=== PATIENT | female | born 1980 | race African-American/Black ===

== ENCOUNTER 2018-05-24 06:44 | Emergency (ER) | payer SELFPAY ==
[2018-05-24] MEDS ORDERED: MORPHINE 4 MG/ML SYR ONE ×2 (07:27→09:46)
[2018-05-24] MEDS ORDERED: NA CHLORIDE 0.9% 1,000 ML ONE (07:27)
[2018-05-24] MEDS ORDERED: ONDANSETRON 4 MG/2 ML VIAL ONE ×2 (07:27→09:46)
[2018-05-24 07:42] LABS: Absolute Lymphocytes (CBC) 2.5 K/uL (0.7-4.9); Absolute Monocytes 0.7 K/uL (0.1-1.3); Absolute Neutrophil 11.1 K/uL (1.8-8.0); Basophils % 0.2 % (0-1.3); Eosinophils % 3.7 % (0-4.4); Hematocrit 44.7 % (36.0-45.0); Lymphocytes % 16.7 % (15.3-44.8); MCH 32.6 pg (27.0-35.0); MCV 97.6 fL (80-100); MPV 8.5 fL (7.6-11.3); Monocytes % 4.9 % (3.3-12.3); RBC Red Blood Cell Count 4.58 M/uL (3.86-4.86)
[2018-05-24 08:05] LABS: ALT/SGPT 25 U/L (12-78); AST/SGOT 13 U/L (15-37); Albumin 3.9 g/dL (3.4-5.0); Alkaline Phosphatase 102 U/L (45-117); BUN Blood Urea Nitrogen 14 mg/dL (7-18); Bicarbonate 24 mmol/L (21-32); Bilirubin Direct 0.1 mg/dL (0-0.2); Bilirubin Total 0.3 mg/dL (0.2-1.0); Glucose Level 112 mg/dL (74-106); Lipase 121 U/L (73-393); Potassium 3.8 mmol/L (3.5-5.1); Protein, Total 8.3 g/dL (6.4-8.2); Sodium Level 139 mmol/L (136-145)
--- NOTE | 2018-05-24 09:00 | RAD REPORT ---
EXAM DESCRIPTION: CTAbdomen Pelvis W Contrast - 05/24/2018 8:50 am CLINICAL HISTORY: Abdominal pain. iv contrast only;Abd pain COMPARISON: CT ABD PELVIS W CONTRAST dated 11/29/2011; CT ABD PELVIS W CONTRAST dated 07/07/2009; CT HEAD SPINE CAP W CONTRAST dated 09/14/[address]: [address] imaging of the abdomen and pelvis was performed with 100 ml non-ionic IV cont rast. All CT scans are performed using dose optimization technique as appropriate and may include automated exposure control or mA/KV adjustment according to patient size. FINDINGS: The lung bases are clear. The liver, spleen, pancreas, adrenal glands and kidneys are within normal limits. Benign 18 mm cyst i s present right kidney anteriorly. No bowel obstruction, free air, free fluid or abscess. Scattered colonic diverticulosis is present wi thout diverticulitis. The appendix is normal. No evidence of significant lymphadenopathy. Moderate L5-S1 spondylosis. Hysterectomy. IMPRESSION: No acute intra-abdominal or pelvic finding. Scattered colonic diverticulosis.
--- NOTE | 2018-05-24 09:39 | EDPHYS ---
Physician Documentation [facility] Name: Evelyn Rosa Age: 37 yrs Sex: Female : 1980 Arrival Date: 05/24/2018 Time: 06:47 Bed 6 Private MD: ED Physician Dhaval Perkins HPI: 05/24 07:26 This 37 yrs old Black Female presents to ER via Ambulatory with complaints of Abdominal kb Pain, Nausea. 07:26 The patient presents with abdominal pain in the upper abdomen. Onset: The kb symptoms/episode began/occurred yesterday. The symptoms do not radiate. Associated signs and symptoms: Pertinent positives: nausea, vomiting, and diarrhea, Pertinent negatives: anorexia, blood in stools, chest pain, constipation, dysuria, fever, headache, hematuria, palpitations, shortness of breath, vaginal discharge, vomiting blood. The symptoms are described as constant. Modifying factors: The symptoms are alleviated by nothing, the symptoms are aggravated by nothing. Severity of pain: At its worst the pain was moderate in the emergency department the pain is unchanged. The patient has experienced similar episodes in the past, a few times. The patient has not recently seen a physician. Pt reports abd pain, nausea, vomiting and diarrhea since yesterday morning. . 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 - Social history:: Smoking status: Patient uses tobacco products, denies chronic smoking, but will smoke occasionally, Patient uses street drugs, marijuana. - Ebola Screening: : Patient denies exposure to infectious person Patient denies travel to an Ebola-affected area in the 21 days before illness onset. ROS: 07:26 Constitutional: Negative for fever, chills, and weight loss, Cardiovascular: Negative kb for chest pain, palpitations, and edema, Respiratory: Negative for shortness of breath, cough, wheezing, and pleuritic chest pain, Back: Negative for injury and pain, : Negative for injury, bleeding, discharge, and swelling, MS/Extremity: Negative for injury and deformity, Skin: Negative for injury, rash, and discoloration, Neuro: Negative for headache, weakness, numbness, tingling, and seizure. 07:26 Abdomen/GI: Positive for abdominal pain, nausea, vomiting, and diarrhea. Exam: 07:28 Head/Face: Normocephalic, atraumatic. Chest/axilla: Normal chest wall appearance and kb motion. Nontender with no deformity. No lesions are appreciated. Cardiovascular: Regular rate and rhythm with a normal S1 and S2. No gallops, murmurs, or rubs. Normal PMI, no JVD. No pulse deficits. Respiratory: Lungs have equal breath sounds bilaterally, clear to auscultation and percussion. No rales, rhonchi or wheezes noted. No increased work of breathing, no retractions or nasal flaring. Back: No spinal tenderness. No costovertebral tenderness. Full range of motion. Skin: Warm, dry with normal turgor. Normal color with no rashes, no lesions, and no evidence of cellulitis. MS/ Extremity: Pulses equal, no cyanosis. Neurovascular intact. Full, normal range of motion. Neuro: Awake and alert, GCS 15, oriented to person, place, time, and situation. Cranial nerves II-XII grossly intact. Motor strength 5/5 in all extremities. Sensory grossly intact. Cerebellar exam normal. Normal gait. 07:28 Constitutional: The patient appears alert, awake, uncomfortable. 07:28 Abdomen/GI: Inspection: abdomen appears normal, Bowel sounds: normal, in all quadrants, Palpation: soft, in all quadrants, moderate abdominal tenderness, in all quadrants. Vital Signs: 07:03 BP 116 / 79; Pulse 108; Resp 20; Temp 98.5(O); Pulse Ox 100% on R/A; Weight 77.11 kg; ss Height 5 ft. 5 in. (165.10 cm); Pain 10/10; 09:30 BP 123 / 97; Pulse 96; Resp 16; Pulse Ox 100% on R/A; Pain 7/10; ss 07:03 Body Mass Index 28.29 (77.11 kg, 165.10 cm) MDM: 06:55 Patient medically screened. kb 07:27 Data reviewed: vital signs, nurses notes. Data interpreted: Pulse oximetry: on room air kb is 100 %. Interpretation: normal. 09:37 Counseling: I had a detailed discussion with the patient and/or guardian regarding: the kb historical points, exam findings, and any diagnostic results supporting the discharge/admit diagnosis, lab results, radiology results, the need for outpatient follow up, a family practitioner, a hospitality job titles, to return to the emergency department if symptoms worsen or persist or if there are any questions or concerns that arise at home. 05/24 07:00 Order name: Basic Metabolic Panel; Complete Time: 08:13 kb 05/24 07:00 Order name: CBC with Diff; Complete Time: 07:53 kb 05/24 07:00 Order name: Hepatic Function; Complete Time: 08:13 kb 05/24 07:00 Order name: Lipase; Complete Time: 08:13 kb 05/24 07:00 Order name: CT Abd/Pelvis - W/Contrast; Complete Time: 09:37 kb 05/24 09:31 Order name: Urine Dipstick--Ancillary (enter results) bd 05/24 07:00 Order name: IV Saline Lock; Complete Time: 07:16 kb 05/24 07:00 Order name: Labs collected and sent; Complete Time: 07:16 kb 05/24 07:00 Order name: Urine Dipstick-Ancillary (obtain specimen); Complete Time: 08:42 kb Administered Medications: 07:24 Drug: Zofran 4 mg Route: IVP; Site: left antecubital; ss 09:32 Follow up: Response: No adverse reaction; Nausea is decreased ss 07:26 Drug: NS 0.9% 1000 ml Route: IV; Rate: 1000 ml; Site: left antecubital; ss 09:32 Follow up: IV Status: Completed infusion; IV Intake: 1000ml ss 07:26 Drug: morphine 4 mg Route: IVP; Site: left antecubital; ss 09:32 Follow up: Response: No adverse reaction; Pain is decreased ss 09:48 Drug: ProTONIX 40 mg Route: IVP; Site: left antecubital; ss 10:15 Follow up: Response: No adverse reaction; Marked relief of symptoms ss 09:50 Drug: Bentyl 20 mg Route: PO; ss 10:15 Follow up: Response: No adverse reaction ss 09:50 Drug: Zofran 4 mg Route: IVP; Site: left antecubital; ss 10:15 Follow up: Response: No adverse reaction; Marked relief of symptoms ss 09:50 Drug: morphine 4 mg Route: IVP; Site: left antecubital; ss 10:15 Follow up: Response: No adverse reaction; Pain is decreased ss Disposition: 05/24/18 09:38 Discharged to Home. Impression: Generalized abdominal pain, Nausea and vomiting, Diarrhea, unspecified. - Condition is Stable. - Discharge Instructions: Food Choices to Help Relieve Diarrhea, Adult, Abdominal Pain, Adult, [id number]. - Prescriptions for Bentyl 20 mg Oral Tablet - take 1 tablet by ORAL route every 6 hours As needed; 20 tablet. - Medication Reconciliation Form, Thank You Letter, Antibiotic Education, Prescription Opioid Use, Work release form form. - Follow up: Emergency Department; When: As needed; Reason: Worsening of condition. Follow up: Private Physician; When: 2 - 3 days; Reason: Recheck today's complaints, Continuance of care, Re-evaluation by your physician. Addendum: 05/27/2018 06:41 Co-signature as Attending Physician, Dhaval Perkins MD. g s Signatures: Dispatcher [employer] EDMN Miladis Ramirez, HEALTHCARE SCIENCE SPECIALIST-C HEALTHCARE SCIENCE SPECIALIST-CkNita Borrego Shelby, RN RN ss Starr, Gregory, MD MD Corrections: (The following items were deleted from the chart) 05/24 10:23 09:38 05/24/2018 09:38 Discharged to Home. Impression: Generalized abdominal pain; bd Nausea and vomiting; Diarrhea, unspecified. Condition is Stable. Forms are Medication Reconciliation Form, Thank You Letter, Antibiotic Education, Prescription Opioid Use. Follow up: Emergency Department; When: As needed; Reason: Worsening of condition. Follow up: Private Physician; When: 2 - 3 days; Reason: Recheck today's complaints, Continuance of care, Re-evaluation by your physician. kb
--- NOTE | 2018-05-24 09:39 | ER ---
Nurse's Notes [facility] Name: Evelyn Rosa Age: 37 yrs Sex: Female : 1980 Arrival Date: 05/24/2018 Time: 06:47 Bed 6 Private MD: Diagnosis: Generalized abdominal pain;Nausea and vomiting;Diarrhea, unspecified Presentation: 05/24 07:01 Presenting complaint: Patient states: generalized abd pain, N/V/D that began 24 hours ss ago. Transition of care: patient was not received from another setting of care. Onset of symptoms was May 23, 2018. Risk Assessment: Do you want to hurt yourself or someone else? Patient reports no desire to harm self or others. Initial Sepsis Screen: Does the patient meet any 2 criteria? No. Patient's initial sepsis screen is negative. Does the patient have a suspected source of infection? No. Patient's initial sepsis screen is negative. Care prior to arrival: None. 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 - Social history:: Smoking status: Patient uses tobacco products, denies chronic smoking, but will smoke occasionally, Patient uses street drugs, marijuana. - Ebola Screening: : Patient denies exposure to infectious person Patient denies travel to an Ebola-affected area in the 21 days before illness onset. Screenin:02 Abuse screen: Denies threats or abuse. Denies injuries from another. Nutritional ss screening: No deficits noted. Tuberculosis screening: Never had TB. Fall Risk None identified. Assessment: 07:02 General: Appears distressed, uncomfortable, Behavior is cooperative, restless, Reports ss chills for 12-24 hours, feeling ill for 12-24 hours, Denies fever. General: tearful, is producing tears. Pain: Complains of pain in abdomen Pain currently is 10 out of 10 on a pain scale. Quality of pain is described as aching, crampy, sharp, tender, Pain began "it hurts like this all the time, but got much worse the last 24 hours" Is continuous, Alleviated by repositioning. Neuro: Level of Consciousness is awake, alert, obeys commands, Oriented to person, place, time, situation. Cardiovascular: Capillary refill < 3 seconds is brisk in bilateral fingers. Respiratory: Airway is patent Respiratory effort is even, unlabored, Respiratory pattern is regular, symmetrical, Breath sounds are clear bilaterally. Denies cough, shortness of breath. GI: Bowel sounds present X 4 quads. Abd is soft X 4 quads Abdomen is tender to palpation X 4 quads. GI: Reports lower abdominal pain, upper abdominal pain, cramping, diarrhea, intolerance of fluids, intolerance of food, nausea, vomiting, pt reports GI symptoms are "all the time", but got much worse the past 24 hours. Pt reports that she has not had a BM "in a while", but reports yesterday she began having diarrhea. : Denies burning with urination, urinary frequency. EENT: Oral mucosa is moist. Derm: Skin is intact, is healthy with good turgor, Skin is pink, warm \\T\\ dry. normal. Musculoskeletal: Circulation, motion, and sensation intact. Range of motion: intact in all extremities, Swelling absent. 09:51 Reassessment: Patient appears in no apparent distress at this time. Patient and/or ss family updated on plan of care and expected duration. Pain level reassessed. pt reports that she would like to wait in her room until her friend picks her up in approx 15 minutes. Pt is grateful for care received. Patient states feeling better. Patient states symptoms have improved. Vital Signs: 07:03 BP 116 / 79; Pulse 108; Resp 20; Temp 98.5(O); Pulse Ox 100% on R/A; Weight 77.11 kg; ss Height 5 ft. 5 in. (165.10 cm); Pain 10/10; 09:30 BP 123 / 97; Pulse 96; Resp 16; Pulse Ox 100% on R/A; Pain 7/10; ss 07:03 Body Mass Index 28.29 (77.11 kg, 165.10 cm) ED Course: 06:47 Patient arrived in ED. ds1 06:54 Miladis Ramirez FNP-C is PHCP. kb 06:54 Dhaval Perkins MD is Attending Physician. kb 07:02 Triage completed. ss 07:02 Patient has correct armband on for positive identification. Placed in gown. Bed in low ss position. Call light in reach. Side rails up X 1. Pulse ox on. NIBP on. 07:02 Patient maintains SpO2 saturation greater than 95% on room air. ss 07:03 Arm band placed on right wrist. ss 07:15 Inserted saline lock: 22 gauge in left antecubital area, using aseptic technique. Blood ss collected. 07:25 Candelaria Hebert, JOHN is Primary Nurse. ss 08:42 Urine collected: clean catch specimen, clear. dh3 08:50 CT Abd/Pelvis - W/Contrast In Process Unspecified. EDMS Administered Medications: 07:24 Drug: Zofran 4 mg Route: IVP; Site: left antecubital; ss 09:32 Follow up: Response: No adverse reaction; Nausea is decreased ss 07:26 Drug: NS 0.9% 1000 ml Route: IV; Rate: 1000 ml; Site: left antecubital; ss 09:32 Follow up: IV Status: Completed infusion; IV Intake: 1000ml ss 07:26 Drug: morphine 4 mg Route: IVP; Site: left antecubital; ss 09:32 Follow up: Response: No adverse reaction; Pain is decreased ss 09:48 Drug: ProTONIX 40 mg Route: IVP; Site: left antecubital; ss 10:15 Follow up: Response: No adverse reaction; Marked relief of symptoms ss 09:50 Drug: Bentyl 20 mg Route: PO; ss 10:15 Follow up: Response: No adverse reaction ss 09:50 Drug: Zofran 4 mg Route: IVP; Site: left antecubital; ss 10:15 Follow up: Response: No adverse reaction; Marked relief of symptoms ss 09:50 Drug: morphine 4 mg Route: IVP; Site: left antecubital; ss 10:15 Follow up: Response: No adverse reaction; Pain is decreased ss Intake: 09:32 IV: 1000ml; Total: 1000ml. ss Outcome: 09:38 Discharge ordered by . kb 10:23 Patient left the ED. bd Signatures: Dispatcher [employer] EDMS Miladis Ramirez, LEONELA OLIVA-Ckb Nita Bahena Demi ds1 Candelaria Hebert, RN RN ss Clau Mcguire 3
[2018-05-24] MEDS ORDERED: DICYCLOMINE HCL 10 MG CAP ONE (09:44)
[2018-05-24] MEDS ORDERED: PANTOPRAZOLE 40 MG INJ ONE (09:46)
[2018-05-24 10:41] LABS: Urine Blood TRACE (NEG); Urine Glucose NEGATIVE (NEG); Urine Protein NEGATIVE (NEG); Urine Specific Gravity >1.030 (1.005-1.030); Urine pH 5.5 (5.0-7.0)
[2018-05-24 10:56] VITALS: TEMP 98.5; O2SAT 100
[2018-05-24 10:57] VITALS: BP 123/97
== END 2018-05-24 10:23 | disposition home or self-care (01) ==
LOC: ER 06:44
DX: R11.2 Nausea with vomiting, unspecified (principal); R19.7 Diarrhea, unspecified; Z72.0 Tobacco use; Z88.0 Allergy status to penicillin; Z88.5 Allergy status to narcotic agent
CPT/HCPCS: 36415; 74177; 80048; 80076; 81003; 83690; 85025; 96361; 96374; 96375; 99284; C9113; J2405; J7030; Q9967

== ENCOUNTER 2018-09-05 08:30 | Emergency (ER) | payer SELFPAY ==
[2018-09-05] MEDS ORDERED: ONDANSETRON 4 MG/2 ML VIAL ONE ×2 (08:50→12:23)
[2018-09-05] MEDS ORDERED: LIDOCAINE VISCOUS 2% SOLN 15 ML UDC ONE (08:50)
[2018-09-05] MEDS ORDERED: MAGNE/ALUM HYDROXD 30 ML UCUP ONE (08:50)
[2018-09-05] MEDS ORDERED: NA CHLORIDE 0.9% 1,000 ML ONE ×2 (08:50→12:23)
[2018-09-05 08:58] LABS: Absolute Lymphocytes (CBC) 1.6 K/uL (0.7-4.9); Absolute Monocytes 0.7 K/uL (0.1-1.3); Absolute Neutrophil 13.3 K/uL (1.8-8.0); Basophils % 0.6 % (0-1.3); Eosinophils % 0.1 % (0-4.4); Hematocrit 40.6 % (36.0-45.0); Lymphocytes % 10.1 % (15.3-44.8); Monocytes % 4.4 % (3.3-12.3); RBC Red Blood Cell Count 4.31 M/uL (3.86-4.86)
[2018-09-05 09:08] LABS: Bilirubin Direct 0.1 mg/dL (0-0.2); Bilirubin Total 0.5 mg/dL (0.2-1.0); Protein, Total 8.2 g/dL (6.4-8.2)
[2018-09-05] MEDS ORDERED: MEPERIDINE HCL 25 MG/0.5 ML ONE (09:55)
[2018-09-05 10:57] LABS: Urine Blood TRACE (NEG); Urine Glucose NEGATIVE (NEG); Urine Protein NEGATIVE (NEG); Urine Specific Gravity 1.015 (1.005-1.030)
--- NOTE | 2018-09-05 12:06 | RAD REPORT ---
EXAM DESCRIPTION: CT - Abdomen Pelvis W Contrast - 09/05/2018 11:39 am CLINICAL HISTORY: Abdominal pain, right lower quadrant pain, prior hysterectomy, history of pancreat itis and gastritis COMPARISON: CT imaging May 2018 TECHNIQUE: Biphasic, helical CT imaging of the abdomen and pelvis was performed following 100 ml non -ionic IV contrast. Oral contrast administered. All CT scans are performed using dose optimization technique as appropriate and may include automated exposure control or mA/KV adjustment according to patient size. FINDINGS: No suspicious findings in the lung bases. The liver, spleen, and pancreas show no suspicious findings. Gallbladder and biliary tree are also wi thout suspicious finding. Symmetric renal function is seen with no hydronephrosis or suspicious renal mass. No pyelonephritis o r acute parenchymal process. Small renal cysts are present on the right. Urinary bladder is fully con tracted limiting assessment. No adrenal abnormality seen. Uterus is absent. Left ovary is unremarkabl e. Right ovary contains a 3.2 centimeter cyst. No cyst rupture or hemorrhage findings. No suspicious characteristics of the cyst. No gastric dilatation or wall thickening. No dilated small bowel loops. Appendix is normal. Oral cont rast has reached the distal rectum. Ball of the right side colon accentuated due to incomplete diste nsion. Active colon process is not suspected. No free air, free fluid or inflammatory stranding. No hernia, mass or bulky lymphadenopathy. No acute bone finding. Patient has significant, advanced for age degenerative change at the L5-S1 dis c space. There is bilateral bony foraminal encroachment from spurring. IMPRESSION: No appendicitis or acute GI process identifiable. No acute process identified. Urinary bladder is fully contracted which limits assessment. Uterus is absent. Right ovary contains a 3.2 centimeter cyst. No cyst rupture or hemorrhage findings.
[2018-09-05] MEDS ORDERED: HYDROCODONE/APAP 10/325 TAB ONE (12:22)
--- NOTE | 2018-09-05 13:12 | ER ---
Nurse's Notes [facility] Name: Evelyn Rosa Age: 38 yrs Sex: Female : 1980 Arrival Date: 09/05/2018 Time: 08:31 Bed 8 Private MD: Diagnosis: Viral gastroenteritis;Unspecified ovarian cysts;Dehydration Presentation: 09/05 08:26 Presenting complaint: EMS states: n/v/acid reflux/RLE cramps x 48 hrs. Transition of sv care: patient was not received from another setting of care. Onset of symptoms was September 03, 2018. Risk Assessment: Do you want to hurt yourself or someone else? Patient reports no desire to harm self or others. Initial Sepsis Screen: Does the patient meet any 2 criteria? No. Patient's initial sepsis screen is negative. Does the patient have a suspected source of infection? No. Patient's initial sepsis screen is negative. Care prior to arrival: None. 08:26 Method Of Arrival: EMS: [facility] sv 08:26 Acuity: INDIGO 3 sv Triage Assessment: 08:26 General: Appears in no apparent distress. uncomfortable, well developed, Behavior is sv cooperative, appropriate for age, restless. Pain: Complains of pain in "all over" Pain currently is 10 out of 10 on a pain scale. Quality of pain is described as crampy, Pain began 1 day ago. Is continuous. Neuro: Level of Consciousness is awake, alert, obeys commands, Oriented to person, place, time, situation, Moves all extremities. Full function Gait is steady, Speech is normal. Respiratory: Respiratory effort is even, unlabored, Respiratory pattern is regular, symmetrical. GI: Abdomen is flat, Abd is soft X 4 quads Abdomen is tender to palpation X 4 quads. Reports diarrhea, nausea, vomiting. Derm: Skin is pink, warm \\T\\ dry. Historical: - Allergies: 08:33 PENICILLINS; ss 08:33 Toradol; ss - PMHx: 08:33 Anxiety; Chronic Pancreatitis; Crohn's; Degenerative disc disease; gastritits; ibs; ss Pancreatitis; - PSHx: 08:33 c section; Hysterectomy; ss - Immunization history:: Adult Immunizations up to date, Flu vaccine is not up to date. - Social history:: Smoking status: Patient uses tobacco products, denies chronic smoking, but will smoke occasionally, Patient uses alcohol, but reports only rare drinking. street drugs, marijuana. - Ebola Screening: : No symptoms or risks identified at this time. - Family history:: not pertinent. - Hospitalizations: : No recent hospitalization is reported. Screenin:24 Abuse screen: Denies threats or abuse. Denies injuries from another. Nutritional sv screening: No deficits noted. Tuberculosis screening: No symptoms or risk factors identified. Fall Risk None identified. Assessment: 09:22 Reassessment: Patient appears in no apparent distress at this time. No changes from sv previously documented assessment. Patient and/or family updated on plan of care and expected duration. Pain level reassessed. Patient is alert, oriented x 3, equal unlabored respirations, skin warm/dry/pink. 09:45 Reassessment: Pt finished CT oral contrast, CT notified. Pt appears uncomfortable. Pt aa5 states "the nausea is a little better but the pain is not better" . 09:45 Neuro: Level of Consciousness is awake, alert, obeys commands, Oriented to person, aa5 place, time, situation. Respiratory: Airway is patent Respiratory effort is even, unlabored, Respiratory pattern is regular, symmetrical. Derm: Skin is dry, Skin is normal, Skin temperature is warm. 12:22 Reassessment: Patient appears in no apparent distress at this time. Patient and/or sv family updated on plan of care and expected duration. Pain level reassessed. Patient is alert, oriented x 3, equal unlabored respirations, skin warm/dry/pink. GI: Reports nausea. 12:54 Reassessment: Patient appears in no apparent distress at this time. Patient and/or sv family updated on plan of care and expected duration. Pain level reassessed. Patient is alert, oriented x 3, equal unlabored respirations, skin warm/dry/pink. Patient states feeling better. Patient states symptoms have improved. Vital Signs: 08:30 BP 96 / 79; Pulse 91; Resp 22; Pulse Ox 99% ; Weight 79.38 kg; Height 5 ft. 5 in. sv (165.10 cm); Pain 10/10; 08:35 Temp 98.5(O); ss 09:21 BP 101 / 68; Pulse 70; Resp 20; Pulse Ox 100% ; sv 10:19 BP 115 / 71; Pulse 74; Resp 18; Pulse Ox 98% ; sv 11:15 BP 97 / 56; Pulse 70; Resp 18; Pulse Ox 99% ; sv 12:22 BP 99 / 65; Pulse 62; Resp 18; Pulse Ox 100% ; sv 12:54 BP 107 / 88; Pulse 60; Resp 18; Pulse Ox 100% ; sv 08:30 Body Mass Index 29.12 (79.38 kg, 165.10 cm) sv ED Course: 08:30 Patient has correct armband on for positive identification. Placed in gown. Bed in low sv position. Call light in reach. Side rails up X2. Pulse ox on. NIBP on. Door closed. Head of bed elevated. 08:31 Patient arrived in ED. ss 08:33 Ken Lim MD is Attending Physician. rn 08:33 Arm band placed on left wrist. ss 08:34 Linn Kitchen, JOHN is Primary Nurse. sv 08:35 Triage completed. sv 08:35 Initial lab(s) drawn, by ED staff, sent to lab. Inserted saline lock: 22 gauge in left sv antecubital area, using aseptic technique. ,using aseptic technique. done by Candelaria LOPEZ Blood collected. Flushed left antecubital with 5 ml normal saline. 08:56 Radiology exam delayed due to lab results not completed at this time. (BUN/Creatinine). vm2 11:[address] via wheelchair. vr 11:39 CT Abd/Pelvis - W/Contrast In Process Unspecified. EDMS 11:[address]. sv 13:29 No provider procedures requiring assistance completed. IV discontinued, intact, ss bleeding controlled, No redness/swelling at site. Pressure dressing applied. Administered Medications: 08:46 Drug: Zofran 4 mg Route: IVP; Site: left antecubital; sv 09:21 Follow up: Response: No adverse reaction sv 08:46 Drug: NS 0.9% 1000 ml Route: IV; Rate: 1000 ml; Site: left antecubital; sv 12:20 Follow up: Response: No adverse reaction; IV Status: Completed infusion; IV Intake: sv 1000ml 09:00 Drug: GI Cocktail without - (Maalox Suspension 30 ml, Lidocaine Liquid 2 % 15 sv ml) Route: PO; 09:22 Follow up: Response: No adverse reaction; No change in condition sv 09:46 Drug: Demerol 25 mg Route: IVP; Site: left antecubital; aa5 11:00 Follow up: Response: No adverse reaction; Pain is decreased ss 12:20 Drug: Zofran 4 mg Route: IVP; Site: left antecubital; sv 12:53 Follow up: Response: No adverse reaction; Marked relief of symptoms; Nausea is decreasedsv 12:20 Drug: NS 0.9% 1000 ml Route: IV; Rate: 1000 ml; Site: left antecubital; sv 13:20 Follow up: Response: No adverse reaction; IV Status: Completed infusion; IV Intake: sv 1000ml 12:53 Drug: [place] 10 mg-325 mg 1 tabs Route: PO; sv 13:20 Follow up: Response: No adverse reaction; Pain is decreased sv Intake: 09:45 PO: 500ml (Contrast); Total: 500ml. sv 12:20 IV: 1000ml; Total: 1500ml. sv 13:20 IV: 1000ml; Total: 2500ml. sv Outcome: 13:11 Discharge ordered by . rn 13:29 Discharged to home ambulatory. ss 13:29 Condition: good 13:29 Discharge instructions given to patient, family, Instructed on discharge instructions, follow up and referral plans. medication usage, Demonstrated understanding of instructions, follow-up care, medications, Prescriptions given X 1. 13:29 Patient left the ED. ss Signatures: Dispatcher [employer] Linn Genao RN RN sv Nieto, Roman, MD MD rn Calderon, Audri, RN RN aa5 Smirch, Shelby, RN RN ss Davis, Victoria vr McGuire, Victoria [facility]
--- NOTE | 2018-09-05 13:13 | EDPHYS ---
Physician Documentation [facility] Name: Evelyn Rosa Age: 38 yrs Sex: Female : 1980 Arrival Date: 09/05/2018 Time: 08:31 Bed 8 Private MD: ED Physician Ken Lim HPI: 09/05 08:34 This 38 yrs old Black Female presents to ER via Unassigned with complaints of Abdominal rn Pain. 08:34 The patient presents with abdominal pain that is diffuse. Onset: The symptoms/episode rn began/occurred 2 day(s) ago. The symptoms do not radiate. Associated signs and symptoms: Pertinent positives: nausea and vomiting, diarrhea, Pertinent negatives: dysuria, fever, shortness of breath, vaginal discharge, vomiting blood. Modifying factors: The symptoms are alleviated by nothing, the symptoms are aggravated by touching the area. Severity of pain: At its worst the pain was moderate in the emergency department the pain is unchanged. The patient has experienced similar episodes in the past. The patient has not recently seen a physician. Historical: - Allergies: 08:33 PENICILLINS; ss 08:33 Toradol; ss - PMHx: 08:33 Anxiety; Chronic Pancreatitis; Crohn's; Degenerative disc disease; gastritits; ibs; ss Pancreatitis; - PSHx: 08:33 c section; Hysterectomy; ss - Immunization history:: Adult Immunizations up to date, Flu vaccine is not up to date. - Social history:: Smoking status: Patient uses tobacco products, denies chronic smoking, but will smoke occasionally, Patient uses alcohol, but reports only rare drinking. street drugs, marijuana. - Ebola Screening: : No symptoms or risks identified at this time. - Family history:: not pertinent. - Hospitalizations: : No recent hospitalization is reported. ROS: 08:34 Constitutional: Negative for fever, chills, and weight loss, Eyes: Negative for injury, rn pain, redness, and discharge, Neck: Negative for injury, pain, and swelling, Cardiovascular: Negative for chest pain, palpitations, and edema, Respiratory: Negative for shortness of breath, cough, wheezing, and pleuritic chest pain, Abdomen/GI: + abd pain/nausea/vomiting/diarrhea MS/Extremity: Negative for injury and deformity, Skin: Negative for injury, rash, and discoloration, Neuro: + generalized weakness Exam: 08:34 Constitutional: This is a well developed, well nourished patient who is awake, alert, rn and in no acute distress. Head/Face: Normocephalic, atraumatic. Eyes: Pupils equal round and reactive to light, extra-ocular motions intact. Lids and lashes normal. Conjunctiva and sclera are non-icteric and not injected. Cornea within normal limits. Periorbital areas with no swelling, redness, or edema. ENT: dry MM Abdomen/GI: soft, mild tenderness all 4 quadrants, no rebound Back: No spinal tenderness. No costovertebral tenderness. Full range of motion. Skin: Warm, dry MS/ Extremity: Pulses equal, no cyanosis. Neurovascular intact. Full, normal range of motion. Equal circumference. Neuro: Awake and alert, GCS 15, oriented to person, place, time, and situation. Cranial nerves II-XII grossly intact. Motor strength 5/5 in all extremities. Sensory grossly intact. Cerebellar exam normal. Vital Signs: 08:30 BP 96 / 79; Pulse 91; Resp 22; Pulse Ox 99% ; Weight 79.38 kg; Height 5 ft. 5 in. sv (165.10 cm); Pain 10/10; 08:35 Temp 98.5(O); ss 09:21 BP 101 / 68; Pulse 70; Resp 20; Pulse Ox 100% ; sv 10:19 BP 115 / 71; Pulse 74; Resp 18; Pulse Ox 98% ; sv 11:15 BP 97 / 56; Pulse 70; Resp 18; Pulse Ox 99% ; sv 12:22 BP 99 / 65; Pulse 62; Resp 18; Pulse Ox 100% ; sv 12:54 BP 107 / 88; Pulse 60; Resp 18; Pulse Ox 100% ; sv 08:30 Body Mass Index 29.12 (79.38 kg, 165.10 cm) sv MDM: 08:33 Patient medically screened. rn 13:07 Differential diagnosis: appendicitis, cholecystitis, Cholelithiasis, diverticulitis, rn gastritis, gastroesophageal reflux disease, non-specific abd pain, enteritis, dehydration, pancreatitis. Data reviewed: vital signs, nurses notes, lab test result(s), radiologic studies, CT scan, and as a result, I will discharge patient. Counseling: I had a detailed discussion with the patient and/or guardian regarding: the historical points, exam findings, and any diagnostic results supporting the discharge/admit diagnosis, lab results, radiology results, the need for outpatient follow up, to return to the emergency department if symptoms worsen or persist or if there are any questions or concerns that arise at home. Response to treatment: the patient's symptoms have markedly improved after treatment, and as a result, I will discharge patient. Special discussion: Based on the patient's Hx, exam, and Dx evaluation, there is no indication for emergent surgery or inpatient Tx. It is understood by the patient/guardian that if the Sx's persist or worsen they need to return immediately for re-evaluation. I discussed with the patient/guardian in detail that at this point there is no indication for admission to the hospital. It is understood, however, that if the symptoms persist or worsen the patient needs to return immediately for re-evaluation. 09/05 08:33 Order name: Basic Metabolic Panel; Complete Time: 09:15 09/05 08:33 Order name: CBC with Diff; Complete Time: 09:15 09/05 08:33 Order name: Hepatic Function; Complete Time: 09:15 09/05 08:33 Order name: Lipase; Complete Time: 09:15 09/05 08:34 Order name: Flu; Complete Time: 09:15 09/05 09:42 Order name: Urine Dipstick--Ancillary (enter results); Complete Time: 11:00 09/05 08:33 Order name: CT Abd/Pelvis - W/Contrast; Complete Time: 12:08 09/05 09:42 Order name: Urine --Ancillary (enter results); Complete Time: 11:00 09/05 08:33 Order name: IV Saline Lock; Complete Time: 08:47 rn 09/05 08:33 Order name: Labs collected and sent; Complete Time: 08:47 rn Administered Medications: 08:46 Drug: Zofran 4 mg Route: IVP; Site: left antecubital; sv 09:21 Follow up: Response: No adverse reaction sv 08:46 Drug: NS 0.9% 1000 ml Route: IV; Rate: 1000 ml; Site: left antecubital; sv 12:20 Follow up: Response: No adverse reaction; IV Status: Completed infusion; IV Intake: sv 1000ml 09:00 Drug: GI Cocktail without - (Maalox Suspension 30 ml, Lidocaine Liquid 2 % 15 sv ml) Route: PO; 09:22 Follow up: Response: No adverse reaction; No change in condition sv 09:46 Drug: Demerol 25 mg Route: IVP; Site: left antecubital; aa5 11:00 Follow up: Response: No adverse reaction; Pain is decreased ss 12:20 Drug: Zofran 4 mg Route: IVP; Site: left antecubital; sv 12:53 Follow up: Response: No adverse reaction; Marked relief of symptoms; Nausea is decreasedsv 12:20 Drug: NS 0.9% 1000 ml Route: IV; Rate: 1000 ml; Site: left antecubital; sv 13:20 Follow up: Response: No adverse reaction; IV Status: Completed infusion; IV Intake: sv 1000ml 12:53 Drug: [place] 10 mg-325 mg 1 tabs Route: PO; sv 13:20 Follow up: Response: No adverse reaction; Pain is decreased sv Disposition: 09/05/18 13:11 Discharged to Home. Impression: Viral gastroenteritis, Unspecified ovarian cysts, Dehydration. - Condition is Stable. - Discharge Instructions: Dehydration, Adult, Ovarian Cyst, Viral Gastroenteritis, Adult. - Prescriptions for Zofran ODT 4 mg Oral tablet,disintegrating - place 1 tablet by TRANSLINGUAL route every 8 hours As needed; 20 tablet. - Medication Reconciliation Form, Thank You Letter, Antibiotic Education, Prescription Opioid Use form. - Follow up: Private Physician; When: As needed; Reason: Recheck today's complaints, Re-evaluation by your physician. - Problem is new. - Symptoms have improved. Signatures: Dispatcher [employer] Linn Genao RN Ken Bassett MD MD rn Calderon, Audri, RN RN aa5 Candelaria Hebert RN RN ss Corrections: (The following items were deleted from the chart) 13:29 13:11 09/05/2018 13:11 Discharged to Home. Impression: Viral gastroenteritis; ss Unspecified ovarian cysts; Dehydration. Condition is Stable. Forms are Medication Reconciliation Form, Thank You Letter, Antibiotic Education, Prescription Opioid Use. Follow up: Private Physician; When: As needed; Reason: Recheck today's complaints, Re-evaluation by your physician. Problem is new. Symptoms have improved. rn
[2018-09-05 13:37] VITALS: TEMP 98.5
[2018-09-05 13:42] VITALS: O2SAT 100
[2018-09-05 13:43] VITALS: BP 107/88
== END 2018-09-05 13:29 | disposition home or self-care (01) ==
LOC: ER 08:30
DX: A08.4 Viral intestinal infection, unspecified (principal); E86.0 Dehydration; N83.209 Unspecified ovarian cyst, unspecified side; Z72.0 Tobacco use; Z88.0 Allergy status to penicillin; Z88.5 Allergy status to narcotic agent
CPT/HCPCS: 36415; 74177; 80048; 80076; 81003; 81025; 83690; 85025; 87804; 96361; 96374; 96375; 99285; J2175; J2405; J7030; Q9967

== ENCOUNTER 2018-09-08 03:57 | Emergency (ER) | payer SELFPAY ==
[2018-09-08] MEDS ORDERED: NA CHLORIDE 0.9% 1,000 ML ONE (05:29)
[2018-09-08] MEDS ORDERED: DIPHENHYDRAMINE 50 MG/ML VIAL ONE (05:29)
[2018-09-08] MEDS ORDERED: FAMOTIDINE 20 MG/2 ML VIAL IV ONE (05:30)
[2018-09-08] MEDS ORDERED: DICYCLOMINE HCL 20 MG/2 ML AMP IM ONE (05:32)
[2018-09-08 05:34] LABS: Albumin 4.2 g/dL (3.4-5.0); Bilirubin Direct 0.2 mg/dL (0-0.2); Bilirubin Total 0.5 mg/dL (0.2-1.0); Potassium 3.4 mmol/L (3.5-5.1); Protein, Total 8.5 g/dL (6.4-8.2)
[2018-09-08] MEDS ORDERED: METOCLOPRAMIDE 10 MG/2mL INJ ONE (05:40)
[2018-09-08 06:51] LABS: Urine Bacteria <20 /HPF (<20); Urine Culture Reflex Order NOT NEEDED; Urine RBC <5 /HPF (NONE SEEN)
[2018-09-08 07:05] LABS: Urine Blood TRACE (NEG); Urine Glucose 2+ (NEG); Urine Protein NEGATIVE (NEG); Urine pH 8.5 (5.0-7.0)
[2018-09-08 07:20] LABS: Absolute Monocytes 0.8 K/uL (0.1-1.3); Absolute Neutrophil 14.7 K/uL (1.8-8.0); Basophils % 0.4 % (0-1.3); Eosinophils % 0.1 % (0-4.4); Hematocrit 41.3 % (36.0-45.0); Lymphocytes % 11.3 % (15.3-44.8); MPV 8.8 fL (7.6-11.3); Monocytes % 4.3 % (3.3-12.3); RBC Red Blood Cell Count 4.36 M/uL (3.86-4.86)
[2018-09-08] MEDS ORDERED: PROMETHAZINE 25 MG/ML VIAL ONE (07:56)
[2018-09-08] MEDS ORDERED: NA CHLORIDE 0.9% 100 ML IV ONE (07:56)
--- NOTE | 2018-09-08 08:02 | ER ---
Nurse's Notes [facility] Name: Evelyn Rosa Age: 38 yrs Sex: Female : 1980 Arrival Date: 09/08/2018 Time: 03:59 Bed 18 Private MD: Emory George E Diagnosis: Unspecified abdominal pain;Gastritis, unspecified Presentation: 09/08 04:05 Presenting complaint: Patient states: vomiting and abdominal pain since 3 days. The cc3 patient said she was here in the ER 3 days back with the same complaint but the pain just got worse. Transition of care: patient was not received from another setting of care. Onset of symptoms was September 05, 2018. Risk Assessment: Do you want to hurt yourself or someone else? Patient reports no desire to harm self or others. Initial Sepsis Screen: Does the patient meet any 2 criteria? No. Patient's initial sepsis screen is negative. Does the patient have a suspected source of infection? No. Patient's initial sepsis screen is negative. Care prior to arrival: None. 04:05 Method Of Arrival: Ambulatory cc3 04:05 Acuity: INDIGO 3 cc3 Triage Assessment: 04:05 General: Appears distressed, uncomfortable, Behavior is cooperative, crying. Pain: cc3 Complains of pain in abdomen Pain currently is 10 out of 10 on a pain scale. Quality of pain is described as aching, crampy. EENT: No signs and/or symptoms were reported regarding the EENT system. Neuro: Level of Consciousness is awake, alert, obeys commands, Oriented to person, place, time, situation, Appropriate for age. Cardiovascular: Patient's skin is warm and dry. Respiratory: Airway is patent Respiratory effort is even, unlabored, Respiratory pattern is regular, symmetrical. GI: Abdomen is round non-distended. : No signs and/or symptoms were reported regarding the genitourinary system. Derm: No signs and/or symptoms reported regarding the dermatologic system. Musculoskeletal: Circulation, motion, and sensation intact. Range of motion: intact in all extremities. 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 - Social history:: Smoking status: Patient uses tobacco products, smokes one pack cigarettes per day. - Ebola Screening: : No symptoms or risks identified at this time. - Family history:: not pertinent. - Hospitalizations: : No recent hospitalization is reported. Screenin:05 Abuse screen: Denies threats or abuse. Denies injuries from another. Nutritional cc3 screening: No deficits noted. Tuberculosis screening: No symptoms or risk factors identified. Fall Risk Ambulatory Aid- None/Bed Rest/Nurse Assist (0 pts). Gait- Normal/Bed Rest/Wheelchair (0 pts) Mental Status- Oriented to own ability (0 pts). Assessment: 04:05 GI: Bowel sounds present X 4 quads. Abd is soft Abdomen is tender to palpation X 4 cc3 quads. 05:20 Reassessment: Patient appears in no apparent distress at this time. Patient and/or cc3 family updated on plan of care and expected duration. Pain level reassessed. Patient is alert, oriented x 3, equal unlabored respirations, skin warm/dry/pink. 06:30 Reassessment: Patient appears in no apparent distress at this time. Patient and/or cc3 family updated on plan of care and expected duration. Pain level reassessed. Patient is alert, oriented x 3, equal unlabored respirations, skin warm/dry/pink. 07:00 General: Appears in no apparent distress. uncomfortable, Behavior is cooperative, hj appropriate for age, anxious. Pain: Complains of pain in abdomen. Neuro: Level of Consciousness is awake, alert, obeys commands, Oriented to person, place, time, situation, Appropriate for age. Cardiovascular: Capillary refill < 3 seconds Patient's skin is warm and dry. Respiratory: Airway is patent Respiratory effort is even, unlabored, Respiratory pattern is regular, symmetrical. GI: Bowel sounds present X 4 quads. Abd is soft Abdomen is tender to palpation. : No signs and/or symptoms were reported regarding the genitourinary system. EENT: No signs and/or symptoms were reported regarding the EENT system. Derm: No signs and/or symptoms reported regarding the dermatologic system. Musculoskeletal: No signs and/or symptoms reported regarding the musculoskeletal system. 08:23 Reassessment: Patient and/or family updated on plan of care and expected duration. Pain hj level reassessed. Patient is alert, oriented x 3, equal unlabored respirations, skin warm/dry/pink. pt for D/C; awaiting Phenergan IV to be finished;. Vital Signs: 04:05 BP 161 / 96; Pulse 77; Resp 20 S; Temp 99.3(O); Pulse Ox 99% on R/A; Weight 79.38 kg cc3 (R); Height 5 ft. 5 in. (165.10 cm) (R); Pain 10/10; 05:33 BP 156 / 103; Pulse 83; Resp 19 S; Pulse Ox 100% on R/A; cc3 06:30 BP 148 / 88; Pulse 69; Resp 19 S; Pulse Ox 99% on R/A; cc3 07:15 BP 142 / 87; Pulse 70; Resp 18; Pulse Ox 100% on R/A; hj 08:23 BP 141 / 80; Pulse 70; Resp 18; Pulse Ox 100% on R/A; hj 04:05 Body Mass Index 29.12 (79.38 kg, 165.10 cm) cc3 ED Course: 03:59 Patient arrived in ED. es 04:00 Monserrat Sutton is Primary Nurse. cc3 04:02 Emory George MD is Private Physician. es 04:05 Patient has correct armband on for positive identification. Placed in gown. Bed in low cc3 position. Call light in reach. Side rails up X 1. property assessment monitor on. Pulse ox on. NIBP on. 04:05 Arm band placed on right wrist. Patient notified of wait time. cc3 04:07 Emory Bustillos MD is Attending Physician. wa 04:22 Triage completed. cc3 04:50 Missed attempt(s): 22 gauge in left antecubital area. fc 04:55 Missed attempt(s): 22 gauge in right antecubital area. fc 05:23 Lab(s) recollected, by me, sent to lab. Inserted 18 gauge 10 cm midline to left upper fc arm brachial vein on first attempt. Line with good blood return and flushes well. Blood recollection done. 07:00 Report given to JOHN Mcneill. cc3 07:14 Osito Diane RN is Primary Nurse. hj 07:20 CBC with Diff Sent. hj 07:20 Basic Metabolic Panel Sent. hj 08:00 Emory Pablo MD is Referral Physician. wa 08:35 No provider procedures requiring assistance completed. IV discontinued, intact, hj bleeding controlled, No redness/swelling at site. Pressure dressing applied. Administered Medications: 05:20 Drug: NS 0.9% 1000 ml Route: IV; Rate: 1 bolus; Site: left upper arm; cc3 06:30 Follow up: Response: No adverse reaction; IV Status: Completed infusion; IV Intake: cc3 1000ml 05:25 Drug: Pepcid 20 mg Route: IVP; Site: left upper arm; cc3 05:48 Follow up: Response: No adverse reaction; Pain is decreased cc3 05:27 Drug: Bentyl 20 mg Route: IM; Site: right gluteus; cc3 05:48 Follow up: Response: No adverse reaction; Pain is decreased cc3 05:27 Not Given (unavailable): Compazine 10 mg IVP once fc 05:30 Drug: Reglan 10 mg Route: IVP; Site: left upper arm; cc3 05:47 Follow up: Response: No adverse reaction; Nausea is decreased; Vomiting decreased cc3 05:35 Drug: Benadryl 12.5 mg Route: IVP; Site: left upper arm; cc3 05:48 Follow up: Response: No adverse reaction; Marked relief of symptoms; Anxiety decreased cc3 07:54 Drug: Phenergan 12.5 mg Route: IVP; Site: left upper arm; hj 08:30 Follow up: Response: No adverse reaction; Nausea is decreased; Vomiting decreased hj 08:13 Drug: fentaNYL (PF) 50 mcg Route: IVP; Site: left upper arm; iw 08:30 Follow up: Response: No adverse reaction; Pain is decreased hj Intake: 06:30 IV: 1000ml; Total: 1000ml. cc3 Outcome: 08:01 Discharge ordered by . wa 08:35 Discharged to home ambulatory, with family. hj 08:35 Condition: stable 08:35 Discharge instructions given to patient, Instructed on discharge instructions, follow up and referral plans. medication usage, Demonstrated understanding of instructions, follow-up care, medications, Prescriptions given X 3. 08:37 Patient left the ED. Signatures: Melissa Camargo Felicia RN Carina De La Torre RN RN iw Joaquin, Henry, RN RN hj Appiah, William, MD MD wa Cordel, Charlene cc3
--- NOTE | 2018-09-08 08:02 | EDPHYS ---
Physician Documentation [facility] Name: Evelyn Rosa Age: 38 yrs Sex: Female : 1980 Arrival Date: 09/08/2018 Time: 03:59 Bed 18 Private MD: Emory George E ED Physician Emory Bustillos HPI: 09/08 07:53 This 38 yrs old Black Female presents to ER via Ambulatory with complaints of Abdominal wa Pain, Vomiting. 07:53 The patient presents to the emergency department with nausea, vomiting, abdominal pain. wa Onset: The symptoms/episode began/occurred 3 day(s) ago. Possible causes: unknown. The symptoms are aggravated by nothing. The symptoms are alleviated by nothing. Associated signs and symptoms: Pertinent positives: abdominal pain, nausea, vomiting, Pertinent negatives: diarrhea, dysuria, fever. Severity of symptoms: At their worst the symptoms were moderate this morning, in the emergency department the symptoms are unchanged. The patient has experienced similar episodes in the past, several times. The patient has not recently seen a physician. 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 - Social history:: Smoking status: Patient uses tobacco products, smokes one pack cigarettes per day. - Ebola Screening: : No symptoms or risks identified at this time. - Family history:: not pertinent. - Hospitalizations: : No recent hospitalization is reported. ROS: 07:55 Constitutional: Negative for fever, chills, and weight loss, Eyes: Negative for injury, wa pain, redness, and discharge, ENT: Negative for injury, pain, and discharge, Neck: Negative for injury, pain, and swelling, Cardiovascular: Negative for chest pain, palpitations, and edema, Respiratory: Negative for shortness of breath, cough, wheezing, and pleuritic chest pain, Back: Negative for injury and pain, : Negative for injury, bleeding, discharge, and swelling, MS/Extremity: Negative for injury and deformity, Skin: Negative for injury, rash, and discoloration, Neuro: Negative for headache, weakness, numbness, tingling, and seizure, Psych: Negative for depression, anxiety, suicide ideation, homicidal ideation, and hallucinations. 07:55 Abdomen/GI: Positive for abdominal pain, nausea, vomiting, Negative for diarrhea. 07:55 All other systems are negative. Exam: 07:56 Constitutional: This is a well developed, well nourished patient who is awake, alert, wa and in no acute distress. Head/Face: Normocephalic, atraumatic. Eyes: Pupils equal round and reactive to light, extra-ocular motions intact. Lids and lashes normal. Conjunctiva and sclera are non-icteric and not injected. Cornea within normal limits. Periorbital areas with no swelling, redness, or edema. ENT: Nares patent. No nasal discharge, no septal abnormalities noted. Tympanic membranes are normal and external auditory canals are clear. Oropharynx with no redness, swelling, or masses, exudates, or evidence of obstruction, uvula midline. Mucous membranes moist. Neck: Trachea midline, no thyromegaly or masses palpated, and no cervical lymphadenopathy. Supple, full range of motion without nuchal rigidity, or vertebral point tenderness. No Meningismus. Chest/axilla: Normal chest wall appearance and motion. Nontender with no deformity. No lesions are appreciated. Cardiovascular: Regular rate and rhythm with a normal S1 and S2. No gallops, murmurs, or rubs. Normal PMI, no JVD. No pulse deficits. Respiratory: Lungs have equal breath sounds bilaterally, clear to auscultation and percussion. No rales, rhonchi or wheezes noted. No increased work of breathing, no retractions or nasal flaring. Back: No spinal tenderness. No costovertebral tenderness. Full range of motion. Skin: Warm, dry with normal turgor. Normal color with no rashes, no lesions, and no evidence of cellulitis. MS/ Extremity: Pulses equal, no cyanosis. Neurovascular intact. Full, normal range of motion. Neuro: Awake and alert, GCS 15, oriented to person, place, time, and situation. Cranial nerves II-XII grossly intact. Motor strength 5/5 in all extremities. Sensory grossly intact. Cerebellar exam normal. Normal gait. Psych: Awake, alert, with orientation to person, place and time. Behavior, mood, and affect are within normal limits. 07:56 Abdomen/GI: Inspection: Bowel sounds: normal, Palpation: moderate abdominal tenderness, in all quadrants. Vital Signs: 04:05 BP 161 / 96; Pulse 77; Resp 20 S; Temp 99.3(O); Pulse Ox 99% on R/A; Weight 79.38 kg cc3 (R); Height 5 ft. 5 in. (165.10 cm) (R); Pain 10/10; 05:33 BP 156 / 103; Pulse 83; Resp 19 S; Pulse Ox 100% on R/A; cc3 06:30 BP 148 / 88; Pulse 69; Resp 19 S; Pulse Ox 99% on R/A; cc3 07:15 BP 142 / 87; Pulse 70; Resp 18; Pulse Ox 100% on R/A; hj 08:23 BP 141 / 80; Pulse 70; Resp 18; Pulse Ox 100% on R/A; hj 04:05 Body Mass Index 29.12 (79.38 kg, 165.10 cm) cc3 MDM: 04:07 Patient medically screened. nh 07:56 Differential diagnosis: Nonspecific abd pain, gastritis, pancreatitis. Data reviewed: nh vital signs, nurses notes. 07:59 Test interpretation: by ED physician or midlevel provider: leukocytosis. . Response to nh treatment: the patient's symptoms have markedly improved after treatment. 07:59 ED course: will have f/u with GI. . nh 09/08 04:39 Order name: Basic Metabolic Panel nh 09/08 04:39 Order name: CBC with Diff nh 09/08 04:39 Order name: Hepatic Function; Complete Time: 06:34 nh 09/08 04:39 Order name: Lipase; Complete Time: 06:34 nh 09/08 04:39 Order name: Urine Microscopic Only; Complete Time: 07:58 nh 09/08 04:40 Order name: Basic Metabolic Panel; Complete Time: 06:34 EDMS 09/08 04:40 Order name: CBC with Automated Diff; Complete Time: 07:58 EDWA 09/08 06:38 Order name: Urine Dipstick--Ancillary (enter results) [facility] 09/08 06:38 Order name: Urine --Ancillary (enter results); Complete Time: 07:58 mw2 09/08 06:57 Order name: Urine Dipstick-Ancillary; Complete Time: 07:58 EDMS 09/08 04:39 Order name: IV Saline Lock; Complete Time: 05:41 wa 09/08 04:39 Order name: Labs collected and sent; Complete Time: 05:41 wa 09/08 04:39 Order name: Urine Dipstick-Ancillary (obtain specimen); Complete Time: 06:35 nh Administered Medications: 05:20 Drug: NS 0.9% 1000 ml Route: IV; Rate: 1 bolus; Site: left upper arm; cc3 06:30 Follow up: Response: No adverse reaction; IV Status: Completed infusion; IV Intake: cc3 1000ml 05:25 Drug: Pepcid 20 mg Route: IVP; Site: left upper arm; cc3 05:48 Follow up: Response: No adverse reaction; Pain is decreased cc3 05:27 Drug: Bentyl 20 mg Route: IM; Site: right gluteus; cc3 05:48 Follow up: Response: No adverse reaction; Pain is decreased cc3 05:27 Not Given (unavailable): Compazine 10 mg IVP once fc 05:30 Drug: Reglan 10 mg Route: IVP; Site: left upper arm; cc3 05:47 Follow up: Response: No adverse reaction; Nausea is decreased; Vomiting decreased cc3 05:35 Drug: Benadryl 12.5 mg Route: IVP; Site: left upper arm; cc3 05:48 Follow up: Response: No adverse reaction; Marked relief of symptoms; Anxiety decreased cc3 07:54 Drug: Phenergan 12.5 mg Route: IVP; Site: left upper arm; hj 08:30 Follow up: Response: No adverse reaction; Nausea is decreased; Vomiting decreased hj 08:13 Drug: fentaNYL (PF) 50 mcg Route: IVP; Site: left upper arm; iw 08:30 Follow up: Response: No adverse reaction; Pain is decreased hj Disposition: 09/08/18 08:01 Discharged to Home. Impression: Unspecified abdominal pain, Gastritis, unspecified. - Condition is Stable. - Discharge Instructions: Abdominal Pain, Adult. - Prescriptions for promethazine 12.5 mg Oral tablet - take 2 tablet by ORAL route every 6 hours; 20 tablet. Pepcid 20 mg Oral Tablet - take 1 tablet by ORAL route once daily; 20 tablet. Tylenol- Codeine #4 300-60 mg Oral Tablet - take 1 tablet by ORAL route every 6 hours As needed; 20 tablet. - Work release form, Medication Reconciliation Form, Thank You Letter, Antibiotic Education, Prescription Opioid Use form. - Follow up: Emory Pablo MD; When: 2 - 3 days; Reason: Recheck today's complaints. - Problem is an acute exacerbation. - Symptoms have improved. - Notes: take medication as prescribed. see the gastro doctor for further evaluation as discussed Signatures: Dispatcher [employer] EDMS Lorraine Forbes RN RN Carina Orantes RN RN iw Joaquin, Henry, RN RN hj Appiah, William, MD MD wa Cordel, Charlene cc3 Corrections: (The following items were deleted from the chart) 08:37 08:01 09/08/2018 08:01 Discharged to Home. Impression: Unspecified abdominal pain; hj Gastritis, unspecified. Condition is Stable. Forms are Medication Reconciliation Form, Thank You Letter, Antibiotic Education, Prescription Opioid Use. Follow up: Emory Pablo; When: 2 - 3 days; Reason: Recheck today's complaints. Problem is an acute exacerbation. Symptoms have improved. [email or web address]
[2018-09-08] MEDS ORDERED: FENTANYL CITR 100 MCG/2 ML ONE (08:14)
[2018-09-08 08:52] VITALS: TEMP 99.3
[2018-09-08 08:54] VITALS: O2SAT 100
[2018-09-08 08:55] VITALS: BP 141/80
== END 2018-09-08 08:37 | disposition home or self-care (01) ==
LOC: ER 03:57
DX: K29.70 Gastritis, unspecified, without bleeding (principal); F17.210 Nicotine dependence, cigarettes, uncomplicated; F41.9 Anxiety disorder, unspecified; Z88.0 Allergy status to penicillin; Z88.5 Allergy status to narcotic agent
CPT/HCPCS: 36415; 80048; 80076; 81003; 81015; 81025; 83690; 85025; 96361; 96372; 96374; 96375; 99284; J0500; J2550; J2765; J3010; J7030

== ENCOUNTER 2020-04-20 09:31 | Emergency (ER) | payer SELFPAY, OTHER ==
[2020-04-20] MEDS ORDERED: METHYLPREDNISOLONE 125 MG INJ ONE (10:20)
[2020-04-20] MEDS ORDERED: ONDANSETRON 4 MG (ODT) TAB ONE (10:20)
[2020-04-20] MEDS ORDERED: PROMETHAZINE 25 MG TABLET ONE (11:25)
--- NOTE | 2020-04-20 11:53 | RAD REPORT ---
EXAM DESCRIPTION: RAD - Lumbar Spine 3 Views - 04/20/2020 11:44 am CLINICAL HISTORY: Back pain FINDINGS: The alignment of the lumbar spine is satisfactory. No fracture or dislocation is seen. Marked spondylosis L5-S1 consisting disc space narrowing, osteophytes and subchondral sclerosis
[2020-04-20] MEDS ORDERED: CODEINE 30MG/APAP 300MG TAB ONE (12:07)
--- NOTE | 2020-04-20 12:22 | EDPHYS ---
Physician Documentation [facility] Name: Evelyn Rosa Age: 39 yrs Sex: Female : 1980 Arrival Date: 04/20/2020 Time: 09:33 Bed 19 Private MD: ED Physician Harpal Wang HPI: 04/20 10:03 This 39 yrs old Black Female presents to ER via Ambulatory with complaints of Sore pm1 Throat, Chills, Congestion. 10:03 The patient presents with sore throat. The patient describes throat pain as raw, pm1 scratchy. Onset: The symptoms/episode began/occurred 2 day(s) ago. Severity of symptoms: in the emergency department the symptoms are actually worse. Modifying factors: the symptoms are aggravated by fluids, foods, swallowing, Patient's oral intake status: good. Associated signs and symptoms: Pertinent positives: chills, nasal congestion, post nasal drainage, runny nose, Pertinent negatives headache, Abdominal pain, chest pain, shortness of breath. Patient with onset f sore throat on Tuesday followed by chills, nasal congestion, runny nose, and cough and subjective fever. No shortness of breath, abdominal pain, or chest pain. Today the patient could not breath out of her nose and started having a panic attack that lead to some nausea and vomiting. Historical: - Allergies: 09:59 PENICILLINS; ll1 09:59 Toradol; ll1 - PMHx: 09:59 Anxiety; Chronic Pancreatitis; Crohn's; Degenerative disc disease; gastritits; ibs; ll1 Pancreatitis; - PSHx: 09:59 Hysterectomy; Tubal ligation; D \T\ C; ll1 - Immunization history:: Flu vaccine is not up to date. - Social history:: Smoking status: Patient reports the use of cigarette tobacco products, smokes one-half pack cigarettes per day. ROS: 10:05 Eyes: Negative for injury, pain, redness, and discharge. pm1 10:05 Neck: Negative for injury, pain, and swelling, Cardiovascular: Negative for chest pain, palpitations, and edema. 10:05 Back: Negative for injury and pain, MS/Extremity: Negative for injury and deformity, Skin: Negative for injury, rash, and discoloration, Neuro: Negative for headache, weakness, numbness, tingling, and seizure. 10:05 Constitutional: Positive for body aches, chills, fever, Negative for poor PO intake. 10:05 ENT: Positive for nasal discharge, sore throat, nasal congestion, Negative for drainage from ear(s), ear pain. 10:05 Respiratory: Positive for cough, Negative for shortness of breath, sputum production, wheezing. 10:05 Abdomen/GI: Positive for nausea and vomiting, Negative for abdominal pain, diarrhea, constipation. Exam: 10:05 Constitutional: This is a well developed, well nourished patient who is awake, alert, pm1 and in no acute distress. Head/Face: Normocephalic, atraumatic. Cardiovascular: Regular rate and rhythm with a normal S1 and S2. No gallops, murmurs, or rubs. Normal PMI, no JVD. No pulse deficits. Respiratory: Lungs have equal breath sounds bilaterally, clear to auscultation and percussion. No rales, rhonchi or wheezes noted. No increased work of breathing, no retractions or nasal flaring. Abdomen/GI: Soft, non-tender, with normal bowel sounds. No distension or tympany. No guarding or rebound. No evidence of tenderness throughout. 10:05 Skin: Warm, dry with normal turgor. Normal color with no rashes, no lesions, and no evidence of cellulitis. MS/ Extremity: Pulses equal, no cyanosis. Neurovascular intact. Full, normal range of motion. 10:05 Back: normal spinal alignment noted, muscle spasm, is appreciated in the left low back and right low back, No spine tenderness. 10:05 Neuro: Exam negative for acute changes, Orientation: is normal, Mentation: is normal, Motor: is normal, moves all fours. Vital Signs: 09:57 BP 131 / 92; Pulse 88; Resp 18; Temp 99.0; Pulse Ox 100% ; Pain 10/10; ll1 12:00 BP 108 / 80; Pulse 88; Resp 18; Temp 98.7(O); Pulse Ox 100% on R/A; em MDM: 09:53 Patient medically screened. pm1 10:56 ED course: Patient reports that she fell onto her buttocks while mowing the lawn on pm1 Tuesday. Reports lower back pain and would like some imaging. Will order LS x-ray. No spinal tenderness present on examination. No numbness, tingling, weakness, incontinence. 12:20 Data reviewed: vital signs. Data interpreted: Pulse oximetry: on room air is 100 %. pm1 Interpretation: normal. Counseling: I had a detailed discussion with the patient and/or guardian regarding: the historical points, exam findings, and any diagnostic results supporting the discharge/admit diagnosis, lab results, radiology results, the need for outpatient follow up, to return to the emergency department if symptoms worsen or persist or if there are any questions or concerns that arise at home. 12:32 ED course: PROMOTION PRODUCER aware reviewed. pm1 04/20 10:03 Order name: Strep; Complete Time: 10:48 pm1 04/20 10:03 Order name: Flu; Complete Time: 12:22 pm1 04/20 10:03 Order name: COVID-19 pm1 04/20 10:35 Order name: Throat Culture EDMS 04/20 10:55 Order name: Lumbar Spine (3 Views) XRAY; Complete Time: 12:00 pm1 04/20 10:03 Order name: Droplet/Contact Precautions; Complete Time: 10:03 pm1 04/20 10:03 Order name: Labs collected and sent; Complete Time: 10:03 pm1 Administered Medications: 10:16 Drug: Ondansetron (Zofran) 4 mg Route: PO; em 11:10 Follow up: Response: No adverse reaction; No change in condition; Nausea unchanged em 10:16 Drug: SOLU-Medrol 125 mg Route: IM; Site: right gluteus; em 11:18 Follow up: Response: No adverse reaction; Marked relief of symptoms; Pain is decreased em 11:17 Drug: Phenergan 25 mg Route: PO; em 11:56 Follow up: Response: No adverse reaction; Marked relief of symptoms; Nausea is decreasedem 11:58 Drug: Tylenol #3 (300 mg-30 mg) 2 tabs Route: PO; em 12:30 Follow up: Response: No adverse reaction; Marked relief of symptoms em Disposition: 18:47 Co-signature as Attending Physician, Harpal Wang MD Did not see or evaluate patient. ps1 Signature for administrative purposes. Available for consultation in ED during the patient encounter. . Disposition: 04/20/20 12:22 Discharged to Home. Impression: Acute pharyngitis, Low back pain, Fall on same level from slipping, tripping and stumbling. - Condition is Stable. - Discharge Instructions: Back Pain, Adult, Pharyngitis, Back Injury Prevention, [id number]. - Prescriptions for Tylenol- Codeine #3 300-30 mg Oral Tablet - take 2 tablets by ORAL route every 6 hours As needed; 20 tablet. Medrol (West) 4 mg Oral Tablets, Dose Pack - take 1 tablet by ORAL route as directed - follow package instructions; 1 packet. - Medication Reconciliation Form, Thank You Letter, Antibiotic Education, Prescription Opioid Use form. - Follow up: Emergency Department; When: As needed; Reason: Worsening of condition. Follow up: Private Physician; When: 2 - 3 days; Reason: Recheck today's complaints, Continuance of care, Re-evaluation by your physician. - Problem is new. - Symptoms have improved. Signatures: Dispatcher [employer] Linn Genao RN RN sv Munoz, Edgar, RN RN em Marinas, Patrick, AVIATION MANAGER AVIATION MANAGER pm1 Harpal Wang MD MD ps1 Alok Moscoso RN RN ll1 Corrections: (The following items were deleted from the chart) 12:32 12:22 04/20/2020 12:22 Discharged to Home. Impression: Acute pharyngitis; Low back sv pain; Fall on same level from slipping, tripping and stumbling. Condition is Stable. Forms are Medication Reconciliation Form, Thank You Letter, Antibiotic Education, Prescription Opioid Use. Follow up: Emergency Department; When: As needed; Reason: Worsening of condition. Follow up: Private Physician; When: 2 - 3 days; Reason: Recheck today's complaints, Continuance of care, Re-evaluation by your physician. Problem is new. Symptoms have improved. pm1
--- NOTE | 2020-04-20 12:22 | ER ---
Nurse's Notes [facility] Name: Evelyn Rosa Age: 39 yrs Sex: Female : 1980 Arrival Date: 04/20/2020 Time: 09:33 Bed 19 Private MD: Diagnosis: Acute pharyngitis;Low back pain;Fall on same level from slipping, tripping and stumbling Presentation: 04/20 09:57 Chief complaint: Patient states: Sore throat, congestion, chills, N/V started Tuesday ll1 night. Coronavirus screen: Client denies travel out of the [place] in the last 14 days. At this time, the client does not indicate any symptoms associated with coronavirus-19. Coronavirus screen:. Coronavirus screen: Client denies travel out of the [place] in the last 14 days. congestion, fatigue, muscle pain, nausea, sore throat, vomiting. Client presents with at least one sign or symptom that may indicate coronavirus-19. Standard/surgical mask placed on the client. Ebola Screen: Patient denies travel to an Ebola-affected area in the 21 days before illness onset. Initial Sepsis Screen: Does the patient meet any 2 criteria? No. Patient's initial sepsis screen is negative. Does the patient have a suspected source of infection? Yes: Other: sore throat. Risk Assessment: Do you want to hurt yourself or someone else? Patient reports no desire to harm self or others. Onset of symptoms was April 18, 2020. 09:57 Method Of Arrival: Ambulatory ll1 09:57 Acuity: INDIGO 3 ll1 Historical: - Allergies: 09:59 PENICILLINS; ll1 09:59 Toradol; ll1 - PMHx: 09:59 Anxiety; Chronic Pancreatitis; Crohn's; Degenerative disc disease; gastritits; ibs; ll1 Pancreatitis; - PSHx: 09:59 Hysterectomy; Tubal ligation; D \T\ C; ll1 - Immunization history:: Flu vaccine is not up to date. - Social history:: Smoking status: Patient reports the use of cigarette tobacco products, smokes one-half pack cigarettes per day. Screenin:02 Abuse screen: Denies threats or abuse. Nutritional screening: No deficits noted. em Tuberculosis screening: No symptoms or risk factors identified. Fall Risk None identified. Assessment: 10:10 General: Appears uncomfortable, Behavior is calm, cooperative, appropriate for age. em Pain: Complains of pain in back and throat Pain currently is 10 out of 10 on a pain scale. Pain began 2-3 days ago. Neuro: Level of Consciousness is awake, alert, obeys commands, Oriented to person, place, time, situation, Appropriate for age. Cardiovascular: Capillary refill < 3 seconds Patient's skin is warm and dry. Respiratory: Airway is patent Respiratory effort is even, unlabored, Respiratory pattern is regular, symmetrical, Breath sounds are clear bilaterally. GI: Reports nausea, vomiting. EENT: Oral mucosa is moist. Throat is clear Reports pain when swallowing. Derm: Skin is intact, is healthy with good turgor, Skin is pink, warm \T\ dry. Musculoskeletal: Capillary refill < 3 seconds, Range of motion: intact in all extremities. 11:15 Reassessment: Patient appears in no apparent distress at this time. Patient and/or em family updated on plan of care and expected duration. Pain level reassessed. Patient is alert, oriented x 3, equal unlabored respirations, skin warm/dry/pink. nausea has not improved, provider notified. 11:50 Reassessment: reports pain all over body, provider notified. em 12:32 Reassessment: Patient appears in no apparent distress at this time. Patient and/or sv family updated on plan of care and expected duration. Pain level reassessed. Patient is alert, oriented x 3, equal unlabored respirations, skin warm/dry/pink. Vital Signs: 09:57 BP 131 / 92; Pulse 88; Resp 18; Temp 99.0; Pulse Ox 100% ; Pain 10/10; ll1 12:00 BP 108 / 80; Pulse 88; Resp 18; Temp 98.7(O); Pulse Ox 100% on R/A; em ED Course: 09:33 Patient arrived in ED. ds1 09:50 Jose Ceballos NP is PHCP. pm1 09:50 Harpal Wang MD is Attending Physician. pm1 09:55 Marcos Gibbs, JOHN is Primary Nurse. em 09:58 Triage completed. ll1 09:59 Arm band placed on Patient placed in an exam room, on a stretcher. ll1 10:02 Patient has correct armband on for positive identification. Bed in low position. Call em light in reach. Adult w/ patient. 11:44 Lumbar Spine (3 Views) XRAY In Process Unspecified. EDMS 12:19 Throat Culture Sent. sv 12:27 No provider procedures requiring assistance completed. Patient did not have IV access em during this emergency room visit. Administered Medications: 10:16 Drug: Ondansetron (Zofran) 4 mg Route: PO; em 11:10 Follow up: Response: No adverse reaction; No change in condition; Nausea unchanged em 10:16 Drug: SOLU-Medrol 125 mg Route: IM; Site: right gluteus; em 11:18 Follow up: Response: No adverse reaction; Marked relief of symptoms; Pain is decreased em 11:17 Drug: Phenergan 25 mg Route: PO; em 11:56 Follow up: Response: No adverse reaction; Marked relief of symptoms; Nausea is decreasedem 11:58 Drug: Tylenol #3 (300 mg-30 mg) 2 tabs Route: PO; em 12:30 Follow up: Response: No adverse reaction; Marked relief of symptoms em Outcome: 12:22 Discharge ordered by MD. pm1 12:30 Discharged to home ambulatory, with family. em 12:30 Condition: good 12:30 Discharge instructions given to patient, Instructed on discharge instructions, follow up and referral plans. medication usage, Demonstrated understanding of instructions, follow-up care, medications, Prescriptions given X 2. 12:32 Patient left the ED. sv Addendum: 04/23/2020 16:29 Addendum: COVID-19 Result: Negative result given to RN to notify pt. Left voice mail. h b Signatures: Dispatcher [employer] Linn Genao RN RN sv Munoz, Edgar, RN RN em Sanford, Demi ds1 Jose Ceballos, FORENSIC SCIENCE EXAMINER FORENSIC SCIENCE EXAMINER pm1 Hanny Walsh RN RN hb Lewis, Lynsay, RN RN ll1
[2020-04-20 12:43] VITALS: O2SAT 100
[2020-04-20 12:45] VITALS: BP 108/80; TEMP 98.7
== END 2020-04-20 12:32 | disposition home or self-care (01) ==
LOC: ER 09:31
DX: J02.9 Acute pharyngitis, unspecified (principal); Z20.828 Contact with and (suspected) exposure to other viral communicable diseases; M54.5 Low back pain; W01.0XXA Fall on same level from slipping, tripping and stumbling without subsequent striking against object, initial encounter; Y93.89 Activity, other specified; Y92.89 Other specified places as the place of occurrence of the external cause; Z88.0 Allergy status to penicillin; Z88.5 Allergy status to narcotic agent; F17.210 Nicotine dependence, cigarettes, uncomplicated
CPT/HCPCS: 72100; 87070; 87081; 87804; 96372; 99284; J2930; Q0169; U0002

== ENCOUNTER 2021-08-21 06:43 | Emergency (ER) | payer SELFPAY ==
[2021-08-21] MEDS ORDERED: HYDROCODONE/APAP 7.5/325 MG TAB ONE (08:03)
--- NOTE | 2021-08-21 08:27 | RAD REPORT ---
EXAM DESCRIPTION: CT - Thoracic Spine W/o Cont - 08/21/2021 7:42 am CLINICAL HISTORY: Radiculopathy. PAIN COMPARISON: Spine Lumbar Wo Con dated 08/21/2021 TECHNIQUE: Axial CT imaging through the thoracic spine was performed with coronal and sagittal re-fo rmatted images. All CT scans are performed using dose optimization technique as appropriate and may include automated exposure control or mA/KV adjustment according to patient size. FINDINGS: Vertebral body heights and disc spaces are maintained. A compression fracture is not prese nt. No significant disc space narrowing. Thoracic spine alignment is within normal limits. No paraspinal masses or hematoma. Included lung jackson grossly clear. IMPRESSION: No acute abnormality detected.
--- NOTE | 2021-08-21 08:31 | RAD REPORT ---
EXAM DESCRIPTION: CT - Spine Lumbar Wo Con - 08/21/2021 7:42 am CLINICAL HISTORY: Radiculopathy. LOWER BACK PAIN COMPARISON: No comparisons TECHNIQUE: Axial noncontrast CT imaging of the lumbar spine was performed with coronal and sagittal re-formatted images. All CT scans are performed using dose optimization technique as appropriate and may include automated exposure control or mA/KV adjustment according to patient size. FINDINGS: No acute lumbar spine fracture seen. No aggressive marrow pattern or malalignment. Paraspinal tissues are normal in thickness. No paraspinal abscess or hematoma seen. Advanced spondylosis L5-S1 with vacuum disc degeneration. IMPRESSION: No acute abnormalities detected appear Significant L5-S1 degenerative spondylosis.
--- NOTE | 2021-08-21 09:03 | ER ---
Nurse's Notes [facility] Name: Evelyn Rosa Age: 41 yrs Sex: Female : 1980 Arrival Date: 08/21/2021 Time: 06:48 Bed 23 Private MD: Diagnosis: Fall (on) (from) other stairs and steps;Low back pain Presentation: 08/21 07:06 Ebola Screen: Patient denies travel to an Ebola-affected area in the 21 days before ll1 illness onset. Initial Sepsis Screen: Does the patient meet any 2 criteria? No. Patient's initial sepsis screen is negative. Does the patient have a suspected source of infection? No. Patient's initial sepsis screen is negative. Risk Assessment: Do you want to hurt yourself or someone else? Patient reports no desire to harm self or others. 07:06 Method Of Arrival: Ambulatory ll1 07:06 Acuity: INDIGO 4 ll1 07:09 Chief complaint: Patient states: Fell down steps during the freeze last week. R lower ll1 back pain since, bruising noted to area. Pain radiates into entire back. Coronavirus screen: Vaccine status: Patient reports receiving the 2nd dose of the covid vaccine. Client denies travel out of the [place] in the last 14 days. At this time, the client does not indicate any symptoms associated with coronavirus-19. Onset of symptoms was August 14, 2021. Triage Assessment: 07:07 General: Appears uncomfortable, Behavior is cooperative, appropriate for age. Pain: ll1 Complains of pain in R lower back Pain currently is 10 out of 10 on a pain scale. Neuro: No deficits noted. Cardiovascular: No deficits noted. Musculoskeletal: bruising noted R lower back Reports pain in back. Injury Description: fall down steps. 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 - pt states "I haven't had a period in 20 years" eo2 Trauma Activation: Not Applicable Physician: ED Physician; Name: ; Notified At: ; Arrived At: Physician: General Surgeon; Name: ; Notified At: ; Arrived At: Physician: Radiology; Name: ; Notified At: ; Arrived At: Physician: Respiratory; Name: ; Notified At: ; Arrived At: Physician: Lab; Name: ; Notified At: ; Arrived At: Historical: - Allergies: 07:06 PENICILLINS; ll1 07:06 Toradol; ll1 - Home Meds: 08:11 Flexeril Oral [Active]; Klonopin Oral [Active]; Promethazine Oral [Active]; Tylenol #3 eo2 Oral [Active]; - PMHx: 07:06 Anxiety; Chronic Pancreatitis; Crohn's; Degenerative disc disease; gastritits; ibs; ll1 Pancreatitis; 08:11 Chronic back pain; eo2 - PSHx: 07:10 section; partial hysterectomy; ll1 - Immunization history:: Client reports receiving the 2nd dose of the Covid vaccine, Flu vaccine status is unknown. - Social history:: Smoking status: Patient reports the use of cigarette tobacco products, smokes one-half pack cigarettes per day. Screenin:09 Abuse screen: Denies threats or abuse. Denies injuries from another. Nutritional eo2 screening: No deficits noted. Tuberculosis screening: No symptoms or risk factors identified. Fall Risk None identified. Assessment: 08:07 General: Appears uncomfortable. Pain: Complains of pain in right low back and right mid eo2 back and sacrum and lumbar area and thoracic area and back. Neuro: Level of Consciousness is awake, alert, obeys commands, Oriented to person, place, time, situation, Reports headache. Cardiovascular: Denies chest pain, shortness of breath. Respiratory: Airway is patent Respiratory effort is even, unlabored, Respiratory pattern is regular, symmetrical, Denies cough, shortness of breath labored breathing. GI: No deficits noted. No signs and/or symptoms were reported involving the gastrointestinal system. Musculoskeletal: Reports pain in right low back and right mid back and sacrum and lumbar area and thoracic area and back. 08:13 Reassessment: noted [place] order for pt, pt states she has a ride home- called her mom eo2 and RN verified pt will have a ride home if discharged. Vital Signs: 07:09 BP 151 / 99; Pulse 101; Resp 18; Temp 98.5; Pulse Ox 100% ; Weight 79.38 kg; Height 5 ll1 ft. 5 in. (165.10 cm); Pain 10/10; 08:00 BP 110 / 77; Pulse 78; Resp 17; Pulse Ox 97% ; Pain 10/10; eo2 09:39 BP 111 / 71; Pulse 72; Resp 15; Pulse Ox 100% ; Pain 6/10; eo2 07:09 Body Mass Index 29.12 (79.38 kg, 165.10 cm) ll1 ED Course: 06:48 Patient arrived in ED. ja2 07:06 Arm band placed on. ll1 07:07 Triage completed. ll1 07:12 Miladis Ramirez FNP-C is [facility]. kb 07:12 Balwinder Mathews MD is Attending Physician. kb 07:12 Patient placed in an exam room, on a stretcher. ll1 07:41 Suyapa Del Rio, JOHN is Primary Nurse. eo2 07:42 CT Lumbar Spine Wo Con In Process Unspecified. EDMS 07:42 CT Thoracic Spine Wo Cont In Process Unspecified. EDMS 08:09 Patient has correct armband on for positive identification. eo2 08:09 No provider procedures requiring assistance completed. eo2 08:11 Pulse ox on. NIBP on. Door closed. Noise minimized. Warm blanket given. eo2 09:39 Patient did not have IV access during this emergency room visit. eo2 Administered Medications: 08:04 Drug: [place] (HYDROcodone-acetaminophen) (7.5 mg-325 mg) 1 tabs Route: PO; eo2 08:50 Follow up: Response: No adverse reaction; Pain is unchanged, physician notified eo2 09:14 Drug: SOLU-Medrol (methylPREDNISolone sodium succinate) 125 mg Route: IM; Site: right eo2 ventrogluteal; 09:39 Follow up: Response: No adverse reaction; Pain is decreased eo2 Outcome: 09:02 Discharge ordered by . eren 09:39 Discharged to home ambulatory, with family, pt's mother at bedside to drive pt home eo2 09:39 Condition: stable 09:39 Discharge instructions given to patient, Instructed on discharge instructions, follow up and referral plans. medication usage, Demonstrated understanding of instructions, follow-up care, medications, Prescriptions given X 2. 09:41 Patient left the ED. eo2 Signatures: Dispatcher [employer] EDMiladis Son FNP-C FNP-Ckb Lewis, Lynsay, RN RN 1 Darlene Sears ja2 Suyapa Del Rio RN RN eo2
--- NOTE | 2021-08-21 09:03 | EDPHYS ---
Physician Documentation [facility] Name: Evelyn Rosa Age: 41 yrs Sex: Female : 1980 Arrival Date: 08/21/2021 Time: 06:48 Bed 23 Private MD: ED Physician Balwinder Mathews HPI: 08/21 07:40 This 41 yrs old Black Female presents to ER via Ambulatory with complaints of Fall kb Injury, Back Pain. 07:40 Details of fall: The patient fell from a height. Onset: The symptoms/episode kb began/occurred 1 week(s) ago. Associated injuries: The patient sustained upper back injury, pain, pain with movement, injury to the low back, pain, pain with movement. Severity of symptoms: At their worst the symptoms were moderate, in the emergency department the symptoms are unchanged. The patient has not experienced similar symptoms in the past. The patient has not recently seen a physician. 07:41 Pt reports she tripped and fell down the stairs a week ago and has had back pain since kb then. States the pain has progressively gotten worse. No urinary symptoms. Full control of bowel and bladder, no tingling/numbness. . 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 - Social history:: Smoking status: Patient reports the use of cigarette tobacco products, smokes one-half pack cigarettes per day. ROS: 07:38 Constitutional: Negative for fever, chills, and weight loss. kb 07:38 Back: Positive for pain at rest, pain with movement, of the thoracic area, lumbar area, sacrum, right mid back and right low back. 07:38 All other systems are negative. Exam: 07:38 Constitutional: This is a well developed, well nourished patient who is awake, alert, kb and in no acute distress. Head/Face: Normocephalic, atraumatic. ENT: Moist Mucous membranes Respiratory: Respirations even and unlabored. No increased work of breathing. Talking in full sentences MS/ Extremity: Pulses equal, no cyanosis. Neurovascular intact. Full, normal range of motion. Neuro: Awake and alert, GCS 15, oriented to person, place, time, and situation. Moves all extremities. Normal gait. Psych: Awake, alert, with orientation to person, place and time. Behavior, mood, and affect are within normal limits. 07:38 Back: pain, that is moderate, of the thoracic area, lumbar area, sacrum, right mid back and right low back, ROM is painful, normal spinal alignment noted. 07:38 Skin: injury, contusion(s), that are superficial, of the right mid back and right low back. Vital Signs: 07:09 BP 151 / 99; Pulse 101; Resp 18; Temp 98.5; Pulse Ox 100% ; Weight 79.38 kg; Height 5 ll1 ft. 5 in. (165.10 cm); Pain 10/10; 08:00 BP 110 / 77; Pulse 78; Resp 17; Pulse Ox 97% ; Pain 10/10; eo2 09:39 BP 111 / 71; Pulse 72; Resp 15; Pulse Ox 100% ; Pain 6/10; eo2 07:09 Body Mass Index 29.12 (79.38 kg, 165.10 cm) ll1 MDM: 07:12 Patient medically screened. kb 07:38 Data reviewed: vital signs, nurses notes. Data interpreted: Pulse oximetry: on room air kb is 100 %. Interpretation: normal. 08:34 Counseling: I had a detailed discussion with the patient and/or guardian regarding: the kb historical points, exam findings, and any diagnostic results supporting the discharge/admit diagnosis, radiology results, the need for outpatient follow up, a family practitioner, to return to the emergency department if symptoms worsen or persist or if there are any questions or concerns that arise at home. 08/21 07:20 Order name: CT Lumbar Spine Wo Con; Complete Time: 08:34 kb 0211 07:20 Order name: CT Thoracic Spine Wo Cont; Complete Time: 08:29 kb Administered Medications: 08:04 Drug: [place] (HYDROcodone-acetaminophen) (7.5 mg-325 mg) 1 tabs Route: PO; eo2 08:50 Follow up: Response: No adverse reaction; Pain is unchanged, physician notified eo2 09:14 Drug: SOLU-Medrol (methylPREDNISolone sodium succinate) 125 mg Route: IM; Site: right eo2 ventrogluteal; 09:39 Follow up: Response: No adverse reaction; Pain is decreased eo2 Disposition: 19:22 Co-signature as Attending Physician, Balwinder Mathews MD. [email or web address] Disposition Summary: 08/21/21 09:02 Discharge Ordered Location: Home kb Condition: Stable kb Diagnosis - Fall (on) (from) other stairs and steps kb - Low back pain kb Followup: kb - With: Emergency Department - When: As needed - Reason: Worsening of condition Followup: kb - With: Private Physician - When: 2 - 3 days - Reason: Recheck today's complaints, Continuance of care, Re-evaluation by your physician Discharge Instructions: - Discharge Summary Sheet kb - Musculoskeletal Pain kb Forms: - Medication Reconciliation Form kb - Thank You Letter kb - Antibiotic Education kb - Prescription Opioid Use kb Prescriptions: - Ibuprofen 800 mg Oral Tablet - take 1 tablet by ORAL route every 8 hours As needed take with food; 30 tablet; kb Refills: 0, Product Selection Permitted - Cyclobenzaprine 10 mg Oral Tablet - take 1 tablet by ORAL route every 8 hours As needed; 21 tablet; Refills: 0, kb Product Selection Permitted Signatures: Dispatcher [employer] Miladis Ott, HAZEL-C HAZEL-Alok Baker, RN RN ll1 Balwinder Mathews MD MD 7 Suyapa Del Rio, JOHN RN eo2 Corrections: (The following items were deleted from the chart) 08:06 07:41 Pt reports she tripped and fell down the stairs a week ago and has had back pain kb since then. States the pain has progressively gotten worse. kb
[2021-08-21] MEDS ORDERED: METHYLPREDNISOLONE 125 MG INJ ONE (09:08)
[2021-08-21 09:54] VITALS: BP 111/71; O2SAT 100
[2021-08-21 09:55] VITALS: TEMP 98.5
== END 2021-08-21 09:41 | disposition home or self-care (01) ==
LOC: ER 06:43
DX: M54.50 Low back pain, unspecified (principal); W10.9XXA Fall (on) (from) unspecified stairs and steps, initial encounter; F17.210 Nicotine dependence, cigarettes, uncomplicated; F41.9 Anxiety disorder, unspecified; Z88.0 Allergy status to penicillin; Z88.5 Allergy status to narcotic agent
CPT/HCPCS: 72128; 72131; 96372; 99284; J2930

== ENCOUNTER 2022-05-17 07:42 | Inpatient (IN) | payer SELFPAY ==
--- OUTSIDE RECORDS SUMMARY | 2022-05-17 07:45 | XMS REPORT | Continuity of Care Document ---
:1980 Author Organization [facility] t Address [address] [place] [address] Care Team Providers Name Role Phone Reymundo Harvey Primary Care Physician Geneva Rodríguez DO Attending Clinician GENEVA RODRÍGUEZ Attending Clinician Unavailable Payers Payer Name Policy Type Policy Number Effective Date Expiration Date S ource Problems Condition Condition Condition Status Onset Resolution Last Treating Co mments Source Name Details Category Date Date Treatment Clinician Date Nausea & Nausea & Disease Active 2010-07 Unive rs vomiting vomiting 2- ity of 00:00: [place] 00 Medical Branch Abdominal Abdominal Disease Active 2010-07 Uni vers pain, pain, - ity of acute, acute, 00:00: [place] epigastric epigastric 00 Oh dical Branch Leukocytos Leukocytos Disease Active 2010-07 Overview : Univers is is 2- Formattin ity of 00:00: g of this [place] 00 note Medical might be Branch different from the original. 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 Hypokalemi Hypokalemi Disease Active 2010-07 U nivers a a 2- ity of 00:00: [place] 00 Medical [facility] Metabolic Metabolic Disease Active 2010-07 Uni vers acidosis acidosis 2- ity of 00:00: [place] 00 Medical [facility] Allergies, Adverse Reactions, Alerts Allergy Allergy Status Severity Reaction(s) Onset Inactive Treating Comm ents Source Name Type Date Date Clinician Ketorola Propensi Active Rash 2021-07 Univer s c ty to 0-21 ity of adverse 00:00: [place] reaction 00 Medical s Branch KETOROLA DRUG Active Rash 2021-07 Univers C INGREDI 0-21 ity of 00:00: [place] 00 Medical Branch Penicill Propensi Active Unknown - 2015-07 Uni vers ins ty to See comments 0-26 ity of adverse 00:00: [place] reaction 00 Medical s Branch PENICILL Drug Active Unknown-Cmnt 2015-07 Un stephanie INS Class 0-26 ity of 00:00: [place] 00 Medical Branch Social History Social Habit Start Date Stop Date Quantity Comments Source History of tobacco Cigarette Smoker University of use [facility] Exposure to 2022-04-20 2022-04-30 Not sure [facility] SARS-CoV-2 (event) 00:00:00 13:23:00 [facility] Alcohol intake 2016-05-05 2016-05-05 Current drinker Unive rsity of 00:00:00 00:00:00 of alcohol [facility] (finding) Branch Cigarettes smoked 2011-06-18 2011-06-18 Univers ity of current (pack per 00:00:00 00:00:00 [facility] ) - Reported Branch Cigarette 2011-06-18 2011-06-18 University of pack-years 00:00:00 00:00:00 [facility] Sex Assigned At [birth year] Universit y of 00:00:00 00:00:00 [facility] Smoking Status Start Date Stop Date Source Never smoked tobacco [facility] Medications Ordered Filled Start Stop Current Ordering Indication Dosage Frequency Signature Comments Components Source Medication Medication Date Date Medication? Clinician (SIG) Name Name methocarbam 2015-07 Yes 750mg Take 1 Uni vers ol 0-26 tablet by ity of (ROBAXIN) 00:00: mouth 4 [place] 750 mg 00 (four) Medical tablet times Branch daily as needed for Pain (scale 4-6) or Pain (scale 7-10). pantoprazol 2015-07 Yes 40mg Take 1 Univ ers e 0-26 tablet by ity of (PROTONIX) 00:00: mouth [place] 40 mg EC 00 daily. Medical tablet Branch proMETHazin 2015-07 Yes 25mg Take 1 Univ ers e 0-26 tablet by ity of (PHENERGAN) 00:00: mouth [place] 25 mg 00 every 6 Medical tablet (six) Branch hours as needed for Nausea and Vomiting (N/V). Immunizations Ordered Filled Immunization Date Status Comments Sourc e Immunization Name Name Influenza Virus 2011-06-21 Completed Universit y of Vaccine 00:00:00 [facility] Vital Signs Vital Name Observation Time Observation Value Comments Source Body weight 2022-04-30 18:23:16 79.379 kg [facility] BMI 2022-04-30 18:23:16 29.12 kg/m2 [facility] Systolic blood 2022-04-30 18:16:00 128 mm[Hg] Univer sity of pressure [facility] Diastolic blood 2022-04-30 18:16:00 81 mm[Hg] [facility] 2022-04-30 18:16:00 92 /min [facility] Body temperature 2022-04-30 18:16:00 37.06 Brandy [facility] Respiratory rate 2022-04-30 18:16:00 18 /min [facility] height 2022-04-30 18:16:00 165.1 cm [facility] Oxygen saturation in 2022-04-30 18:16:00 96 /min [facility] Arterial blood by [facility] Pulse oximetry Branch Procedures Procedure Date / Time Performed Performing Clinician Isabel kiki RAPID INFLUENZA A/B 2022-04-30 18:27:00 Geneva Rodríguez [facility] COVID-19 (ID NOW 2022-04-30 18:27:00 Geneva Rodríguez [facility] RAPID TESTING) [facility] CONSENT/REFUSAL FOR 2022-04-30 18:06:22 Doctor Unassigned, No Un [facility] DIAGNOSIS AND Name [facility] TREATMENT Encounters Start End Encounter Admission Attending Care Care Encounter Source Date/Time Date/Time Type Type Clinicians Facility Department ID 2022-04-30 2022-04-30 Emergency WICHO Rodríguez [id number] Univers 13:21:00 13:57:00 Geneva CURRIE [id number] [facility] [id number] [facility] [id number] [facility] 084 Branch 2022-04-30 2022-04-30 Emergency X WICHO RODRÍGUEZ ERT [id number] [facility] 13:21:00 13:57:00 GENEVA gordon [facility] Results This patient has no known results.
[2022-05-17] MEDS ORDERED: NA CHLORIDE 0.9% 1,000 ML ONE (08:14)
[2022-05-17] MEDS ORDERED: LORazepam 2 MG/ML VIAL ONE (08:14)
[2022-05-17] MEDS ORDERED: ONDANSETRON 4 MG/2 ML VIAL ONE ×2 (08:15→13:24)
[2022-05-17 08:45] LABS: Absolute Lymphocytes (CBC) 1.6 K/uL (0.7-4.9); Hematocrit 37.6 % (36.0-45.0); Lymphocytes % 7.8 % (15.3-44.8); MPV 7.9 fL (7.6-11.3); RBC Red Blood Cell Count 3.87 M/uL (3.86-4.86)
[2022-05-17 08:52] LABS: Albumin 3.1 g/dL (3.4-5.0); Bilirubin Total 0.2 mg/dL (0.2-1.0); Protein, Total 6.7 g/dL (6.4-8.2)
--- NOTE | 2022-05-17 09:26 | RAD REPORT ---
EXAM DESCRIPTION: CT - Abdomen Pelvis W Contrast - 05/17/2022 8:51 am CLINICAL HISTORY: Abdominal pain COMPARISON: May 14, 2022 TECHNIQUE: Computed axial tomography of the abdomen pelvis was obtained. 100 cc Isovue-300 was admin istered intravenously. Oral contrast was not requested which limits evaluation of bowel and appendix All CT scans are performed using dose optimization technique as appropriate and may include automated exposure control or mA/KV adjustment according to patient size. FINDINGS: The liver, spleen, pancreas, adrenal and left kidney appear unremarkable. A 2 centimeter right renal cyst. There is no evidence of diverticulitis. Wall of colon normal thickness. 6.2 centimeter complex cystic left adnexal mass mildly increased in size. No significant free fluid. Hysterectomy. Small umbilical hernia IMPRESSION: Enlargement of a 6.2 centimeter complex cystic mass left adnexal. This probably is benig n. Ovarian cystic neoplasm can also have this appearance. Followup ultrasound in a couple months van mmended for re-evaluation
[2022-05-17] MEDS ORDERED: MORPHINE 4 MG/ML SYR ONE ×2 (09:29→11:24)
[2022-05-17] MEDS ORDERED: PROMETHAZINE INJ 25 MG/ML AMP ONE (09:46)
[2022-05-17 10:04] LABS: Blood Morphology Comment NOT SEEN (NOT SEEN); Platelet Estimate ADEQ; White Blood Cell Scan OK (OK)
--- NOTE | 2022-05-17 11:23 | ER ---
Nurse's Notes [facility] Name: Evelyn Rosa Age: 41 yrs Sex: Female : 1980 Arrival Date: 05/17/2022 Time: 07:43 Bed 20 Private MD: Diagnosis: Abdominal pain, unspecified-intractable;Infectious gastroenteritis and colitis, unspecified;Vomiting-intractable Presentation: 05/17 07:47 Chief complaint: Patient states: was just here the other day and dx with colitis. Pain mb8 is still severe per patient and she reports vomiting. Coronavirus screen: Vaccine status: Patient reports receiving the 2nd dose of the covid vaccine. Ebola Screen: Patient negative for fever greater than or equal to 101.5 degrees Fahrenheit, and additional compatible Ebola Virus Disease symptoms Patient denies exposure to infectious person. Patient denies travel to an Ebola-affected area in the 21 days before illness onset. Initial Sepsis Screen: Does the patient meet any 2 criteria? RR > 20 per min. HR > 90 bpm. Yes Does the patient have a suspected source of infection? Yes: Acute abdominal pain. Risk Assessment: Do you want to hurt yourself or someone else? Patient reports no desire to harm self or others. Onset of symptoms was May 17, 2022. 07:47 Method Of Arrival: Ambulatory mb8 07:47 Acuity: INDIGO 3 mb8 Triage Assessment: 07:51 General: Appears uncomfortable, Behavior is cooperative, appropriate for age, anxious, mb8 restless. Pain: Complains of pain in abdomen Pain does not radiate. Pain currently is 10 out of 10 on a pain scale. Respiratory: Reports shortness of breath Breath sounds are clear bilaterally. Onset: The symptoms/episode began/occurred this morning, the patient has mild shortness of breath. 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 - Social history:: Smoking status: Patient reports the use of cigarette tobacco products. - Family history:: not pertinent. - Hospitalizations: : No recent hospitalization is reported. Screenin:44 Abuse screen: Denies threats or abuse. Denies injuries from another. Nutritional kc6 screening: No deficits noted. Tuberculosis screening: No symptoms or risk factors identified. Fall Risk No fall in past 12 months (0 pts). No secondary diagnosis (0 pts). IV access (20 points). Ambulatory Aid- None/Bed Rest/Nurse Assist (0 pts). Gait- Normal/Bed Rest/Wheelchair (0 pts) Mental Status- Oriented to own ability (0 pts). Total Bains Fall Scale indicates No Risk (0-24 pts). Assessment: 08:31 General: Appears distressed, uncomfortable, Behavior is cooperative, appropriate for kc6 age, anxious, crying, restless. Pain: Complains of pain in left low back, right low back, right lower quadrant and left lower quadrant Pain does not radiate. Pain currently is 10 out of 10 on a pain scale. Quality of pain is described as sharp, shooting, Pain began suddenly, Is continuous, Alleviated by nothing. Aggravated by increased activity, repositioning, Noted to be crying, grimacing, guarding, moaning, resistant to movement, restless, Also complains of nausea. Neuro: Fonseca Agitation-Sedation Scale (RASS): +1 Restless Level of Consciousness is awake, alert, obeys commands, Oriented to person, place, time, situation, Appropriate for age. Cardiovascular: Heart tones S1 S2 present Capillary refill < 3 seconds Rhythm is sinus tachycardia. Respiratory: Airway is patent Trachea midline Respiratory effort is even, labored, Respiratory pattern is symmetrical, tachypnea Breath sounds are clear bilaterally. GI: Abdomen is flat, non-distended, Pt is actively vomiting bile, Bowel sounds present X 4 quads. Abd is soft X 4 quads Abdomen is tender to palpation in right lower quadrant and left lower quadrant Reports lower abdominal pain, diarrhea, nausea, vomiting. : No signs and/or symptoms were reported regarding the genitourinary system. EENT: No signs and/or symptoms were reported regarding the EENT system. Derm: No signs and/or symptoms reported regarding the dermatologic system. Skin is intact, Skin is pink, warm \T\ dry. Musculoskeletal: No signs and/or symptoms reported regarding the musculoskeletal system. Circulation, motion, and sensation intact. Capillary refill < 3 seconds, Range of motion: intact in all extremities. 09:26 Reassessment: Patient appears in no apparent distress at this time. No changes from [facility] previously documented assessment. Patient and/or family updated on plan of care and expected duration. Pain level reassessed. patient is alert and oriented x4. respirations even but labored, tachypneic. skin is warm, dry, and pink. 10:17 Reassessment: Patient appears in no apparent distress at this time. No changes from 6 previously documented assessment. Patient and/or family updated on plan of care and expected duration. Pain level reassessed. Patient is alert, oriented x 3, equal unlabored respirations, skin warm/dry/pink. 11:06 Reassessment: Patient appears in no apparent distress at this time. No changes from [facility] previously documented assessment. Patient and/or family updated on plan of care and expected duration. Pain level reassessed. Patient is alert, oriented x 3, equal unlabored respirations, skin warm/dry/pink. 12:06 Reassessment: Patient appears in no apparent distress at this time. No changes from [facility] previously documented assessment. Patient and/or family updated on plan of care and expected duration. Pain level reassessed. Patient is alert, oriented x 3, equal unlabored respirations, skin warm/dry/pink. 13:10 Reassessment: Patient appears in no apparent distress at this time. No changes from [facility] previously documented assessment. Patient and/or family updated on plan of care and expected duration. Pain level reassessed. Patient is alert, oriented x 3, equal unlabored respirations, skin warm/dry/pink. 13:58 Reassessment: attempted to call report to the second floor. [facility] 14:34 Reassessment: attempted to call report to second floor again. [facility] Vital Signs: 07:47 BP 150 / 106; Pulse 119; Resp 24; Temp 98.3; Pulse Ox 98% ; Weight 81.65 kg; Height 5 mb8 ft. 5 in. (165.10 cm); Pain 10/10; 08:36 BP 122 / 92; Pulse 96; Resp 33 S; Temp 99.4(O); Pulse Ox 99% on R/A; Pain 10/10; kc6 09:28 BP 108 / 70; Pulse 107; Resp 27 S; Pulse Ox 100% on R/A; Pain 10/10; kc6 10:17 BP 119 / 86; Pulse 96; Resp 20 S; Pulse Ox 100% on R/A; kc6 11:06 BP 136 / 98; Pulse 95; Resp 22 S; Pulse Ox 100% on R/A; Pain 8/10; kc6 12:22 BP 128 / 72; Pulse 93; Resp 21 S; Temp 98.7(O); Pulse Ox 100% ; kc6 13:10 BP 102 / 75; Pulse 103; Resp 22 S; Pulse Ox 100% on R/A; kc6 07:47 Body Mass Index 29.95 (81.65 kg, 165.10 cm) [facility] ED Course: 07:43 Patient arrived in ED. am2 07:44 Ken Lim MD is Attending Physician. rn 07:50 Triage completed. mb8 07:51 Arm band placed on right wrist. mb8 07:55 Emmy Cano, JOHN is Primary Nurse. kc6 08:30 CBC with Diff Sent. kc6 08:30 CMP Sent. kc6 08:30 Lipase Sent. kc6 08:30 Missed attempt(s): 22 gauge in right wrist. Bleeding controlled, band aid applied, jd3 catheter tip intact. 08:32 Inserted saline lock: 22 gauge in left forearm, using aseptic technique. Blood jd3 collected. 08:53 CT Abd/Pelvis - IV Contrast Only In Process Unspecified. EDMS 11:21 Brian Bedolla is Hospitalizing Provider. rn 12:21 SARS RAPID Sent. kc6 14:44 Patient has correct armband on for positive identification. Placed in gown. Bed in low kc6 position. Call light in reach. Side rails up X2. Adult w/ patient. 14:44 No provider procedures requiring assistance completed. Patient admitted, IV remains in kc6 place. Administered Medications: 08:30 Drug: NS 0.9% 1000 ml Route: IV; Rate: 1 bolus; Site: left forearm; kc6 09:30 Follow up: Response: No adverse reaction; IV Status: Completed infusion; IV Intake: kc6 1000ml 08:30 Drug: Ativan (LORazepam) 0.5 mg Route: IVP; Site: left femoral; kc6 09:30 Follow up: Response: No adverse reaction; Anxiety decreased; RASS: Alert and Calm (0) kc6 08:31 Drug: Zofran (Ondansetron) 4 mg Route: IVP; Site: left forearm; kc6 09:31 Follow up: Response: No adverse reaction; Nausea unchanged kc6 09:31 Drug: morphine 4 mg Route: IVP; Infused Over: 4 mins; Site: left forearm; jd3 10:30 Follow up: Response: No adverse reaction; Pain is decreased; RASS: Alert and Calm (0) kc6 10:02 Drug: Phenergan (promethazine) 12.5 mg Route: IVP; Site: left forearm; kc6 11:11 Follow up: Response: No adverse reaction; Nausea is decreased kc6 11:32 Drug: morphine 4 mg Route: IVP; Infused Over: 4 mins; Site: left forearm; jd3 12:24 Follow up: Response: No adverse reaction; Pain is decreased; RASS: Alert and Calm (0) kc6 Medication: 14:45 VIS not applicable for this client. kc6 Intake: 09:30 IV: 1000ml; Total: 1000ml. kc6 Outcome: 11:22 Decision to Hospitalize by Provider. rn 14:44 Admitted to Med/surg accompanied by tech, via wheelchair, room 218, with chart, Report kc6 called to JOHN Booth 14:44 Condition: stable 14:44 Instructed on the need for admit. 14:55 Patient left the ED. kc6 Signatures: Dispatcher [employer] EDMS Ken Lim MD MD rn Moreno, Amanda am2 Davies, Jonathon, RN RN jd3 Emmy Cano RN RN kc6 Schuyler Lara RN RN mb8
--- NOTE | 2022-05-17 11:23 | EDPHYS ---
Physician Documentation [facility] Name: Evelyn Rosa Age: 41 yrs Sex: Female : 1980 Arrival Date: 05/17/2022 Time: 07:43 Bed 20 Private MD: ED Physician Ken Lim HPI: 05/17 08:02 This 41 yrs old Black Female presents to ER via Ambulatory with complaints of anxiety, rn abd pain. 08:02 The patient presents with abdominal pain in the lower abdomen. Onset: The rn symptoms/episode began/occurred 2 day(s) ago. The symptoms do not radiate. Associated signs and symptoms: Pertinent positives: diarrhea, nausea, Pertinent negatives: blood in stools, chest pain, fever. The symptoms are described as intermittent, sharp. Modifying factors: The symptoms are alleviated by nothing, the symptoms are aggravated by nothing. Severity of pain: At its worst the pain was mild in the emergency department the pain is unchanged. The patient has experienced a previous episode. The patient has been recently seen at the [facility] Emergency Department. Pt reports diagnosed with colitis 2 days ago, put on abx, taking abx, no fever or blood in stool. Reports abd pain returned this AM, feels slightly worse, no fever. Also reports having anxiety, hx of anxiety, and when pain started this AM started to feel anxious. Takes clonazepam, didn't take one. . 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 - Social history:: Smoking status: Patient reports the use of cigarette tobacco products. - Family history:: not pertinent. - Hospitalizations: : No recent hospitalization is reported. ROS: 08:02 Constitutional: Negative for fever, chills, and weight loss, Eyes: Negative for injury, rn pain, redness, and discharge, Neck: Negative for injury, pain, and swelling, Cardiovascular: Negative for chest pain, palpitations, and edema, Respiratory: Negative for cough, wheezing, and pleuritic chest pain, Abdomen/GI: Negative for vomiting and constipation, Back: Negative for injury : Negative for injury, bleeding, discharge, and swelling, MS/Extremity: Negative for injury and deformity, Skin: Negative for injury, rash, and discoloration, Neuro: Negative for headache, weakness, numbness, tingling, and seizure. Exam: 08:02 Constitutional: This is a well developed, well nourished patient who is awake, alert, rn tearful and hyperventilating Head/Face: Normocephalic, atraumatic. Cardiovascular: Tachycardic, regular. No pulse deficits. Respiratory: + hyperventilating, clear bilateral breath sounds Abdomen/GI: soft, mild lower abd tenderness, no rebound or masses Skin: Warm, dry MS/ Extremity: Pulses equal, no cyanosis. Neuro: Awake and alert, GCS 15 Vital Signs: 07:47 BP 150 / 106; Pulse 119; Resp 24; Temp 98.3; Pulse Ox 98% ; Weight 81.65 kg; Height 5 mb8 ft. 5 in. (165.10 cm); Pain 10/10; 08:36 BP 122 / 92; Pulse 96; Resp 33 S; Temp 99.4(O); Pulse Ox 99% on R/A; Pain 10/10; kc6 09:28 BP 108 / 70; Pulse 107; Resp 27 S; Pulse Ox 100% on R/A; Pain 10/10; kc6 10:17 BP 119 / 86; Pulse 96; Resp 20 S; Pulse Ox 100% on R/A; kc6 11:06 BP 136 / 98; Pulse 95; Resp 22 S; Pulse Ox 100% on R/A; Pain 8/10; kc6 12:22 BP 128 / 72; Pulse 93; Resp 21 S; Temp 98.7(O); Pulse Ox 100% ; kc6 13:10 BP 102 / 75; Pulse 103; Resp 22 S; Pulse Ox 100% on R/A; kc6 07:47 Body Mass Index 29.95 (81.65 kg, 165.10 cm) [facility] MDM: 07:44 Patient medically screened. rn 11:20 Differential diagnosis: diverticulitis, gastritis, non-specific abd pain, pancreatitis, rn Peptic Ulcer Disease, Pyelonephritis, Ureterolithiasis, urinary tract infection. Data reviewed: vital signs, nurses notes, lab test result(s), radiologic studies, CT scan, and as a result, I will admit patient. Counseling: I had a detailed discussion with the patient and/or guardian regarding: the historical points, exam findings, and any diagnostic results supporting the discharge/admit diagnosis, lab results, radiology results, the need for further work-up and treatment in the hospital. Response to treatment: There is no appreciated change of the patient's symptoms at this time, and as a result, I will admit patient. Admission orders: after a detailed discussion of the patient's condition and case, the admit orders are written by me. ED course: Pt with improvement of colitis, slightly enlarging cyst, still having pain and unable to tolerate PO, will obs to Dr. Bedolla. . 05/17 07:51 Order name: CBC with Diff; Complete Time: 10:11 rn 05/17 07:51 Order name: CMP; Complete Time: 08:55 rn 05/17 07:51 Order name: Lipase; Complete Time: 08:55 rn 05/17 10:05 Order name: CBC Smear Scan; Complete Time: 10:11 [facility] 05/17 12:12 Order name: SARS RAPID jl7 05/17 12:16 Order name: Urine Dipstick-Ancillary [facility] 05/17 13:21 Order name: CBC with Automated Diff [facility] 05/17 13:21 Order name: CBC with Automated Diff [facility] 05/17 13:21 Order name: Comprehensive Metabolic Panel [facility] 05/17 13:21 Order name: Comprehensive Metabolic Panel [facility] 05/17 13:21 Order name: Lipid Profile [facility] 05/17 13:21 Order name: Lipid Profile [facility] 05/17 13:21 Order name: Magnesium [facility] 05/17 13:21 Order name: Magnesium [facility] 05/17 07:51 Order name: CT Abd/Pelvis - IV Contrast Only; Complete Time: 09:27 rn 05/17 07:51 Order name: IV Saline Lock; Complete Time: 08:30 rn 05/17 07:51 Order name: Labs collected and sent; Complete Time: 08:30 rn 05/17 11:59 Order name: Urine Dipstick-Ancillary (obtain specimen); Complete Time: 12:15 jd3 05/17 13:21 Order name: Clear Liquid EDMS 05/17 13:21 Order name: Phosphorus EDMS 05/17 13:21 Order name: Phosphorus EDMS 05/17 13:21 Order name: Thyroid Stimulating Hormone EDMS 05/17 13:21 Order name: Thyroid Stimulating Hormone EDMS Administered Medications: 08:30 Drug: NS 0.9% 1000 ml Route: IV; Rate: 1 bolus; Site: left forearm; kc6 09:30 Follow up: Response: No adverse reaction; IV Status: Completed infusion; IV Intake: kc6 1000ml 08:30 Drug: Ativan (LORazepam) 0.5 mg Route: IVP; Site: left femoral; kc6 09:30 Follow up: Response: No adverse reaction; Anxiety decreased; RASS: Alert and Calm (0) 6 08:31 Drug: Zofran (Ondansetron) 4 mg Route: IVP; Site: left forearm; kc6 09:31 Follow up: Response: No adverse reaction; Nausea unchanged kc6 09:31 Drug: morphine 4 mg Route: IVP; Infused Over: 4 mins; Site: left forearm; jd3 10:30 Follow up: Response: No adverse reaction; Pain is decreased; RASS: Alert and Calm (0) kc6 10:02 Drug: Phenergan (promethazine) 12.5 mg Route: IVP; Site: left forearm; kc6 11:11 Follow up: Response: No adverse reaction; Nausea is decreased kc6 11:32 Drug: morphine 4 mg Route: IVP; Infused Over: 4 mins; Site: left forearm; jd3 12:24 Follow up: Response: No adverse reaction; Pain is decreased; RASS: Alert and Calm (0) 6 Disposition Summary: 05/17/22 11:22 Hospitalization Ordered Hospitalization Status: Observation rn Provider: Brian Bedolla rn Location: Telemetry/[facility] (observation) rn Condition: Stable rn Problem: new rn Symptoms: are unchanged rn Bed/Room Type: Standard rn Room Assignment: 218(05/17/22 13:41) bd Diagnosis - Abdominal pain, unspecified - intractable rn - Infectious gastroenteritis and colitis, unspecified rn - Vomiting - intractable rn Forms: - Medication Reconciliation Form rn - SBAR form rn Signatures: Dispatcher [employer] EDNita Reddy Roman, MD MD rn Davies, Jonathon, RN RN jd3 Emmy Cano RN RN kc6 Schuyler Lara RN RN mb8 Corrections: (The following items were deleted from the chart) 11:58 11:58 Urine Dipstick-Ancillary ordered. tucker jd3 13:41 11:22 rn lizz
[2022-05-17 12:16] LABS: Urine Blood Negative (Negative); Urine Glucose Negative (Negative); Urine Protein Negative (Negative); Urine Specific Gravity 1.015 (1.005-1.030)
[2022-05-17 12:42] LABS: SARS-CoV-2 Antigen Rapid Res Negative (Negative)
--- NOTE | 2022-05-17 13:29 | P.HP ---
Certification for Inpatient Patient admitted to: Observation With expected LOS: <2 Midnights Practitioner: I am a practitioner with admitting privileges, knowledge of patient current condition, hospital course, and medical plan of care. Services: Services provided to patient in accordance with Admission requirements found in Title 42 Section 412.3 of the Code of Federal Regulations Patient History Date of Service: 05/17/22 Reason for admission: Nausea and vomiting and abdominal pain History of Present Illness: 41-year-old lady with a prior hospitalization and extensive work-up for recurrent abdominal pain in the past presented to the emergency department with a complaint of nausea and vomiting and diarrhea which has been present for about 3 days. Patient reports multiple episodes of vomiting and diarrhea. She was in the emergency department 3 days ago where a CT abdomen pelvis suggested possible colitis. Patient was discharged with oral ciprofloxacin and Flagyl. She states this her symptoms got worse after discharge from the ED with more vomiting and diarrhea. She stated she has not tolerated any food or drink. CT abdomen and pelvis done in the ED did not show any colitis but demonstrated midly increased size of left adnexal cyst. Patient has not tolerated anything oral since she has been in the ED. She is placed on observation for further management. Allergies ketorolac Allergy (Unverified 10/09/14 04:52) Unknown Penicillins Allergy (Unverified 09/17/17 09:36) Unknown Home Medications: Amitriptyline [Elavil] 100 mg PO BEDTIME #30 tab 11/30/11 Cyclobenzaprine [Flexeril] 10 mg PO BID PRN #40 tab 11/30/11 Dicyclomine [Bentyl] 0.125 mg PO Q8H #60 cap 11/30/11 Omeprazole Magnesium [Prilosec Otc] 20 mg PO DAILY #0 tablet. 11/30/11 Promethazine HCl 5 ml PO BID #150 ml 11/30/11 - Past Medical/Surgical History -: Gastritis. -: Anxiety and depression -: Hysterectomy - Family History Mother -: Hypertension, Diabetes - Social History Alcohol use: Yes CD- Drugs: Yes Caffeine use: No Review of Systems Other: Patient denies any shortness of breath, denies any nasal congestion. She endorsed watery bowel movement about 3 times since this morning. Except as documented, all other systems reviewed and negative. Physical Examination - Physical Exam General: Alert, In no apparent distress, Oriented x3 HEENT: Normocephalic, Mucous membr. moist/pink, Sclerae nonicteric Neck: Supple, JVD not distended Respiratory: Clear to auscultation bilaterally, Normal air movement Cardiovascular: No edema, Regular rate/rhythm, Normal S1 S2, No murmurs Capillary refill: <2 Seconds Gastrointestinal: Normal bowel sounds, Non-distended, Tenderness (Diffuse) Musculoskeletal: No swelling, No tenderness Integumentary: No rashes, No erythema, No cyanosis Neurological: Normal gait, Normal strength at 5/5 x4 extr, Cranial nerves 3-12 intact Lymphatics: No axilla or inguinal lymphadenopathy - Studies Laboratory Data (last 24 hrs) 05/17/22 08:27: Sodium 139, Potassium 4.0, BUN 16, Creatinine 1.47 H, Glucose 126 H, Total Bilirubin 0.2, AST 13 L, ALT 24, Alkaline Phosphatase 64, Lipase 56 L 05/17/22 08:27: WBC 20.50 H*, Hgb 12.7, Hct 37.6, Plt Count 369 Assessment and Plan - Problems (Diagnosis) (1) Intractable nausea and vomiting Current Visit: Yes Status: Acute (2) Adnexal cyst Current Visit: Yes Status: Acute (3) Gastroenteritis Current Visit: Yes Status: Acute (4) TRE (acute kidney injury) Current Visit: Yes Status: Acute - Plan Place patient in observation on the medical floor. Supportive measures with IV fluids, pain management and antiemetics as needed. Start empiric IV Cipro and Flagyl. Patient with leukocytosis likely related to stress or hemoconcentration from dehydration. Hydrate with IV and monitor CBC. Clear diet as tolerated. Treat TRE with IV fluid. Monitor renal function. - Advance Directives Does patient have a Living Will: No Does patient have a Durable POA for Healthcare: No
[2022-05-17] MEDS: ONDANSETRON 4 MG/2 ML VIAL IV PRN (13:30)
[2022-05-17] MEDS: MORPHINE 2 MG/ML SYR IV PRN ×2 (15:23→20:05)
[2022-05-17] MEDS: D5 0.45 NS 1,000 ML IV SCH ×2 (15:23→23:18)
[2022-05-17] MEDS: ENOXAPARIN 40 MG/0.4 ML SQ SCH (15:23)
[2022-05-17 15:34] VITALS: BMI 29.9
[2022-05-17] MEDS: ACETAMINOPHEN 500 MG TAB PO PRN ×2 (15:49→21:46)
[2022-05-17] MEDS: METRONIDAZOLE 500mg IVPB 500 MG/100 ML BAG IV SCH (17:16)
[2022-05-17] MEDS ORDERED: INFLUENZA VACCINE (for 6+ mo) 0.5 ML DOSE IMVAC ONE (18:00)
[2022-05-17] MEDS ORDERED: PROMETHAZINE INJ 25 MG/ML AMP IM PRN (18:19)
[2022-05-17] MEDS: CIPROFLOXACIN 400mg IV 400 MG/200 ML BAG IV SCH (20:07)
[2022-05-17] MEDS: PROMETHAZINE INJ 25 MG/ML AMP IV PRN (20:20)
[2022-05-17] MEDS: clonazePAM 1 MG TAB PO SCH (21:38)
[2022-05-18] MEDS: ONDANSETRON 4 MG/2 ML VIAL IV PRN ×3 (00:01→22:39)
[2022-05-18] MEDS: METRONIDAZOLE 500mg IVPB 500 MG/100 ML BAG IV SCH ×3 (00:07→16:38)
[2022-05-18] MEDS: PROMETHAZINE INJ 25 MG/ML AMP IV PRN ×3 (03:54→18:54)
[2022-05-18] MEDS: MORPHINE 2 MG/ML SYR IV PRN ×6 (03:54→22:39)
[2022-05-18 04:20] LABS: Absolute Lymphocytes (CBC) 3.6 K/uL (0.7-4.9); Hematocrit 35.2 % (36.0-45.0); Lymphocytes % 23.8 % (15.3-44.8); MCV 97.6 fL (80-100); MPV 8.6 fL (7.6-11.3); RBC Red Blood Cell Count 3.61 M/uL (3.86-4.86)
[2022-05-18 04:39] LABS: Albumin 2.7 g/dL (3.4-5.0); Bilirubin Total 0.2 mg/dL (0.2-1.0); Magnesium 2.4 mg/dL (1.8-2.4); Phosphorus 2.9 mg/dL (2.5-4.9); Potassium 3.5 mmol/L (3.5-5.1); Protein, Total 5.9 g/dL (6.4-8.2)
[2022-05-18 04:40] LABS: Thyroid Stimulating Hormone 4.1 uIU/mL (0.360-3.740)
[2022-05-18] MEDS: D5 0.45 NS 1,000 ML IV SCH ×3 (05:34→19:18)
[2022-05-18 07:34] LABS: Specific Gravity 1.006 (1.005-1.030); Urine Bilirubin NEGATIVE (Negative); Urine Blood Negative (Negative); Urine Clarity Clear (Clear); Urine Color Colorless (Yellow); Urine Glucose NEGATIVE (Negative); Urine Protein NEGATIVE (Negative); Urine Urobilinogen Normal (Normal); Urine pH 5.5 (5.0-7.0)
[2022-05-18] MEDS: clonazePAM 1 MG TAB PO SCH ×3 (09:00→20:59)
[2022-05-18] MEDS ORDERED: POTASSIUM CL SA 10 MEQ TAB PO ONE (09:00)
[2022-05-18] MEDS: ENOXAPARIN 40 MG/0.4 ML SQ SCH (09:01)
[2022-05-18] MEDS: CIPROFLOXACIN 400mg IV 400 MG/200 ML BAG IV SCH ×2 (09:01→20:59)
[2022-05-18] MEDS: VALACYCLOVIR 500 MG TAB PO SCH (09:01)
--- NOTE | 2022-05-18 14:39 | RAD REPORT ---
EXAM DESCRIPTION: US - Transvaginal Study Probe - 05/18/2022 2:27 pm CLINICAL HISTORY: evaluate cyst/pelvic pain Pelvic pain. COMPARISON: TRANSVAGINAL STUDY PROBE dated 08/03/2011; Abdomen Pelvis W Contrast dated 05/17/2022 FINDINGS: The uterus is surgically absent. Two circumscribed abutting hypoechoic lesions are present in the left ovary, measuring 2.5 and 3.0 cm . There are low level echoes within both lesions which suggest endometriomas or hemorrhagic cysts. Right ovary measures 2.7 x 2.0 cm with normal blood flow. Mild free fluid is seen in the pelvis. IMPRESSION: Two abutting cystic lesions in the left ovary measuring 2.5 cm and 3.0 cm noted.These errol th are seen to contain low-level internal echoes suggesting endometriomas or hemorrhagic cysts. Recom mend follow-up sonography in 3-6 months for monitoring.
[2022-05-18] MEDS: HYDROCODONE/APAP 5/325 MG TAB PO PRN (15:07)
--- NOTE | 2022-05-18 19:50 | P.PN ---
Date of Service: 05/18/22 Subjective: continues with pain, feels nausea meds and pain meds helping slight improvement reports 1-2 weeks of having to strain to urinate ROS: 10 point ROS as noted above, otherwise negative Physical Exam: Gen: NAD, AOx3 HEENT: normal conjunctiva, sclera anicteric CV: regular rate & rhythm, no edema Pulm: non-labored respirations, clear bilaterally Abd: soft, mild tenderness b/l suprapubic, epigastrium Neuro: normal speech, normal affect, moves all extremities vitals reviewed Problem List intractable n/v abdominal pain L Adnexal cyst Gastroenteritis TRE secondary to dehydration h/o IBS continue CLD, IVF pain meds and antiemetics PRN continue empiric antibiotics - cipro/flagyl leukocytosis downtrending, partly hemoconcentration CLD, advance as tolerated reports some L pelvic pain L adnexal cyst noted on CT, with increase in size pt reports used to be 2 cysts will check U/S unlikely to be causing b/l back pain / epigastric straining to urinate, UA clear pt with not much UOP per her report suspect dehydration TRE secondary to dehydration improving with IVF VTE: lovenox Code: full Dispo: home, ~2 days Time Spent Managing Pts Care (In Minutes): 35
[2022-05-18] MEDS ORDERED: BISACODYL E.C. 5 MG TAB PO ONE (21:07)
[2022-05-19] MEDS: METRONIDAZOLE 500mg IVPB 500 MG/100 ML BAG IV SCH ×3 (00:33→17:11)
[2022-05-19] MEDS: ZOLPIDEM TARTRATE 10 MG TABLET PO PRN ×3 (00:33→21:46)
[2022-05-19] MEDS: MORPHINE 2 MG/ML SYR IV PRN ×5 (03:05→21:44)
[2022-05-19] MEDS: PROMETHAZINE INJ 25 MG/ML AMP IV PRN ×3 (03:05→17:48)
[2022-05-19] MEDS: D5 0.45 NS 1,000 ML IV SCH ×3 (05:18→18:18)
[2022-05-19 05:50] LABS: C-Reactive Protein 7.59 mg/L (<3.00); Potassium 3.6 mmol/L (3.5-5.1)
[2022-05-19] MEDS: HYDROCODONE/APAP 5/325 MG TAB PO PRN ×2 (05:50→12:11)
[2022-05-19] MEDS: ONDANSETRON 4 MG/2 ML VIAL IV PRN ×3 (05:50→20:19)
[2022-05-19 05:51] LABS: Absolute Lymphocytes (CBC) 2.4 K/uL (0.7-4.9); Hematocrit 33.9 % (36.0-45.0); Lymphocytes % 19.5 % (15.3-44.8); MCV 97.4 fL (80-100); MPV 8.3 fL (7.6-11.3); RBC Red Blood Cell Count 3.48 M/uL (3.86-4.86)
[2022-05-19] MEDS ORDERED: POTASSIUM CL SA 10 MEQ TAB PO ONE (09:00)
[2022-05-19] MEDS: CIPROFLOXACIN 400mg IV 400 MG/200 ML BAG IV SCH ×2 (09:01→20:19)
[2022-05-19] MEDS: VALACYCLOVIR 500 MG TAB PO SCH (09:02)
[2022-05-19] MEDS: clonazePAM 1 MG TAB PO SCH ×3 (09:02→20:34)
[2022-05-19] MEDS: ENOXAPARIN 40 MG/0.4 ML SQ SCH (09:03)
[2022-05-19] MEDS ORDERED: BISACODYL 10 MG RECTAL SUPP PR ONE (12:23)
--- NOTE | 2022-05-19 15:43 | P.PN ---
Date of Service: 05/19/22 Subjective: continues with pain, feels nausea meds and pain meds helping slight improvement each day able to keep down some water with some burning pain of throat now as well ROS: 10 point ROS as noted above, otherwise negative Physical Exam: Gen: NAD, AOx3 HEENT: normal conjunctiva, sclera anicteric CV: regular rate & rhythm, no edema Pulm: non-labored respirations, clear bilaterally Abd: soft, mild tenderness epigastrium Neuro: normal speech, normal affect, moves all extremities vitals reviewed Problem List intractable n/v abdominal pain L Adnexal cyst Gastroenteritis TRE secondary to dehydration h/o IBS chronic back pain continue CLD, IVF; advance as tolerated pain meds and antiemetics PRN continue empiric antibiotics - cipro/flagyl leukocytosis downtrending slight improvement, consult GI for further input reports some L pelvic pain L adnexal cyst noted on CT, with increase in size pt reports used to be 2 cysts U/S confirmed 2 smaller cysts, benign appearing unlikely to be causing b/l back pain / epigastric straining to urinate, UA clear pt with not much UOP per her report suspect dehydration; improving TRE secondary to dehydration improving with IVF Chronic back pain appears stable, reports h/o disc herniation, nerve impingement denies fecal/urine incontinence VTE: lovenox Code: full Dispo: home, ~2 days Time Spent Managing Pts Care (In Minutes): 35
[2022-05-19] MEDS: SUCRALFATE 1GM/10ML UCUP PO SCH ×2 (17:12→20:30)
[2022-05-20] MEDS: METRONIDAZOLE 500mg IVPB 500 MG/100 ML BAG IV SCH ×3 (00:43→17:36)
[2022-05-20] MEDS: MORPHINE 2 MG/ML SYR IV PRN ×4 (01:40→21:06)
[2022-05-20] MEDS: PROMETHAZINE INJ 25 MG/ML AMP IV PRN ×3 (01:41→17:36)
[2022-05-20] MEDS: HYDROCODONE/APAP 5/325 MG TAB PO PRN ×2 (02:51→12:24)
[2022-05-20 05:58] LABS: Hematocrit 37.7 % (36.0-45.0); MCV 98.1 fL (80-100); MPV 7.4 fL (7.6-11.3); RBC Red Blood Cell Count 3.85 M/uL (3.86-4.86)
[2022-05-20] MEDS: D5 0.45 NS 1,000 ML IV SCH ×2 (06:12→20:07)
[2022-05-20 06:21] LABS: Albumin 2.9 g/dL (3.4-5.0); Bilirubin Total 0.4 mg/dL (0.2-1.0); C-Reactive Protein 13.7 mg/L (<3.00); Potassium 3.9 mmol/L (3.5-5.1); Protein, Total 6.2 g/dL (6.4-8.2)
--- NOTE | 2022-05-20 06:59 | ECHO ---
HEIGHT: 5 ft 5 in WEIGHT: 180 lb 0.119 oz DATE OF STUDY: 05/19/[address]: Jim Kennedy MD 2-DIMENSIONAL: YES M.MODE: YES DOPPLER: YES COLOR FLOW: YES TDS: NO PORTABLE: YES DEFINITY: NO BUBBLE STUDY: NO DIAGNOSIS: CHEST PAIN CARDIAC HISTORY: CATHERIZATION: NO SURGERY: NO PROSTHETIC VALVE: NO PACEMAKER: NO MEASUREMENTS (cm) DIASTOLIC (NORMALS) SYSTOLIC (NORMALS) IVSd 1.1 (0.6-1.2) LA Diam 2.6 (1.9-4.0) LVEF 84% LVIDd 4.8 (3.5-5.7) LVIDs 2.2 (2.0-3.5) %FS 54% LVPWd 1.1 (0.6-1.2) Ao Diam 2.4 (2.0-3.7) 2 DIMENSIONAL ASSESSMENT: RIGHT ATRIUM: NORMAL LEFT ATRIUM: NORMAL RIGHT VENTRICLE: NORMAL LEFT VENTRICLE: NORMAL TRICUSPID VALVE: NORMAL MITRAL VALVE: NORMAL PULMONIC VALVE: NORMAL AORTIC VALVE: NORMAL PERICARDIAL EFFUSION: NONE AORTIC ROOT: NORMAL LEFT VENTRICULAR WALL MOTION: NORMAL. DOPPLER/COLOR FLOW: MILD TRICUSPID REGURGITATION. COMMENTS: MILD TRICUSPID REGURGITATION - NORMAL RIGHT VENTRICUAR SYSTOLIC PRESSURE. NORMAL LEFT VENTRICULAR SIZE AND WALL MOTION. NO EFFUSION. TECHNOLOGIST: DIANA RODRÍGUEZ
[2022-05-20] MEDS: ENOXAPARIN 40 MG/0.4 ML SQ SCH (08:42)
[2022-05-20] MEDS: clonazePAM 1 MG TAB PO SCH ×3 (08:42→21:07)
[2022-05-20] MEDS ORDERED: POTASSIUM CL SA 10 MEQ TAB PO ONE (09:00)
[2022-05-20] MEDS: SUCRALFATE 1GM/10ML UCUP PO SCH ×4 (09:05→21:06)
[2022-05-20] MEDS: VALACYCLOVIR 500 MG TAB PO SCH (09:35)
[2022-05-20] MEDS: CIPROFLOXACIN 400mg IV 400 MG/200 ML BAG IV SCH ×2 (09:48→21:08)
[2022-05-20] MEDS ORDERED: BISACODYL 10 MG RECTAL SUPP PR PRN (10:48)
[2022-05-20] MEDS ORDERED: CYCLOBENZAPRINE 10 MG TAB PO PRN (20:10)
--- NOTE | 2022-05-20 20:10 | P.PN ---
Date of Service: 05/20/22 Subjective: tolerated full liquids, but had episode of emesis this morning pain improved slightly but still persisting ROS: 10 point ROS as noted above, otherwise negative Physical Exam: Gen: NAD, AOx3 HEENT: normal conjunctiva, sclera anicteric CV: regular rate & rhythm, no edema Pulm: non-labored respirations, clear bilaterally Abd: soft, mild-moderate tenderness epigastrium Neuro: normal speech, normal affect, moves all extremities vitals reviewed Problem List intractable n/v abdominal pain L Adnexal cyst Gastroenteritis TRE secondary to dehydration h/o IBS chronic back pain continue FLD, decrease IVF; advance as tolerated pain meds and antiemetics PRN continue empiric antibiotics - cipro/flagyl leukocytosis downtrending slight improvement, consulted GI for further input reports some L pelvic pain L adnexal cyst noted on CT, with increase in size pt reports used to be 2 cysts U/S confirmed 2 smaller cysts, benign appearing unlikely to be causing b/l back pain / epigastric h/o pancreatitis in past, check lipase straining to urinate, UA clear pt with not much UOP per her report suspect dehydration improving TRE secondary to dehydration improved with IVF Chronic back pain appears stable, reports h/o disc herniation, nerve impingement denies fecal/urine incontinence VTE: lovenox Code: full Dispo: home, ~2 days Time Spent Managing Pts Care (In Minutes): 35
[2022-05-20] MEDS: DOCUSATE NA 100 MG CAP PO SCH (21:07)
[2022-05-20] MEDS: ZOLPIDEM TARTRATE 10 MG TABLET PO PRN (21:08)
[2022-05-20] MEDS: ONDANSETRON 4 MG/2 ML VIAL IV PRN (21:19)
[2022-05-21] MEDS: METRONIDAZOLE 500mg IVPB 500 MG/100 ML BAG IV SCH ×3 (01:00→16:58)
[2022-05-21] MEDS: MORPHINE 2 MG/ML SYR IV PRN ×4 (01:24→21:30)
[2022-05-21] MEDS: PROMETHAZINE INJ 25 MG/ML AMP IV PRN ×3 (01:25→16:57)
[2022-05-21] MEDS: ONDANSETRON 4 MG/2 ML VIAL IV PRN ×3 (03:19→21:30)
[2022-05-21] MEDS: HYDROCODONE/APAP 5/325 MG TAB PO PRN ×2 (03:19→16:57)
[2022-05-21] MEDS ORDERED: MORPHINE 2 MG/ML SYR IV ONE (03:31)
[2022-05-21 06:03] LABS: Hematocrit 39.8 % (36.0-45.0); MCV 97.7 fL (80-100); RBC Red Blood Cell Count 4.08 M/uL (3.86-4.86)
[2022-05-21 06:15] LABS: Albumin 3.4 g/dL (3.4-5.0); Bilirubin Total 0.3 mg/dL (0.2-1.0); C-Reactive Protein 14.1 mg/L (<3.00); Magnesium 2.1 mg/dL (1.8-2.4); Potassium 4.2 mmol/L (3.5-5.1); Protein, Total 7.4 g/dL (6.4-8.2)
[2022-05-21] MEDS: D5 0.45 NS 1,000 ML IV SCH (06:26)
[2022-05-21] MEDS: VALACYCLOVIR 500 MG TAB PO SCH (08:20)
[2022-05-21] MEDS: CIPROFLOXACIN 400mg IV 400 MG/200 ML BAG IV SCH ×2 (08:20→21:29)
[2022-05-21] MEDS: ENOXAPARIN 40 MG/0.4 ML SQ SCH (08:20)
[2022-05-21] MEDS: DOCUSATE NA 100 MG CAP PO SCH ×2 (08:20→21:28)
[2022-05-21] MEDS: clonazePAM 1 MG TAB PO SCH ×3 (08:20→21:28)
[2022-05-21] MEDS: SUCRALFATE 1GM/10ML UCUP PO SCH ×4 (08:20→21:29)
[2022-05-21] MEDS: ACETAMINOPHEN 500 MG TAB PO PRN (10:52)
--- NOTE | 2022-05-21 16:00 | EKG ---
Test Date: 2022-05-18 Test Time: 20:10:52 Coronary Clinical Specialist: HB MEASUREMENT RESULTS: Intervals: Rate: 93 MD: 124 QRSD: 86 QT: 358 QTc: 445 [place]: P: 53 MD: 124 QRS: 15 T: 53 INTERPRETIVE STATEMENTS: Sinus rhythm with premature atrial complexes Otherwise normal ECG Compared to ECG 11/29/2011 08:08:45 No significant changes Electronically Signed On 05-21-22 15:58:29 [employer] by Cole Richardson
--- NOTE | 2022-05-21 17:28 | P.PN ---
Date of Service: 05/21/22 Subjective: 1-2 episodes of emesis overnight otherwise she feels better still requiring pain meds, and antiemetics +BM overnight that relieved some pain ROS: 10 point ROS as noted above, otherwise negative Physical Exam: Gen: NAD, AOx3 HEENT: normal conjunctiva, sclera anicteric; left swelling of neck, mild CV: regular rate & rhythm, no edema Pulm: non-labored respirations, clear bilaterally Abd: soft, mild tenderness epigastrium Neuro: normal speech, normal affect, moves all extremities vitals reviewed Problem List intractable n/v abdominal pain L Adnexal cyst Gastroenteritis TRE secondary to dehydration h/o IBS chronic back pain dc IVF, advance diet to soft foods Wean pain meds repeat labs in am continue empiric antibiotics - cipro/flagyl leukocytosis slightly increased CRP slightly increased consulted GI for further input - no further recommendations at this time if no further improvement, may need to repeat CT reports some L pelvic pain L adnexal cyst noted on CT, with increase in size pt reports used to be 2 cysts U/S confirmed 2 smaller cysts, benign appearing unlikely to be causing b/l back pain / epigastric h/o pancreatitis in past, check lipase straining to urinate, UA clear pt with not much UOP per her report suspect dehydration improved TRE secondary to dehydration improved with IVF Chronic back pain appears stable, reports h/o disc herniation, nerve impingement denies fecal/urine incontinence VTE: lovenox Code: full Dispo: home, ~1-2 days Time Spent Managing Pts Care (In Minutes): 35
[2022-05-21] MEDS: ZOLPIDEM TARTRATE 10 MG TABLET PO PRN (21:44)
[2022-05-22] MEDS: METRONIDAZOLE 500mg IVPB 500 MG/100 ML BAG IV SCH ×2 (01:20→09:44)
[2022-05-22] MEDS: HYDROCODONE/APAP 5/325 MG TAB PO PRN ×3 (01:42→15:57)
[2022-05-22] MEDS: PROMETHAZINE INJ 25 MG/ML AMP IV PRN ×3 (01:44→15:57)
[2022-05-22 04:11] LABS: Hematocrit 36.3 % (36.0-45.0); MCV 97.8 fL (80-100); MPV 8.1 fL (7.6-11.3); RBC Red Blood Cell Count 3.71 M/uL (3.86-4.86)
[2022-05-22 04:37] LABS: Albumin 2.8 g/dL (3.4-5.0); Bilirubin Total 0.4 mg/dL (0.2-1.0); Potassium 3.8 mmol/L (3.5-5.1); Protein, Total 6.1 g/dL (6.4-8.2)
[2022-05-22 05:12] VITALS: O2SAT 100
[2022-05-22] MEDS ORDERED: NA CHLORIDE 0.9% 500 ML IV ONE (08:14)
[2022-05-22] MEDS ORDERED: POTASSIUM CL SA 10 MEQ TAB PO ONE (09:00)
[2022-05-22] MEDS: ENOXAPARIN 40 MG/0.4 ML SQ SCH (09:43)
[2022-05-22] MEDS: VALACYCLOVIR 500 MG TAB PO SCH (09:44)
[2022-05-22] MEDS: clonazePAM 1 MG TAB PO SCH ×2 (09:44→15:03)
[2022-05-22] MEDS: CIPROFLOXACIN 400mg IV 400 MG/200 ML BAG IV SCH (09:44)
--- NOTE | 2022-05-22 09:49 | RAD REPORT ---
EXAM DESCRIPTION: RAD - Chest Single View - 05/22/2022 9:11 am CLINICAL HISTORY: short of breath COMPARISON: CHEST SINGLE VIEW dated 11/07/2012; ABDOMEN ACUTE SERIES dated 08/04/2011; ABDOMEN ACUTE S ERIES dated 07/06/2009; Abdomen Pelvis W Contrast dated 05/17/2022 FINDINGS: Lines: None. Lungs: Linear opacities in the lung bases which are new from prior. Pleural: No significant pleural effusions or pneumothorax. Cardiac: The heart size is within normal limits. Mediastinum: Within normal limits. Bones: No acute fractures. Other: None IMPRESSION: New basilar linear opacities that may reflect atelectasis and/or mild pneumonia.
[2022-05-22 16:50] VITALS: BP 104/80; TEMP 97.9
--- NOTE | 2022-05-22 21:15 | P.DS ---
Admission Date: 05/18/22 Discharge Date: 05/22/22 Disposition: ROUTINE DISCHARGE Discharge Condition: GOOD Reason for Admission: Nausea and vomiting and abdominal pain Consultations: Cardiology - Dr. Kennedy GI - Dr. Tam Brief History of Present Illness: 41yo F, prior hospitalization and extensive workup for recurrent abdominal pain. Presents to ED with nausea/vomiting and diarrhea for ~3 days. Associated with multiple episodes of vomiting/diarrhea. She was seen in ED ~3 days ago, CT abd/pelvis at that time noted possible colitis. She was discharged with PO cipro/flagyl, but symptoms worsened. CT this time did not show any acute findings. She was unable to tolerate anything oral in the ED. Hospital Course: Problem List intractable n/v, abdominal pain secondary to gastroenteritis vs colitis L Adnexal cyst TRE secondary to dehydration h/o IBS chronic back pain Patient presented with intractable nausea/vomiting and abdominal pain. Acute worsening of chronic abdominal pain/nausea. CT abdomen a few days prior noted mild colitis. CT abdomen/pelvis on this admission did not reveal any acute process. It did note an incidental 6cm left ovarian cyst. Transvaginal ultrasound noted it was actually 2 smaller cysts close together, which patient states she has known about. Patient was treated with pain control, nausea medication, carafate, and acid suppression with eventual improvement. Diet was advanced to soft foods which she tolerated. She was noted to have 2 brief runs (~4-6 beats) of vtach. Cardiology was consulted, echocardiogram was unremarkable, and recommended no further intervention/workup at this time. Discharged home to continue antibiotics previously prescribed, prilosec, carafate, tylenol#3, and antiemetics. Resume prior home medication as prescribed. Follow up: PCP within 1 week Recommend Urology / Urology-Gynecology for left ovarian cyst and patient did report intermittent need to strain when urinating. Urinalysis were normal on 2 separate occasions during hospitalization. GI - Dr. Tam in a few weeks, if pain persists, may need EGD. Counselled on smoking cessation Avoidance of late night meals Vital Signs/Physical Exam: Temp Pulse Resp BP Pulse Ox 97.9 F 91 H 16 104/80 100 05/22/22 16:00 05/22/22 16:00 05/22/22 16:00 05/22/22 16:00 05/22/22 16:00 General: Alert, In no apparent distress, Oriented x3 HEENT: Mucous membr. moist/pink, Sclerae nonicteric Neck: Supple, No LAD Respiratory: Clear to auscultation bilaterally, Normal air movement Cardiovascular: No edema, Regular rate/rhythm Gastrointestinal: Soft and benign, Non-distended, Tenderness (minimal epigastric) Musculoskeletal: No contractures, No tenderness Integumentary: No rashes, No significant lesion Laboratory Data at Discharge: WBC 10.50 K/uL (4.3-10.9) 05/22/22 03:40 Hgb 12.2 g/dL (12.0-15.0) D 05/22/22 03:40 Hct 36.3 % (36.0-45.0) 05/22/22 03:40 Plt Count 321 K/uL (152-406) 05/22/22 03:40 Sodium 136 mmol/L (136-145) 05/22/22 03:40 Potassium 3.8 mmol/L (3.5-5.1) 05/22/22 03:40 BUN 9 mg/dL (7-18) 05/22/22 03:40 Creatinine 1.17 mg/dL (0.55-1.3) 05/22/22 03:40 Glucose 144 mg/dL (74-106) H 05/22/22 03:40 Phosphorus 2.9 mg/dL (2.5-4.9) 05/18/22 03:45 Magnesium 2.0 mg/dL (1.8-2.4) 05/22/22 03:40 Total Bilirubin 0.4 mg/dL (0.2-1.0) 05/22/22 03:40 AST 18 U/L (15-37) 05/22/22 03:40 ALT 29 U/L (12-78) 05/22/22 03:40 Alkaline Phosphatase 58 U/L (45-117) 05/22/22 03:40 Triglycerides 299 mg/dL (<150) H 05/18/22 03:45 Cholesterol 161 mg/dL (<200) 05/18/22 03:45 HDL Cholesterol 36 mg/dL (40-60) L 05/18/22 03:45 Cholesterol/HDL Ratio 4.47 05/18/22 03:45 Lipase 45 U/L (73-393) L 05/21/22 05:23 Home Medications: Cyclobenzaprine [Flexeril*] 10 mg PO BID PRN #40 tab 11/30/11 Ciprofloxacin HCl [Cipro 500 MG Tablet] 500 mg PO Q12H 05/17/22 Metronidazole 500 mg PO Q8HR 05/17/22 Valacyclovir [Valtrex*] 500 mg PO DAILY 05/17/22 Zolpidem Tartrate 10 mg PO DAILY PRN 05/17/22 clonazePAM [Clonazepam] 1 mg PO TID 05/17/22 Codeine/APAP [Tylenol W/Codeine #3 tab] 1 tab PO Q6HP PRN #10 tab 05/22/22 Promethazine Tab [Phenergan] 12.5 mg PO Q6HP PRN #10 tab 05/22/22 Sucralfate [Carafate] 1 gm PO TIDWM 30 Days #90 tab 05/22/22 New Medications: Promethazine Tab [Phenergan] 12.5 mg PO Q6HP PRN #10 tab PRN Reason: Nausea / Vomiting Codeine/APAP [Tylenol W/Codeine #3 tab] 1 tab PO Q6HP PRN #10 tab PRN Reason: Pain Sucralfate [Carafate] 1 gm PO TIDWM 30 Days #90 tab Physician Discharge Instructions: Patient presented with intractable nausea/vomiting and abdominal pain. Acute worsening of chronic abdominal pain/nausea. CT abdomen a few days prior noted mild colitis. CT abdomen/pelvis on this admission did not reveal any acute process. It did note an incidental 6cm left ovarian cyst. Transvaginal ultrasound noted it was actually 2 smaller cysts close together, which patient states she has known about. Patient was treated with pain control, nausea medication, carafate, and acid suppression with eventual improvement. Diet was advanced to soft foods which she tolerated. She was noted to have 2 brief runs (~4-6 beats) of vtach. Cardiology was consulted, echocardiogram was unremarkable, and recommended no further intervention/workup at this time. Discharged home to continue antibiotics previously prescribed, prilosec, carafate, tylenol#3, and antiemetics. Resume prior home medication as prescribed. Follow up: PCP within 1 week Recommend Urology / Urology-Gynecology for left ovarian cyst and patient did report intermittent need to strain when urinating. Urinalysis were normal on 2 separate occasions during hospitalization. GI - Dr. Tam in a few weeks, if pain persists, may need EGD. Counselled on smoking cessation Avoidance of late night meals Followup: NONE,NONE [Primary Care Provider] - Time spent managing pt's care (in minutes): 45
--- NOTE | 2022-05-22 22:54 | CON ---
Date of Consultation: 05/19/[address] Lim on 05/18/2022. I saw the patient on 05/19/2022. Reason For Consultation: Short 9-beat run of ventricular tachycardia. History Of Present Illness: Ms. Rosa is 41, healthy came in with episodes of nausea and vomiting fo r about 2 days, intractable; elevated white count; had a 9-beat run of ventricular tachycardia that w as asymptomatic. No chest pain. No nausea, vomiting, diaphoresis, PND, orthopnea, pedal edema, palp itations, or syncope with her symptoms. Allergies: PENICILLIN AND TRAMADOL. Review of Systems: Negative. Social History: Negative. Family History: Negative. Medications: At home are none. Physical Examination: Vital Signs: Stable, afebrile. HEENT: Negative. Neck: Supple with no bruit. Chest: Clear. Cardiac: Normal. Abdomen: Benign. Extremities: Revealed no clubbing, cyanosis, or edema. Diagnostic Data: Showed elevated white count. EKG is normal. Chest x-ray is normal. Troponin is n ormal. Impression And Plan: 9-beat run of ventricular tachycardia secondary to electrolyte abnormalities, m ost likely because of nausea and vomiting. This is definitely not an acute coronary syndrome. I thi nk she needs to have an echocardiogram done and we should also have her do a 7-day event monitor as a n outpatient if she was discharged to make sure she does not have this arrhythmia on a regular basis. MARIANA/DREW Voice ID: [id number] Report ID: [id number]
== END 2022-05-22 17:27 | disposition home or self-care (01) | DRG 392 ==
LOC: ER 07:42 → ERHOLD 12:57 → 2ND 14:44 → OBSVTOIN 05-18 14:08
PROVIDERS: ADMIT Internal Medicine; ATTEND Hospitalist
DX: K52.9 Noninfective gastroenteritis and colitis, unspecified (principal); N17.9 Acute kidney failure, unspecified; I47.20 Ventricular tachycardia, unspecified; E86.0 Dehydration; F41.9 Anxiety disorder, unspecified; G89.29 Other chronic pain; M54.9 Dorsalgia, unspecified; N83.8 Other noninflammatory disorders of ovary, fallopian tube and broad ligament; D72.829 Elevated white blood cell count, unspecified; F17.210 Nicotine dependence, cigarettes, uncomplicated; Z23 Encounter for immunization; Z88.0 Allergy status to penicillin; Z88.5 Allergy status to narcotic agent; Z79.899 Other long term (current) drug therapy; Z90.711 Acquired absence of uterus with remaining cervical stump; Z20.822 Contact with and (suspected) exposure to COVID-19
CPT/HCPCS: 36415; 71045; 74177; 76830; 80048; 80053; 80061; 81003; 83690; 83735; 84100; 84145; 84439; 84443; 84484; 85025; 85027; 85652; 86140; 86304; 87811; 90471; 93005; 93306; 94010; 99285; G0378; J0744; J1650; J2270; J2405; J2550; J7030; J7040; J7799; Q2035; Q9967

== ENCOUNTER 2022-06-24 20:12 | Emergency (ER) | payer SELFPAY ==
--- OUTSIDE RECORDS SUMMARY | 2022-06-24 20:25 | XMS REPORT | Continuity of Care Document ---
:1980 Author Organization [facility] t Address [address] [place] [address] Care Team Providers Name Role Phone Reymundo [...] Disease Active 2010-07 Unive rs vomiting vomiting 08-19 ity of 00:00: [place] 00 Medical Branch Abdominal Abdominal Disease Active 2010-07 Uni vers pain, pain, 08-19 ity of acute, acute, 00:00: [place] epigastric epigastric 00 Me dical Branch Leukocytos Leukocytos Disease Active 2010-07 Overview : Univers is is 2 Formattin ity of 00:00: g of this [place] 00 note Medical might be Branch different from the original. ICD10 Diagnosis Term [employer] Utility Hypokalemi Hypokalemi Disease Active 2010-07 U nivers a a 2- ity of 00:00: [place] 00 Medical Branch Metabolic Metabolic Disease Active 2010-07 Uni vers acidosis acidosis 08-19 ity of 00:00: [place] 00 Medical Branch Allergies, Adverse Reactions, Alerts Allergy Allergy Status Severity Reaction(s) Onset Inactive Treating Comm ents Source Name Type Date Date Clinician Penicill Propensi Active 2021-07 ins - ty to 1-25 CLASS adverse 00:00: reaction 00 to drug KETOROLA DRUG Active Rash 2021-07 Univers C INGREDI 0-21 ity of 00:00: [place] 00 Medical Branch Ketorola Propensi Active Rash 2021-07 Univer s c ty to 0-21 ity of adverse 00:00: [place] reaction 00 Medical s Branch Penicill Propensi Active ins ty to 2-23 adverse 00:00: reaction 00 to drug Penicill Propensi Active Unknown - 2015-07 Uni vers ins ty to See comments 0-26 ity of adverse 00:00: [place] reaction 00 Medical s Branch PENICILL Drug Active Unknown-Cmnt 2015-07 Un stephanie INS Class 0-26 ity of 00:00: [place] 00 [facility] Social History Social Habit Start Date Stop Date Quantity Comments Source History of tobacco Cigarette Smoker [place] of use [facility] Exposure to 2022-04-20 2022-04-30 Not sure [facility] SARS-CoV-2 (event) 00:00:00 13:23:00 [facility] Alcohol intake 2016-05-05 2016-05-05 Current drinker Unive rsity of 00:00:00 00:00:00 of alcohol [facility] (finding) Branch Cigarettes smoked 2011-06-18 2011-06-18 Univers ity of current (pack per 00:00:00 00:00:00 ) - Reported Branch Cigarette 2011-06-18 2011-06-18 University of pack-years 00:00:00 00:00:00 [facility] Sex Assigned At [birth year] Universit y of 00:00:00 00:00:00 [facility] Smoking Status Start Date Stop Date Source Never smoked tobacco [facility] Medications Ordered Filled Start Stop Current Ordering Indication Dosage Frequency Signature Comments Components Source Medication Medication Date Date Medication? Clinician (SIG) Name Name TAKE 2 2021-07 No TABLETS 1-25 DAILY FOR 7 00:00: DAYS, THEN 00 1 TABLET DAILY FOR 7 DAYS. TAKE ONE 2021-07 No (1) 1-25 TABLET(S) 00:00: BY MOUTH 00 TWICE A DAY NEEDED. TAKE 2 2021-07 No TABLETS 1-25 DAILY FOR 7 00:00: DAYS, THEN 00 1 TABLET DAILY FOR 7 DAYS. TAKE ONE 2021-07 No (1) 1-25 TABLET(S) 00:00: BY MOUTH 00 TWICE A DAY NEEDED. TAKE 2 2022-1 No TABLETS 1-25 DAILY FOR 7 00:00: DAYS, THEN 00 1 TABLET DAILY FOR 7 DAYS. TAKE ONE 2022-1 No (1) 1-25 TABLET(S) 00:00: BY MOUTH 00 TWICE A DAY NEEDED. benzonatate 2022-0 No 12mg 100 mg 3-30 capsule 00:00: 00 promethazin 2-0 No 10mg/5 e-DM 6.25 3-30 mL mg-15 mg/5 00:00: mL oral 00 syrup benzonatate 2022-0 No 12mg 100 mg 3-30 capsule 00:00: 00 promethazin 2022-0 No 10mg/5 e-DM 6.25 3-30 mL mg-15 mg/5 00:00: mL oral 00 syrup benzonatate 2-0 No 12mg 100 mg 3-30 capsule 00:00: 00 promethazin 2022-0 No 10mg/5 e-DM 6.25 3-30 mL mg-15 mg/5 00:00: mL oral 00 syrup TAKE 2 2022-0 No TABLETS 1-28 DAILY FOR 7 00:00: DAYS, THEN 00 1 TABLET DAILY FOR 7 DAYS. azithromyci 2022-0 No mg n 250 mg 1-28 tablet 00:00: 00 Dose 2-0 No Unknown 1-28 00:00: 00 Dose 2022-0 No Unknown 1-28 00:00: 00 TAKE 2 2022-0 No TABLETS 1-28 DAILY FOR 7 00:00: DAYS, THEN 00 1 TABLET DAILY FOR 7 DAYS. azithromyci 2022-0 No mg n 250 mg 1-28 tablet 00:00: 00 Dose 2022-0 No Unknown 1-28 00:00: 00 Dose 2022-0 No Unknown 1-28 00:00: 00 TAKE 2 2022-0 No TABLETS 1-28 DAILY FOR 7 00:00: DAYS, THEN 00 1 TABLET DAILY FOR 7 DAYS. azithromyci 2022-0 No mg n 250 mg 1-28 tablet 00:00: 00 Dose 2022-0 No Unknown 1-28 00:00: 00 Dose 2022-0 No Unknown 1-28 00:00: 00 azithromyci 2021-1 No mg n 250 mg 2-03 tablet 00:00: 00 benzonatate 2021-1 No 12mg 100 mg 2-03 capsule 00:00: 00 promethazin 2021-1 No 10mg/5 e-DM 6.25 2-03 mL mg-15 mg/5 00:00: mL oral 00 syrup prednisone 1-1 No 1mg 20 mg 2-03 tablet 00:00: 00 azithromyci 1-1 No mg n 250 mg 2-03 tablet 00:00: 00 benzonatate 1-1 No 12mg 100 mg 2-03 capsule 00:00: 00 promethazin 1-1 No 10mg/5 e-DM 6.25 2-03 mL mg-15 mg/5 00:00: mL oral 00 syrup prednisone 1-1 No 1mg 20 mg 2-03 tablet 00:00: 00 azithromyci 1-1 No mg n 250 mg 2-03 tablet 00:00: 00 benzonatate 1-1 No 12mg 100 mg 2-03 capsule 00:00: 00 promethazin 1-1 No 10mg/5 e-DM 6.25 2-03 mL mg-15 mg/5 00:00: mL oral 00 syrup prednisone 1-1 No 1mg 20 mg 2-03 tablet 00:00: 00 prednisone 2021-0 No 1mg 20 mg 6-07 tablet 00:00: 00 azithromyci 2021-0 No mg n 250 mg 6-07 tablet 00:00: 00 benzonatate 2021-0 No 12mg 100 mg 6-07 capsule 00:00: 00 promethazin 2021-0 No 5mg/5 e-DM 6.25 6-07 mL mg-15 mg/5 00:00: mL oral 00 syrup prednisone 2021-0 No 1mg 20 mg 6-07 tablet 00:00: 00 azithromyci 2021-0 No mg n 250 mg 6-07 tablet 00:00: 00 benzonatate 2021-0 No 12mg 100 mg 6-07 capsule 00:00: 00 promethazin 2021-0 No 5mg/5 e-DM 6.25 6-07 mL mg-15 mg/5 00:00: mL oral 00 syrup prednisone 2021-0 No 1mg 20 mg 6-07 tablet 00:00: 00 azithromyci No mg n 250 mg 6-07 tablet 00:00: 00 benzonatate No 12mg 100 mg - capsule 00:00: 00 promethazin No 5mg/5 e-DM 6.25 6-07 mL mg-15 mg/5 00:00: mL oral 00 syrup methocarbam 2015-07 Yes 750mg Take 1 Uni [...] Immunizations Ordered Filled Immunization Date Status Comments [facility] e Immunization Name Name Modernck COVID-19 2021-06-30 Completed Vaccine 00:00:00 Moderna COVID-19 2021-06-30 Completed Vaccine 00:00:00 Moderna COVID-19 2021-06-30 Completed Vaccine 00:00:00 Moderna COVID-19 2020-10-13 Completed Vaccine 00:00:00 Moderna COVID-19 2020-10-13 Completed Vaccine 00:00:00 Moderna COVID-19 2020-10-13 Completed Vaccine 00:00:00 Moderna COVID-19 2020-09-13 Completed Vaccine 00:00:00 Moderna COVID-19 2020-09-13 Completed Vaccine 00:00:00 Moderna COVID-19 2020-09-13 Completed Vaccine 00:00:00 Influenza Virus 2011-06-21 Completed Universit y of Vaccine 00:00:00 [facility] Vital Signs Vital Name Observation Time Observation Value Comments Source Body weight 2022-04-30 18:23:16 79.379 kg Universi ty [facility] BMI 2022-04-30 18:23:16 29.12 kg/m2 Universi ty [facility] Systolic blood 2022-04-30 18:16:00 128 mm[Hg] Univer sity of pressure [facility] Diastolic blood 2022-04-30 18:16:00 81 mm[Hg] Unive rsity of [facility] Heart rate 2022-04-30 18:16:00 92 /min [facility] Body temperature 2022-04-30 18:16:00 37.06 [facility] Res[facility] rate 2022-04-30 18:16:00 18 /min General acute hospital Body height 2022-04-30 18:16:00 165.1 cm [facility] Oxygen saturation in 2022-04-30 18:16:00 96 /min [facility] blood by [facility] Pulse oximetry Branch BP Systolic 2022-06-18 11:23:00 120 mm[Hg] BP Diastolic 2022-06-18 11:23:00 86 mm[Hg] Weight Measured 2022-06-18 11:23:00 192.40 pounds Height Measured 2022-06-18 11:23:00 66.00 inches Body Temperature 2022-06-18 11:23:00 97.70 degrees Heart Rate 2022-06-18 11:23:00 131.00 /min Respiratory Rate 2022-06-18 11:23:00 18.00 /min BP Systolic 2022-06-14 13:37:00 139 mm[Hg] BP Diastolic 2022-06-14 13:37:00 90 mm[Hg] Weight Measured 2022-06-14 13:37:00 188.80 pounds Height Measured 2022-06-14 13:37:00 66.00 inches Body Temperature 2022-06-14 13:37:00 98.40 degrees Heart Rate 2022-06-14 13:37:00 111.00 /min Respiratory Rate 2022-06-14 13:37:00 19.00 /min Procedures Procedure Date / Time Performed Performing Clinician Sourc e RAPID INFLUENZA A/B 2022-04-30 18:27:00 [place] [facility] COVID-19 (ID NOW 2022-04-30 18:27:00 Geneva Rodríguez [facility] RAPID TESTING) Medical Branch CONSENT/REFUSAL FOR 2022-04-30 18:06:22 Doctor Unassigned, [facility] AND Name [facility] Branch TREATMENT Plan of Care Planned Activity Planned Date Details Comments Source Goal Plan of Care Note [code = 28103-5] Goal Plan of Care Note [code = 98288-4] Goal Plan of Care Note [code = 03290-6] Goal Plan of Care Note [code = 34786-5] Goal Plan of Care Note [code = 88160-3] Goal Plan of Care Note [code = 39319-8] Goal Plan of Care Note [code = 71920-2] Goal Plan of Care Note [code = 53217-5] Goal Plan of Care Note [code = 89728-6] Goal Plan of Care Note [code = 53329-1] Goal Plan of Care Note [code = 08887-7] Goal Plan of Care Note [code = 26144-4] Goal Plan of Care Note [code = 22342-7] Goal Plan of Care Note [code = 82296-6] Goal Plan of Care Note [code = 84748-0] Goal Plan of Care Note [code = 11223-0] Goal Plan of Care Note [code = 18551-9] Goal Plan of Care Note [code = 65152-8] Goal Plan of Care Note [code = 52293-7] Goal Plan of Care Note [code = 74802-5] Goal Plan of Care Note [code = 53680-9] Goal Plan of Care Note [code = 62192-8] Goal Plan of Care Note [code = 89646-8] Goal Plan of Care Note [code = 05271-8] Goal Plan of Care Note [code = 92313-7] Goal Plan of Care Note [code = 58993-4] Goal Plan of Care Note [code = 70515-3] Encounters Start End Encounter Admission Attending Care Care Encounter Source Date/Time Date/Time Type Type Clinicians Facility Department ID 2022-06-21 2022-06-21 Outpatient [facility] [id number] Reginald 08:09:11 08:09:11 1212 Emily Dwyer 2022-06-19 2022-06-19 Outpatient [facility] [id number] Reginald 10:15:22 10:15:22 1210 Emily Dwyer 2022-06-18 2022-06-18 Outpatient [facility] [id number] Reginald 11:18:31 11:18:31 1209 F Reymundo 2022-06-18 2022-06-18 Outpatient [id number] 00:00:00 00:00:00 Visit ffc1-4a85 fc1-4a85-a -abb0-1e3 [id number] 2022-06-14 2022-06-14 Outpatient [facility] [id number] Reginald 13:27:35 13:27:35 1205 F Kim 2022-06-14 2022-06-14 Outpatient [id number] 00:00:00 00:00:00 Visit 85x9-0t83 1y1-7a87-8 -88dd-83d 8dd-83d16d [id number] 9b7bd4 2022-06-10 2022-06-10 Outpatient [facility] [id number] 022 Reginald 11:10:28 11:10:28 1201 F Reymundo 2022-06-04 2022-06-04 Outpatient [id number] 00:00:00 00:00:00 Visit 80bb-4aab 0bb-4aab-9 -75y9-718 [id number] [id number] 8b91e6 2022-04-30 2022-04-30 Emergency WICHO Rodríguez [id number] Univers 13:21:00 13:57:00 [id number] [id number] [facility] 084 Branch 2022-04-30 2022-04-30 Emergency X ANNE AKJORDAN ERT [id number] Univers 13:21:00 13:57:00 GENEVA gordon [facility] Results Test Description Test Time Test Comments Results Result Comments Source HIV 1/2 4TH GEN, RFLX CONF 2022-06-15 00:00:00 Test Item Value Reference Range Interpretation Comme nts HIV 1/2 4TH GEN, RFLX CONF (test code = 3514) NON-REACTIVE [id number] 00:00:00 Test Item Value Reference Range Interpretation Comments RPR RESULT (test code = 3501) REACTIVE RPR TITER (test code = 3500) 1:1 TITER [id number] 00:00:00 Test Item Value Reference Range Interpretation Comments RPR RESULT (test code = 3501) REACTIVE RPR TITER (test code = 3500) 1:1 TITER [id number] 00:00:00 Test Item Value Reference Range Interpretation Comments RPR RESULT (test code = 3501) REACTIVE RPR TITER (test code = 3500) 1:1 TITER ACUTE HEPATITIS [id number] 00:00:00 Test Item Value Reference Range Interpretation Comments HEPATITIS A IgM (test code = NON-REACTIVE 12186) HEPATITIS B CORE IgM (test code NON-REACTIVE = 4644) HEPATITIS B SURF AG (test code = NON-REACTIVE 2739) HEPATITIS C ANTIBODY (test code NON-REACTIVE = 4675) INTERPRETATION HEPATITIS A: (NOTE) (test code = 2552) INTERPRETATION HEPATITIS B: (NOTE) (test code = 08207) INTERPRETATION HEPATITIS C: (NOTE) (test code = 53782) ACUTE HEPATITIS [id number] 00:00:00 Test Item Value Reference Range Interpretation Comments HEPATITIS A IgM (test code = NON-REACTIVE 60815) HEPATITIS B CORE IgM (test code NON-REACTIVE = 4644) HEPATITIS B SURF AG (test code = NON-REACTIVE 2739) HEPATITIS C ANTIBODY (test code NON-REACTIVE = 4675) INTERPRETATION HEPATITIS A: (NOTE) (test code = 2552) INTERPRETATION HEPATITIS B: (NOTE) (test code = 16804) INTERPRETATION HEPATITIS C: (NOTE) (test code = 97371) CT/NG, TMA, [id number] 00:00:00 Test Item Value Reference Range Interpretation Comments GONORRHEA, NAAT (test code = 65464) NEGATIVE CHLAMYDIA, NAAT (test code = 41034) NEGATIVE CT/NG, TMA, [id number] 00:00:00 Test Item Value Reference Range Interpretation Comments GONORRHEA, NAAT (test code = 99902) NEGATIVE CHLAMYDIA, NAAT (test code = 44617) NEGATIVE COMPREHENSIVE METABOLIC [id number] 00:00:00 Test Item Value Reference Range Interpretation Comments GLUCOSE (test code = 2217) 73 MG/DL BUN (test code = 2208) 14 MG/DL CREATININE (test code = 2214) 0.78 MG/DL eGFR (2020 CKD-EPI) (test code 98 ML/MIN/1.73 = 59302) CALC BUN/CREAT (test code = 18 RATIO 2235) SODIUM (test code = 2231) 146 MEQ/L POTASSIUM (test code = 2228) 3.5 MEQ/L CHLORIDE (test code = 2215) 107 MEQ/L CARBON DIOXIDE (test code = 27 MEQ/L 2206) CALCIUM (test code = 2209) 8.2 MG/DL PROTEIN, TOTAL (test code = 6.5 G/DL 2228) ALBUMIN (test code = 2201) 3.9 G/DL CALC GLOBULIN (test code = 2.6 G/DL 2240) CALC A/G RATIO (test code = 1.5 RATIO 2234) BILIRUBIN, TOTAL (test code = <0.2 MG/DL 2206) ALKALINE PHOSPHATASE (test 57 U/L code = 2204) AST (test code = 2218) 10 U/L ALT (test code = 2219) 13 U/L COMPREHENSIVE METABOLIC [id number] 00:00:00 Test Item Value Reference Range Interpretation Comments GLUCOSE (test code = 2217) 73 MG/DL BUN (test code = 2208) 14 MG/DL CREATININE (test code = 2214) 0.78 MG/DL eGFR (2020 CKD-EPI) (test code 98 ML/MIN/1.73 = 02109) CALC BUN/CREAT (test code = 18 RATIO 2235) SODIUM (test code = 2231) 146 MEQ/L POTASSIUM (test code = 2228) 3.5 MEQ/L CHLORIDE (test code = 2215) 107 MEQ/L CARBON DIOXIDE (test code = 27 MEQ/L 2206) CALCIUM (test code = 2209) 8.2 MG/DL PROTEIN, TOTAL (test code = 6.5 G/DL 2228) ALBUMIN (test code = 2201) 3.9 G/DL CALC GLOBULIN (test code = 2.6 G/DL 2240) CALC A/G RATIO (test code = 1.5 RATIO 2234) BILIRUBIN, TOTAL (test code = <0.2 MG/DL 2206) ALKALINE PHOSPHATASE (test 57 U/L code = 2204) AST (test code = 2218) 10 U/L ALT (test code = 2219) 13 U/L VAGINAL PATHOGENS DNA [id number] 00:00:00 Test Item Value Reference Range Interpretation Comments OFE SPECIES (test code = ) NEGATIVE G. VAGINALIS (test code = ) POSITIVE T. VAGINALIS (test code = 87814) NEGATIVE VAGINAL PATHOGENS DNA [id number] 00:00:00 Test Item Value Reference Range Interpretation Comments OFE SPECIES (test code = ) NEGATIVE G. VAGINALIS (test code = 86074) POSITIVE T. VAGINALIS (test code = 89100) NEGATIVE HIV 1/2 4TH GEN, RFLX [id number] 00:00:00 Test Item Value Reference Range Interpretation Comments HIV 1/2 4TH GEN, RFLX CONF (test NON-REACTIVE code = 3514) HIV 1/2 4TH GEN, RFLX [id number] 00:00:00 Test Item Value Reference Range Interpretation Comments HIV 1/2 4TH GEN, RFLX CONF (test NON-REACTIVE code = 3514) [id number] 00:00:00 Test Item Value Reference Range Interpretation Comments RPR RESULT (test code = 3501) REACTIVE RPR TITER (test code = 3500) 1:1 TITER [id number] 00:00:00 Test Item Value Reference Range Interpretation Comments RPR RESULT (test code = 3501) REACTIVE RPR TITER (test code = 3500) 1:1 TITER [id number] 00:00:00 Test Item Value Reference Range Interpretation Comments RPR RESULT (test code = 3501) REACTIVE RPR TITER (test code = 3500) 1:1 TITER ACUTE HEPATITIS [id number] 00:00:00 Test Item Value Reference Range Interpretation Comments HEPATITIS A IgM (test code = NON-REACTIVE 07717) HEPATITIS B CORE IgM (test code NON-REACTIVE = 4644) HEPATITIS B SURF AG (test code = NON-REACTIVE 6319) HEPATITIS C ANTIBODY (test code NON-REACTIVE = 4675) INTERPRETATION HEPATITIS A: (NOTE) (test code = 2552) INTERPRETATION HEPATITIS B: (NOTE) (test code = 27993) INTERPRETATION HEPATITIS C: (NOTE) (test code = 21400) ACUTE HEPATITIS [id number] 00:00:00 Test Item Value Reference Range Interpretation Comments HEPATITIS A IgM (test code = NON-REACTIVE 38747) HEPATITIS B CORE IgM (test code NON-REACTIVE = 3544) HEPATITIS B SURF AG (test code = NON-REACTIVE 3579) HEPATITIS C ANTIBODY (test code NON-REACTIVE = 8242) INTERPRETATION HEPATITIS A: (NOTE) (test code = 2552) INTERPRETATION HEPATITIS B: (NOTE) (test code = 13432) INTERPRETATION HEPATITIS C: (NOTE) (test code = 62562) CT/NG, TMA, [id number] 00:00:00 Test Item Value Reference Range Interpretation Comments GONORRHEA, NAAT (test code = 39141) NEGATIVE CHLAMYDIA, NAAT (test code = 27853) NEGATIVE CT/NG, TMA, [id number] 00:00:00 Test Item Value Reference Range Interpretation Comments GONORRHEA, NAAT (test code = 58490) NEGATIVE CHLAMYDIA, NAAT (test code = 18914) NEGATIVE COMPREHENSIVE METABOLIC [id number] 00:00:00 Test Item Value Reference Range Interpretation Comments GLUCOSE (test code = 2217) 73 MG/DL BUN (test code = 2208) 14 MG/DL CREATININE (test code = 2214) 0.78 MG/DL eGFR (2020 CKD-EPI) (test code 98 ML/MIN/1.73 = 32143) CALC BUN/CREAT (test code = 18 RATIO 2235) SODIUM (test code = 2231) 146 MEQ/L POTASSIUM (test code = 2228) 3.5 MEQ/L CHLORIDE (test code = 2215) 107 MEQ/L CARBON DIOXIDE (test code = 27 MEQ/L 2206) CALCIUM (test code = 2209) 8.2 MG/DL PROTEIN, TOTAL (test code = 6.5 G/DL 2228) ALBUMIN (test code = 2201) 3.9 G/DL CALC GLOBULIN (test code = 2.6 G/DL 2240) CALC A/G RATIO (test code = 1.5 RATIO 2234) BILIRUBIN, TOTAL (test code = <0.2 MG/DL 2207) ALKALINE PHOSPHATASE (test 57 U/L code = 2204) AST (test code = 2218) 10 U/L ALT (test code = 2219) 13 U/L COMPREHENSIVE METABOLIC [id number] 00:00:00 Test Item Value Reference Range Interpretation Comments GLUCOSE (test code = 2217) 73 MG/DL BUN (test code = 2208) 14 MG/DL CREATININE (test code = 2214) 0.78 MG/DL eGFR (2020 CKD-EPI) (test code 98 ML/MIN/1.73 = 19421) CALC BUN/CREAT (test code = 18 RATIO 2235) SODIUM (test code = 2231) 146 MEQ/L POTASSIUM (test code = 2228) 3.5 MEQ/L CHLORIDE (test code = 2215) 107 MEQ/L CARBON DIOXIDE (test code = 27 MEQ/L 2205) CALCIUM (test code = 2209) 8.2 MG/DL PROTEIN, TOTAL (test code = 6.5 G/DL 2228) ALBUMIN (test code = 2201) 3.9 G/DL CALC GLOBULIN (test code = 2.6 G/DL 2240) CALC A/G RATIO (test code = 1.5 RATIO 4) BILIRUBIN, TOTAL (test code = <0.2 MG/DL 2206) ALKALINE PHOSPHATASE (test 57 U/L code = 2204) AST (test code = 2218) 10 U/L ALT (test code = 2219) 13 U/L VAGINAL PATHOGENS DNA [id number] 00:00:00 Test Item Value Reference Range Interpretation Comments OFE SPECIES (test code = ) NEGATIVE G. VAGINALIS (test code = 80636) POSITIVE T. VAGINALIS (test code = 30725) NEGATIVE VAGINAL PATHOGENS DNA [id number] 00:00:00 Test Item Value Reference Range Interpretation Comments OFE SPECIES (test code = 96460) NEGATIVE G. VAGINALIS (test code = 52040) POSITIVE T. VAGINALIS (test code = 34912) NEGATIVE HIV 1/2 4TH GEN, RFLX [id number] 00:00:00 Test Item Value Reference Range Interpretation Comments HIV 1/2 4TH GEN, RFLX CONF (test NON-REACTIVE code = 3514)
--- NOTE | 2022-06-24 21:54 | RAD REPORT ---
EXAM DESCRIPTION: CT - Head Brain Wo Cont - 06/24/2022 9:44 pm CLINICAL HISTORY: Headache COMPARISON: No comparisons TECHNIQUE: All CT scans are performed using dose optimization technique as appropriate and may inclu de automated exposure control or mA/KV adjustment according to patient size. FINDINGS: No intracranial hemorrhage, hydrocephalus or extra-axial fluid collection.No areas of brai n edema or evidence of midline shift. The paranasal sinuses and mastoids are clear. The calvarium is intact. IMPRESSION: No acute intracranial abnormality.
--- NOTE | 2022-06-24 22:17 | RAD REPORT ---
EXAM DESCRIPTION: US - Extrem Venous W Compress Justin - 06/24/2022 10:12 pm CLINICAL HISTORY: Pain COMPARISON: No comparisons TECHNIQUE: Real-time sonographic evaluation of the lower extremity deep venous systems was performed using color Doppler, grayscale, and compression. FINDINGS: Bilateral lower extremities. Normal compressibility, flow augmentation, phasic flow and spontaneous flow is identified in both the left and right lower extremity deep venous systems. No intraluminal filling defects seen. IMPRESSION: No DVT in either lower extremity.
[2022-06-24] MEDS ORDERED: MORPHINE 4 MG/ML SYR ONE ×2 (22:47→23:44)
[2022-06-24] MEDS ORDERED: ONDANSETRON 4 MG/2 ML VIAL ONE (22:47)
[2022-06-24 22:56] LABS: Absolute Lymphocytes (CBC) 3.2 K/uL (0.7-4.9); Hematocrit 40.6 % (36.0-45.0); Lymphocytes % 24.3 % (15.3-44.8); MCV 97.6 fL (80-100); MPV 7.8 fL (7.6-11.3); RBC Red Blood Cell Count 4.17 M/uL (3.86-4.86)
[2022-06-24 23:08] LABS: Albumin 3.7 g/dL (3.4-5.0); Bilirubin Total 0.2 mg/dL (0.2-1.0); Potassium 3.3 mmol/L (3.5-5.1); Protein, Total 7.7 g/dL (6.4-8.2)
[2022-06-24] MEDS ORDERED: PROMETHAZINE INJ 25 MG/ML AMP ONE (23:44)
[2022-06-25] MEDS ORDERED: PROMETHAZINE INJ 25 MG/ML AMP ONE (01:02)
[2022-06-25] MEDS ORDERED: MORPHINE 4 MG/ML SYR ONE (01:02)
[2022-06-25] MEDS ORDERED: LIDOCAINE 4% PATCH ONE (01:03)
--- NOTE | 2022-06-25 01:03 | ER ---
Nurse's Notes [facility] Name: Evelyn Rosa Age: 41 yrs Sex: Female : 1980 Arrival Date: 06/24/2022 Time: 20:16 Bed 20 Private MD: Diagnosis: Headache;Lumbago with sciatica-Chronic back pain Presentation: 06/24 20:42 Chief complaint: Patient states: I have a major headache, my back is in terrible pain kd3 and i have back spasms. I was just here for colitis. since I've left I've been in this terrible pain. I had some blood work done recently and they called me today and told me to come here immediately and said something about blood clots. both of my legs and hands swell. Coronavirus screen: Vaccine status: Patient reports receiving the 2nd dose of the covid vaccine. Ebola Screen: No symptoms or risks identified at this time. Initial Sepsis Screen: Does the patient meet any 2 criteria? No. Patient's initial sepsis screen is negative. Does the patient have a suspected source of infection? No. Patient's initial sepsis screen is negative. Risk Assessment: Do you want to hurt yourself or someone else? Patient reports no desire to harm self or others. Onset of symptoms was June 24, 2022. 20:42 Method Of Arrival: Ambulatory kd3 20:42 Acuity: INDIGO 3 kd3 Triage Assessment: 20:47 Headache History: Denies prior headaches. General: Appears uncomfortable, Behavior is kd3 calm, cooperative. Pain: Complains of pain in headache, back pain. Pain: Pain currently is 10 out of 10 on a pain scale. at worst was 10 out of 10 on a pain scale. Pain began gradually, Also complains of no other associated symptoms. Neuro: Level of Consciousness is awake, alert, obeys commands, Oriented to person, place, time, situation. Respiratory: Airway is patent Trachea midline Respiratory effort is even, unlabored, Respiratory pattern is regular, symmetrical. 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 - Social history:: Smoking status: Patient reports the use of cigarette tobacco products, smokes one-half pack cigarettes per day. Screenin:46 [facility] ED Fall Risk Assessment (Adult) History of falling in the last 3 months, kl including since admission No falls in past 3 months (0 pts) Confusion or Disorientation No (0 pts) Intoxicated or Sedated No (0 pts) Impaired Gait No (0 pts) Mobility Assist Device Used No (0 pt) Altered Elimination No (0 pt) Score/Fall Risk Level 0 - 2 = Low Risk Oriented to surroundings, Maintained a safe environment, Educated pt \T\ family on fall prevention, incl call for assistance when getting out of bed, Hourly rounding (assess needs \T\ fall precautionary measures) done. 06/25 01:18 Abuse screen: Denies threats or abuse. Nutritional screening: No deficits noted. kl Tuberculosis screening: No symptoms or risk factors identified. Fall Risk No fall in past 12 months (0 pts). No secondary diagnosis (0 pts). No IV (0 pts). Ambulatory Aid- None/Bed Rest/Nurse Assist (0 pts). Gait- Weak (10 pts.). Mental Status- Oriented to own ability (0 pts). Total Bains Fall Scale indicates No Risk (0-24 pts). Assessment: 06/24 21:44 General: Appears distressed, uncomfortable, well groomed, well developed, Behavior is kl anxious, crying. Pain: Complains of pain in back Pain currently is 10 out of 10 on a pain scale. Noted to be grimacing, guarding, moaning. Neuro: No deficits noted. Cardiovascular: No deficits noted. Respiratory: No deficits noted. GI: Abdomen is non-distended, Bowel sounds present X 4 quads. : No deficits noted. No signs and/or symptoms were reported regarding the genitourinary system. EENT: No deficits noted. No signs and/or symptoms were reported regarding the EENT system. 06/25 00:01 Reassessment: Patient appears in no apparent distress at this time. Patient and/or kl family updated on plan of care and expected duration. Pain level reassessed. Patient is alert, oriented x 3, equal unlabored respirations, skin warm/dry/pink. Patient states feeling better. 01:00 Reassessment: Patient appears in no apparent distress at this time. Patient and/or kl family updated on plan of care and expected duration. Pain level reassessed. Patient is alert, oriented x 3, equal unlabored respirations, skin warm/dry/pink. Patient states symptoms have improved. Vital Signs: 06/24 20:42 Pulse 98; Resp 21; Temp 97.4(TE); Pulse Ox 100% ; Weight 88 kg; Height 5 ft. 5 in. kd3 (165.10 cm); 20:50 BP 138 / 100; kd3 06/25 01:11 BP 118 / 64; Pulse 70; Resp 16; Pulse Ox 100% on R/A; kl 06/24 20:42 Body Mass Index 32.28 (88.00 kg, 165.10 cm) kd3 ED Course: 06/24 20:16 Patient arrived in ED. dt4 20:47 Triage completed. kd3 20:47 Arm band placed on left wrist. kd3 20:55 Jose Ceballos NP is PHCP. pm1 20:55 Chon Pichardo MD is Attending Physician. pm1 21:44 Missed attempt(s): 24 gauge in left wrist. kl 21:44 Missed attempt(s): 24 gauge in left forearm. kl 21:46 CT Head Brain wo Cont In Process Unspecified. EDMS 22:14 Extrem Venous W Compression Justin US In Process Unspecified. EDMS 22:40 Initial lab(s) drawn, by me, sent to lab. Inserted saline lock: 18 gauge in right bb antecubital area, using aseptic technique. Blood collected. 06/25 01:17 No provider procedures requiring assistance completed. IV discontinued, intact, kl bleeding controlled, No redness/swelling at site. Pressure dressing applied. 01:20 Patient has correct armband on for positive identification. kl Administered Medications: 06/24 22:45 Drug: Zofran (Ondansetron) 4 mg Route: IVP; Site: right antecubital; bb 22:51 Drug: morphine 4 mg Route: IVP; Infused Over: 4 mins; Site: right antecubital; bb 06/25 01:13 Follow up: Response: Pain is decreased 06/24 23:46 Drug: morphine 4 mg Route: IVP; Infused Over: 4 mins; Site: right antecubital; kl 06/25 01:13 Follow up: Response: Pain is decreased 06/24 23:46 Drug: Phenergan (promethazine) 12.5 mg Route: IVP; Site: right antecubital; kl 06/25 01:13 Follow up: Response: Pain is decreased kl 01:00 Drug: morphine 4 mg Route: IVP; Infused Over: 4 mins; Site: right antecubital; kl 01:13 Follow up: Response: Pain is decreased kl 01:05 Drug: Phenergan (promethazine) 12.5 mg Route: IVP; Site: right antecubital; 01:10 Drug: Lidoderm Patch 5 % (700 mg/patch) 1 patches Route: Topical; Site: affected area; Medication: 01:20 VIS not applicable for this client. Outcome: 01:02 Discharge ordered by . pm1 01:17 Discharged to home via ambulance, with family. 01:17 Condition: stable 01:17 Instructed on 01:17 Discharge instructions given to patient, Instructed on discharge instructions, follow up and referral plans. medication usage, Demonstrated understanding of instructions, follow-up care, medications, Prescriptions given X 2. 01:20 Patient left the ED. Signatures: Dispatcher [employer] EDMS Kalli Moscoso RN RN kl Ballard, Brenda, RN RN Jose Mendes, SORAIDA FLAVORING OIL FILTERER pm1 Rosamaria Valadez RN RN [email or web address] Lachelle Zhao dt4
--- NOTE | 2022-06-25 01:03 | EDPHYS ---
Physician Documentation [facility] Name: Evelyn Rosa Age: 41 yrs Sex: Female : 1980 Arrival Date: 06/24/2022 Time: 20:16 Bed 20 Private MD: ED Physician Chon Pichardo HPI: 06/24 21:11 This 41 yrs old Black Female presents to ER via Ambulatory with complaints of Headache, pm1 Back Pain, Leg Pain. 21:11 The patient presents with pain, swelling. The complaints affect the right leg and left pm1 leg. Context: resulted from chronic back pain, sciatica, the patient can fully bear weight, the patient is able to ambulate. Onset: The symptoms/episode began/occurred chronically present for years due to herniated discs and arthritis. Modifying factors: The symptoms are alleviated by nothing. the symptoms are aggravated by movement. Associated signs and symptoms: Pertinent negatives incontinence . Treatment prior to arrival includes: no previous treatment. The patient has experienced similar episodes in the past, chronically. The patient has been recently seen by a physician: the patient's primary care provider, with similar presenting complaints, Blood work performed on Tuesday by PCP and patient contacted today to report to the ER for evaluation of possible blood clots according to labs, elevated D-dimer. Patient concerned about swelling and pain to lower extremities to rule out blood clots. Patient with a history of degenerative disc disease to lower back causing chronic lumbago with sciatica. Patient taking pain medications from PCP for treatment of sciatic. Patient without any abdominal pain, nausea vomiting or diarrhea. 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 - Social history:: Smoking status: Patient reports the use of cigarette tobacco products, smokes one-half pack cigarettes per day. ROS: 21:11 Constitutional: Negative for fever, chills, and weight loss, Cardiovascular: Negative pm1 for chest pain, palpitations, and edema, Respiratory: Negative for shortness of breath, cough, wheezing, and pleuritic chest pain. 21:11 Abdomen/GI: Negative for abdominal pain, nausea, vomiting, diarrhea, and constipation. 21:11 : Negative for injury, bleeding, discharge, and swelling, Skin: Negative for injury, rash, and discoloration. 21:11 Back: Positive for of the low back area, Pain, Negative for injury or acute deformity. 21:11 MS/extremity: Positive for swelling, Negative for injury or acute deformity, decreased range of motion, paresthesias, tingling. 21:11 Neuro: Positive for headache, Negative for dizziness, numbness, tingling, weakness. 21:11 All other systems are negative. Exam: 21:11 Constitutional: This is a well developed, well nourished patient who is awake, alert, pm1 and in no acute distress. Head/Face: Normocephalic, atraumatic. 21:11 Skin: Warm, dry with normal turgor. Normal color with no rashes, no lesions, and no evidence of cellulitis. MS/ Extremity: Pulses equal, no cyanosis. Neurovascular intact. Full, normal range of motion. 21:11 Eyes: Exam is negative for acute changes, Periorbital structures: no acute changes, Extraocular movements: no acute changes, Conjunctiva: no acute changes, no injection. 21:11 ENT: Exam is negative for acute changes, Mouth: no acute changes, Lips: normal, moist, Oral mucosa: normal, pink and intact, moist. 21:11 Cardiovascular: Exam negative for acute changes, Rate: normal, Rhythm: regular, Pulses: no pulse deficits are appreciated, Edema: is not appreciated. 21:11 Respiratory: Exam negative for acute changes, respiratory distress, shortness of breath. 21:11 Abdomen/GI: Inspection: obese Palpation: abdomen is soft and non-tender, in all quadrants. 21:11 Back: vertebral tenderness, is not appreciated, muscle spasm, is appreciated in the left low back and right low back. 21:11 Neuro: Exam negative for acute changes, Orientation: is normal, Mentation: is normal, Motor: is normal, moves all fours, Sensation: no obvious gross deficits. Vital Signs: 20:42 Pulse 98; Resp 21; Temp 97.4(TE); Pulse Ox 100% ; Weight 88 kg; Height 5 ft. 5 in. kd3 (165.10 cm); 20:50 BP 138 / 100; kd3 06/25 01:11 BP 118 / 64; Pulse 70; Resp 16; Pulse Ox 100% on R/A; kl 06/24 20:42 Body Mass Index 32.28 (88.00 kg, 165.10 cm) kd3 MDM: 06/24 20:55 Patient medically screened. pm1 06/25 00:58 Data reviewed: vital signs. Data interpreted: Pulse oximetry: on room air is 100 %. pm1 Interpretation: normal. 00:58 ED course: Patient understands that her pain is chronic and needs to be treated on an pm1 outpatient basis. Patient requested additional pain medicine prior to discharge. Will give patient additional pain medicine and then discharge patient home. 00:59 Counseling: I had a detailed discussion with the patient and/or guardian regarding: the pm1 historical points, exam findings, and any diagnostic results supporting the discharge/admit diagnosis, the need for outpatient follow up, to return to the emergency department if symptoms worsen or persist or if there are any questions or concerns that arise at home. 01:05 ED course: PMPaware checked and patient with 90 pills of tylenol #4 filled 06/19/2022. pm1 06/24 21:10 Order name: CBC with Diff; Complete Time: 23:37 pm1 06/24 21:10 Order name: CMP; Complete Time: 23:37 pm1 06/24 21:10 Order name: Extrem Venous W Compression Justin US; Complete Time: 22:19 pm1 06/24 21:13 Order name: CT Head Brain wo Cont; Complete Time: 21:58 pm1 Administered Medications: 06/24 22:45 Drug: Zofran (Ondansetron) 4 mg Route: IVP; Site: right antecubital; bb 22:51 Drug: morphine 4 mg Route: IVP; Infused Over: 4 mins; Site: right antecubital; bb 06/25 01:13 Follow up: Response: Pain is decreased kl 06/24 23:46 Drug: morphine 4 mg Route: IVP; Infused Over: 4 mins; Site: right antecubital; kl 06/25 01:13 Follow up: Response: Pain is decreased 06/24 23:46 Drug: Phenergan (promethazine) 12.5 mg Route: IVP; Site: right antecubital; kl 06/25 01:13 Follow up: Response: Pain is decreased kl 01:00 Drug: morphine 4 mg Route: IVP; Infused Over: 4 mins; Site: right antecubital; kl 01:13 Follow up: Response: Pain is decreased kl 01:05 Drug: Phenergan (promethazine) 12.5 mg Route: IVP; Site: right antecubital; kl 01:10 Drug: Lidoderm Patch 5 % (700 mg/patch) 1 patches Route: Topical; Site: affected area; kl Disposition Summary: 06/25/22 01:02 Discharge Ordered Location: Home pm1 Problem: new pm1 Symptoms: have improved pm1 Condition: Stable pm1 Diagnosis - Headache pm1 - Lumbago with sciatica - Chronic back pain pm1 Followup: pm1 - With: Emergency Department - When: As needed - Reason: Worsening of condition Followup: pm1 - With: Private Physician - When: 2 - 3 days - Reason: Recheck today's complaints, Continuance of care, Re-evaluation by your physician Discharge Instructions: - Discharge Summary Sheet pm1 - General Headache Without Cause pm1 - Sciatica pm1 Forms: - Medication Reconciliation Form pm1 - Thank You Letter pm1 - Antibiotic Education pm1 - Prescription Opioid Use pm1 Prescriptions: - Lidoderm 5 % Topical adhesive patch,medicated - apply 1 patch by TRANSDERMAL route once daily As needed 12 hours on and 12 pm1 hours off in a 24-hour period; 30 patch; Refills: 0, Product Selection Permitted - Cyclobenzaprine 10 mg Oral Tablet - take 1 tablet by ORAL route every 8 hours As needed; 30 tablet; Refills: 0, pm1 Product Selection Permitted Signatures: Dispatcher [employer] Kalli Carter RN RN kl Ballard, Brenda, RN RN bb Marinas, Patrick, NP PERSONNEL MANAGER pm1 Rosamaria Valadez RN JOHN kd3
[2022-06-25 01:33] VITALS: TEMP 97.4; O2SAT 100
[2022-06-25 01:42] VITALS: BP 118/64
== END 2022-06-25 01:20 | disposition home or self-care (01) ==
LOC: ER 20:12
DX: R51.9 Headache, unspecified (principal); M54.40 Lumbago with sciatica, unspecified side; G89.29 Other chronic pain; M54.9 Dorsalgia, unspecified
CPT/HCPCS: 36415; 70450; 80053; 85025; 93970; 96374; 96375; 99284; J2001; J2405; J2550

== ENCOUNTER 2022-12-26 20:30 | Emergency (ER) | payer SELFPAY ==
[2012-03-20 16:02] VITALS: BP 117/74
--- OUTSIDE RECORDS SUMMARY | 2022-12-26 20:34 | XMS REPORT | Continuity of Care Document ---
:1980 Author Organization [facility] t Address [address] [place] [address] Care Team Providers Name Role Phone DainReymundo oliveros Primary Care Physician Doctor Unassigned, [place] Attending Clinician Unavailable LAKIA MILLER Attending Clinician Unavailable Geneva Rodríguez DO Attending Clinician GENEVA RODRÍGUEZ Attending Clinician Unavailable Payers Payer Name Policy Type Policy Number Effective Date Expiration Date S ourlauren [facility] [id number] 2022 00:00:00 WOMEN Problems Condition Condition Condition Status Onset Resolution Last Treating Co mments Source Name Details Category Date Date Treatment Clinician Date Nausea & Nausea & Disease Active 2010-07 Unive rs vomiting vomiting 08-19 ity of 00:00: [place] 00 Medical Branch Abdominal Abdominal Disease Active 2010-07 Uni vers pain, pain, 2- ity of acute, acute, 00:00: [place] epigastric epigastric 00 Me dical Branch Leukocytos Leukocytos Disease Active 2010-07 Overview : Univers is is - Formattin ity of 00:00: g of this [place] 00 note Medical might be Branch different from the original. 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 Hypokalemi Hypokalemi Disease Active 2010-07 U nivers a a 2- ity of 00:00: [place] 00 Medical Branch Metabolic Metabolic Disease Active 2010-07 Uni vers acidosis acidosis 2-09 ity of 00:00: [place] 00 Medical Branch Allergies, Adverse Reactions, Alerts Allergy Allergy Status Severity Reaction(s) Onset Inactive Treating Comm ents Source Name Type Date Date Clinician Penicill Propensi Active 2021-07 ins - ty to 1-25 CLASS adverse 00:00: reaction 00 to drug Ketorola Propensi Active Rash 2021-07 Univer s c ty to 0-21 ity of adverse 00:00: [place] reaction 00 Medical s Branch KETOROLA DRUG Active Rash 2021-07 Univers C INGREDI 0-21 ity of 00:00: [place] 00 Medical Branch Penicill Propensi Active ins ty to 2-23 adverse 00:00: reaction 00 to drug Penicill Propensi Active Unknown - 2015-07 Uni vers ins ty to See comments 0-26 ity of adverse 00:00: [place] reaction 00 Medical s Branch PENICILL Drug Active Unknown-Cmnt 2015-07 Un stephanie INS Class 0-26 ity of 00:00: [place] 00 [facility] [place] [facility] Social History Social Habit Start Date Stop Date Quantity Comments Source History of tobacco Cigarette Smoker University of use [facility] Exposure to 2022-04-20 2022-04-30 Not sure [facility] SARS-CoV-2 (event) 00:00:00 13:23:00 [facility] Alcohol intake 2016-05-05 2016-05-05 Current drinker Unive rsity of 00:00:00 00:00:00 of alcohol [facility] (finding) Branch Cigarettes smoked 2011-06-18 2011-06-18 Univers ity of current (pack per 00:00:00 00:00:00 [place] ) - Reported Branch Cigarette 2011-06-18 2011-06-18 University of pack-years 00:00:00 00:00:00 [facility] Sex Assigned At [birth year] Universit y of 00:00:00 00:00:00 [facility] Smoking Status Start Date Stop Date Source Never smoked tobacco [facility] Medications Ordered Filled Start Stop Current Ordering Indication Dosage Frequency Signature Comments Components Source Medication Medication Date Date Medication? Clinician (SIG) Name Name TAKE No CAPSULE 1-18 TWICE 00:00: DAILY. 00 TAKE 2021-07 No TABLET 2-16 TWICE DAILY 00:00: UNTIL 00 FINISHED. TAKE 2021-1 No 500unit TABLET ONCE 2-16 DAILY. 00:00: 00 INHALE 2 2021-1 No 100unit PUFFS EVERY 2-16 4 TO 6 00:00: HOURS 00 NEEDED. TAKE 5 ML 2021-1 No 5unit EVERY 4 TO 2-16 6 HOURS 00:00: NEEDED. 00 Dose 2021- No 500 Unknown 2-16 00:00: 00 TAKE ONE 2021- No 5 (1) 2-16 TABLET(S) 00:00: BY MOUTH 00 TWICE A DAY NEEDED. TAKE 10 2021- No ML(S) BY 2-16 MOUTH EVERY 00:00: 6-8 HOURS 00 NEEDED. Dose 2021- No 5 Unknown 2-16 00:00: 00 TAKE TWO 2021-1 No 5 (2) 2-16 TABLET(S) 00:00: BY MOUTH 00 TWICE A DAY. TAKE ONE 2021- No 5 (1) 2-16 TABLET(S) 00:00: BY MOUTH AT 00 BEDTIME NEEDED. TAKE ONE 2021- No 5 (1) 2-16 TABLET(S) 00:00: BY MOUTH 00 THREE TIMES A DAY. TAKE ONE 2021- No 5 (1) 2-16 TABLET(S) 00:00: BY MOUTH 00 TWICE A DAY WITH FOOD OR MILK NEEDED. Dose 2021- No 500 Unknown 2-16 00:00: 00 Dose 2021-1 No 500 Unknown 2-16 00:00: 00 TAKE ONE 2021- No 5 (1) 2-16 TABLET(S) 00:00: BY MOUTH 00 TWICE A DAY. Dose 2021- No 5 Unknown 2-16 00:00: 00 Dose 2021-1 No 100 Unknown 2-16 00:00: 00 Dose 2021-1 No Unknown 2-16 00:00: 00 TAKE 2021-1 No 100 ONE-HALF 2-16 (1/2) 00:00: TABLET(S) 00 BY MOUTH EVERY SIX HOURS NEEDED FOR NAUSEA OR VOMITING. Dose 2021- No 5 Unknown 2-16 00:00: 00 TAKE ONE 2021-1 No 100 (1) OR TWO 2-16 (2) 00:00: CAPSULE(S) 00 BY MOUTH EVERY EIGHT HOURS NEEDED FOR COUGH. TAKE ONE 2021- No 500 (1) 2-16 TABLET(S) 00:00: BY MOUTH 00 EVERY EIGHT HOURS FOR 10 DAYS. Dose 2021-1 No 5 Unknown 1-25 00:00: 00 TAKE ONE 2021-1 No (1) 1-25 TABLET(S) 00:00: BY MOUTH 00 TWICE A DAY NEEDED. TAKE 2 2021-1 No TABLETS 1-25 DAILY FOR 7 00:00: DAYS, THEN 00 1 TABLET DAILY FOR 7 DAYS. TAKE ONE 2021-1 No (1) 1-25 TABLET(S) 00:00: BY MOUTH 00 TWICE A DAY NEEDED. TAKE 2 2021-1 No TABLETS 1-25 DAILY FOR 7 00:00: DAYS, THEN 00 1 TABLET DAILY FOR 7 DAYS. TAKE ONE 2021-1 No (1) 1-25 TABLET(S) 00:00: BY MOUTH 00 TWICE A DAY NEEDED. TAKE 2 2021-1 No TABLETS 1-25 DAILY FOR 7 00:00: DAYS, THEN 00 1 TABLET DAILY FOR 7 DAYS. TAKE ONE 2021- No (1) 1-25 TABLET(S) 00:00: BY MOUTH 00 TWICE A DAY NEEDED. Dose 2-0 No Unknown 3-30 00:00: 00 promethazin 2022-0 No 10mg/5 e-DM [...] 00:00: mL oral 00 syrup TAKE 2 2021-0 No TABLETS 1-28 DAILY FOR 7 00:00: DAYS, THEN 00 1 TABLET DAILY FOR 7 DAYS. azithromyci 2022-0 No mg n 250 mg 1-28 tablet 00:00: 00 Dose 2-0 No 5 Unknown 1- 00:00: 00 Dose 2-0 No Unknown - 00:00: 00 Dose 2-0 No Unknown - 00:00: 00 Dose 2-0 No Unknown 1- 00:00: 00 Dose 2-0 No Unknown 1- 00:00: 00 TAKE 2 2-0 No TABLETS 1-28 DAILY FOR 7 00:00: DAYS, THEN 00 1 TABLET DAILY FOR 7 DAYS. azithromyci 2-0 No mg n 250 mg 1-28 tablet 00:00: 00 Dose 2-0 No Unknown 1- 00:00: 00 Dose 2-0 No Unknown 08-07 00:00: 00 TAKE 2 2-0 No TABLETS 1-28 DAILY FOR 7 00:00: DAYS, THEN 00 1 TABLET DAILY FOR 7 DAYS. azithromyci 2-0 No mg n 250 mg 1-28 tablet 00:00: 00 Dose 2-0 No Unknown 1- 00:00: 00 Dose 2-0 No Unknown - 00:00: 00 azithromyci 1-1 No mg n [...] 20 mg 2-03 tablet 00:00: 00 azithromyci 2021-1 No mg n [...] mg/5 00:00: mL oral 00 syrup prednisone 1-0 No 1mg 20 mg 6-07 tablet 00:00: [...] 250 mg 6-07 tablet 00:00: 00 benzonatate 0 No 12mg 100 mg 6-07 capsule 00:00: 00 promethazin No 5mg/5 e-DM [...] as needed for Nausea and Vomiting (N/V). methocarbam 2015-07 Yes 750mg Take 1 Uni [...] Immunizations Ordered Filled Immunization Date Status Comments [facility] e Immunization Name Name Stone COVID-19 2021-06-30 Completed Vaccine 00:00:00 Moderna COVID-19 2021-06-30 Completed Vaccine 00:00:00 Moderna COVID-19 2021-06-30 Completed Vaccine 00:00:00 Moderna COVID-19 2021-06-30 Completed Vaccine 00:00:00 [place] COVID-19 2020-10-13 Completed Vaccine 00:00:00 Moderna COVID-19 2020-10-13 Completed Vaccine 00:00:00 Moderna COVID-19 2020-10-13 Completed Vaccine 00:00:00 Moderna COVID-19 2020-10-13 Completed Vaccine 00:00:00 Moderna COVID-19 2020-09-13 Completed Vaccine 00:00:00 Moderna COVID-19 2020-09-13 Completed Vaccine 00:00:00 Moderna COVID-19 2020-09-13 Completed Vaccine 00:00:00 Moderna COVID-19 2020-09-13 Completed Vaccine 00:00:00 Influenza Virus 2011-06-21 Completed Universit y of Vaccine 00:00:00 [facility] Influenza Virus 2011-06-21 Completed Universit y of Vaccine 00:00:00 [facility] Vital Signs Vital Name Observation Time Observation Value Comments Source Body weight 2022-04-30 18:23:16 79.379 kg [facility] BMI 2022-04-30 18:23:16 29.12 kg/m2 [facility] Systolic blood 2022-04-30 18:16:00 128 mm[Hg] Univer sity of pressure [facility] Diastolic blood 2022-04-30 18:16:00 81 mm[Hg] Unive rsity of pressure [facility] Heart rate 2022-04-30 18:16:00 92 /min [facility] Body temperature 2022-04-30 18:16:00 37.06 [facility] Res[facility] rate 2022-04-30 18:16:00 18 /min General acute hospital Body height 2022-04-30 18:16:00 165.1 cm [facility] Oxygen saturation in 2022-04-30 18:16:00 96 /min [facility] Arterial blood by [facility] Pulse oximetry Branch BP Systolic 2022-07-28 10:17:00 123 mm[Hg] BP Diastolic 2022-07-28 10:17:00 85 mm[Hg] Weight Measured 2022-07-28 10:17:00 186.00 pounds Height Measured 2022-07-28 10:17:00 66.00 inches Body Temperature 2022-07-28 10:17:00 98.30 degrees Heart Rate 2022-07-28 10:17:00 92.00 /min Respiratory Rate 2022-07-28 10:17:00 18.00 /min BP Systolic 2022-06-18 11:23:00 120 mm[Hg] BP [...] 19.00 /min Procedures Procedure Date / Time Performing Clinician Source Performed AUTHORIZATION FOR 2022-09-30 05:01:00 Doctor Unassigned, No [facility] RELEASE OF PHI Name Medical Branch RAPID INFLUENZA A/B 2022-04-30 18:27:00 [facility] COVID-19 (ID NOW RAPID 2022-04-30 18:27:00 Geneva Rodríguez [facility] TESTING) Medical Branch CONSENT/REFUSAL FOR 2022-04-30 18:06:22 [facility] Name Medical Branch Plan of Care Planned Activity Planned Date Details Comments Source Goal Plan of Care Note [code = 04554-3] Goal Plan of Care Note [code = 37510-6] Goal Plan of Care Note [code = 81214-4] Goal Plan of Care Note [code = 76396-3] Goal Plan of Care Note [code = 47882-2] Goal Plan of Care Note [code = 09266-7] Goal Plan of Care Note [code = 11683-4] Goal Plan of Care Note [code = 39461-8] Goal Plan of Care Note [code = 41536-3] Goal Plan of Care Note [code = 45390-7] Goal Plan of Care Note [code = 70153-8] Goal Plan of Care Note [code = 37929-7] Goal Plan of Care Note [code = 02594-5] Goal Plan of Care Note [code = 53774-6] Goal Plan of Care Note [code = 98010-3] Goal Plan of Care Note [code = 13647-4] Goal Plan of Care Note [code = 09558-8] Goal Plan of Care Note [code = 62796-9] Goal Plan of Care Note [code = 76089-5] Goal Plan of Care Note [code = 50449-8] Goal Plan of Care Note [code = 18197-6] Goal Plan of Care Note [code = 74849-5] Goal Plan of Care Note [code = 29850-2] Goal Plan of Care Note [code = 56483-5] Goal Plan of Care Note [code = 87258-9] Goal Plan of Care Note [code = 10583-6] Goal Plan of Care Note [code = 24905-5] Goal Plan of Care Note [code = 45911-8] Goal Plan of Care Note [code = 47004-6] Goal Plan of Care Note [code = 27405-7] Goal Plan of Care Note [code = 26878-4] Goal Plan of Care Note [code = 17591-1] Goal Plan of Care Note [code = 36095-9] Goal Plan of Care Note [code = 22049-3] Goal Plan of Care Note [code = 32487-1] Goal Plan of Care Note [code = 19705-5] Goal Plan of Care Note [code = 66626-7] Goal Plan of Care Note [code = 64423-8] Goal Plan of Care Note [code = 73025-0] Goal Plan of Care Note [code = 51237-8] Goal Plan of Care Note [code = 98184-1] Goal Plan of Care Note [code = 08520-3] Goal Plan of Care Note [code = 54538-9] Encounters Start End Encounter Admission Attending Care Care Encounter Source Date/Time Date/Time Type Type Clinicians Facility Department ID 2022-11-24 Outpatient [facility] [id number] [place] 09:13:56 [id number] [facility] 2022-12-22 2022-12-22 Outpatient SFA SFA [id number] Reginald 10:58:01 10:58:01 0614 [facility] 2022-12-15 2022-12-15 Outpatient SFA SFA [id number] Reginald 13:54:13 13:54:13 0607 [facility] 2022-12-10 2022-12-10 Outpatient SFA SFA [id number] Reginald 13:13:19 13:13:19 0602 [facility] 2022-12-08 2022-12-08 Outpatient SFA SFA [id number] Reginald 14:35:59 14:35:59 0531 [facility] 2022-09-30 2022-09-30 Orders Doctor MYLA [id number] Univers 00:00:00 00:00:00 Only Unassigned, SYD 350.1.13.10 ity of [place] [facility] 4.2.7.2.686 Bean as [id number] [facility] pablo 009 Branch 2022-09-01 2022-09-01 Emergency E ANGELA, [facility] [id number] [facility] 09:29:00 18:15:00 LAKIA 2022-08-02 2022-08-02 Outpatient SFA SFA [id number] Reginald 14:37:45 14:37:45 0123 [facility] 2022-07-28 2022-07-28 Outpatient SFA SFA [id number] Reginald 10:11:02 10:11:02 0118 [facility] 2022-07-28 2022-07-28 Outpatient [id number] 00:00:00 00:00:00 Visit [id number] -[id number] [id number] 2022-06-21 2022-06-21 Outpatient SFA SFA [id number] Reginald 08:09:11 08:09:11 1212 [facility] 2022-06-19 2022-06-19 Outpatient SFA SFA [id number] Reginald 10:15:22 10:15:22 1210 F Reymundo 2022-06-18 2022-06-18 Outpatient [facility] [id number] Reginald 11:18:31 11:18:31 1209 F Reymundo 2022-06-18 2022-06-18 Outpatient [id number] 00:00:00 00:00:00 Visit ffc1-4a85 fc1-4a85-[id number] -abb0-1e3 [id number] 2022-06-14 2022-06-14 Outpatient [facility] [id number] Reginald 13:27:35 13:27:35 1205 F Reymundo 2022-06-14 2022-06-14 Outpatient [id number] 00:00:00 00:00:00 Visit [id number] [id number] -88dd-[id number] 2022-06-10 2022-06-10 Outpatient [facility] [id number] Reginald 11:10:28 11:10:28 1201 F Rogers 2022-06-04 2022-06-04 Outpatient [id number] 00:00:00 00:00:00 Visit 80bb-4aab 0bb-4aab-9 -[id number] [id number] 2022-04-30 2022-04-30 Emergency [facility] [id number] Univers 13:21:00 13:57:00 [place] [facility] [id number] [address] 2022-04-30 2022-04-30 Emergency X [facility] ERT [id number] Univers 13:21:00 13:57:00 GENEVA gordon [facility] Results Test Description Test Time Test Comments Results Result Comments Source VITAMIN D, 25 OH 2022-12-11 06:58:46 Test Item Value Reference Range Interpretation Comme nts VITAMIN D, 25 OH (test 33 NG/ML SEE BELOW E FFECTIVE 07/19/2022, PLEASE NOTE code = 4958) NEW METHODOLOGY IS ELECTROCHEMILUM INESCENCE BINDING ASSAY. NOTE: 25-HYDROX YVITAMIN D ASSAY INCLUDES 25-HYDROXYVITAM IN D2 AND D3. INTERPRETIVE RA NGES PEDIATRIC (<17 YEARS) . . . . . . . . . . . NG/ML 20-100ADULT: IN SUFFICIENT . . . . . . . . . . . . . . N G/ML <20 SUBOPTIMAL . . . . . . . . . . . . . . . NG/ML 20-29 OPTIMAL . . . . . . . . . . . . . . . . . NG/ML 30-100 UNLESS OTHERWISE INDICATED, ALL TESTING PERFORMED AT [facility] [facility] [address] [place] [address] FLYING TEACHER: CORI CARTER M.D. [place] NUMBER [id number] [facility] [place]. [id number] RHEUMATOID FACTOR, [id number] 06:57:29 Test Item Value Reference Range Interpretation Comments RHEUMATOID FACTOR, QUANT (test code <10 IU/ML <14 = 3502) C-REACTIVE [id number] 06:45:47 Test Item Value Reference Range Interpretation Comments C-REACTIVE PROTEIN (test code = 0.4 MG/DL <0.5 3513) SEDIMENTATION [id number] 04:36:47 Test Item Value Reference Range Interpretation Comments SEDIMENTATION RATE (test code = 2 MM/HOUR 0-20 1017) CBC W/AUTO DIFF WITH [id number] 02:24:44 Test Item Value Reference Range Interpretation Comments WBC (test code = 12.9 K/UL 3.5-11.0 H 1001) RBC (test code = 4.43 M/UL 3.80-5.40 1002) HEMOGLOBIN (test code 13.4 G/DL 11.5-15.5 = 1003) HEMATOCRIT (test code 43.0 % 34.0-45.0 = 1004) MCV (test code = 97.1 fL 80.0-99.0 1005) MCH (test code = 30.2 PG 25.0-33.0 1006) MCHC (test code = 31.2 G/DL 31.0-36.0 1007) RDW (test code = 12.0 % 11.5-15.0 1038) NEUTROPHILS (test 69.5 % code = 1008) LYMPHOCYTES (test 22.1 % code = 1010) MONOCYTES (test code 5.0 % = 1011) EOSINOPHILS (test 2.3 % code = 1012) BASOPHILS (test code 0.6 % = 1013) IMMATURE GRANULOCYTES 0.5 % (test code = 1036) NUCLEATED RBCS (test 0.0 /100 WBC'S See_Comment [Aut omated code = 1065) message] The sy stem which generated this result transmitted reference range : 0.0. The refere nce range was not u sed to interpret th is result as normal/abnormal . PLATELET COUNT (test 414 K/UL 130-400 H code = 1015) ABSOLUTE NEUTROPHILS 8.96 K/UL 1.50-7.50 H (test code = 1066) ABSOLUTE LYMPHOCYTES 2.85 K/UL 1.00-4.00 (test code = 1067) ABSOLUTE MONOCYTES 0.65 K/UL 0.20-1.00 (test code = 1068) ABSOLUTE EOSINOPHILS 0.30 K/UL 0.00-0.50 (test code = 1040) ABSOLUTE BASOPHILS 0.08 K/UL 0.00-0.20 (test code = 1069) ABS IMMATURE 0.07 K/UL 0.00-0.10 GRANULOCYTES (test code = 1020) ABS NUCLEATED RBCS 0.00 K/UL 0.00-0.11 (test code = 80456) VARUN (ANTI-NUCLEAR AB) WITH REFLEX [id number] 01:59:28 Test Item Value Reference Range Interpretation Comments ANTI-NUCLEAR NEGATIVE NEGATIVE Methodology is ANTIBODIES (test Indirect code = 3506) Immunofluoresce nt Assay (IFA) with a Dermira system using He p2000 cells (Hep2 del ls transfected wit h SS-A/Ro). VARUN PATTERN SEE BELOW (REPORTED TITER) (test code = 63737) HOMOGENEOUS (test NEGATIVE TITER NEGATIVE code = 14577) SPECKLED (test NEGATIVE TITER NEGATIVE code = 369152) DENSE FINE NEGATIVE TITER NEGATIVE SPECKLED (test code = 38434) CENTROMERE (test NEGATIVE TITER NEGATIVE code = 351166) COARSE SPECKLED NEGATIVE TITER NEGATIVE (test code = 024138) DISCRETE NUCLEAR NEGATIVE TITER NEGATIVE DOTS (test code = 767688) NUCLEOLAR (test NEGATIVE TITER NEGATIVE code = 169204) NUCLEAR MEMBRANE NEGATIVE TITER NEGATIVE (test code = 863104) CYTO. RETICULAR NEGATIVE NEGATIVE (AYLA) (test code = 528121) COMMENTS (test NONE code = 915499) METHOD (test code (NOTE) TESTING P ERFORMED BY = 55886) INOVA DIAGNOSTI CS NOVA VIEW IFA PLATFO RM.THE METHOD INCLUDES A SCREEN THRESHOL D OF 1:80, DIGITIZED AND COMPUTER ALGORITHM-PIERCE MARK INTERPRETATION OF TITERS AND DIGI VIJAY PATTERNS, AND H Ep-2 CELL LINE SUBST RATE. ADDITIONAL UNUS UAL PATTERNS WILL B E GIVEN COMMENTS.FOR MORE INFORMATION, SE E [email or web address] UNLESS OT HERWISE INDICATED, ALL TESTING PERFORMED AT [facility] [employer]. [address] [place] [address] 4 LABORATORY DIRE CTOR: VIRGINIA CANELA M.D. [place] NUMBER [id number] [facility] [id number] COMPREHENSIVE METABOLIC [id number] 08:05:44 Test Item Value Reference Range Interpretation Comments GLUCOSE (test code = 106 MG/DL 70-99 H 2216) BUN (test code = 11 MG/DL 6-20 2207) CREATININE (test 0.64 MG/DL 0.60-1.30 code = 2214) eGFR (2020 CKD-EPI) 113 >60 (test code = 35725) ML/MIN/1.73 CALC BUN/CREAT (test 17 RATIO 6-28 code = 2235) SODIUM (test code = 144 MEQ/L 605-821 7625) POTASSIUM (test code 4.2 MEQ/L 3.5-5.4 = 2227) CHLORIDE (test code 105 MEQ/L 95-107 = 221) CARBON DIOXIDE (test 20 MEQ/L 19-31 code = 2206) CALCIUM (test code = 9.4 MG/DL 8.5-10.5 2208) PROTEIN, TOTAL (test 7.1 G/DL 6.1-8.3 code = 2229) ALBUMIN (test code = 4.4 G/DL 3.5-5.2 2200) CALC GLOBULIN (test 2.7 G/DL 1.9-3.7 code = 2240) CALC A/G RATIO (test 1.6 RATIO 1.0-2.6 code = 2234) BILIRUBIN, TOTAL 0.2 MG/DL See_Comment [Automated message] (test code = 2207) The syste m which generated this result transmit mark reference range : <=1.2. The refe rence range was not u sed to interpret th is result as normal/abnormal . ALKALINE PHOSPHATASE 77 U/L 40-113 (test code = 2203) AST (test code = 19 U/L 9-40 2217) ALT (test code = 18 U/L 5-40 2218) URIC [id number] 08:05:44 Test Item Value Reference Range Interpretation Comments URIC ACID (test code = 2233) 4.0 MG/DL 2.7-6.1 SCR MAMM BILATERAL GARRETT CAD [id number] 16:13:07 Name: Kyra : 1980 Sex: F - SCR MAMM BILATERAL GARRETT CAD DIGITALBILATERAL FIRST EVER DIGITAL SCREENING MAMMOGRAM 3D/2D WITH CAD: 11/12/2022LINICAL: Asymptomatic. Digital breast tomosynthesis was performed in addition to routine CC and MLO views. Current mammographic images were evaluated by [employer] CAD (computer-aided detection) software. No prior exams were available for comparison. The tissue of both breasts is predominantly fatty. There are a benign calcification and intramammary node in the right breast. There also is a benign calcification in the left breast. Additionally, there are benign asymmetries in the left breast. No suspicious mass, architectural distortion, malignant type calcification, or lymph node abnormality detected. IMPRESSION: BENIGNThere is no mammographic evidence of malignancy. Resume annual screening mammography in one year.(11/13/2023) Kriss faust/penrad:11/17/2022 16:13:07 Ship Washer: Amena Moeller MM, [facility] Mammographyletter sent: BIRADS 1-2 Normal Mammogram BI-RADS: 2 BenignT. PALLIDUM TOTAL AB WITH [id number] 10:40:04 Test Item Value Reference Range Interpretation Comments T. PALLIDUM TOTAL <0.1 INDEX SEE BELOW INT ERPRETIVE AB (test code = INFORMATION 84341) INTERPRETATION CLINICAL T. PALLIDUM AB NEGATIVE CURRENT OR PAST INFECTION INDEX <0.9 UNLIKELY. EQUIV OCAL SPECIMEN REPEAT EDLY TESTED INDEX 0. 9-1.0 IN EQUIVOCAL RANGE . CONSIDER RETEST ING NO SOONER THAN 1 W [place]. POSITIVE PRESUM PTIVE EVIDENCE OF IND EX >=1.1 CURRENT OR PRIO R INFECTION. MOISÉS ELATE WITH NON-TREPON EMAL AB TESTING AND CLI NICAL HISTORY. HEMOGLOBIN [id number] 03:23:39 Test Item Value Reference Range Interpretation Comments HEMOGLOBIN A1c (test 5.7 % 4.2-5.6 H UNLESS OTHERWISE code = 72489) INDICATED, ALL TESTING PERFORMED [facility] [address] [place] [address] DIRECTOR: KAN HIGHTOWER M.D. CLIA NUMBER [id number] CAP ACCREDITATION N O. [id number] T. PALLIDUM TOTAL AB RFLX [id number] 00:00:00 Test Item Value Reference Range Interpretation Comments T. PALLIDUM TOTAL AB (test code = <0.1 INDEX 29938) HEMOGLOBIN [id number] 00:00:00 Test Item Value Reference Range Interpretation Comments HEMOGLOBIN A1c (test code = 52470) 5.7 % HEMOGLOBIN [id number] 00:00:00 Test Item Value Reference Range Interpretation Comments HEMOGLOBIN A1c (test code = 41838) 5.7 % HEMOGLOBIN [id number] 00:00:00 Test Item Value Reference Range Interpretation Comments HEMOGLOBIN A1c (test code = 43754) 5.7 % HERPES SIMPLEX 1 [id number] 00:00:00 Test Item Value Reference Range Interpretation Comments HERPES SIMPLEX 1 IgG (test code 18.500 INDEX = 68534) HERPES SIMPLEX 1 [id number] 00:00:00 Test Item Value Reference Range Interpretation Comments HERPES SIMPLEX 1 IgG (test code 18.500 INDEX = 07203) HERPES SIMPLEX 2 [id number] 00:00:00 Test Item Value Reference Range Interpretation Comments HERPES SIMPLEX 2 IgG (test code 92.700 INDEX = 55637) HERPES SIMPLEX 2 [id number] 00:00:00 Test Item Value Reference Range Interpretation Comments HERPES SIMPLEX 2 IgG (test code 92.700 INDEX = 55934) COMPREHENSIVE METABOLIC [id number] 00:00:00 Test Item Value Reference Range Interpretation Comments GLUCOSE (test code = 2217) 149 MG/DL BUN (test code = 2208) 9 MG/DL CREATININE (test code = 2214) 0.66 MG/DL eGFR (2020 CKD-EPI) (test 113 ML/MIN/1.73 code = 66674) CALC BUN/CREAT (test code = 14 RATIO 2235) SODIUM (test code = 2231) 144 MEQ/L POTASSIUM (test code = 2228) 5.0 MEQ/L CHLORIDE (test code = 2215) 108 MEQ/L CARBON DIOXIDE (test code = 24 MEQ/L 2205) CALCIUM (test code = 2209) 8.2 MG/DL PROTEIN, TOTAL (test code = 6.2 G/DL 2228) ALBUMIN (test code = 2201) 3.8 G/DL CALC GLOBULIN (test code = 2.4 G/DL 2240) CALC A/G RATIO (test code = 1.6 RATIO 4) BILIRUBIN, TOTAL (test code = <0.2 MG/DL 2206) ALKALINE PHOSPHATASE (test 67 U/L code = 2204) AST (test code = 2218) 16 U/L ALT (test code = 2219) 18 U/L COMPREHENSIVE METABOLIC [id number] 00:00:00 Test Item Value Reference Range Interpretation Comments GLUCOSE (test code = 2217) 149 MG/DL BUN (test code = 2208) 9 MG/DL CREATININE (test code = 2214) 0.66 MG/DL eGFR (2020 CKD-EPI) (test 113 ML/MIN/1.73 code = 58280) CALC BUN/CREAT (test code = 14 RATIO 2235) SODIUM (test code = 2231) 144 MEQ/L POTASSIUM (test code = 2228) 5.0 MEQ/L CHLORIDE (test code = 2215) 108 MEQ/L CARBON DIOXIDE (test code = 24 MEQ/L 2205) CALCIUM (test code = 2209) 8.2 MG/DL PROTEIN, TOTAL (test code = 6.2 G/DL 2228) ALBUMIN (test code = 2201) 3.8 G/DL CALC GLOBULIN (test code = 2.4 G/DL 2239) CALC A/G RATIO (test code = 1.6 RATIO 2233) BILIRUBIN, TOTAL (test code = <0.2 MG/DL 2206) ALKALINE PHOSPHATASE (test 67 U/L code = 220) AST (test code = 2218) 16 U/L ALT (test code = 2219) 18 U/L [id number] 00:00:00 Test Item Value Reference Range Interpretation Comments D-DIMER (test code = 1405) 0.76 UG/MLFEU [id number] 00:00:00 Test Item Value Reference Range Interpretation Comments D-DIMER (test code = 1405) 0.76 UG/MLFEU VAGINAL PATHOGENS DNA [id number] 00:00:00 Test Item Value Reference Range Interpretation Comments OFE SPECIES (test code = 08031) NEGATIVE G. VAGINALIS (test code = 94719) POSITIVE T. VAGINALIS (test code = 84977) NEGATIVE VAGINAL PATHOGENS DNA [id number] 00:00:00 Test Item Value Reference Range Interpretation Comments OFE SPECIES (test code = 16338) NEGATIVE G. VAGINALIS (test code = 31078) POSITIVE T. VAGINALIS (test code = 57127) NEGATIVE HIV 1/2 4TH GEN, RFLX [id number] 00:00:00 Test Item Value Reference Range Interpretation Comments HIV 1/2 4TH GEN, RFLX CONF (test NON-REACTIVE code = 3514) HIV 1/2 4TH GEN, RFLX [id number] 00:00:00 Test Item Value Reference Range Interpretation Comments HIV 1/2 4TH GEN, RFLX CONF (test NON-REACTIVE code = 3514) [id number] 00:00:00 Test Item Value Reference Range Interpretation Comments RPR RESULT (test code = 3501) REACTIVE RPR TITER (test code = 3500) 1:1 TITER [id number] 00:00:00 Test Item Value Reference Range Interpretation Comments RPR RESULT (test code = 3501) REACTIVE RPR TITER (test code = 3500) 1:1 TITER [id number] 00:00:00 Test Item Value Reference Range Interpretation Comments RPR RESULT (test code = 3501) REACTIVE RPR TITER (test code = 3500) 1:1 TITER ACUTE HEPATITIS [id number] 00:00:00 Test Item Value Reference Range Interpretation Comments HEPATITIS A IgM (test code = NON-REACTIVE 49489) HEPATITIS B CORE IgM (test code NON-REACTIVE = 4644) HEPATITIS B SURF AG (test code = NON-REACTIVE 2739) HEPATITIS C ANTIBODY (test code NON-REACTIVE = 4675) INTERPRETATION HEPATITIS A: (NOTE) (test code = 2552) INTERPRETATION HEPATITIS B: (NOTE) (test code = 17702) INTERPRETATION HEPATITIS C: (NOTE) (test code = 96617) ACUTE HEPATITIS [id number] 00:00:00 Test Item Value Reference Range Interpretation Comments HEPATITIS A IgM (test code = NON-REACTIVE 25466) HEPATITIS B CORE IgM (test code NON-REACTIVE = 4644) HEPATITIS B SURF AG (test code = NON-REACTIVE 2739) HEPATITIS C ANTIBODY (test code NON-REACTIVE = 4675) INTERPRETATION HEPATITIS A: (NOTE) (test code = 2552) INTERPRETATION HEPATITIS B: (NOTE) (test code = 49506) INTERPRETATION HEPATITIS C: (NOTE) (test code = 54335) CT/NG, TMA, [id number] 00:00:00 Test Item Value Reference Range Interpretation Comments GONORRHEA, NAAT (test code = 27311) NEGATIVE CHLAMYDIA, NAAT (test code = 20873) NEGATIVE CT/NG, TMA, [id number] 00:00:00 Test Item Value Reference Range Interpretation Comments GONORRHEA, NAAT (test code = 71921) NEGATIVE CHLAMYDIA, NAAT (test code = 34124) NEGATIVE COMPREHENSIVE METABOLIC [id number] 00:00:00 Test Item Value Reference Range Interpretation Comments GLUCOSE (test code = 2217) 73 MG/DL BUN (test code = 2208) 14 MG/DL CREATININE (test code = 2214) 0.78 MG/DL eGFR (2020 CKD-EPI) (test code 98 ML/MIN/1.73 = 61926) CALC BUN/CREAT (test code = 18 RATIO 2235) SODIUM (test code = 2231) 146 MEQ/L POTASSIUM (test code = 2228) 3.5 MEQ/L CHLORIDE (test code = 2215) 107 MEQ/L CARBON DIOXIDE (test code = 27 MEQ/L 220) CALCIUM (test code = 2209) 8.2 MG/DL [...] code = 2219) 13 U/L COMPREHENSIVE METABOLIC [id number] 00:00:00 Test Item Value Reference Range Interpretation Comments GLUCOSE (test code = 2217) 73 MG/DL BUN (test code = 2208) 14 MG/DL CREATININE (test code = 2214) 0.78 MG/DL eGFR (2020 CKD-EPI) (test code 98 ML/MIN/1.73 = 59741) CALC BUN/CREAT (test code = 18 RATIO [...] = 2219) 13 U/L VAGINAL PATHOGENS DNA [id number] 00:00:00 Test Item Value Reference Range Interpretation Comments OFE SPECIES (test code = ) NEGATIVE G. VAGINALIS (test code = 14307) POSITIVE T. VAGINALIS (test code = 17806) NEGATIVE VAGINAL PATHOGENS DNA [id number] 00:00:00 Test Item Value Reference Range Interpretation Comments OFE SPECIES (test code = ) NEGATIVE G. VAGINALIS (test code = 18715) POSITIVE T. VAGINALIS (test code = 82737) NEGATIVE HIV 1/2 4TH GEN, RFLX [id number] 00:00:00 Test Item Value Reference Range Interpretation Comments HIV 1/2 4TH GEN, RFLX CONF (test NON-REACTIVE code = 3514) HIV 1/2 4TH GEN, RFLX [id number] 00:00:00 Test Item Value Reference Range Interpretation Comments HIV 1/2 4TH GEN, RFLX CONF (test NON-REACTIVE code = 3514) [id number] 00:00:00 Test Item Value Reference Range Interpretation Comments RPR RESULT (test code = 3501) REACTIVE RPR TITER (test code = 3500) 1:1 TITER [id number] 00:00:00 Test Item Value Reference Range Interpretation Comments RPR RESULT (test code = 3501) REACTIVE RPR TITER (test code = 3500) 1:1 TITER [id number] 00:00:00 Test Item Value Reference Range Interpretation Comments RPR RESULT (test code = 3501) REACTIVE RPR TITER (test code = 3500) 1:1 TITER ACUTE HEPATITIS [id number] 00:00:00 Test Item Value Reference Range Interpretation Comments HEPATITIS A IgM (test code = NON-REACTIVE 34632) HEPATITIS B CORE IgM (test code NON-REACTIVE = 4644) HEPATITIS B SURF AG (test code = NON-REACTIVE 2739) HEPATITIS C ANTIBODY (test code NON-REACTIVE = 4675) INTERPRETATION HEPATITIS A: (NOTE) (test code = 2552) INTERPRETATION HEPATITIS B: (NOTE) (test code = 60272) INTERPRETATION HEPATITIS C: (NOTE) (test code = 70773) ACUTE HEPATITIS [id number] 00:00:00 Test Item Value Reference Range Interpretation Comments HEPATITIS A IgM (test code = NON-REACTIVE 62533) HEPATITIS B CORE IgM (test code NON-REACTIVE = 4644) HEPATITIS B SURF AG (test code = NON-REACTIVE 3228) HEPATITIS C ANTIBODY (test code NON-REACTIVE = 4620) INTERPRETATION HEPATITIS A: (NOTE) (test code = 2552) INTERPRETATION HEPATITIS B: (NOTE) (test code = 10242) INTERPRETATION HEPATITIS C: (NOTE) (test code = 76577) CT/NG, TMA, [id number] 00:00:00 Test Item Value Reference Range Interpretation Comments GONORRHEA, NAAT (test code = 41708) NEGATIVE CHLAMYDIA, NAAT (test code = 49125) NEGATIVE CT/NG, TMA, [id number] 00:00:00 Test Item Value Reference Range Interpretation Comments GONORRHEA, NAAT (test code = 85933) NEGATIVE CHLAMYDIA, NAAT (test code = 81620) NEGATIVE COMPREHENSIVE METABOLIC [id number] 00:00:00 Test Item Value Reference Range Interpretation Comments GLUCOSE (test code = 2217) 73 MG/DL BUN (test code = 2208) 14 MG/DL CREATININE (test code = 2214) 0.78 MG/DL eGFR (2020 CKD-EPI) (test code 98 ML/MIN/1.73 = 47433) CALC BUN/CREAT (test code = 18 RATIO [...] code = 2219) 13 U/L COMPREHENSIVE METABOLIC [id number] 00:00:00 Test Item Value Reference Range Interpretation Comments GLUCOSE (test code = 2217) 73 MG/DL BUN (test code = 2208) 14 MG/DL CREATININE (test code = 2214) 0.78 MG/DL eGFR (2020 CKD-EPI) (test code 98 ML/MIN/1.73 = 53931) CALC BUN/CREAT (test code = 18 RATIO [...] CALC GLOBULIN (test code = 2.6 G/DL 2239) CALC A/G RATIO (test code = 1.5 RATIO 2233) BILIRUBIN, TOTAL (test code = <0.2 MG/DL 2206) ALKALINE PHOSPHATASE (test 57 U/L code = 2204) AST (test code = 2218) 10 U/L ALT (test code = 2219) 13 U/L VAGINAL PATHOGENS DNA [id number] 00:00:00 Test Item Value Reference Range Interpretation Comments OFE SPECIES (test code = 25098) NEGATIVE G. VAGINALIS (test code = 39266) POSITIVE T. VAGINALIS (test code = 12803) NEGATIVE VAGINAL PATHOGENS DNA [id number] 00:00:00 Test Item Value Reference Range Interpretation Comments OFE SPECIES (test code = 47793) NEGATIVE G. VAGINALIS (test code = 61834) POSITIVE T. VAGINALIS (test code = 86262) NEGATIVE HIV 1/2 4TH GEN, RFLX [id number] 00:00:00 Test Item Value Reference Range Interpretation Comments HIV 1/2 4TH GEN, RFLX CONF (test NON-REACTIVE code = 3514) HIV 1/2 4TH GEN, RFLX [id number] 00:00:00 Test Item Value Reference Range Interpretation Comments HIV 1/2 4TH GEN, RFLX CONF (test NON-REACTIVE code = 3514) [id number] 00:00:00 Test Item Value Reference Range Interpretation Comments RPR RESULT (test code = 3501) REACTIVE RPR TITER (test code = 3500) 1:1 TITER [id number] 00:00:00 Test Item Value Reference Range Interpretation Comments RPR RESULT (test code = 3501) REACTIVE RPR TITER (test code = 3500) 1:1 TITER [id number] 00:00:00 Test Item Value Reference Range Interpretation Comments RPR RESULT (test code = 3501) REACTIVE RPR TITER (test code = 3500) 1:1 TITER ACUTE HEPATITIS [id number] 00:00:00 Test Item Value Reference Range Interpretation Comments HEPATITIS A IgM (test code = NON-REACTIVE 78429) HEPATITIS B CORE IgM (test code NON-REACTIVE = 4644) HEPATITIS B SURF AG (test code = NON-REACTIVE 2739) HEPATITIS C ANTIBODY (test code NON-REACTIVE = 4675) INTERPRETATION HEPATITIS A: (NOTE) (test code = 2552) INTERPRETATION HEPATITIS B: (NOTE) (test code = 38471) INTERPRETATION HEPATITIS C: (NOTE) (test code = 87977) ACUTE HEPATITIS [id number] 00:00:00 Test Item Value Reference Range Interpretation Comments HEPATITIS A IgM (test code = NON-REACTIVE 42551) HEPATITIS B CORE IgM (test code NON-REACTIVE = 4644) HEPATITIS B SURF AG (test code = NON-REACTIVE 2739) HEPATITIS C ANTIBODY (test code NON-REACTIVE = 4675) INTERPRETATION HEPATITIS A: (NOTE) (test code = 2552) INTERPRETATION HEPATITIS B: (NOTE) (test code = 64098) INTERPRETATION HEPATITIS C: (NOTE) (test code = 48708) CT/NG, TMA, [id number] 00:00:00 Test Item Value Reference Range Interpretation Comments GONORRHEA, NAAT (test code = 62373) NEGATIVE CHLAMYDIA, NAAT (test code = 29992) NEGATIVE CT/NG, TMA, [id number] 00:00:00 Test Item Value Reference Range Interpretation Comments GONORRHEA, NAAT (test code = 24967) NEGATIVE CHLAMYDIA, NAAT (test code = 96999) NEGATIVE COMPREHENSIVE METABOLIC [id number] 00:00:00 Test Item Value Reference Range Interpretation Comments GLUCOSE (test code = 2217) 73 MG/DL BUN (test code = 2208) 14 MG/DL CREATININE (test code = 2214) 0.78 MG/DL eGFR (2020 CKD-EPI) (test code 98 ML/MIN/1.73 = 71258) CALC BUN/CREAT (test code = 18 RATIO [...] ALKALINE PHOSPHATASE (test 57 U/L code = 2203) AST (test code = 2218) 10 U/L ALT (test code = 2219) 13 U/L COMPREHENSIVE METABOLIC [id number] 00:00:00 Test Item Value Reference Range Interpretation Comments GLUCOSE (test code = 2217) 73 MG/DL BUN (test code = 2208) 14 MG/DL CREATININE (test code = 2214) 0.78 MG/DL eGFR (2020 CKD-EPI) (test code 98 ML/MIN/1.73 = 84796) CALC BUN/CREAT (test code = 18 RATIO [...]
[2022-12-26] MEDS ORDERED: PROMETHAZINE INJ 25 MG/ML AMP ONE (21:09)
[2022-12-26] MEDS ORDERED: MORPHINE 4 MG/ML SYR ONE ×2 (21:09→22:13)
[2022-12-26] MEDS ORDERED: DIPHENOX/ATROP SULF 1 TAB PO ONE (21:09)
[2022-12-26] MEDS ORDERED: NA CHLORIDE 0.9% 1,000 ML ONE ×2 (21:10→21:58)
[2022-12-26] MEDS ORDERED: ONDANSETRON 4 MG/2 ML VIAL ONE (21:10)
[2022-12-26 21:33] LABS: SARS-CoV-2 Antigen Rapid Res Positive (Negative)
[2022-12-26 22:06] LABS: Absolute Lymphocytes (CBC) 2.2 K/uL (0.7-4.9); Hematocrit 39.9 % (36.0-45.0); Lymphocytes % 22.7 % (15.3-44.8); MCV 97.3 fL (80-100); MPV 8.7 fL (7.6-11.3)
--- NOTE | 2022-12-26 22:07 | RAD REPORT ---
EXAM DESCRIPTION: [facility] Single View12/26/2022 9:48 pm CLINICAL HISTORY: CHEST PAIN COMPARISON: Chest radiographs 05/22/2022 and 11/07/2012 TECHNIQUE: Portable AP view of the chest. FINDINGS: The lungs show improvement of linear opacity seen at the bilateral bases on prior exam, wi th some minimal residual left lower lobe streaky opacity, may reflect atelectasis. No pneumothorax o r effusion. The cardiomediastinal contours are unremarkable. IMPRESSION: No acute cardiopulmonary process. Residual minimal left basilar atelectasis.
[2022-12-26] MEDS ORDERED: IBUPROFEN 400 MG TAB ONE (22:14)
[2022-12-26 22:16] LABS: ALT/SGPT 33 U/L (13-56); AST/SGOT 18 U/L (15-37); Albumin 3.3 g/dL (3.4-5.0); Alkaline Phosphatase 66 U/L (45-117); BUN Blood Urea Nitrogen 7 mg/dL (7-18); Bicarbonate 20 mEq/L (21-32); Bilirubin Total 0.2 mg/dL (0.2-1.0); Glomerular Filtration Rate 80 ml/min (=/>90); Glucose Level 120 mg/dL (74-106); Magnesium 2.1 mg/dL (1.6-2.4); NT PRO-BNP 13 pg/mL (<125); Potassium 3.3 mEq/L (3.5-5.1); Protein, Total 6.9 g/dL (6.4-8.2); Protime INR 1.25; Sodium Level 137 mEq/L (136-145)
[2022-12-26 22:18] LABS: Bilirubin Direct < 0.1 mg/dL (0-0.2); Bilirubin Indirect, Calculated ND mg/dL (0.2-0.8); Troponin High Sensitivity < 3.0 pg/mL (<58.9)
--- NOTE | 2022-12-26 22:38 | ER ---
Nurse's Notes [facility] Name: Evelyn Rosa Age: 42 yrs Sex: Female : 1980 Arrival Date: 12/26/2022 Time: 20:30 Bed 17 Private MD: Diagnosis: Acute viral illness, acute viral gastroenteritis, COVID-19 acute, moderate dehydration, hypokalemia Presentation: 12/26 20:47 Chief complaint: Patient states: I have body aches and chills with vomiting. My back kd3 hurts and my chest hurts. This all started 3 or 4 days ago. Coronavirus screen: Vaccine status: Patient reports receiving the 2nd dose of the covid vaccine. Ebola Screen: No symptoms or risks identified at this time. Initial Sepsis Screen: Does the patient meet any 2 criteria? No. Patient's initial sepsis screen is negative. Does the patient have a suspected source of infection? No. Patient's initial sepsis screen is negative. Risk Assessment: Do you want to hurt yourself or someone else? Patient reports no desire to harm self or others. Onset of symptoms was December 26, 2022. 20:47 Method Of Arrival: Ambulatory kd3 20:47 Acuity: INDIGO 3 kd3 Triage Assessment: 20:50 General: Appears uncomfortable, Behavior is calm, cooperative. Pain: Complains of pain kd3 in generalized body aches. Cardiovascular: Patient's skin is warm and dry. Historical: - Allergies: 20:50 PENICILLINS; kd3 20:50 Toradol; kd3 - PMHx: 20:50 Anxiety; Chronic Pancreatitis; Crohn's; Degenerative disc disease; gastritits; chronic kd3 back pain; ibs; Pancreatitis; - PSHx: 20:50 section; partial hysterectomy; kd3 - Immunization history:: Adult Immunizations up to date. - Social history:: Smoking status: unknown. - Family history:: not pertinent. Screenin:30 [facility] ED Fall Risk Assessment (Adult) History of falling in the last 3 months, vc1 including since admission No falls in past 3 months (0 pts) Confusion or Disorientation No (0 pts) Intoxicated or Sedated No (0 pts) Impaired Gait No (0 pts) Mobility Assist Device Used No (0 pt) Altered Elimination No (0 pt) Score/Fall Risk Level 0 - 2 = Low Risk Oriented to surroundings, Maintained a safe environment, Educated pt \T\ family on fall prevention, incl call for assistance when getting out of bed. Abuse screen: Denies threats or abuse. Nutritional screening: No deficits noted. Tuberculosis screening: No symptoms or risk factors identified. Assessment: 22:12 Reassessment: No changes from previously documented assessment. Patient and/or family vc1 updated on plan of care and expected duration. Pain level reassessed. 23:14 Reassessment: Patient and/or family updated on plan of care and expected duration. Pain vc1 level reassessed. Patient is alert, oriented x 3, equal unlabored respirations, skin warm/dry/pink. Patient states symptoms have improved. Vital Signs: 20:47 Pulse 116; Resp 19; Temp 100.1; Pulse Ox 100% ; Weight 81.65 kg; Height 5 ft. 5 in. ; kd3 20:49 BP 122 / 85; kd3 22:12 BP 112 / 79; Pulse 116; Resp 20; Pulse Ox 100% ; vc1 23:13 BP 121 / 80; Pulse 107; Resp 19; Pulse Ox 100% ; vc1 20:47 Body Mass Index 29.95 (81.65 kg, 165.1 cm) kd3 ED Course: 20:31 Patient arrived in ED. ja2 20:37 Norbert Faustin MD is Attending Physician. sp4 20:49 Triage completed. kd3 20:50 Arm band placed on right wrist. kd3 20:51 EKG completed in triage. Results shown to MD. kd3 21:12 Influenza Screen (a \T\ B) Sent. bc6 21:12 SARS RAPID Sent. bc6 21:45 Patient has correct armband on for positive identification. Bed in low position. Client vc1 placed on continuous cardiac and pulse oximetry monitoring. NIBP monitoring applied. 21:50 XRAY Chest (1 view) In Process Unspecified. EDMS 22:36 Norbert Faustin MD is Referral Physician. sp4 22:52 Rahel Ruff RN is Primary Nurse. vc1 23:14 No provider procedures requiring assistance completed. Patient maintains SpO2 vc1 saturation greater than 95% on room air. 23:17 IV discontinued, intact, bleeding controlled, No redness/swelling at site. Pressure vc1 dressing applied. Administered Medications: 21:31 Drug: NS 0.9% IV 1000 ml Route: IV; Rate: 1 bolus; Site: left forearm; kd3 23:18 Follow up: IV Status: Infusion continued; IV Intake: 800ml vc1 21:32 Drug: Ondansetron IVP 4 mg Route: IVP; Site: left forearm; kd3 23:15 Follow up: Response: No adverse reaction; Marked relief of symptoms vc1 21:32 Drug: morphine IVP or IV 4 mg Route: IVP; Infused Over: 4 mins; Site: left forearm; kd3 22:00 Follow up: Response: No adverse reaction; Pain is unchanged, physician notified vc1 23:15 Follow up: Response: No adverse reaction; Marked relief of symptoms; RASS: Alert and vc1 Calm (0) 21:32 Drug: Promethazine IM 25 mg Route: IM; Site: right deltoid; kd3 23:15 Follow up: Response: No adverse reaction; Marked relief of symptoms; Nausea is decreasedvc1 21:32 Drug: Diphenoxylate-Atropine PO 2 tabs Route: PO; kd3 23:15 Follow up: Response: No adverse reaction; Marked relief of symptoms vc1 22:12 Drug: Ibuprofen PO 800 mg Route: PO; vc1 23:15 Follow up: Response: No adverse reaction; Marked relief of symptoms vc1 22:12 Drug: morphine IVP or IV 4 mg Route: IVP; Infused Over: 4 mins; Site: left antecubital; vc1 23:15 Follow up: Response: No adverse reaction; Marked relief of symptoms vc1 22:34 Drug: NS 0.9% IV 1000 ml Route: IV; Rate: 1 bolus; Site: left antecubital; vc1 23:18 Follow up: IV Status: Completed infusion; IV Intake: 1000ml vc1 22:52 Drug: Potassium Chloride PO 40 mEq Route: PO; vc1 23:16 Follow up: Response: No adverse reaction vc1 22:52 Drug: traMADol PO 50 mg Route: PO; vc1 23:16 Follow up: Response: No adverse reaction; Medication administered at discharge. vc1 22:52 Drug: Promethazine PO 25 mg Route: PO; vc1 23:16 Follow up: Response: No adverse reaction; Medication administered at discharge. vc1 Medication: 23:14 VIS not applicable for this client. vc1 Intake: 23:18 IV: 800ml; Total: 800ml. vc1 23:18 IV: 1000ml; Total: 1800ml. vc1 Outcome: 22:37 Discharge ordered by . sp4 23:17 Discharged to home ambulatory, with family. vc1 23:17 Condition: good 23:17 Discharge instructions given to patient, Instructed on discharge instructions, follow up and referral plans. medication usage, Demonstrated understanding of instructions, follow-up care, medications, Prescriptions given X 3. 23:25 Patient left the ED. vc1 Signatures: Dispatcher [employer] EDMS Darlene Sears2 Rosamaria Valadez RN RN kd3 Rahel Ruff RN RN vc1 Kiki Montez Sergey, MD MD sp4
--- NOTE | 2022-12-26 22:38 | EDPHYS ---
Physician Documentation [facility] Name: Evelyn Rosa Age: 42 yrs Sex: Female : 1980 Arrival Date: 12/26/2022 Time: 20:30 Bed 17 Private MD: ED Physician Norbert Faustin HPI: 12/26 20:37 This 42 yrs old Black Female presents to ER via Unassigned with complaints of Chills, sp4 Pain All Over, Chest Pain. 22:29 42-year-old female presents with complaint of chills, body aches, headache, nausea sp4 vomiting diarrhea chest pains. All this has started 2 days ago. Patient states she has been feeling unwell overall. Patient manifested with vomiting on arrival to the emergency room. . Historical: - Allergies: 20:50 PENICILLINS; kd3 20:50 Toradol; kd3 - PMHx: 20:50 Anxiety; Chronic Pancreatitis; Crohn's; Degenerative disc disease; gastritits; chronic kd3 back pain; ibs; Pancreatitis; - PSHx: 20:50 section; partial hysterectomy; kd3 - Immunization history:: Adult Immunizations up to date. - Social history:: Smoking status: unknown. - Family history:: not pertinent. ROS: 22:30 Constitutional: Negative for chills, and weight loss, positive for chills, body sp4 aches, feeling unwell, generalized weakness Eyes: Negative for injury, pain, redness, and discharge, ENT: Negative for injury, pain, and discharge, Neck: Negative for injury, pain, and swelling, Cardiovascular: Negative for palpitations, and edema, positive for chest pain Respiratory: Negative for shortness of breath, cough, wheezing, and pleuritic chest pain, Abdomen/GI: Negative for abdominal pain, and constipation, positive for nausea vomiting and diarrhea Back: Negative for injury and pain, : Negative for injury, bleeding, discharge, and swelling, MS/Extremity: Negative for injury and deformity, positive for diffuse muscular aches Skin: Negative for injury, rash, and discoloration, Neuro: Negative for headache, weakness, numbness, tingling, and seizure, Psych: Negative for depression, anxiety, Allergy/Immunology: Negative for hives, rash, and allergies Endocrine: Negative for neck swelling, polydipsia, polyuria, polyphagia, and weight changes Hematologic/Lymphatic: Negative for swollen nodes, abnormal bleeding, and unusual bruising Exam: 22:30 Constitutional: This is a well developed, well nourished patient who is awake, alert, sp4 uncomfortable appearing female anxious on exam Head/Face: Normocephalic, atraumatic. Eyes: Pupils equal round and reactive to light, extra-ocular motions intact. Lids and lashes normal. Conjunctiva and sclera are not injected. Cornea within normal limits. Periorbital areas with no swelling, redness, or edema. ENT: Nares patent. No nasal discharge, no septal abnormalities noted. Tympanic membranes are normal and external auditory canals are clear. Oropharynx with no redness, swelling, or masses, exudates, or evidence of obstruction, uvula midline. Mucous membranes moist. Neck: Trachea midline, no thyromegaly or masses palpated, and no cervical lymphadenopathy. Supple, full range of motion without nuchal rigidity, or vertebral point tenderness. Chest/axilla: Normal chest wall appearance and motion. Nontender with no deformity. No lesions are appreciated. Cardiovascular: Regular and rhythm with a normal S1 and S2. No gallops, murmurs, or rubs. Normal PMI, no JVD. No pulse deficits. Tachycardia on exam Respiratory: Lungs have equal breath sounds bilaterally, clear to auscultation and percussion. No rales, rhonchi or wheezes noted. No increased work of breathing, no retractions or nasal flaring. Abdomen/GI: Soft, non-tender, with normal bowel sounds. No distension or tympany. No guarding or rebound. No evidence of tenderness throughout. Back: No spinal tenderness. No costovertebral tenderness. Skin: Warm, dry with normal turgor. Normal color with no rashes, no lesions, and no evidence of cellulitis. MS/ Extremity: Pulses equal, no cyanosis. Neurovascular intact. Full, normal range of motion. Neuro: Awake and alert, GCS 15, oriented to person, place, time, and situation. Cranial nerves II-XII grossly intact. Motor strength 5/5 in all extremities. Sensory grossly intact. Psych: Awake, alert, with orientation to person, place and time. Acutely anxious on exam 22:30 ECG was reviewed by the Attending Physician. EKG reveals sinus tachycardia at the rate sp4 of 134, EKG time 2054, no ectopy, normal EKG overall Vital Signs: 20:47 Pulse 116; Resp 19; Temp 100.1; Pulse Ox 100% ; Weight 81.65 kg; Height 5 ft. 5 in. ; kd3 20:49 BP 122 / 85; kd3 22:12 BP 112 / 79; Pulse 116; Resp 20; Pulse Ox 100% ; vc1 23:13 BP 121 / 80; Pulse 107; Resp 19; Pulse Ox 100% ; vc1 20:47 Body Mass Index 29.95 (81.65 kg, 165.1 cm) kd3 MDM: 20:38 Patient medically screened. sp4 22:35 Differential diagnosis: acute pericarditis, anxiety, chest wall pain, costochondritis, sp4 esophagitis, gastritis, pneumonia. HEART Score: History: Slightly Suspicious (0), ECG: Normal (0), Age: < or = 45 years (0), Risk Factors: No Risk Factors Known (0), Troponin: < or = 1 x Normal Limit (0), Total Score = 0. Data reviewed: vital signs, nurses notes, old medical records, lab test result(s), EKG, radiologic studies, plain films. ED course: Patient presents with signs of acute viral illness, patient tested positive for COVID-19, patient will be discharged home with Lomotil, ibuprofen, ondansetron, Paxlovid advised for clear liquid diet for the next 24 hours, home quarantine for the next 5 days. 12/26 20:38 Order name: Basic Metabolic Panel; Complete Time: 22:21 [facility] 12/26 20:38 Order name: CBC with Diff; Complete Time: 22:21 4 12/26 20:38 Order name: LFT's; Complete Time: 22:21 4 12/26 20:38 Order name: Magnesium; Complete Time: 22:21 [facility] 12/26 20:38 Order name: NT PRO-BNP; Complete Time: 22:21 4 12/26 20:38 Order name: PT-INR; Complete Time: 22:21 4 12/26 20:38 Order name: Troponin HS; Complete Time: 22:21 [facility] 12/26 20:38 Order name: SARS RAPID; Complete Time: 21:34 [facility] 12/26 20:38 Order name: Influenza Screen (a \T\ B); Complete Time: 22:05 4 12/26 20:38 Order name: XRAY Chest (1 view); Complete Time: 22:21 4 12/26 20:38 Order name: EKG; Complete Time: 20:38 4 12/26 20:38 Order name: Cardiac monitoring; Complete Time: 22:59 4 12/26 20:38 Order name: EKG - Nurse/Tech; Complete Time: 21:12 4 12/26 20:38 Order name: IV Saline Lock; Complete Time: 21:12 4 12/26 20:38 Order name: Labs collected and sent; Complete Time: 21:51 sp4 12/26 20:38 Order name: O2 Per Protocol; Complete Time: :51 sp4 12/26 20:38 Order name: O2 Sat Monitoring; Complete Time: :51 sp4 EC:30 Rate is 134 beats/min. Rhythm is regular, Sinus tachycardia. QRS [place] is Normal. [place] sp4 interval is normal. QT interval is normal. T waves are Normal. No ST changes noted. Clinical impression: No evidence of ischemia. Interpreted by me. Administered Medications: 21:31 Drug: NS 0.9% IV 1000 ml Route: IV; Rate: 1 bolus; Site: left forearm; kd3 23:18 Follow up: IV Status: Infusion continued; IV Intake: 800ml vc1 21:32 Drug: Ondansetron IVP 4 mg Route: IVP; Site: left forearm; kd3 23:15 Follow up: Response: No adverse reaction; Marked relief of symptoms vc1 21:32 Drug: morphine IVP or IV 4 mg Route: IVP; Infused Over: 4 mins; Site: left forearm; kd3 22:00 Follow up: Response: No adverse reaction; Pain is unchanged, physician notified vc1 23:15 Follow up: Response: No adverse reaction; Marked relief of symptoms; RASS: Alert and vc1 Calm (0) 21:32 Drug: Promethazine IM 25 mg Route: IM; Site: right deltoid; kd3 23:15 Follow up: Response: No adverse reaction; Marked relief of symptoms; Nausea is decreasedvc1 21:32 Drug: Diphenoxylate-Atropine PO 2 tabs Route: PO; kd3 23:15 Follow up: Response: No adverse reaction; Marked relief of symptoms vc1 22:12 Drug: Ibuprofen PO 800 mg Route: PO; vc1 23:15 Follow up: Response: No adverse reaction; Marked relief of symptoms vc1 22:12 Drug: morphine IVP or IV 4 mg Route: IVP; Infused Over: 4 mins; Site: left antecubital; vc1 23:15 Follow up: Response: No adverse reaction; Marked relief of symptoms vc1 22:34 Drug: NS 0.9% IV 1000 ml Route: IV; Rate: 1 bolus; Site: left antecubital; vc1 23:18 Follow up: IV Status: Completed infusion; IV Intake: 1000ml vc1 22:52 Drug: Potassium Chloride PO 40 mEq Route: PO; vc1 23:16 Follow up: Response: No adverse reaction vc1 22:52 Drug: traMADol PO 50 mg Route: PO; vc1 23:16 Follow up: Response: No adverse reaction; Medication administered at discharge. vc1 22:52 Drug: Promethazine PO 25 mg Route: PO; vc1 23:16 Follow up: Response: No adverse reaction; Medication administered at discharge. vc1 Disposition Summary: 12/26/22 22:37 Discharge Ordered Location: Home sp4 Problem: new sp4 Symptoms: have improved sp4 Condition: Fair sp4 Diagnosis - Acute viral illness, acute viral gastroenteritis, COVID-19 acute, moderate sp4 dehydration, hypokalemia Followup: sp4 - With: Norbert Faustin MD - When: 10 - 14 days - Reason: Recheck today's complaints Discharge Instructions: - Discharge Summary Sheet sp4 - COVID-19 sp4 Prescriptions: - Paxlovid 300 mg (150 mg x 2)-100 mg Oral Tablet, Dose Pack - take 1 dose pack by ORAL route as directed on dose pack for 5 days take TWO 150 sp4 mg tablets of nirmatrelvir with ONE 100 mg tablet of ritonavir twice daily for 5 days; 1 Pack; Refills: 0, Product Selection Permitted - ondansetron 4 mg Oral Tablet,disintegrating - take 1 tablet by ORAL route every 6 hours PRN nausea; 30 tablet; Refills: 0, sp4 Product Selection Permitted - Lomotil 2.5-0.025 mg Oral Tablet - take 1 tablet by ORAL route every 6 hours As needed PRN diarrhea; 30 tablet; sp4 Refills: 0, Product Selection Permitted Signatures: Dispatcher [employer] Rosamaria Foreman RN RN kd3 Rahel Ruff RN RN vc1 Norbert Faustin MD MD sp4
--- NOTE | 2022-12-27 17:50 | EKG ---
Test Date: 2022-12-26 Test Time: 20:55:00 Top Cager: SUDHA MEASUREMENT RESULTS: Intervals: Rate: 134 MS: 116 QRSD: 94 QT: 326 QTc: 486 [place]: P: 66 MS: 116 QRS: -6 T: 52 INTERPRETIVE STATEMENTS: Sinus tachycardia Otherwise normal ECG Compared to ECG 05/18/2022 20:10:52 Sinus rhythm no longer present Atrial premature complex(es) no longer present Electronically Signed On 12-27-22 17:49:00 CDT by Cole Richardson
== END 2022-12-26 23:25 | disposition home or self-care (01) ==
LOC: ER 20:30
DX: U07.1 COVID-19 (principal); E86.0 Dehydration; E87.6 Hypokalemia; A08.4 Viral intestinal infection, unspecified
CPT/HCPCS: 36415; 71045; 80048; 80076; 83735; 83880; 84484; 85025; 85610; 87804; 87811; 93005; 96372; 99285; J2405; J2550; J7030

== ENCOUNTER 2023-03-15 01:54 | Emergency (ER) | payer OTHER ==
--- OUTSIDE RECORDS SUMMARY | 2023-03-15 01:59 | XMS REPORT | Continuity of Care Document ---
:1980 Author Organization [facility] t Address [address] [place] [address] Care Team Providers Name Role Phone Reymundo Harvey Primary Care Physician Doctor Unassigned, Snead Attending Clinician Unavailable LAKIA MILLER Attending Clinician Unavailable Geneva Rodríguez DO Attending Clinician GENEVA RODRÍGUEZ Attending Clinician Unavailable Payers Payer Name Policy Type Policy Number Effective Date Expiration Date S our [employer] [place] [id number] 2022 00:00:00 WOMEN Problems Condition Condition Condition [...] Active 2010-07 Overview : Univers is is 08-19 Formattin ity of 00:00: g of this [place] 00 note Medical might be Branch different from the original. 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 Hypokalemi Hypokalemi Disease Active 2010-07 U nivers a a 2- ity of 00:00: [place] 00 Medical Branch Metabolic Metabolic Disease Active 2010-07 Uni vers acidosis acidosis 2-09 ity of 00:00: [place] 00 [facility] Allergies, Adverse Reactions, Alerts Allergy Allergy Status [...] ity of 00:00: [place] 00 [facility] Social History Social Habit Start Date Stop Date Quantity Comments Source History of tobacco Cigarette Smoker University of use [facility] Exposure to 2022-04-20 2022-04-30 Not sure [facility] SARS-CoV-2 (event) 00:00:00 13:23:00 [facility] Alcohol intake 2016-05-05 2016-05-05 Current drinker Unive rsity of 00:00:00 00:00:00 of alcohol [facility] (finding) Branch Cigarettes smoked 2011-06-18 2011-06-18 Univers ity of current (pack per 00:00:00 00:00:00 [place] ) - Reported Branch Cigarette 2011-06-18 2011-06-18 University of pack-years 00:00:00 00:00:00 [facility] Sex Assigned At [birth year] Universit y of 00:00:00 00:00:00 [facility] Smoking Status Start Date Stop Date Source Never smoked tobacco [facility] [place] [place] Medications Ordered Filled Start Stop Current Ordering Indication Dosage Frequency Signature Comments Components Source Medication Medication Date Date Medication? Clinician (SIG) Name Name TAKE No CAPSULE 1-18 TWICE 00:00: DAILY. 00 TAKE 2021-07 No TABLET 2-16 TWICE DAILY 00:00: UNTIL 00 FINISHED. TAKE 1 2021- No 500unit TABLET ONCE 2-16 DAILY. 00:00: 00 INHALE 2 2021-1 No 100unit PUFFS EVERY 2-16 4 TO 6 00:00: HOURS 00 NEEDED. TAKE 5 ML 2021- No 5unit EVERY 4 TO 2-16 6 HOURS 00:00: NEEDED. 00 Dose 2021- No 500 Unknown 2-16 00:00: 00 TAKE ONE 2021- No 5 (1) 2-16 TABLET(S) 00:00: BY MOUTH 00 TWICE A DAY NEEDED. TAKE 10 2021- No ML(S) BY 2-16 MOUTH EVERY 00:00: 6-8 HOURS 00 NEEDED. Dose 2021- No 5 Unknown 2-16 00:00: 00 TAKE TWO 2021- No 5 (2) 2-16 TABLET(S) 00:00: BY [...] BY MOUTH 00 TWICE A DAY. Dose 2021-1 No 5 Unknown 2-16 00:00: 00 Dose 2021-1 No 100 Unknown 2-16 00:00: 00 Dose 2021-1 No Unknown 2-16 00:00: 00 TAKE 2021-1 No 100 ONE-HALF 2-16 (1/2) 00:00: TABLET(S) 00 BY MOUTH EVERY SIX HOURS NEEDED FOR NAUSEA OR VOMITING. Dose 2021- No 5 Unknown 2-16 00:00: 00 TAKE ONE 2021- No 100 (1) OR TWO 2-16 (2) 00:00: CAPSULE(S) 00 BY MOUTH EVERY EIGHT HOURS NEEDED FOR COUGH. TAKE ONE 2021- No 500 (1) 2-16 TABLET(S) 00:00: BY MOUTH 00 EVERY EIGHT HOURS FOR 10 DAYS. Dose 2021-1 No 5 Unknown 1-25 00:00: 00 TAKE ONE 2021-1 No (1) 1-25 TABLET(S) 00:00: BY MOUTH 00 TWICE A DAY NEEDED. TAKE 2 2-1 No TABLETS 1-25 DAILY FOR 7 00:00: [...] 00:00: mL oral 00 syrup TAKE 2 2-0 No TABLETS 1-28 DAILY FOR 7 00:00: DAYS, THEN 00 1 TABLET DAILY FOR 7 DAYS. azithromyci 2022-0 No mg n 250 mg 1-28 tablet 00:00: 00 Dose 2-0 No 5 Unknown 1-28 00:00: 00 Dose 2-0 No Unknown 1- 00:00: 00 Dose 2-0 No Unknown 1-28 00:00: 00 Dose 2-0 No Unknown 1-28 00:00: 00 Dose 2-0 No Unknown 1- [...] 2-0 No Unknown 1-28 00:00: 00 Dose 2-0 No Unknown 1-28 00:00: 00 azithromyci 1-1 No mg n [...] 00:00: 00 benzonatate No 12mg 100 mg 6-07 capsule 00:00: [...] Immunizations Ordered Filled Immunization Date Status Comments [facility] e Immunization Name Name Stone PARIKHID-19 2021-06-30 Completed Vaccine 00:00:00 Brooklyna COVID-19 2021-06-30 Completed Vaccine 00:00:00 Brooklyna COVID-19 2021-06-30 Completed Vaccine 00:00:00 Brooklyna COVID-19 2021-06-30 Completed Vaccine 00:00:00 Stone COVID-19 2020-10-13 Completed Vaccine 00:00:00 Moderna COVID-19 2020-10-13 Completed Vaccine 00:00:00 Moderna COVID-19 2020-10-13 Completed Vaccine 00:00:00 Moderna COVID-19 2020-10-13 Completed Vaccine 00:00:00 Moderna COVID-19 2020-09-13 Completed Vaccine 00:00:00 Moderna COVID-19 2020-09-13 Completed Vaccine 00:00:00 Moderna COVID-19 2020-09-13 Completed Vaccine 00:00:00 Moderna COVID-19 2020-09-13 Completed Vaccine 00:00:00 Influenza Virus 2011-06-21 Completed Universit y of Vaccine 00:00:00 [facility] Influenza Virus 2011-06-21 Completed Universit y of Vaccine 00:00:00 [facility] Vital Signs Vital Name Observation Time Observation Value Comments Source Body weight 2022-04-30 18:23:16 79.379 kg [facility] BMI 2022-04-30 18:23:16 29.12 kg/m2 [facility] Systolic blood 2022-04-30 18:16:00 128 mm[Hg] Univer sity of pressure [facility] Diastolic blood 2022-04-30 18:16:00 81 mm[Hg] Unive rsity of pressure [facility] Heart rate 2022-04-30 18:16:00 92 /min [facility] Body temperature 2022-04-30 18:16:00 37.06 Del [facility] Respiratory rate 2022-04-30 18:16:00 18 /min [facility] Body height 2022-04-30 18:16:00 165.1 cm [facility] Oxygen saturation in 2022-04-30 18:16:00 96 /min [facility] Arterial blood by [facility] Pulse oximetry Branch BP Systolic 2022-07-28 10:17:00 [...] AUTHORIZATION FOR 2022-09-30 05:01:00 Doctor Unassigned, No [facility] RELEASE OF PHI Name Medical Branch RAPID INFLUENZA A/B 2022-04-30 18:27:00 Geneva Rodríguez [facility] COVID-19 (ID NOW RAPID 2022-04-30 18:27:00 Geneva Rodríguez [facility] TESTING) Medical Branch CONSENT/REFUSAL FOR 2022-04-30 18:06:22 Doctor Unassigned, No [facility] DIAGNOSIS AND TREATMENT Name Medical Branch Plan of Care Planned Activity Planned Date Details Comments Source Goal Plan of Care Note [code = 37671-7] Goal Plan of Care Note [code = 71090-3] Goal Plan of Care Note [code = 13302-4] Goal Plan of Care Note [code = 45499-1] Goal Plan of Care Note [code = 43774-0] Goal Plan of Care Note [code = 17911-5] Goal Plan of Care Note [code = 91961-5] Goal Plan of Care Note [code = 65363-1] Goal Plan of Care Note [code = 64088-0] Goal Plan of Care Note [code = 08144-1] Goal Plan of Care Note [code = 59096-0] Goal Plan of Care Note [code = 91624-4] Goal Plan of Care Note [code = 01796-5] Goal Plan of Care Note [code = 09074-9] Goal Plan of Care Note [code = 98475-2] Goal Plan of Care Note [code = 47860-2] Goal Plan of Care Note [code = 39137-0] Goal Plan of Care Note [code = 74621-0] Goal Plan of Care Note [code = 33551-5] Goal Plan of Care Note [code = 03808-5] Goal Plan of Care Note [code = 66392-3] Goal Plan of Care Note [code = 82606-0] Goal Plan of Care Note [code = 97857-8] Goal Plan of Care Note [code = 40034-9] Goal Plan of Care Note [code = 58259-1] Goal Plan of Care Note [code = 62201-5] Goal Plan of Care Note [code = 73797-9] Goal Plan of Care Note [code = 99209-5] Goal Plan of Care Note [code = 85648-0] Goal Plan of Care Note [code = 30545-1] Goal Plan of Care Note [code = 24949-9] Goal Plan of Care Note [code = 13082-1] Goal Plan of Care Note [code = 83896-7] Goal Plan of Care Note [code = 06655-7] Goal Plan of Care Note [code = 69314-8] Goal Plan of Care Note [code = 32871-2] Goal Plan of Care Note [code = 44194-2] Goal Plan of Care Note [code = 09109-4] Goal Plan of Care Note [code = 53776-9] Goal Plan of Care Note [code = 32662-7] Goal Plan of Care Note [code = 63472-9] Goal Plan of Care Note [code = 05961-7] Goal Plan of Care Note [code = 93435-7] Encounters Start End Encounter Admission Attending Care Care Encounter Source Date/Time Date/Time Type Type Clinicians Facility Department ID 2022-11-24 Outpatient [facility] [id number] [place] 09:13:56 [id number] [facility] 2022-12-22 2022-12-22 Outpatient SFA SFA [id number] Reginald 10:58:01 10:58:01 0614 F Beulah 2022-12-15 2022-12-15 Outpatient SFA SFA [id number] Reginald 13:54:13 13:54:13 0607 F Beulah 2022-12-10 2022-12-10 Outpatient SFA SFA [id number] Reginald 13:13:19 13:13:19 0602 [facility] 2022-12-08 2022-12-08 Outpatient SFA SFA [id number] Reginald 14:35:59 14:35:59 0531 F Beulah 2022-09-30 2022-09-30 Orders Doctor MYLA [id number] Univers 00:00:00 00:00:00 Only Unassigned, SYD 350.1.13.10 ity of Snead [facility] 4.2.7.2.686 Bean as [id number] [place] [id number] Branch 2022-09-01 2022-09-01 Emergency E ANGELA, [facility] [address] [facility] 09:29:00 18:15:00 LAKIA 2022-08-02 2022-08-02 Outpatient SFA SFA [id number] Reginald 14:37:45 14:37:45 0123 [facility] 2022-07-28 2022-07-28 Outpatient SFA SFA [id number] Reginald 10:11:02 10:11:02 0118 F Beulah 2022-07-28 2022-07-28 Outpatient [id number] 00:00:00 00:00:00 Visit [id number] -6di0-b25 [id number] 2022-06-21 2022-06-21 Outpatient SFA SFA [id number] Reginald 08:09:11 08:09:11 1212 F Beulah 2022-06-19 2022-06-[address] [facility] [id number] Reginald 10:15:22 10:15:22 1210 F Reymundo 2022-06-18 2022-06-18 Outpatient SFA SFA [id number] Reginald 11:18:31 11:18:31 1209 F Reymundo 2022-06-18 2022-06-18 Outpatient [id number] 00:00:00 00:00:00 Visit ffc1-4a85 fc1-4a85-a -abb0-1e3 [id number] 2022-06-14 2022-06-14 Outpatient SFA SFA [id number] Reginald 13:27:35 13:27:35 1205 F Reymundo 2022-06-14 2022-06-14 Outpatient [id number] 00:00:00 00:00:00 Visit 38j2-2b59 6o6-9c98-9 -88dd-83d 8dd-83d16d [id number] 2022-06-10 2022-06-[address] [facility] [id number] Reginald 11:10:28 11:10:28 1201 F Reymundo 2022-06-04 2022-06-04 Outpatient [id number] 00:00:00 00:00:00 Visit 80bb-4aab 0bb-4aab-9 -66k8-312 [id number] [id number] 2022-04-30 2022-04-30 [facility] [id number] Univers 13:21:00 13:57:00 Geneva CURRIE 350.1.13.10 heidi [facility] 4.2.7.2.686 [facility] [id number] [place] [address] Branch 2022-04-30 2022-04-30 [facility] [id number] Univers 13:21:00 13:57:00 GENEVA gordon [facility] Results Test Description Test Time Test Comments [...] UNLESS OTHERWISE INDICATED, ALL TESTING PERFORMED AT [employer] [address] [place] [address] MACHINE ENGINEER: CORI CARTER M.D. CLIA NUMBER [id number] [place]. [id number] RHEUMATOID FACTOR, [id number] 06:57:29 Test Item Value Reference Range Interpretation Comments RHEUMATOID FACTOR, QUANT (test code <10 IU/ML <14 = 3502) C-REACTIVE [id number] 06:45:47 Test Item Value Reference Range Interpretation Comments C-REACTIVE PROTEIN (test code = 0.4 MG/DL <0.5 3513) SEDIMENTATION [id number] 04:36:47 Test Item Value Reference Range Interpretation Comments SEDIMENTATION RATE (test code = 2 MM/HOUR 0-20 1017) CBC W/AUTO DIFF WITH [id number] 02:24:44 Test Item Value Reference Range Interpretation [...] RBCS 0.00 K/UL 0.00-0.11 (test code = 73357) VARUN (ANTI-NUCLEAR AB) WITH REFLEX [id number] 01:59:28 Test Item Value Reference Range Interpretation Comments ANTI-NUCLEAR NEGATIVE NEGATIVE Methodology is ANTIBODIES (test Indirect code = 3506) Immunofluoresce nt Assay (IFA) with a [employer] system using He p2000 cells (Hep2 del ls transfected wit h SS-A/Ro). VARUN PATTERN SEE BELOW (REPORTED TITER) (test code = 02025) HOMOGENEOUS (test NEGATIVE TITER NEGATIVE code = 59039) SPECKLED (test NEGATIVE TITER NEGATIVE code = 695908) DENSE FINE NEGATIVE TITER NEGATIVE SPECKLED (test code = 32882) CENTROMERE (test NEGATIVE TITER NEGATIVE code = 825781) COARSE SPECKLED NEGATIVE TITER NEGATIVE (test code = 824949) DISCRETE NUCLEAR NEGATIVE TITER NEGATIVE DOTS (test code = 836310) NUCLEOLAR (test NEGATIVE TITER NEGATIVE code = 640016) NUCLEAR MEMBRANE NEGATIVE TITER NEGATIVE (test code = 682863) CYTO. RETICULAR NEGATIVE NEGATIVE (AYLA) (test code = 647715) COMMENTS (test NONE code = 661178) METHOD (test code (NOTE) TESTING P ERFORMED BY = 02490) [facility] NOVA VIEW IFA PLATFO RM.THE METHOD INCLUDES A SCREEN THRESHOL D OF 1:80, DIGITIZED AND COMPUTER ALGORITHM-PIERCE MARK INTERPRETATION OF TITERS AND DIGI VIJAY PATTERNS, AND H Ep-2 CELL LINE SUBST RATE. ADDITIONAL UNUS UAL PATTERNS WILL B E GIVEN COMMENTS.FOR MORE INFORMATION, SE E [email or web address] UNLESS OTH ERWISE INDICATED, ALL TESTING PERFORMED AT [facility] [email or web address] [address] [place] [address] 4 LABORATORY DIRE CTOR: VIRGINIA CANELA M.D. IA NUMBER [id number] [place] [id number] COMPREHENSIVE METABOLIC [id number] 08:05:44 Test Item Value Reference Range Interpretation Comments GLUCOSE (test code = 106 MG/DL 70-99 H 2216) BUN (test code = 11 MG/DL 6-20 2207) CREATININE (test 0.64 MG/DL 0.60-1.30 code = 2214) eGFR (2020 CKD-EPI) 113 >60 (test code = 93501) ML/MIN/1.73 CALC BUN/CREAT (test 17 RATIO 6-28 code = 2235) SODIUM (test code = 144 MEQ/L 922-245 4986) POTASSIUM (test code 4.2 MEQ/L 3.5-5.4 = [...] code = 18 U/L 5-40 2218) URIC [id number] 08:05:44 Test Item Value Reference Range Interpretation Comments URIC ACID (test code = 2233) 4.0 MG/DL 2.7-6.1 SCR MAMM BILATERAL GARRETT CAD [id number] 16:13:07 Name: Kyra : 1980 Sex: F - SCR MAMM BILATERAL GARRETT CAD DIGITALBILATERAL FIRST EVER DIGITAL SCREENING MAMMOGRAM 3D/2D WITH CAD: 11/12/2022LINICAL: Asymptomatic. Digital breast tomosynthesis was performed in addition to routine CC and MLO views. Current mammographic images were evaluated by [employer] CAD (computer-aided detection) software. No prior exams [...] mammography in one year.(11/13/2023) Kriss faust/penrad:11/17/2022 16:13:07 Race Relations Professor: Amena Moeller MM, [facility] Mammographyletter sent: BIRADS 1-2 Normal Mammogram BI-RADS: 2 BenignT. PALLIDUM TOTAL AB WITH [id number] 10:40:04 Test Item Value Reference Range Interpretation Comments T. PALLIDUM TOTAL <0.1 INDEX SEE BELOW INT ERPRETIVE AB (test code = INFORMATION 62821) INTERPRETATION CLINICAL T. PALLIDUM AB NEGATIVE CURRENT OR PAST INFECTION INDEX <0.9 UNLIKELY. EQUIV OCAL SPECIMEN REPEAT EDLY TESTED INDEX 0. 9-1.0 IN EQUIVOCAL RANGE . CONSIDER RETEST ING NO SOONER THAN 1 W ABSENTEE-SHAWNEE. POSITIVE PRESUM PTIVE EVIDENCE OF IND EX >=1.1 CURRENT OR PRIO R INFECTION. MOISÉS ELATE WITH NON-TREPON EMAL AB TESTING AND CLI NICAL HISTORY. HEMOGLOBIN [id number] 03:23:39 Test Item Value Reference Range Interpretation Comments HEMOGLOBIN A1c (test 5.7 % 4.2-5.6 H UNLESS OTHERWISE code = 37948) INDICATED, ALL TESTING PERFORMED [facility] [address] [place] [id number] [place] [address] DIRECTOR: KAN HIGHTOWER M.D. CLIA NUMBER [id number] CAP ACCREDITATION N O. [id number] T. PALLIDUM TOTAL AB RFLX [id number] 00:00:00 Test Item Value Reference Range Interpretation Comments T. PALLIDUM TOTAL AB (test code = <0.1 INDEX 34244) HEMOGLOBIN [id number] 00:00:00 Test Item Value Reference Range Interpretation Comments HEMOGLOBIN A1c (test code = 93920) 5.7 % HEMOGLOBIN [id number] 00:00:00 Test Item Value Reference Range Interpretation Comments HEMOGLOBIN A1c (test code = 35719) 5.7 % HEMOGLOBIN [id number] 00:00:00 Test Item Value Reference Range Interpretation Comments HEMOGLOBIN A1c (test code = 39135) 5.7 % HERPES SIMPLEX 1 [id number] 00:00:00 Test Item Value Reference Range Interpretation Comments HERPES SIMPLEX 1 IgG (test code 18.500 INDEX = 67020) HERPES SIMPLEX 1 [id number] 00:00:00 Test Item Value Reference Range Interpretation Comments HERPES SIMPLEX 1 IgG (test code 18.500 INDEX = 57854) HERPES SIMPLEX 2 [id number] 00:00:00 Test Item Value Reference Range Interpretation Comments HERPES SIMPLEX 2 IgG (test code 92.700 INDEX = 64348) HERPES SIMPLEX 2 [id number] 00:00:00 Test Item Value Reference Range Interpretation Comments HERPES SIMPLEX 2 IgG (test code 92.700 INDEX = 09823) COMPREHENSIVE METABOLIC [id number] 00:00:00 Test Item Value Reference Range Interpretation Comments GLUCOSE (test code = 2217) 149 MG/DL BUN (test code = 2208) 9 MG/DL CREATININE (test code = 2214) 0.66 MG/DL eGFR (2020 CKD-EPI) (test 113 ML/MIN/1.73 code = 30361) CALC BUN/CREAT (test code = 14 RATIO [...] A/G RATIO (test code = 1.6 RATIO 2234) BILIRUBIN, TOTAL (test code = <0.2 MG/DL 2206) ALKALINE PHOSPHATASE (test 67 U/L code = 2204) AST (test code = 2218) 16 U/L ALT (test code = 2219) 18 U/L COMPREHENSIVE METABOLIC [id number] 00:00:00 Test Item Value Reference Range Interpretation Comments GLUCOSE (test code = 2217) 149 MG/DL BUN (test code = 2208) 9 MG/DL CREATININE (test code = 2214) 0.66 MG/DL eGFR (2020 CKD-EPI) (test 113 ML/MIN/1.73 code = 65074) CALC BUN/CREAT (test code = 14 RATIO [...] ALT (test code = 2219) 18 U/L [id number] 00:00:00 Test Item Value Reference Range Interpretation Comments D-DIMER (test code = 1405) 0.76 UG/MLFEU [id number] 00:00:00 Test Item Value Reference Range Interpretation Comments D-DIMER (test code = 1405) 0.76 UG/MLFEU VAGINAL PATHOGENS DNA [id number] 00:00:00 Test Item Value Reference Range Interpretation Comments OFE SPECIES (test code = 40296) NEGATIVE G. VAGINALIS (test code = 63644) POSITIVE T. VAGINALIS (test code = 41158) NEGATIVE VAGINAL PATHOGENS DNA [id number] 00:00:00 Test Item Value Reference Range Interpretation Comments OFE SPECIES (test code = 94929) NEGATIVE G. VAGINALIS (test code = 35970) POSITIVE T. VAGINALIS (test code = 55311) NEGATIVE HIV 1/2 4TH GEN, RFLX [id number] 00:00:00 Test Item Value Reference Range Interpretation Comments HIV 1/2 4TH GEN, RFLX CONF (test NON-REACTIVE code = 3514) HIV 1/2 4TH GEN, RFLX [id number] 00:00:00 Test Item Value Reference Range Interpretation Comments HIV 1/2 4TH GEN, RFLX CONF (test NON-REACTIVE code = 3514) [id number] 00:00:00 Test Item Value Reference Range Interpretation Comments RPR RESULT (test code = 3501) REACTIVE RPR TITER (test code = 3500) 1:1 TITER [id number] 00:00:00 Test Item Value Reference Range Interpretation Comments RPR RESULT (test code = 3501) REACTIVE RPR TITER (test code = 3500) 1:1 TITER [id number] 00:00:00 Test Item Value Reference Range Interpretation Comments RPR RESULT (test code = 3501) REACTIVE RPR TITER (test code = 3500) 1:1 TITER ACUTE HEPATITIS [id number] 00:00:00 Test Item Value Reference Range Interpretation Comments HEPATITIS A IgM (test code = NON-REACTIVE 39005) HEPATITIS B CORE IgM (test code NON-REACTIVE = 4644) HEPATITIS B SURF AG (test code = NON-REACTIVE 2739) HEPATITIS C ANTIBODY (test code NON-REACTIVE = 4675) INTERPRETATION HEPATITIS A: (NOTE) (test code = 2552) INTERPRETATION HEPATITIS B: (NOTE) (test code = 72058) INTERPRETATION HEPATITIS C: (NOTE) (test code = 08113) ACUTE HEPATITIS [id number] 00:00:00 Test Item Value Reference Range Interpretation Comments HEPATITIS A IgM (test code = NON-REACTIVE 00300) HEPATITIS B CORE IgM (test code NON-REACTIVE = 4644) HEPATITIS B SURF AG (test code = NON-REACTIVE 2739) HEPATITIS C ANTIBODY (test code NON-REACTIVE = 4675) INTERPRETATION HEPATITIS A: (NOTE) (test code = 2552) INTERPRETATION HEPATITIS B: (NOTE) (test code = 42699) INTERPRETATION HEPATITIS C: (NOTE) (test code = 61184) CT/NG, TMA, [id number] 00:00:00 Test Item Value Reference Range Interpretation Comments GONORRHEA, NAAT (test code = 99057) NEGATIVE CHLAMYDIA, NAAT (test code = 56345) NEGATIVE CT/NG, TMA, [id number] 00:00:00 Test Item Value Reference Range Interpretation Comments GONORRHEA, NAAT (test code = 58362) NEGATIVE CHLAMYDIA, NAAT (test code = 36815) NEGATIVE COMPREHENSIVE METABOLIC [id number] 00:00:00 Test Item Value Reference Range Interpretation Comments GLUCOSE (test code = 2217) 73 MG/DL BUN (test code = 2208) 14 MG/DL CREATININE (test code = 2214) 0.78 MG/DL eGFR (2020 CKD-EPI) (test code 98 ML/MIN/1.73 = 42380) CALC BUN/CREAT (test code = 18 RATIO [...] ALKALINE PHOSPHATASE (test 57 U/L code = 220) AST (test code = 2218) 10 U/L ALT (test code = 2219) 13 U/L COMPREHENSIVE METABOLIC [id number] 00:00:00 Test Item Value Reference Range Interpretation Comments GLUCOSE (test code = 2217) 73 MG/DL BUN (test code = 2208) 14 MG/DL CREATININE (test code = 2214) 0.78 MG/DL eGFR (2020 CKD-EPI) (test code 98 ML/MIN/1.73 = 14221) CALC BUN/CREAT (test code = 18 RATIO [...] = 2219) 13 U/L VAGINAL PATHOGENS DNA [id number] 00:00:00 Test Item Value Reference Range Interpretation Comments OFE SPECIES (test code = ) NEGATIVE G. VAGINALIS (test code = ) POSITIVE T. VAGINALIS (test code = ) NEGATIVE VAGINAL PATHOGENS DNA [id number] 00:00:00 Test Item Value Reference Range Interpretation Comments OFE SPECIES (test code = ) NEGATIVE G. VAGINALIS (test code = ) POSITIVE T. VAGINALIS (test code = 21935) NEGATIVE HIV 1/2 4TH GEN, RFLX [id number] 00:00:00 Test Item Value Reference Range Interpretation Comments HIV 1/2 4TH GEN, RFLX CONF (test NON-REACTIVE code = 3514) HIV 1/2 4TH GEN, RFLX [id number] 00:00:00 Test Item Value Reference Range Interpretation Comments HIV 1/2 4TH GEN, RFLX CONF (test NON-REACTIVE code = 3514) [id number] 00:00:00 Test Item Value Reference Range Interpretation Comments RPR RESULT (test code = 3501) REACTIVE RPR TITER (test code = 3500) 1:1 TITER [id number] 00:00:00 Test Item Value Reference Range Interpretation Comments RPR RESULT (test code = 3501) REACTIVE RPR TITER (test code = 3500) 1:1 TITER [id number] 00:00:00 Test Item Value Reference Range Interpretation Comments RPR RESULT (test code = 3501) REACTIVE RPR TITER (test code = 3500) 1:1 TITER ACUTE HEPATITIS [id number] 00:00:00 Test Item Value Reference Range Interpretation Comments HEPATITIS A IgM (test code = NON-REACTIVE 31378) HEPATITIS B CORE IgM (test code NON-REACTIVE = 4644) HEPATITIS B SURF AG (test code = NON-REACTIVE 5499) HEPATITIS C ANTIBODY (test code NON-REACTIVE = 4675) INTERPRETATION HEPATITIS A: (NOTE) (test code = 2552) INTERPRETATION HEPATITIS B: (NOTE) (test code = 30278) INTERPRETATION HEPATITIS C: (NOTE) (test code = 84445) ACUTE HEPATITIS [id number] 00:00:00 Test Item Value Reference Range Interpretation Comments HEPATITIS A IgM (test code = NON-REACTIVE 72156) HEPATITIS B CORE IgM (test code NON-REACTIVE = 4644) HEPATITIS B SURF AG (test code = NON-REACTIVE 6147) HEPATITIS C ANTIBODY (test code NON-REACTIVE = 6721) INTERPRETATION HEPATITIS A: (NOTE) (test code = 2552) INTERPRETATION HEPATITIS B: (NOTE) (test code = 73607) INTERPRETATION HEPATITIS C: (NOTE) (test code = 93368) CT/NG, TMA, [id number] 00:00:00 Test Item Value Reference Range Interpretation Comments GONORRHEA, NAAT (test code = 01638) NEGATIVE CHLAMYDIA, NAAT (test code = 49400) NEGATIVE CT/NG, TMA, [id number] 00:00:00 Test Item Value Reference Range Interpretation Comments GONORRHEA, NAAT (test code = 55382) NEGATIVE CHLAMYDIA, NAAT (test code = 88923) NEGATIVE COMPREHENSIVE METABOLIC [id number] 00:00:00 Test Item Value Reference Range Interpretation Comments GLUCOSE (test code = 2217) 73 MG/DL BUN (test code = 2208) 14 MG/DL CREATININE (test code = 2214) 0.78 MG/DL eGFR (2020 CKD-EPI) (test code 98 ML/MIN/1.73 = 78657) CALC BUN/CREAT (test code = 18 RATIO [...] code = 2219) 13 U/L COMPREHENSIVE METABOLIC [id number] 00:00:00 Test Item Value Reference Range Interpretation Comments GLUCOSE (test code = 2217) 73 MG/DL BUN (test code = 2208) 14 MG/DL CREATININE (test code = 2214) 0.78 MG/DL eGFR (2020 CKD-EPI) (test code 98 ML/MIN/1.73 = 99581) CALC BUN/CREAT (test code = 18 RATIO [...] CALC GLOBULIN (test code = 2.6 G/DL 224) CALC A/G RATIO (test code = 1.5 RATIO 2233) BILIRUBIN, TOTAL (test code = <0.2 MG/DL 2206) ALKALINE PHOSPHATASE (test 57 U/L code = 2204) AST (test code = 2218) 10 U/L ALT (test code = 2219) 13 U/L VAGINAL PATHOGENS DNA [id number] 00:00:00 Test Item Value Reference Range Interpretation Comments OFE SPECIES (test code = 49054) NEGATIVE G. VAGINALIS (test code = 27756) POSITIVE T. VAGINALIS (test code = 64186) NEGATIVE VAGINAL PATHOGENS DNA [id number] 00:00:00 Test Item Value Reference Range Interpretation Comments OFE SPECIES (test code = 06052) NEGATIVE G. VAGINALIS (test code = 80754) POSITIVE T. VAGINALIS (test code = 32197) NEGATIVE HIV 1/2 4TH GEN, RFLX [id number] 00:00:00 Test Item Value Reference Range Interpretation Comments HIV 1/2 4TH GEN, RFLX CONF (test NON-REACTIVE code = 3514) HIV 1/2 4TH GEN, RFLX [id number] 00:00:00 Test Item Value Reference Range Interpretation Comments HIV 1/2 4TH GEN, RFLX CONF (test NON-REACTIVE code = 3514) [id number] 00:00:00 Test Item Value Reference Range Interpretation Comments RPR RESULT (test code = 3501) REACTIVE RPR TITER (test code = 3500) 1:1 TITER [id number] 00:00:00 Test Item Value Reference Range Interpretation Comments RPR RESULT (test code = 3501) REACTIVE RPR TITER (test code = 3500) 1:1 TITER [id number] 00:00:00 Test Item Value Reference Range Interpretation Comments RPR RESULT (test code = 3501) REACTIVE RPR TITER (test code = 3500) 1:1 TITER ACUTE HEPATITIS [id number] 00:00:00 Test Item Value Reference Range Interpretation Comments HEPATITIS A IgM (test code = NON-REACTIVE 94895) HEPATITIS B CORE IgM (test code NON-REACTIVE = 4644) HEPATITIS B SURF AG (test code = NON-REACTIVE 2739) HEPATITIS C ANTIBODY (test code NON-REACTIVE = 4675) INTERPRETATION HEPATITIS A: (NOTE) (test code = 2552) INTERPRETATION HEPATITIS B: (NOTE) (test code = 89727) INTERPRETATION HEPATITIS C: (NOTE) (test code = 13709) ACUTE HEPATITIS [id number] 00:00:00 Test Item Value Reference Range Interpretation Comments HEPATITIS A IgM (test code = NON-REACTIVE 04919) HEPATITIS B CORE IgM (test code NON-REACTIVE = 4644) HEPATITIS B SURF AG (test code = NON-REACTIVE 2739) HEPATITIS C ANTIBODY (test code NON-REACTIVE = 4675) INTERPRETATION HEPATITIS A: (NOTE) (test code = 2552) INTERPRETATION HEPATITIS B: (NOTE) (test code = 42685) INTERPRETATION HEPATITIS C: (NOTE) (test code = 55428) CT/NG, TMA, [id number] 00:00:00 Test Item Value Reference Range Interpretation Comments GONORRHEA, NAAT (test code = 89287) NEGATIVE CHLAMYDIA, NAAT (test code = 29865) NEGATIVE CT/NG, TMA, [id number] 00:00:00 Test Item Value Reference Range Interpretation Comments GONORRHEA, NAAT (test code = 32416) NEGATIVE CHLAMYDIA, NAAT (test code = 78922) NEGATIVE COMPREHENSIVE METABOLIC [id number] 00:00:00 Test Item Value Reference Range Interpretation Comments GLUCOSE (test code = 2217) 73 MG/DL BUN (test code = 2208) 14 MG/DL CREATININE (test code = 2214) 0.78 MG/DL eGFR (2020 CKD-EPI) (test code 98 ML/MIN/1.73 = 36525) CALC BUN/CREAT (test code = 18 RATIO [...] ALKALINE PHOSPHATASE (test 57 U/L code = 220) AST (test code = 2218) 10 U/L ALT (test code = 2219) 13 U/L COMPREHENSIVE METABOLIC [id number] 00:00:00 Test Item Value Reference Range Interpretation Comments GLUCOSE (test code = 2217) 73 MG/DL BUN (test code = 2208) 14 MG/DL CREATININE (test code = 2214) 0.78 MG/DL eGFR (2020 CKD-EPI) (test code 98 ML/MIN/1.73 = 19802) CALC BUN/CREAT (test code = 18 RATIO [...]
[2023-03-15] MEDS ORDERED: DIAZEPAM 5 MG TABLET ONE (03:57)
[2023-03-15] MEDS ORDERED: ONDANSETRON 4 MG/2 ML VIAL ONE ×2 (03:58→06:25)
[2023-03-15] MEDS ORDERED: dexAMETHasone 10 MG/ML VIAL ONE (03:58)
[2023-03-15] MEDS ORDERED: NA CHLORIDE 0.9% 1,000 ML ONE (03:58)
[2023-03-15] MEDS ORDERED: MORPHINE 4 MG/ML SYR ONE ×2 (03:58→06:25)
[2023-03-15 04:08] LABS: Absolute Lymphocytes (CBC) 2.6 K/uL (0.7-4.9); Hematocrit 39.3 % (36.0-45.0); Lymphocytes % 18.2 % (15.3-44.8); MCV 97.4 fL (80-100); MPV 8.5 fL (7.6-11.3); Platelets 326 thou/uL (152-406); RBC Red Blood Cell Count 4.03 M/uL (3.86-4.86)
[2023-03-15 04:21] LABS: ALT/SGPT 23 U/L (13-56); AST/SGOT 10 U/L (15-37); Albumin 3.3 g/dL (3.4-5.0); Alkaline Phosphatase 71 U/L (45-117); BUN Blood Urea Nitrogen 11 mg/dL (7-18); Bicarbonate 23 mEq/L (21-32); Bilirubin Total 0.4 mg/dL (0.2-1.0); Glomerular Filtration Rate 61 ml/min (=/>90); Glucose Level 94 mg/dL (74-106); Lipase 27 U/L (13-75); Potassium 3.6 mEq/L (3.5-5.1); Sodium Level 137 mEq/L (136-145)
[2023-03-15 04:29] LABS: Bilirubin Direct < 0.1 mg/dL (0-0.2); Bilirubin Indirect, Calculated ND mg/dL (0.2-0.8)
[2023-03-15 04:48] LABS: Specific Gravity 1.024 (1.005-1.030); Urine Bacteria None Seen /HPF (<20); Urine Bilirubin NEGATIVE (Negative); Urine Blood Negative (Negative); Urine Clarity Clear (Clear); Urine Color Light-Yellow (Yellow); Urine Glucose NEGATIVE (Negative); Urine Mucus Slight /HPF (None Seen); Urine Protein 1+ (Negative); Urine RBC None Seen /HPF (None Seen); Urine Urobilinogen 1+ (Normal); Urine pH 8.5 (5.0-7.0)
--- NOTE | 2023-03-15 06:04 | ER ---
Nurse's Notes [facility] Name: Evelyn Rosa Age: 42 yrs Sex: Female : 1980 Arrival Date: 03/15/2023 Time: 01:54 Bed 5 Private MD: Diagnosis: Fall (on) (from) other stairs and steps-13 STEPS;Low back pain;Strain of muscle and tendon of back wall of thorax;Strain of muscle and tendon of front wall of thorax;Strain of muscle, fascia and tendon at neck level, initial encounter;Unspecified symptoms and signs involving the musculoskeletal system;Elevated white blood cell count Presentation: 03/15 02:08 Chief complaint: Patient states: headache, panic attack today, vomiting, back pain, lg3 shoulder pain, pain in back of right leg, bruise to left leg, knot on vagina, cant sleep, tired, my back feels swollen, shaking, no appetite, dry mouth, cant drive over bumps, sharp pains everywhere, muscle spasms, i cant describe it. Coronavirus screen: Client denies travel out of the [place] in the last 14 days. At this time, the client does not indicate any symptoms associated with coronavirus-19. Ebola Screen: No symptoms or risks identified at this time. Initial Sepsis Screen: Does the patient meet any 2 criteria? No. Patient's initial sepsis screen is negative. Does the patient have a suspected source of infection? No. Patient's initial sepsis screen is negative. Risk Assessment: Do you want to hurt yourself or someone else? Patient reports no desire to harm self or others. Onset of symptoms is unknown. 02:08 Method Of Arrival: Ambulatory lg3 02:08 Acuity: INDIGO 3 lg3 Triage Assessment: 02:12 General: Appears in no apparent distress. Behavior is cooperative, anxious, fussy. lg3 Pain: Complains of pain in all over. EENT: No deficits noted. No signs and/or symptoms were reported regarding the EENT system. Neuro: No deficits noted. Fonseca Agitation-Sedation Scale (RASS): +1 Restless Level of Consciousness is awake, alert, obeys commands, Oriented to person, place, time, situation, Reports dizziness, headache weakness. Cardiovascular: No deficits noted. Denies chest pain, shortness of breath, Capillary refill < 3 seconds Clubbing of nail beds is absent JVD is absent Patient's skin is warm and dry. Respiratory: No deficits noted. Airway is patent Respiratory effort is even, unlabored, Respiratory pattern is regular, symmetrical. GI: No deficits noted. Abdomen is round non-distended, Reports lower abdominal pain, upper abdominal pain, cramping, nausea, vomiting. : No deficits noted. No signs and/or symptoms were reported regarding the genitourinary system. Derm: No deficits noted. Skin is intact, is healthy with good turgor, Skin is dry, Skin is normal, Skin temperature is warm. Musculoskeletal: Circulation, motion, and sensation intact. Range of motion: intact in all extremities. 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 - Social history:: Smoking status: Patient reports the use of cigarette tobacco products, smokes one-half pack cigarettes per day, Patient uses alcohol, but reports only rare drinking. street drugs, marijuana. Screenin:52 [facility] ED Fall Risk Assessment (Adult) History of falling in the last 3 months, bp including since admission Yes- single mechanical fall (1 pt) Confusion or Disorientation No (0 pts) Intoxicated or Sedated No (0 pts) Impaired Gait No (0 pts) Mobility Assist Device Used No (0 pt) Altered Elimination No (0 pt) Score/Fall Risk Level 0 - 2 = Low Risk Oriented to surroundings, Maintained a safe environment, Educated pt \T\ family on fall prevention, incl call for assistance when getting out of bed. Abuse screen: Denies threats or abuse. Denies injuries from another. Nutritional screening: No deficits noted. Tuberculosis screening: No symptoms or risk factors identified. Assessment: 02:51 General: see triage assessment . bp 02:51 Neuro: No deficits noted. Fonseca Agitation-Sedation Scale (RASS): +1 Restless Level bp of Consciousness is awake, alert, obeys commands, Oriented to person, place, time, situation, Reports dizziness, headache weakness. 03:50 Reassessment: Patient appears in no apparent distress at this time. No changes from bp previously documented assessment. Patient and/or family updated on plan of care and expected duration. Pain level reassessed. Patient is alert, oriented x 3, equal unlabored respirations, skin warm/dry/pink. Patient states symptoms have not improved. 04:31 Reassessment: Patient appears in no apparent distress at this time. No changes from lg3 previously documented assessment. Patient and/or family updated on plan of care and expected duration. Pain level reassessed. Patient is alert, oriented x 3, equal unlabored respirations, skin warm/dry/pink. 05:28 Reassessment: No changes from previously documented assessment. Patient and/or family vc1 updated on plan of care and expected duration. Pain level reassessed. Patient is alert, oriented x 3, equal unlabored respirations, skin warm/dry/pink. Vital Signs: 02:08 BP 114 / 86; Pulse 139; Resp 16 S; Temp 99.9(O); Pulse Ox 100% on R/A; Weight 79.38 kg lg3 (R); Height 5 ft. 5 in. (R); Pain 10/10; 03:50 BP 119 / 83; Pulse 121; Resp 16 S; Pulse Ox 100% on R/A; bp 05:10 BP 113 / 55; Pulse 94; Resp 16; Pulse Ox 100% ; vc1 02:08 Body Mass Index 29.12 (79.38 kg, 165.1 cm) lg3 02:08 Pain Scale: Adult lg3 ED Course: 02:00 Patient arrived in ED. mr 02:12 Triage completed. lg3 02:12 Arm band placed on right wrist. lg3 02:15 Wander Andino, JOHN is Primary Nurse. bp 02:20 Chon Pichardo MD is Attending Physician. justina 02:52 Patient has correct armband on for positive identification. Placed in gown. Bed in low bp position. Call light in reach. Side rails up X 1. Client placed on continuous cardiac and pulse oximetry monitoring. NIBP monitoring applied. surveillance monitor on. Door closed. Noise minimized. Warm blanket given. 02:52 Patient maintains SpO2 saturation greater than 95% on room air. bp 03:08 Tib Fib Left XRAY In Process Unspecified. EDMS 03:50 Inserted saline lock: 22 gauge in left forearm, using aseptic technique. Blood bp collected. 05:20 CT Traumagram (Head C Spine CAP W Con) In Process Unspecified. EDMS 06:20 No provider procedures requiring assistance completed. IV discontinued, intact, vc1 bleeding controlled, No redness/swelling at site. Pressure dressing applied. 06:30 Provided Education on: prescriptions. lg3 Administered Medications: 03:57 Drug: Ondansetron IVP 4 mg Route: IVP; Site: left forearm; lg3 05:32 Follow up: Response: No adverse reaction lg3 03:57 Drug: Decadron - Dexamethasone IVP 10 mg Route: IVP; Site: left forearm; lg3 05:32 Follow up: Response: No adverse reaction lg3 03:57 Drug: Diazepam PO 10 mg Route: PO; lg3 05:32 Follow up: Response: No adverse reaction lg3 03:58 Drug: NS 0.9% IV 1000 ml Route: IV; Rate: 1 bolus; Site: left forearm; lg3 05:32 Follow up: IV Status: Completed infusion; IV Intake: 1000ml lg3 03:58 Drug: morphine IVP or IV 4 mg Route: IVP; Infused Over: 4 mins; Site: left forearm; lg3 05:32 Follow up: Response: No adverse reaction lg3 05:32 Follow up: Response: No adverse reaction lg3 06:11 Drug: morphine IVP or IV 4 mg Route: IVP; Infused Over: 4 mins; Site: right antecubital;vc1 06:20 Follow up: Response: No adverse reaction vc1 Medication: 06:30 VIS not applicable for this client. lg3 Intake: 05:32 IV: 1000ml; Total: 1000ml. lg3 Outcome: 06:04 Discharge ordered by . justina 06:20 Discharged to home via wheelchair, with family. vc1 06:20 Condition: stable 06:20 Discharge instructions given to patient, Instructed on discharge instructions, follow up and referral plans. medication usage, Demonstrated understanding of instructions, follow-up care, medications, Prescriptions given X 3. 06:32 Patient left the ED. lg3 Signatures: Dispatcher [employer] EDMS Marino, Chon, MD MD justina Jacob, [facility] mr Wander Andino, RN RN bp Suzy Nathan, RN RN lg3 Rahel Ruff RN RN vc1
--- NOTE | 2023-03-15 06:04 | EDPHYS ---
Physician Documentation [facility] Name: Evelyn Rosa Age: 42 yrs Sex: Female : 1980 Arrival Date: 03/15/2023 Time: 01:54 Bed 5 Private MD: SHANTELL Physician Chon Pichardo HPI: 03/15 02:31 This 42 yrs old Black Female presents to ER via Ambulatory with complaints of Back Pain.justina 02:31 The patient presents with pain that is acute. The symptoms are located in the low back, justina thoracic area and lumbar area. Onset: The symptoms/episode began/occurred 3 day(s) ago. The pain does not radiate. Associated signs and symptoms: The patient has no apparent associated signs or symptoms. Modifying factors: The patient symptoms are alleviated by remaining still, the patient symptoms are aggravated by any movement, bending, movement, standing, walking. Severity of symptoms: At their worst the symptoms were mild, moderate, this morning, in the emergency department the symptoms are unchanged. The patient has not experienced similar symptoms in the past. 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 - Social history:: Smoking status: Patient reports the use of cigarette tobacco products, smokes one-half pack cigarettes per day, Patient uses alcohol, but reports only rare drinking. street drugs, marijuana. ROS: 02:34 Constitutional: Negative for fever, chills, and weight loss, Eyes: Negative for injury, justina pain, redness, and discharge, ENT: Negative for injury, pain, and discharge, Neck: Negative for injury, pain, and swelling, Respiratory: Negative for shortness of breath, cough, wheezing, and pleuritic chest pain, Abdomen/GI: Negative for abdominal pain, nausea, vomiting, diarrhea, and constipation, : Negative for injury, bleeding, discharge, and swelling, MS/Extremity: Negative for injury and deformity, Skin: Negative for injury, rash, and discoloration, Neuro: Negative for headache, weakness, numbness, tingling, and seizure, Psych: Negative for depression, anxiety, suicide ideation, homicidal ideation, and hallucinations, Allergy/Immunology: Negative for hives, rash, and allergies, Endocrine: Negative for neck swelling, polydipsia, polyuria, polyphagia, and marked weight changes, Hematologic/Lymphatic: Negative for swollen nodes, abnormal bleeding, and unusual bruising. 02:34 Cardiovascular: Negative for chest pain. 02:34 Back: Positive for injury or acute deformity, decreased range of motion, pain with movement, of the thoracic area and lumbar area. Exam: 02:34 Constitutional: This is a well developed, well nourished patient who is awake, alert, justina and in no acute distress. Head/Face: Normocephalic, atraumatic. Eyes: Pupils equal round and reactive to light, extra-ocular motions intact. Lids and lashes normal. Conjunctiva and sclera are non-icteric and not injected. Cornea within normal limits. Periorbital areas with no swelling, redness, or edema. ENT: Nares patent. No nasal discharge, no septal abnormalities noted. Tympanic membranes are normal and external auditory canals are clear. Oropharynx with no redness, swelling, or masses, exudates, or evidence of obstruction, uvula midline. Mucous membranes moist. Neck: Trachea midline, no thyromegaly or masses palpated, and no cervical lymphadenopathy. Supple, full range of motion without nuchal rigidity, or vertebral point tenderness. No Meningismus. Chest/axilla: Normal chest wall appearance and motion. Nontender with no deformity. No lesions are appreciated. Respiratory: Lungs have equal breath sounds bilaterally, clear to auscultation and percussion. No rales, rhonchi or wheezes noted. No increased work of breathing, no retractions or nasal flaring. Abdomen/GI: Soft, non-tender, with normal bowel sounds. No distension or tympany. No guarding or rebound. No evidence of tenderness throughout. Female : Normal external genitalia. Skin: Warm, dry with normal turgor. Normal color with no rashes, no lesions, and no evidence of cellulitis. Neuro: Awake and alert, GCS 15, oriented to person, place, time, and situation. Cranial nerves II-XII grossly intact. Motor strength 5/5 in all extremities. Sensory grossly intact. Cerebellar exam normal. Normal gait. Psych: Awake, alert, with orientation to person, place and time. Behavior, mood, and affect are within normal limits. 02:34 Cardiovascular: Rate: actual rate is 139 bpm, Rhythm: regular, Pulses: Pulses are 4+ in bilateral radial, brachial, femoral, popliteal, posterior tibial and and dorsalis pedis arteries.. Heart sounds: normal, Edema: is not appreciated, JVD: is not appreciated. 02:34 Musculoskeletal/extremity: ROM: limited active range of motion, limited passive range of motion, in the left leg, Circulation is intact in all extremities. Sensation intact. Compartment Syndrome exam of affected extremity: is normal. Joints: All joints are normal except Weight bearing: able to fully bear weight, without difficulty, DVT Exam: negative Homans' sign noted on exam, no appreciated bluish discoloration, no erythema, no increased warmth, pain, swelling, tenderness. Vital Signs: 02:08 BP 114 / 86; Pulse 139; Resp 16 S; Temp 99.9(O); Pulse Ox 100% on R/A; Weight 79.38 kg lg3 (R); Height 5 ft. 5 in. (R); Pain 10/10; 03:50 BP 119 / 83; Pulse 121; Resp 16 S; Pulse Ox 100% on R/A; bp 05:10 BP 113 / 55; Pulse 94; Resp 16; Pulse Ox 100% ; vc1 02:08 Body Mass Index 29.12 (79.38 kg, 165.1 cm) lg3 02:08 Pain Scale: Adult lg3 MDM: 02:21 Patient medically screened. justina 02:37 Differential diagnosis: dislocation, closed fracture, contusion, tendonitis, chronic justina back pain, Fatigue Fracture Joint Injury Ligament Injury Neoplasm Obesity Osteoporosis Renal Infarction ruptured disc, Scoliosis spinal injury, sprain, Ureterolithiasis vertebral fracture. Differential diagnosis: abrasion, closed head injury, contusion, fracture, multiple trauma, sprain, strain. Data reviewed: vital signs, nurses notes, lab test result(s), radiologic studies, CT scan. Consideration of Admission/Observation Escalation of care including admission/observation considered. I considered the following discharge prescriptions or medication management in the emergency department Medications were administered in the Emergency Department. See MAR. Independent interpretation of the following test(s) in the Emergency Department CT Scan: My interpretation is CT TRAUMA GRAM. Test considered but Not performed: EKG: NO EKG. Care significantly affected by the following chronic conditions: CBP, CROHNS, ANXIETY,PANCREATITIS. 03/15 02:30 Order name: Basic Metabolic Panel; Complete Time: 04:46 [facility] 03/15 02:30 Order name: CBC with Diff; Complete Time: 04:46 [facility] 03/15 02:30 Order name: Type And Screen [facility] 03/15 02:30 Order name: Urinalysis w/ reflexes; Complete Time: 04:54 [facility] 03/15 02:30 Order name: LFT's; Complete Time: 04:46 [facility] 03/15 02:30 Order name: Lipase; Complete Time: 04:46 [facility] 03/15 02:30 Order name: CT Traumagram (Head C Spine CAP W Con) [facility] 03/15 02:30 Order name: Tib Fib Left XRAY [facility] 03/15 02:30 Order name: Labs collected and sent; Complete Time: 03:44 [facility] Administered Medications: 03:57 Drug: Ondansetron IVP 4 mg Route: IVP; Site: left forearm; lg3 05:32 Follow up: Response: No adverse reaction lg3 03:57 Drug: Decadron - Dexamethasone IVP 10 mg Route: IVP; Site: left forearm; lg3 05:32 Follow up: Response: No adverse reaction lg3 03:57 Drug: Diazepam PO 10 mg Route: PO; lg3 05:32 Follow up: Response: No adverse reaction lg3 03:58 Drug: NS 0.9% IV 1000 ml Route: IV; Rate: 1 bolus; Site: left forearm; lg3 05:32 Follow up: IV Status: Completed infusion; IV Intake: 1000ml lg3 03:58 Drug: morphine IVP or IV 4 mg Route: IVP; Infused Over: 4 mins; Site: left forearm; lg3 05:32 Follow up: Response: No adverse reaction lg3 05:32 Follow up: Response: No adverse reaction lg3 06:11 Drug: morphine IVP or IV 4 mg Route: IVP; Infused Over: 4 mins; Site: right antecubital;vc1 06:20 Follow up: Response: No adverse reaction vc1 Disposition Summary: 03/15/23 06:04 Discharge Ordered Location: Home [facility] Problem: new justina Symptoms: have improved justina Condition: Stable justina Diagnosis - Fall (on) (from) other stairs and steps - 13 STEPS justina - Low back pain justina - Strain of muscle and tendon of back wall of thorax justina - Strain of muscle and tendon of front wall of thorax justina - Strain of muscle, fascia and tendon at neck level, initial encounter justina - Unspecified symptoms and signs involving the musculoskeletal system justina - Elevated white blood cell count justina Followup: justina - With: Private Physician - When: 2 - 3 days - Reason: Recheck today's complaints, Continuance of care, Re-evaluation by your physician Discharge Instructions: - Discharge Summary Sheet justina - Acute Back Pain, Adult justina - Muscle Strain justina - Musculoskeletal Pain justina - Back Injury Prevention, [id number] justina - Chronic Back Pain, Mbno-[id number]-Nlpy justina - Muscle Strain, Yfld-te-[id number] justina - Back Exercises, Cfsp-oo-[id number] justina - Neck Contusion, Epjs-am-Ijxb justina - Leukocytosis justina - Managing Chronic Back Pain [facility] Forms: - Medication Reconciliation Form [facility] - Thank You Letter [facility] - Antibiotic Education justina - Prescription Opioid Use justina - Patient Portal Instructions [facility] - Leadership Thank You Letter [facility] Prescriptions: - acetaminophen-codeine 300-30 mg Oral tablet - take 2 tablet by ORAL route 4 times per day as needed for pain; 20 tablet; [facility] Refills: 0, Product Selection Permitted - Naprosyn 500 mg Oral Tablet - take 1 tablet by ORAL route 2 times per day take with food; 20 tablet; Refills: justina 0, Product Selection Permitted - Cyclobenzaprine 5 mg Oral Tablet - take 1 tablet by ORAL route 3 times per day As needed; 15 tablet; Refills: 0, [facility] Product Selection Permitted Signatures: Dispatcher [employer] Chon Nina MD MD cha Gibson, Lacie RN RN lg3 Rahel Ruff RN RN vc1
[2023-03-15 06:47] VITALS: TEMP 99.9; O2SAT 100
[2023-03-15 06:53] VITALS: BP 113/55
== END 2023-03-15 06:32 | disposition home or self-care (01) ==
LOC: ER 01:54
DX: S29.012A Strain of muscle and tendon of back wall of thorax, initial encounter (principal); S29.011A Strain of muscle and tendon of front wall of thorax, initial encounter; S16.1XXA Strain of muscle, fascia and tendon at neck level, initial encounter; W10.9XXA Fall (on) (from) unspecified stairs and steps, initial encounter; Y93.9 Activity, unspecified; Y92.9 Unspecified place or not applicable; R29.91 Unspecified symptoms and signs involving the musculoskeletal system; D72.829 Elevated white blood cell count, unspecified; F41.9 Anxiety disorder, unspecified; K86.1 Other chronic pancreatitis; K50.90 Crohn's disease, unspecified, without complications; F17.210 Nicotine dependence, cigarettes, uncomplicated; Z88.0 Allergy status to penicillin
CPT/HCPCS: 85025; 81001; 80048; 36415; 86900; 86850; 86901; 80076; 83690; 70450; 72125; 71260; 74177; 73590; 99285; Q9967; J1100; J2405 ×2; J7030

== ENCOUNTER 2023-03-31 12:08 | Emergency (ER) | payer OTHER ==
--- OUTSIDE RECORDS SUMMARY | 2023-03-31 12:12 | XMS REPORT | Continuity of Care Document ---
:1980 Author Organization [facility] t Address [address] [place] [address] Care Team Providers Name Role Phone Reymundo Harvey Primary Care Physician Doctor Unassigned, [place] Attending Clinician Unavailable LAKIA MILLER Attending Clinician Unavailable Geneva Rodríguez DO Attending Clinician GENEVA RODRÍGUEZ Attending Clinician Unavailable Payers Payer Name Policy Type Policy Number Effective Date Expiration Date S our [place] [place] [id number] 2022 00:00:00 WOMEN Problems Condition Condition Condition [...] Formattin ity of 00:00: g of this [place] 00 note Medical might be Branch different from the original. 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 U [...] 0-26 ity of 00:00: [place] 00 Medical [place] Social History Social Habit Start Date Stop Date Quantity Comments Source History of tobacco Cigarette Smoker [place] of use [facility] Gender identity [facility] Sexual orientation [facility] Exposure to 2022-04-20 2022-04-30 Not sure [facility] SARS-CoV-2 (event) 00:00:00 13:23:00 [facility] Alcohol intake 2016-05-05 2016-05-05 Current drinker Unive rsity of 00:00:00 00:00:00 of alcohol [facility] (finding) Branch History of Social 2016-05-05 2016-05-05 Univers ity of function 00:00:00 00:00:00 [facility] Cigarettes smoked 2011-06-18 2011-06-18 Univers ity of current (pack per 00:00:00 00:00:00 ) - Reported Branch Cigarette 2011-06-18 2011-06-18 University of pack-years 00:00:00 00:00:00 [facility] Sex Assigned At [birth year] Universit y of 00:00:00 00:00:00 [facility] Smoking Status Start Date Stop Date Source Never smoked tobacco [facility] Medications Ordered Filled Start Stop Current Ordering Indication Dosage Frequency Signature Comments Components Source Medication Medication Date Date Medication? Clinician (SIG) Name Name TAKE 1 No CAPSULE 1-18 TWICE 00:00: DAILY. 00 TAKE 1 2021-07 No TABLET 2-16 TWICE DAILY 00:00: UNTIL 00 FINISHED. TAKE 1 2021-07 No 500unit TABLET ONCE 2-16 DAILY. 00:00: 00 INHALE 2 2021-07 No 100unit PUFFS EVERY 2-16 4 TO 6 00:00: HOURS 00 NEEDED. TAKE 5 ML 2021-07 No 5unit EVERY 4 TO 2-16 6 HOURS 00:00: NEEDED. 00 Dose 2021-07 No 500 Unknown 2-16 00:00: 00 TAKE ONE 2021-07 No 5 (1) 2-16 TABLET(S) 00:00: BY MOUTH 00 TWICE A DAY NEEDED. TAKE 10 2021-07 No ML(S) BY 2-16 MOUTH EVERY 00:00: 6-8 HOURS 00 NEEDED. Dose 2021-07 No 5 Unknown 16 00:00: 00 TAKE TWO 2021- No 5 [...] DAY WITH FOOD OR MILK NEEDED. Dose 2021-07 No 500 Unknown 2-16 00:00: 00 Dose 2021- No 500 Unknown 2-16 00:00: 00 TAKE ONE 2021-07 No 5 (1) 2-16 TABLET(S) 00:00: BY MOUTH 00 TWICE A DAY. Dose 2021- No 5 Unknown 2-16 00:00: 00 Dose 2021- No 100 Unknown 216 00:00: 00 Dose 2021- No Unknown 2-16 00:00: 00 TAKE 2021-1 No 100 ONE-HALF -16 (1/2) 00:00: TABLET(S) 00 BY MOUTH EVERY SIX HOURS NEEDED FOR NAUSEA OR VOMITING. Dose 2021-1 No 5 Unknown 2-16 00:00: 00 TAKE ONE 2021-1 No 100 (1) OR TWO 2-16 (2) 00:00: CAPSULE(S) 00 BY MOUTH EVERY EIGHT HOURS NEEDED FOR COUGH. TAKE ONE 2021-1 No 500 (1) 2-16 TABLET(S) 00:00: BY [...] Dose 2-0 No Unknown 1-28 00:00: 00 TAKE 2 2-0 No TABLETS 1-28 DAILY FOR 7 00:00: DAYS, THEN 00 1 TABLET DAILY FOR 7 DAYS. azithromyci 2-0 No mg n 250 mg 1-28 tablet 00:00: 00 Dose 2-0 No Unknown 1-28 00:00: 00 Dose 2-0 No Unknown 1-28 00:00: 00 TAKE 2 2-0 No TABLETS 1-28 DAILY FOR 7 00:00: DAYS, THEN 00 1 TABLET DAILY FOR 7 DAYS. azithromyci 2-0 No mg n 250 mg 1-28 tablet 00:00: 00 Dose 2-0 No Unknown 1-28 00:00: 00 Dose 2-0 No Unknown 1-28 00:00: 00 azithromyci 2020-1 No mg n 250 mg 2-03 tablet 00:00: 00 benzonatate 2020-1 No 12mg 100 mg 2-03 capsule 00:00: 00 promethazin 1-1 No 10mg/5 e-DM 6.25 2-03 mL mg-15 mg/5 00:00: mL oral 00 syrup prednisone 2020-1 No 1mg 20 mg 2-03 tablet 00:00: 00 azithromyci 1-1 No mg n 250 mg 2-03 tablet 00:00: 00 benzonatate 1-1 No 12mg 100 mg 2-03 capsule 00:00: 00 promethazin 1-1 No 10mg/5 e-DM 6.25 2-03 mL mg-15 mg/5 00:00: mL oral 00 syrup prednisone 2021-1 No 1mg 20 mg 2-03 tablet 00:00: [...] mg/5 00:00: mL oral 00 syrup prednisone 2020-0 No 1mg 20 mg 6-07 tablet 00:00: 00 azithromyci 2020-0 No mg n 250 mg 6-07 tablet 00:00: 00 benzonatate 2020-0 No 12mg 100 mg 6-07 capsule 00:00: 00 promethazin 0 No 5mg/5 e-DM 6.25 6-07 mL mg-15 [...] as needed for Nausea and Vomiting (N/V). Vital Signs Vital Name Observation Time Observation Value Comments Source Body weight 2022-04-30 18:23:16 79.379 kg [facility] BMI 2022-04-30 18:23:16 29.12 kg/m2 [facility] Systolic blood 2022-04-30 18:16:00 128 mm[Hg] Univer sity [facility] Diastolic blood 2022-04-30 18:16:00 81 mm[facility]Hg] [facility] rate 2022-04-30 18:16:00 92 /min [facility] Body temperature 2022-04-30 18:16:00 37.06 Del [facility] Respiratory rate 2022-04-30 18:16:00 18 /min [facility] Body height 2022-04-30 18:16:00 165.1 cm [facility] Oxygen saturation in 2022-04-30 18:16:00 96 /min [facility] Arterial blood by [facility] Pulse oximetry Branch BP Systolic 2022-07-28 10:17:00 [...] Date / Time Performing Clinician Source Performed REFERRAL- 2023-03-22 05:01:00 Doctor Unassigned, No [facility] REQUEST/RESPONSE Name [facility] Branch AUTHORIZATION FOR 2022-09-30 05:01:00 Doctor Unassigned, No [facility] RELEASE OF PHI Name [facility] Branch RAPID INFLUENZA A/B 2022-04-30 18:27:00 Geneva Rodríguez [facility] COVID-19 (ID NOW RAPID 2022-04-30 18:27:00 Geneva Rodríguez [facility] TESTING) Medical Branch CONSENT/REFUSAL FOR 2022-04-30 18:06:22 [facility] Name [facility] Branch Plan of Care Planned Activity Planned Date Details Comments Source Goal Plan of Care Note [code = 32359-8] Goal Plan of Care Note [code = 31126-7] Goal Plan of Care Note [code = 92400-7] Goal Plan of Care Note [code = 56349-6] Goal Plan of Care Note [code = 40213-0] Goal Plan of Care Note [code = 47480-5] Goal Plan of Care Note [code = 72977-9] Goal Plan of Care Note [code = 53829-1] Goal Plan of Care Note [code = 13511-3] Goal Plan of Care Note [code = 40496-0] Goal Plan of Care Note [code = 03108-4] Goal Plan of Care Note [code = 28933-9] Goal Plan of Care Note [code = 90409-4] Goal Plan of Care Note [code = 41189-1] Goal Plan of Care Note [code = 77333-8] Goal Plan of Care Note [code = 78583-8] Goal Plan of Care Note [code = 24947-6] Goal Plan of Care Note [code = 17056-5] Goal Plan of Care Note [code = 69927-3] Goal Plan of Care Note [code = 25709-0] Goal Plan of Care Note [code = 99305-5] Goal Plan of Care Note [code = 39550-4] Goal Plan of Care Note [code = 54917-3] Goal Plan of Care Note [code = 85380-0] Goal Plan of Care Note [code = 93318-4] Goal Plan of Care Note [code = 04623-5] Goal Plan of Care Note [code = 02290-5] Goal Plan of Care Note [code = 51015-1] Goal Plan of Care Note [code = 54310-4] Goal Plan of Care Note [code = 65615-5] Goal Plan of Care Note [code = 14958-5] Goal Plan of Care Note [code = 50635-1] Goal Plan of Care Note [code = 48173-6] Goal Plan of Care Note [code = 30219-9] Goal Plan of Care Note [code = 46431-5] Goal Plan of Care Note [code = 64609-4] Goal Plan of Care Note [code = 12595-5] Goal Plan of Care Note [code = 41159-6] Goal Plan of Care Note [code = 81177-0] Goal Plan of Care Note [code = 99008-8] Goal Plan of Care Note [code = 15849-0] Goal Plan of Care Note [code = 65150-5] Goal Plan of Care Note [code = 65447-3] Encounters Start End Encounter Admission Attending Care Care Encounter Source Date/Time Date/Time Type Type Clinicians Facility Department ID 2022-11-24 Outpatient [facility] [id number] [place] 09:13:56 [id number] [facility] 2023-03-22 2023-03-22 Outpatient SFA SFA [id number] Reginald 11:08:58 11:08:58 0912 [facility] 2023-03-22 2023-03-22 Orders Doctor MYLA 1.2.840.114 [id number] Univers 00:00:00 00:00:00 Only Unassigned, SYD 350.1.13.10 ity of [place] [facility] 4.2.7.2.686 Bean as [id number] [address] 2022-12-22 2022-12-22 Outpatient SFA SFA [id number] Reginald 10:58:01 10:58:01 0614 [facility] 2022-12-15 2022-12-15 Outpatient SFA SFA [id number] Reginald 13:54:13 13:54:13 0607 [facility] 2022-12-10 2022-12-10 Outpatient SFA SFA [id number] Reginald 13:13:19 13:13:19 0602 [facility] 2022-12-08 2022-12-08 Outpatient SFA SFA [id number] Reginald 14:35:59 14:35:59 0531 [facility] 2022-09-30 2022-09-30 Orders Doctor MYLA 1.2.840.114 [id number] Univers 00:00:00 00:00:00 Only Unassigned, SYD 350.1.13.10 ity of [place] [facility] 4.2.7.2.686 Bean as [id number] [address] 2022-09-01 2022-09-01 Emergency E ANGELA, [facility] [address] [facility] 09:29:00 18:15:00 LAKIA 2022-08-02 2022-08-02 Outpatient SFA SFA [id number] Reginald 14:37:45 14:37:45 0123 [facility] 2022-07-28 2022-07-28 Outpatient SFA SFA [id number] Reginald 10:11:02 10:11:02 0118 [facility] 2022-07-28 2022-07-28 Outpatient [id number]- [id number] 00:00:00 00:00:00 Visit 3568-424c 267-012c-9 -0rp1-z58 ab6-d580fb [id number] 38177g 2022-06-21 2022-06-21 Outpatient SFA SFA [id number] Reginald 08:09:11 08:09:11 1212 F Reymundo 2022-06-19 2022-06-19 Outpatient SFA SFA [id number] Reginald 10:15:22 10:15:22 1210 F [place] 2022-06-18 2022-06-18 Outpatient SFA SFA [id number] 022 Reginald 11:18:31 11:18:31 1209 F Reymundo 2022-06-18 2022-06-18 Outpatient [id number]- [id number] 00:00:00 00:00:00 Visit ffc1-4a85 fc1-4a85-a -abb0-1e3 [id number] [id number] 2022-06-14 2022-06-14 Outpatient SFA SFA [id number] Reginald 13:27:35 13:27:35 1205 F Reymundo 2022-06-14 2022-06-14 Outpatient [id number] 00:00:00 00:00:00 Visit 87t6-1y21 8z9-9t45-3 -88dd-83d 8dd-83d16d 81f9m4sa8 9b7bd4 2022-06-10 2022-06-10 Outpatient SFA SFA [id number] Reginald 11:10:28 11:10:28 1201 F Reymundo 2022-06-04 2022-06-04 Outpatient [id number]- [id number]-2 00:00:00 00:00:00 Visit 80bb-4aab 0bb-4aab-9 -42m9-570 2i5-15427b 74y9u52a7 8b91e6 2022-04-30 2022-04-30 Emergency Anne RUST 1.2.840.114 [id number] Univers 13:21:00 13:57:00 Geneva CURRIE 350.1.13.10 rio [facility] 4.2.7.2.686 [facility] [id number] [place] [id number] Branch 2022-04-30 2022-04-30 Emergency X ANNE RUST ERT [id number] Univers 13:21:00 13:57:00 GENEVA geoffreyrio [facility] Results Test Description Test Time Test Comments [...] UNLESS OTHERWISE INDICATED, ALL TESTING PERFORMED AT [facility] [address] [place] [address] DENTAL EQUIPMENT MECHANIC: CORI CARTER M.D. CLIA NUMBER [id number] [facility] [place]. [id number] RHEUMATOID FACTOR, [id number] 06:57:29 Test Item Value Reference Range Interpretation Comments RHEUMATOID FACTOR, QUANT (test code <10 IU/ML <14 = 3502) C-REACTIVE [id number] 06:45:47 Test Item Value Reference Range Interpretation Comments C-REACTIVE PROTEIN (test code = 0.4 MG/DL <0.5 3513) SEDIMENTATION [id number] 04:36:47 Test Item Value Reference Range Interpretation Comments SEDIMENTATION RATE (test code = 2 MM/HOUR 0-20 1017) CBC W/AUTO DIFF WITH [id number] 02:24:44 Test Item Value Reference Range Interpretation [...] RBCS 0.00 K/UL 0.00-0.11 (test code = 08188) VARUN (ANTI-NUCLEAR AB) WITH REFLEX [id number] 01:59:28 Test Item Value Reference Range Interpretation Comments ANTI-NUCLEAR NEGATIVE NEGATIVE Methodology is ANTIBODIES (test Indirect code = 3506) Immunofluoresce nt Assay (IFA) with a Styky system using He p2000 cells (Hep2 del ls transfected wit h SS-A/Ro). VARUN PATTERN SEE BELOW (REPORTED TITER) (test code = 35526) HOMOGENEOUS (test NEGATIVE TITER NEGATIVE code = 58048) SPECKLED (test NEGATIVE TITER NEGATIVE code = 161259) DENSE FINE NEGATIVE TITER NEGATIVE SPECKLED (test code = 27435) CENTROMERE (test NEGATIVE TITER NEGATIVE code = 951294) COARSE SPECKLED NEGATIVE TITER NEGATIVE (test code = 051529) DISCRETE NUCLEAR NEGATIVE TITER NEGATIVE DOTS (test code = 066149) NUCLEOLAR (test NEGATIVE TITER NEGATIVE code = 623415) NUCLEAR MEMBRANE NEGATIVE TITER NEGATIVE (test code = 159234) CYTO. RETICULAR NEGATIVE NEGATIVE (AYLA) (test code = 717553) COMMENTS (test NONE code = 292437) METHOD (test code (NOTE) TESTING P ERFORMED BY = 46748) [facility] NOVA VIEW IFA PLATFO RM.THE METHOD INCLUDES A SCREEN THRESHOL D OF 1:80, DIGITIZED AND COMPUTER ALGORITHM-PIERCE MARK INTERPRETATION OF TITERS AND DIGI VIJAY PATTERNS, AND H Ep-2 CELL LINE SUBST RATE. ADDITIONAL UNUS UAL PATTERNS WILL B E GIVEN COMMENTS.FOR MORE INFORMATION, SE E [email or web address] UNLESS OT HERWISE INDICATED, ALL TESTING PERFORMED AT [facility] [address] [place] [address] 4 LABORATORY DIRE CTOR: VIRGINIA CANELA M.D. IA NUMBER [id number] [place] [id number] COMPREHENSIVE METABOLIC [id number] 08:05:44 Test Item Value Reference Range Interpretation Comments GLUCOSE (test code = 106 MG/DL 70-99 H 2216) BUN (test code = 11 MG/DL -2207) CREATININE (test 0.64 MG/DL 0.60-1.30 code = 2214) eGFR (2020 CKD-EPI) 113 >60 (test code = 52254) ML/MIN/1.73 CALC BUN/CREAT (test 17 RATIO -28 code = 2235) SODIUM (test code = 144 MEQ/L 737-424 6614) POTASSIUM (test code 4.2 MEQ/L 3.5-5.4 = 2228) CHLORIDE (test code 105 MEQ/L 95-107 = 2215) CARBON DIOXIDE (test 20 MEQ/L 19-31 code [...] PHOSPHATASE 77 U/L 40-113 (test code = 220) AST (test code = 19 U/L 9-40 2217) ALT (test code = 18 U/L 5-40 2218) URIC [id number] 08:05:44 Test Item Value Reference Range Interpretation Comments URIC ACID (test code = 223) 4.0 MG/DL 2.7-6.1 SCR MAMM BILATERAL GARRETT CAD [id number] 16:13:07 Name: Kyra : 1980 Sex: F - SCR MAMM BILATERAL GARRETT CAD DIGITALBILATERAL FIRST EVER DIGITAL SCREENING MAMMOGRAM 3D/2D WITH CAD: 11/12/2022LINICAL: Asymptomatic. Digital breast tomosynthesis was performed in addition to routine CC and MLO views. Current mammographic images were evaluated by [email or web address] CAD (computer-aided detection) software. No prior exams [...] mammography in one year.(11/13/2023) Kriss faust/penrad:11/17/2022 16:13:07 Director Operating: Amena Moeller MM, [facility] Mammographyletter sent: BIRADS 1-2 Normal Mammogram BI-RADS: 2 BenignT. PALLIDUM TOTAL AB RFLX [id number] 00:00:00 Test Item Value Reference Range Interpretation Comments T. PALLIDUM TOTAL AB (test code = <0.1 INDEX 83515) HEMOGLOBIN [id number] 00:00:00 Test Item Value Reference Range Interpretation Comments HEMOGLOBIN A1c (test code = 22163) 5.7 % HEMOGLOBIN [id number] 00:00:00 Test Item Value Reference Range Interpretation Comments HEMOGLOBIN A1c (test code = 91956) 5.7 % HEMOGLOBIN [id number] 00:00:00 Test Item Value Reference Range Interpretation Comments HEMOGLOBIN A1c (test code = 76449) 5.7 % HERPES SIMPLEX 1 [id number] 00:00:00 Test Item Value Reference Range Interpretation Comments HERPES SIMPLEX 1 IgG (test code 18.500 INDEX = 67112) HERPES SIMPLEX 1 [id number] 00:00:00 Test Item Value Reference Range Interpretation Comments HERPES SIMPLEX 1 IgG (test code 18.500 INDEX = 94351) HERPES SIMPLEX 2 [id number] 00:00:00 Test Item Value Reference Range Interpretation Comments HERPES SIMPLEX 2 IgG (test code 92.700 INDEX = 86273) HERPES SIMPLEX 2 [id number] 00:00:00 Test Item Value Reference Range Interpretation Comments HERPES SIMPLEX 2 IgG (test code 92.700 INDEX = 89984) COMPREHENSIVE METABOLIC [id number] 00:00:00 Test Item Value Reference Range Interpretation Comments GLUCOSE (test code = 2217) 149 MG/DL BUN (test code = 2208) 9 MG/DL CREATININE (test code = 2214) 0.66 MG/DL eGFR (2020 CKD-EPI) (test 113 ML/MIN/1.73 code = 22949) CALC BUN/CREAT (test code = 14 RATIO [...] CALC GLOBULIN (test code = 2.4 G/DL 224) CALC A/G RATIO (test code = 1.6 RATIO 2234) BILIRUBIN, TOTAL (test code = <0.2 MG/DL 2206) ALKALINE PHOSPHATASE (test 67 U/L code = 2203) AST (test code = 2218) 16 U/L ALT (test code = 2219) 18 U/L COMPREHENSIVE METABOLIC [id number] 00:00:00 Test Item Value Reference Range Interpretation Comments GLUCOSE (test code = 2217) 149 MG/DL BUN (test code = 2208) 9 MG/DL CREATININE (test code = 2214) 0.66 MG/DL eGFR (2020 CKD-EPI) (test 113 ML/MIN/1.73 code = 42383) CALC BUN/CREAT (test code = 14 RATIO [...] CALC GLOBULIN (test code = 2.4 G/DL 224) CALC A/G RATIO (test code = 1.6 RATIO 2234) BILIRUBIN, TOTAL (test code = <0.2 MG/DL 2206) ALKALINE PHOSPHATASE (test 67 U/L code = 2204) AST (test code = 2218) 16 U/L ALT (test code = 2219) 18 U/L [id number] 00:00:00 Test Item Value Reference Range Interpretation Comments D-DIMER (test code = 1405) 0.76 UG/MLFEU [id number] 00:00:00 Test Item Value Reference Range Interpretation Comments D-DIMER (test code = 1405) 0.76 UG/MLFEU VAGINAL PATHOGENS DNA [id number] 00:00:00 Test Item Value Reference Range Interpretation Comments OFE SPECIES (test code = ) NEGATIVE G. VAGINALIS (test code = ) POSITIVE T. VAGINALIS (test code = ) NEGATIVE VAGINAL PATHOGENS DNA [id number] 00:00:00 Test Item Value Reference Range Interpretation Comments OFE SPECIES (test code = ) NEGATIVE G. VAGINALIS (test code = ) POSITIVE T. VAGINALIS (test code = ) NEGATIVE HIV 1/2 4TH GEN, RFLX [id number] 00:00:00 Test Item Value Reference Range Interpretation Comments HIV 1/2 4TH GEN, RFLX CONF (test NON-REACTIVE code = 3514) HIV 1/2 4TH GEN, RFLX [id number] 00:00:00 Test Item Value Reference Range Interpretation Comments HIV 1/2 4TH GEN, RFLX CONF (test NON-REACTIVE code = 3514) [id number] 00:00:00 Test Item Value Reference Range Interpretation Comments RPR RESULT (test code = 3501) REACTIVE RPR TITER (test code = 3500) 1:1 TITER [id number] 00:00:00 Test Item Value Reference Range Interpretation Comments RPR RESULT (test code = 3501) REACTIVE RPR TITER (test code = 3500) 1:1 TITER [id number] 00:00:00 Test Item Value Reference Range Interpretation Comments RPR RESULT (test code = 3501) REACTIVE RPR TITER (test code = 3500) 1:1 TITER ACUTE HEPATITIS [id number] 00:00:00 Test Item Value Reference Range Interpretation Comments HEPATITIS A IgM (test code = NON-REACTIVE 26510) HEPATITIS B CORE IgM (test code NON-REACTIVE = 4644) HEPATITIS B SURF AG (test code = NON-REACTIVE 7219) HEPATITIS C ANTIBODY (test code NON-REACTIVE = 4675) INTERPRETATION HEPATITIS A: (NOTE) (test code = 2552) INTERPRETATION HEPATITIS B: (NOTE) (test code = 97950) INTERPRETATION HEPATITIS C: (NOTE) (test code = 78493) ACUTE HEPATITIS [id number] 00:00:00 Test Item Value Reference Range Interpretation Comments HEPATITIS A IgM (test code = NON-REACTIVE 33455) HEPATITIS B CORE IgM (test code NON-REACTIVE = 4644) HEPATITIS B SURF AG (test code = NON-REACTIVE 6039) HEPATITIS C ANTIBODY (test code NON-REACTIVE = 4675) INTERPRETATION HEPATITIS A: (NOTE) (test code = 2552) INTERPRETATION HEPATITIS B: (NOTE) (test code = 68833) INTERPRETATION HEPATITIS C: (NOTE) (test code = 29064) CT/NG, TMA, [id number] 00:00:00 Test Item Value Reference Range Interpretation Comments GONORRHEA, NAAT (test code = 47840) NEGATIVE CHLAMYDIA, NAAT (test code = 94124) NEGATIVE CT/NG, TMA, [id number] 00:00:00 Test Item Value Reference Range Interpretation Comments GONORRHEA, NAAT (test code = 85326) NEGATIVE CHLAMYDIA, NAAT (test code = 10233) NEGATIVE COMPREHENSIVE METABOLIC [id number] 00:00:00 Test Item Value Reference Range Interpretation Comments GLUCOSE (test code = 2217) 73 MG/DL BUN (test code = 2208) 14 MG/DL CREATININE (test code = 2214) 0.78 MG/DL eGFR (2020 CKD-EPI) (test code 98 ML/MIN/1.73 = 98022) CALC BUN/CREAT (test code = 18 RATIO [...] code = 2219) 13 U/L COMPREHENSIVE METABOLIC [id number] 00:00:00 Test Item Value Reference Range Interpretation Comments GLUCOSE (test code = 2217) 73 MG/DL BUN (test code = 2208) 14 MG/DL CREATININE (test code = 2214) 0.78 MG/DL eGFR (2020 CKD-EPI) (test code 98 ML/MIN/1.73 = 24855) CALC BUN/CREAT (test code = 18 RATIO 2235) SODIUM (test code = 2231) 146 MEQ/L POTASSIUM (test code = 2228) 3.5 MEQ/L CHLORIDE (test code = 2215) 107 MEQ/L CARBON DIOXIDE (test code = 27 MEQ/L 6) CALCIUM (test code = 2209) 8.2 MG/DL [...] = 2219) 13 U/L VAGINAL PATHOGENS DNA [id number] 00:00:00 Test Item Value Reference Range Interpretation Comments OFE SPECIES (test code = ) NEGATIVE G. VAGINALIS (test code = 92275) POSITIVE T. VAGINALIS (test code = 71972) NEGATIVE VAGINAL PATHOGENS DNA [id number] 00:00:00 Test Item Value Reference Range Interpretation Comments OFE SPECIES (test code = 64874) NEGATIVE G. VAGINALIS (test code = 07433) POSITIVE T. VAGINALIS (test code = 47445) NEGATIVE HIV 1/2 4TH GEN, RFLX [id number] 00:00:00 Test Item Value Reference Range Interpretation Comments HIV 1/2 4TH GEN, RFLX CONF (test NON-REACTIVE code = 3514) HIV 1/2 4TH GEN, RFLX [id number] 00:00:00 Test Item Value Reference Range Interpretation Comments HIV 1/2 4TH GEN, RFLX CONF (test NON-REACTIVE code = 3514) [id number] 00:00:00 Test Item Value Reference Range Interpretation Comments RPR RESULT (test code = 3501) REACTIVE RPR TITER (test code = 3500) 1:1 TITER [id number] 00:00:00 Test Item Value Reference Range Interpretation Comments RPR RESULT (test code = 3501) REACTIVE RPR TITER (test code = 3500) 1:1 TITER [id number] 00:00:00 Test Item Value Reference Range Interpretation Comments RPR RESULT (test code = 3501) REACTIVE RPR TITER (test code = 3500) 1:1 TITER ACUTE HEPATITIS [id number] 00:00:00 Test Item Value Reference Range Interpretation Comments HEPATITIS A IgM (test code = NON-REACTIVE 18141) HEPATITIS B CORE IgM (test code NON-REACTIVE = 4644) HEPATITIS B SURF AG (test code = NON-REACTIVE 2739) HEPATITIS C ANTIBODY (test code NON-REACTIVE = 4675) INTERPRETATION HEPATITIS A: (NOTE) (test code = 2552) INTERPRETATION HEPATITIS B: (NOTE) (test code = 74087) INTERPRETATION HEPATITIS C: (NOTE) (test code = 57510) ACUTE HEPATITIS [id number] 00:00:00 Test Item Value Reference Range Interpretation Comments HEPATITIS A IgM (test code = NON-REACTIVE 48373) HEPATITIS B CORE IgM (test code NON-REACTIVE = 4644) HEPATITIS B SURF AG (test code = NON-REACTIVE 2739) HEPATITIS C ANTIBODY (test code NON-REACTIVE = 4675) INTERPRETATION HEPATITIS A: (NOTE) (test code = 2552) INTERPRETATION HEPATITIS B: (NOTE) (test code = 01351) INTERPRETATION HEPATITIS C: (NOTE) (test code = 69028) CT/NG, TMA, [id number] 00:00:00 Test Item Value Reference Range Interpretation Comments GONORRHEA, NAAT (test code = 91574) NEGATIVE CHLAMYDIA, NAAT (test code = 92207) NEGATIVE CT/NG, TMA, [id number] 00:00:00 Test Item Value Reference Range Interpretation Comments GONORRHEA, NAAT (test code = 29058) NEGATIVE CHLAMYDIA, NAAT (test code = 22961) NEGATIVE COMPREHENSIVE METABOLIC [id number] 00:00:00 Test Item Value Reference Range Interpretation Comments GLUCOSE (test code = 2217) 73 MG/DL BUN (test code = 2208) 14 MG/DL CREATININE (test code = 2214) 0.78 MG/DL eGFR (2020 CKD-EPI) (test code 98 ML/MIN/1.73 = 85034) CALC BUN/CREAT (test code = 18 RATIO [...] code = 2219) 13 U/L COMPREHENSIVE METABOLIC [id number] 00:00:00 Test Item Value Reference Range Interpretation Comments GLUCOSE (test code = 2217) 73 MG/DL BUN (test code = 2208) 14 MG/DL CREATININE (test code = 2214) 0.78 MG/DL eGFR (2020 CKD-EPI) (test code 98 ML/MIN/1.73 = 58841) CALC BUN/CREAT (test code = 18 RATIO [...] BILIRUBIN, TOTAL (test code = <0.2 MG/DL 7) ALKALINE PHOSPHATASE (test 57 U/L code = 2204) AST (test code = 2218) 10 U/L ALT (test code = 2219) 13 U/L VAGINAL PATHOGENS DNA [id number] 00:00:00 Test Item Value Reference Range Interpretation Comments OFE SPECIES (test code = ) NEGATIVE G. VAGINALIS (test code = 29885) POSITIVE T. VAGINALIS (test code = 15176) NEGATIVE VAGINAL PATHOGENS DNA [id number] 00:00:00 Test Item Value Reference Range Interpretation Comments OFE SPECIES (test code = ) NEGATIVE G. VAGINALIS (test code = ) POSITIVE T. VAGINALIS (test code = 38902) NEGATIVE HIV 1/2 4TH GEN, RFLX [id number] 00:00:00 Test Item Value Reference Range Interpretation Comments HIV 1/2 4TH GEN, RFLX CONF (test NON-REACTIVE code = 4) HIV 1/2 4TH GEN, RFLX [id number] 00:00:00 Test Item Value Reference Range Interpretation Comments HIV 1/2 4TH GEN, RFLX CONF (test NON-REACTIVE code = 3514) [id number] 00:00:00 Test Item Value Reference Range Interpretation Comments RPR RESULT (test code = 3501) REACTIVE RPR TITER (test code = 3500) 1:1 TITER [id number] 00:00:00 Test Item Value Reference Range Interpretation Comments RPR RESULT (test code = 3501) REACTIVE RPR TITER (test code = 3500) 1:1 TITER [id number] 00:00:00 Test Item Value Reference Range Interpretation Comments RPR RESULT (test code = 3501) REACTIVE RPR TITER (test code = 3500) 1:1 TITER ACUTE HEPATITIS [id number] 00:00:00 Test Item Value Reference Range Interpretation Comments HEPATITIS A IgM (test code = NON-REACTIVE 15654) HEPATITIS B CORE IgM (test code NON-REACTIVE = 4644) HEPATITIS B SURF AG (test code = NON-REACTIVE 6129) HEPATITIS C ANTIBODY (test code NON-REACTIVE = 3433) INTERPRETATION HEPATITIS A: (NOTE) (test code = 2552) INTERPRETATION HEPATITIS B: (NOTE) (test code = 24148) INTERPRETATION HEPATITIS C: (NOTE) (test code = 16787) ACUTE HEPATITIS [id number] 00:00:00 Test Item Value Reference Range Interpretation Comments HEPATITIS A IgM (test code = NON-REACTIVE 16217) HEPATITIS B CORE IgM (test code NON-REACTIVE = 9144) HEPATITIS B SURF AG (test code = NON-REACTIVE 3709) HEPATITIS C ANTIBODY (test code NON-REACTIVE = 6949) INTERPRETATION HEPATITIS A: (NOTE) (test code = 2552) INTERPRETATION HEPATITIS B: (NOTE) (test code = 18777) INTERPRETATION HEPATITIS C: (NOTE) (test code = 38781) CT/NG, TMA, [id number] 00:00:00 Test Item Value Reference Range Interpretation Comments GONORRHEA, NAAT (test code = 01425) NEGATIVE CHLAMYDIA, NAAT (test code = 95151) NEGATIVE CT/NG, TMA, [id number] 00:00:00 Test Item Value Reference Range Interpretation Comments GONORRHEA, NAAT (test code = 84420) NEGATIVE CHLAMYDIA, NAAT (test code = 08786) NEGATIVE COMPREHENSIVE METABOLIC [id number] 00:00:00 Test Item Value Reference Range Interpretation Comments GLUCOSE (test code = 2217) 73 MG/DL BUN (test code = 2208) 14 MG/DL CREATININE (test code = 2214) 0.78 MG/DL eGFR (2020 CKD-EPI) (test code 98 ML/MIN/1.73 = 64062) CALC BUN/CREAT (test code = 18 RATIO [...] code = 2219) 13 U/L COMPREHENSIVE METABOLIC [id number] 00:00:00 Test Item Value Reference Range Interpretation Comments GLUCOSE (test code = 2217) 73 MG/DL BUN (test code = 2208) 14 MG/DL CREATININE (test code = 2214) 0.78 MG/DL eGFR (2020 CKD-EPI) (test code 98 ML/MIN/1.73 = 50907) CALC BUN/CREAT (test code = 18 RATIO [...]
--- NOTE | 2023-03-31 13:26 | RAD REPORT ---
EXAM DESCRIPTION: NORMAChest Single View03/31/2023 1:16 pm CLINICAL HISTORY: SOB COMPARISON: Chest Single View dated 12/26/2022; Chest Single View dated 05/22/2022; CHEST SINGLE VIEW dated 11/07/2012; ABDOMEN ACUTE SERIES dated 08/04/2011 TECHNIQUE: Portable AP view of the chest. FINDINGS: The lungs are clear. Decreased penetration somewhat limits evaluation. No pneumothorax or effusion. The cardiomediastinal contours are unremarkable. IMPRESSION: No acute cardiopulmonary process.
[2023-03-31] MEDS ORDERED: ONDANSETRON 4 MG/2 ML VIAL ONE (14:10)
[2023-03-31] MEDS ORDERED: NA CHLORIDE 0.9% 1,000 ML ONE (14:10)
[2023-03-31 14:13] LABS: Absolute Lymphocytes (CBC) 2.8 K/uL (0.7-4.9); Hematocrit 45.3 % (36.0-45.0); Lymphocytes % 22.7 % (15.3-44.8); MCV 98.8 fL (80-100); MPV 8.5 fL (7.6-11.3); Platelets 400 thou/uL (152-406); RBC Red Blood Cell Count 4.59 M/uL (3.86-4.86)
[2023-03-31 14:31] LABS: Potassium 3.9 mEq/L (3.5-5.1); Troponin High Sensitivity 3.2 pg/mL (<58.9)
[2023-03-31] MEDS ORDERED: KETOROLAC 30 MG/ML INJ ONE (14:43)
[2023-03-31] MEDS ORDERED: ACETAMINOPHEN 325 MG TABLET ONE (14:44)
--- NOTE | 2023-03-31 15:13 | ER ---
Nurse's Notes [facility] Name: Evelyn Rosa Age: 42 yrs Sex: Female : 1980 Arrival Date: 03/31/2023 Time: 12:08 Bed 16 Private MD: Diagnosis: Idiopathic hypotension;Low back pain-chronic Presentation: 03/31 12:19 Chief complaint: Patient states: Went to see MARTHA Harvey - was sent to ER for low blood ld1 pressure and high heart rate. Pt c/o nausea, pain to REYNALDO flank pain, left buttocks, left shoulder. 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 Coronavirus screen: At this time, the client does not indicate any symptoms associated with coronavirus-19. Ebola Screen: No symptoms or risks identified at this time. Initial Sepsis Screen: Does the patient meet any 2 criteria? No. Patient's initial sepsis screen is negative. Does the patient have a suspected source of infection? No. Patient's initial sepsis screen is negative. Risk Assessment: Do you want to hurt yourself or someone else? Patient reports no desire to harm self or others. Onset of symptoms was March 31, 2023. 12:19 Method Of Arrival: Ambulatory ld1 12:19 Acuity: INDIGO 3 ld1 Triage Assessment: 12:21 General: Appears in no apparent distress. uncomfortable, Behavior is calm, cooperative, ld1 appropriate for age. Pain: Complains of pain in low back area, left gluteus kate, anterior aspect of left shoulder and posterior aspect of left shoulder Pain does not radiate. Pain currently is 10 out of 10 on a pain scale. Quality of pain is described as throbbing. EENT: No signs and/or symptoms were reported regarding the EENT system. Neuro: Level of Consciousness is awake, alert, obeys commands, Oriented to person, place, time, situation. Cardiovascular: Capillary refill < 3 seconds Patient's skin is warm and dry. Respiratory: Airway is patent Respiratory effort is even, unlabored. GI: Abdomen is round non-distended. : No signs and/or symptoms were reported regarding the genitourinary system. Derm: No signs and/or symptoms reported regarding the dermatologic system. Musculoskeletal: Range of motion: intact in all extremities. 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 - Social history:: Smoking status: Patient reports the use of cigarette tobacco products, smokes one-half pack cigarettes per day, Patient uses alcohol, occasionally. - Family history:: not pertinent. Screenin:15 [facility] ED Fall Risk Assessment (Adult) History of falling in the last 3 months, mb9 including since admission No falls in past 3 months (0 pts) Confusion or Disorientation No (0 pts) Intoxicated or Sedated No (0 pts) Impaired Gait No (0 pts) Mobility Assist Device Used No (0 pt) Altered Elimination No (0 pt) Score/Fall Risk Level 0 - 2 = Low Risk Oriented to surroundings, Maintained a safe environment, Educated pt \T\ family on fall prevention, incl call for assistance when getting out of bed. Abuse screen: Denies threats or abuse. Nutritional screening: No deficits noted. Tuberculosis screening: No symptoms or risk factors identified. Assessment: 13:20 Reassessment: lab called for full recollect on all blood. ll1 13:36 Reassessment: No changes from previously documented assessment. Moved to exam #16. Gait ll1 steady. Had just vomited in the restroom. Dr. Arechiga informed. 13:57 Reassessment: No changes from previously documented assessment. Patient and/or family ll1 updated on plan of care and expected duration. Pain level reassessed. 14:15 Reassessment: No changes from previously documented assessment. Patient and/or family mb9 updated on plan of care and expected duration. Pain level reassessed. Patient is alert, oriented x 3, equal unlabored respirations, skin warm/dry/pink. 15:31 Reassessment: Patient and/or family updated on plan of care and expected duration. Pain mb9 level reassessed. Patient is alert, oriented x 3, equal unlabored respirations, skin warm/dry/pink. Patient states feeling better. Patient states symptoms have improved. Vital Signs: 12:19 BP 113 / 87; Pulse 106; Resp 18; Temp 98.1(TE); Pulse Ox 97% on R/A; Weight 78.93 kg; ld1 Height 5 ft. 5 in. ; Pain 10/10; 14:08 BP 111 / 83 Supine; Pulse 95; mb9 14:11 BP 115 / 81 Sitting; Pulse 105; mb9 14:14 BP 109 / 89 Standing; Pulse 98; mb9 12:19 Body Mass Index 28.95 (78.93 kg, 165.1 cm) ld1 12:19 Pain Scale: Adult ld1 ED Course: 12:17 Patient arrived in ED. mg5 12:21 Triage completed. ld1 12:21 Arm band placed on right wrist. ld1 12:22 Paulo Arechiga MD is Attending Physician. cp3 13:18 XRAY Chest (1 view) In Process Unspecified. EDMS 13:36 Patient placed in an exam room, on a stretcher. ll1 13:50 Inserted saline lock: 24 gauge in right upper arm, using aseptic technique. Blood ll1 collected. 13:56 Aishwarya Haines, JOHN is Primary Nurse. mb9 14:15 Placed in gown. Bed in low position. Call light in reach. Side rails up X 1. Client mb9 placed on continuous cardiac and pulse oximetry monitoring. NIBP monitoring applied. blocker automatic on. 14:15 No provider procedures requiring assistance completed. mb9 15:10 Júnior Caballero DO is Referral Physician. cp3 15:31 IV discontinued, intact, bleeding controlled, No redness/swelling at site. Pressure mb9 dressing applied. Administered Medications: 14:08 Drug: NS 0.9% IV 1000 ml IV at 1 bolus Per protocol; 1000 mL bolus Route: IV; Rate: 1 mb9 bolus; Site: right upper arm; 14:09 Drug: Ondansetron IVP 4 mg IVP once; over 2 minutes Route: IVP; Site: right upper arm; mb9 15:22 Follow up: Response: No adverse reaction mb9 14:36 Drug: Acetaminophen PO 650 mg PO once Route: PO; mb9 15:02 Follow up: Response: No adverse reaction mb9 Medication: 14:15 VIS not applicable for this client. mb9 Outcome: 15:13 Discharge ordered by . cp3 15:31 Discharged to home ambulatory, rona9 15:31 Condition: stable 15:31 Discharge instructions given to patient, Instructed on discharge instructions, follow up and referral plans. Demonstrated understanding of instructions, follow-up care, medications, Prescriptions given X 2, 15:31 Patient left the ED. mb9 Signatures: Dispatcher [employer] Paulo Mcfarlane MD MD cp3 Alok Moscoso RN RN ll1 Amena Samayoa RN RN jas1 Aishwarya Haines RN RN mb9 Kristin Reyes 5
--- NOTE | 2023-03-31 15:14 | EDPHYS ---
Physician Documentation [facility] Name: Evelyn Rosa Age: 42 yrs Sex: Female : 1980 Arrival Date: 03/31/2023 Time: 12:08 Bed 16 Private MD: ED Physician Paulo Arechiga HPI: 03/31 17:34 This 42 yrs old Black Female presents to ER via Ambulatory with complaints of Blood cp3 Pressure Problem, Back Pain. 17:34 The patient presents with pain that is chronic, with no known mechanism of injury. The cp3 symptoms are located in the low back. Onset: The symptoms/episode began/occurred last year. The pain does not radiate. Associated signs and symptoms: The patient has no apparent associated signs or symptoms. The problem was sustained patient has a history of lumbar radiculopathy and was following up with pcp who advised bp was low when checked in clinic. patient endorses nausea but is otherwise asymptomatic. Modifying factors: The patient symptoms are alleviated by the patient symptoms are aggravated by bending, movement. Severity of symptoms: At their worst the symptoms were moderate. The patient has not experienced similar symptoms in the past. 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 - Social history:: Smoking status: Patient reports the use of cigarette tobacco products, smokes one-half pack cigarettes per day, Patient uses alcohol, occasionally. - Family history:: not pertinent. ROS: 17:34 Constitutional: Negative for fever, chills, and weight loss, Eyes: Negative for injury, cp3 pain, redness, and discharge, ENT: Negative for injury, pain, and discharge, Neck: Negative for injury, pain, and swelling, Cardiovascular: Negative for chest pain, palpitations, and edema, Respiratory: Negative for shortness of breath, cough, wheezing, and pleuritic chest pain, Abdomen/GI: Negative for abdominal pain, nausea, vomiting, diarrhea, and constipation, Back: Negative for injury and pain, MS/Extremity: Negative for injury and deformity, Skin: Negative for injury, rash, and discoloration, Neuro: Negative for headache, weakness, numbness, tingling, and seizure, Psych: Negative for depression, anxiety, suicide ideation, homicidal ideation, and hallucinations, Allergy/Immunology: Negative for hives, rash, and allergies, Endocrine: Negative for neck swelling, polydipsia, polyuria, polyphagia, and marked weight changes, Hematologic/Lymphatic: Negative for swollen nodes, abnormal bleeding, and unusual bruising, 17:34 Back: Positive for pain at rest, cp3 Exam: 17:34 Constitutional: This is a well developed, well nourished patient who is awake, alert, cp3 and in no acute distress. Head/Face: Normocephalic, atraumatic. Eyes: Pupils equal round and reactive to light, extra-ocular motions intact. Lids and lashes normal. Conjunctiva and sclera are non-icteric and not injected. Cornea within normal limits. Periorbital areas with no swelling, redness, or edema. ENT: Nares patent. No nasal discharge, no septal abnormalities noted. Tympanic membranes are normal and external auditory canals are clear. Oropharynx with no redness, swelling, or masses, exudates, or evidence of obstruction, uvula midline. Mucous membranes moist. Neck: Trachea midline, no thyromegaly or masses palpated, and no cervical lymphadenopathy. Supple, full range of motion without nuchal rigidity, or vertebral point tenderness. No Meningismus. Chest/axilla: Normal chest wall appearance and motion. Nontender with no deformity. No lesions are appreciated. Cardiovascular: Regular rate and rhythm with a normal S1 and S2. No gallops, murmurs, or rubs. Normal PMI, no JVD. No pulse deficits. Respiratory: Lungs have equal breath sounds bilaterally, clear to auscultation and percussion. No rales, rhonchi or wheezes noted. No increased work of breathing, no retractions or nasal flaring. Abdomen/GI: Soft, non-tender, with normal bowel sounds. No distension or tympany. No guarding or rebound. No evidence of tenderness throughout. Back: No spinal tenderness. No costovertebral tenderness. Full range of motion. Skin: Warm, dry with normal turgor. Normal color with no rashes, no lesions, and no evidence of cellulitis. MS/ Extremity: Pulses equal, no cyanosis. Neurovascular intact. Full, normal range of motion. Neuro: Awake and alert, GCS 15, oriented to person, place, time, and situation. Cranial nerves II-XII grossly intact. Motor strength 5/5 in all extremities. Sensory grossly intact. Cerebellar exam normal. Normal gait. Psych: Awake, alert, with orientation to person, place and time. Behavior, mood, and affect are within normal limits. Vital Signs: 12:19 BP 113 / 87; Pulse 106; Resp 18; Temp 98.1(TE); Pulse Ox 97% on R/A; Weight 78.93 kg; ld1 Height 5 ft. 5 in. ; Pain 10/10; 14:08 BP 111 / 83 Supine; Pulse 95; mb9 14:11 BP 115 / 81 Sitting; Pulse 105; mb9 14:14 BP 109 / 89 Standing; Pulse 98; mb9 12:19 Body Mass Index 28.95 (78.93 kg, 165.1 cm) ld1 12:19 Pain Scale: Adult ld1 MDM: 12:40 Patient medically screened. cp3 17:34 Differential diagnosis: orthostatic hypotension, idiopathic hypotension, dehydration, cp3 weakness, chronic back pain. Data reviewed: vital signs, nurses notes, EKG. Consideration of Admission/Observation Escalation of care including admission/observation considered. bp improved, no emergent indication for hospitalization. I considered the following discharge prescriptions or medication management in the emergency department Medications were administered in the Emergency Department. See MAR. ED course: patient improved with ivf, zofran. ED course: ekg in terpreted by me on arrival - normal sinus rhythm, no evidence of acute mi, rate 98. 03/31 12:55 Order name: Basic Metabolic Panel; Complete Time: 15:02 3 03/31 12:55 Order name: CBC with Diff; Complete Time: 15:02 3 03/31 12:55 Order name: Troponin HS; Complete Time: 15:02 3 03/31 12:55 Order name: XRAY Chest (1 view); Complete Time: 15:02 3 03/31 12:55 Order name: EKG; Complete Time: 12:56 cp3 03/31 12:55 Order name: Cardiac monitoring; Complete Time: 14:17 cp3 03/31 12:55 Order name: EKG - Nurse/Tech; Complete Time: 13:07 cp3 03/31 12:55 Order name: IV Saline Lock; Complete Time: 13:56 cp3 03/31 12:55 Order name: Labs collected and sent; Complete Time: 13:07 cp3 03/31 12:55 Order name: O2 Per Protocol; Complete Time: 13:33 cp3 03/31 12:55 Order name: O2 Sat Monitoring; Complete Time: 13:33 cp3 03/31 12:55 Order name: Orthostatic Blood Pressure; Complete Time: 14:17 cp3 Administered Medications: 14:08 Drug: NS 0.9% IV 1000 ml IV at 1 bolus Per protocol; 1000 mL bolus Route: IV; Rate: 1 mb9 bolus; Site: right upper arm; 14:09 Drug: Ondansetron IVP 4 mg IVP once; over 2 minutes Route: IVP; Site: right upper arm; mb9 15:22 Follow up: Response: No adverse reaction mb9 14:36 Drug: Acetaminophen PO 650 mg PO once Route: PO; mb9 15:02 Follow up: Response: No adverse reaction mb9 Disposition Summary: 03/31/23 15:13 Discharge Ordered Notes: Location: Home cp3 Condition: Stable cp3 Diagnosis - Idiopathic hypotension cp3 - Low back pain - chronic cp3 Followup: cp3 - With: Júnior Caballero DO - When: - Reason: Continuance of care Discharge Instructions: - Discharge Summary Sheet cp3 - Chronic Back Pain cp3 Forms: - Medication Reconciliation Form cp3 - Thank You Letter cp3 - Antibiotic Education cp3 - Prescription Opioid Use cp3 - Patient Portal Instructions cp3 - Leadership Thank You Letter cp3 Prescriptions: - acetaminophen-codeine 300-15 mg Oral tablet - take 1 tablet ORAL route 3 times per day as needed for pain; 9 tablet; Refills: cp3 0, Product Selection Permitted - Cyclobenzaprine 5 mg Oral Tablet - take 1 tablet ORAL route 3 times per day As needed; 15 tablet; Refills: 0, cp3 Product Selection Permitted Signatures: Dispatcher [employer] Paulo Mcfarlane MD MD cp3 Prema Arora RN RN aa5 Amena Samayoa RN RN ld1 Breneman, Bela, RN RN mb9
[2023-03-31 15:57] VITALS: TEMP 98.1; O2SAT 97
[2023-03-31 16:02] VITALS: BP 109/89
--- NOTE | 2023-04-01 17:13 | EKG ---
Test Date: 2023-03-31 Test Time: 12:31:50 Rn Ante Partum: TAYLOR MEASUREMENT RESULTS: Intervals: Rate: 93 KS: 124 QRSD: 78 QT: 368 QTc: 457 [place]: P: 55 KS: 124 QRS: 3 T: 47 INTERPRETIVE STATEMENTS: Sinus rhythm with premature supraventricular complexes Low voltage QRS Borderline ECG Compared to ECG 12/26/2022 20:55:00 Atrial premature complex(es) now present Low QRS voltage now present Sinus tachycardia no longer present Electronically Signed On 04-01-23 17:11:17 CDT by Cole Richardson
== END 2023-03-31 15:31 | disposition home or self-care (01) ==
LOC: ER 12:08 → SUPCPDRO 12:08 → ER 15:31
DX: I95.0 Idiopathic hypotension (principal); M54.50 Low back pain, unspecified; F17.210 Nicotine dependence, cigarettes, uncomplicated; Z88.0 Allergy status to penicillin; Z88.5 Allergy status to narcotic agent
CPT/HCPCS: 93005; 85025; 80048; 36415; 84484; 71045; 96374; 99285; J2405; J7030

== ENCOUNTER → 2023-10-02 | Emergency (ER) | payer OTHER ==
[~2023-10-02] MED LIST: ACETAMIN/CAFFEINE/BUTALB TAB PO ONE; DIPHENHYDRAMINE 50 MG/ML VIAL ONE; METOCLOPRAMIDE 10 MG/2mL INJ ONE; NA CHLORIDE 0.9% 1,000 ML ONE; dexAMETHasone 10 MG/ML VIAL ONE
--- OUTSIDE RECORDS SUMMARY | 2023-10-02 13:27 | XMS REPORT | Continuity of Care Document ---
Author Name Unknown Address [address] [facility]. [address] [place] [address] [facility] thconnect Address [address] [facility] [address] [place] [address] Care Team Providers Care Sales Order Coordinator Name Role Phone Reymundo Harvey Primary Care Physician [phone] Doctor Unassigned, [place] Attending Clinician U Geneva Sharma DO Attending Clinician [phone] GENEVA RODRÍGUEZ Attending Clinician Unavailab le Payers Payer Name Policy Type Policy Number Effective Date Expirati on Date Source [employer] [place] [facility] [id number] 2022 00:00:00 Problems Condition Name Condition Details Condition Category Status Onset Date Resolution Date Last Treatment Date Treating Clinician Comments Source Nausea & vomiting Nausea & vomiting Disease Active 2010-07 00:00: 00 [facility] Abdominal pain, acute, epigastric Abdominal pain, acute, epigastric Disease Active 2010-07 00:00: 00 [facility] Leukocytos is Leukocytos is Disease Active 2010-07 00:00: 00 Overview: Formattin g of this note might be different from the original. ICD10 Diagnosis Term [employer] Utility [facility] Hypokalemi a Hypokalemi a Disease Active 2010-07 00:00: 00 [facility] Metabolic acidosis Metabolic acidosis Disease Active 2010-07 00:00: 00 [facility] Allergies, Adverse Reactions, Alerts Allergy Name Allergy Type Status Severity Reaction(s) Onset Date Inactive Date Treating Clinician Comments Source Penicill ins - CLASS Propensi ty to adverse reaction to drug Active 2021-07 00:00: 00 Ketorola c Propensi ty to adverse reaction s Active Rash 2021-07 0- 00:00: 00 [facility] KETOROLA C DRUG INGREDI Active Rash 2021-07 0- 00:00: 00 [facility] Penicill ins Propensi ty to adverse reaction to drug Active 09-02 00:00: 00 Penicill ins Propensi ty to adverse reaction s Active Unknown - See comments 2015-07 00:00: 00 [facility] PENICILL INS Drug Class Active Unknown-Cmnt 2015-07 00:00: 00 [facility] Social History Social Habit Start Date Stop Date Quantity Comments Source History of tobacco use Cigarette Smoker [facility] Gender identity [facility] Sexual orientation [facility] Exposure to SARS-CoV-2 (event) 2022-04-20 00:00:00 2022-04-30 13:23:00 Not sure [facility] Alcohol intake 2016-05-05 00:00:00 2016-05-05 00:00:00 Current drinker of alcohol (finding) [facility] History of Social function 2016-05-05 00:00:00 2016-05-05 00:00:00 [facility] Cigarettes smoked current (pack per day) - Reported 2011-06-18 00:00:00 2011-06-18 00:00:00 [facility] Cigarette pack-years 2011-06-18 00:00:00 2011-06-18 00:00:00 [facility] Sex Assigned At 1980 00:00:00 1980 00:00:00 [facility] Smoking Status Start Date Stop Date Source Never smoked tobacco [facility] Medications Ordered Medication Name Filled Medication Name Start Date Stop Date Current Medication? Ordering Clinician Indication Dosage Frequency Signature (SIG) Comments Components Source TAKE 1 CAPSULE TWICE DAILY. 2023-0 1-18 00:00: 00 No TAKE 1 TABLET TWICE DAILY UNTIL FINISHED. 2021-07 00:00: 00 No TAKE 1 TABLET ONCE DAILY. 2021-07 00:00: 00 No 500unit INHALE 2 PUFFS EVERY 4 TO 6 HOURS NEEDED. 2021-07 00:00: 00 No 100unit TAKE 5 ML EVERY 4 TO 6 HOURS NEEDED. 2021-07 00:00: 00 No 5unit Dose Unknown 2021-07 00:00: 00 No 500 TAKE ONE (1) TABLET(S) BY MOUTH TWICE A DAY NEEDED. 2021-07 00:00: 00 No 5 TAKE 10 ML(S) BY MOUTH EVERY 6-8 HOURS NEEDED. 2021-07 00:00: 00 No Dose Unknown 2021-07 00:00: 00 No 5 TAKE TWO (2) TABLET(S) BY MOUTH TWICE A DAY. 2021-07 00:00: 00 No 5 TAKE ONE (1) TABLET(S) BY MOUTH AT BEDTIME NEEDED. 2021-07 00:00: 00 No 5 TAKE ONE (1) TABLET(S) BY MOUTH THREE TIMES A DAY. 2021-07 00:00: 00 No 5 TAKE ONE (1) TABLET(S) BY MOUTH TWICE A DAY WITH FOOD OR MILK NEEDED. 2021-07 00:00: 00 No 5 Dose Unknown 2021-07 00:00: 00 No 500 Dose Unknown 2021-07 00:00: 00 No 500 TAKE ONE (1) TABLET(S) BY MOUTH TWICE A DAY. 2021-07 00:00: 00 No 5 Dose Unknown 2021-07 00:00: 00 No 5 Dose Unknown 2021-07 00:00: 00 No 100 Dose Unknown 2021-07 00:00: 00 No TAKE ONE-HALF (1/2) TABLET(S) BY MOUTH EVERY SIX HOURS NEEDED FOR NAUSEA OR VOMITING. 2021-07 00:00: 00 No 100 Dose Unknown 2021-07 00:00: 00 No 5 TAKE ONE (1) OR TWO (2) CAPSULE(S) BY MOUTH EVERY EIGHT HOURS NEEDED FOR COUGH. 2021-07- 00:00: 00 No 100 TAKE ONE (1) TABLET(S) BY MOUTH EVERY EIGHT HOURS FOR 10 DAYS. 2021-07- 00:00: 00 No 500 Dose Unknown 2021-07 00:00: 00 No 5 TAKE ONE (1) TABLET(S) BY MOUTH TWICE A DAY NEEDED. 2021-07 00:00: 00 No TAKE 2 TABLETS DAILY FOR 7 DAYS, THEN 1 TABLET DAILY FOR 7 DAYS. 2021-07 00:00: 00 No TAKE ONE (1) TABLET(S) BY MOUTH TWICE A DAY NEEDED. 2021-07 00:00: 00 No TAKE 2 TABLETS DAILY FOR 7 DAYS, THEN 1 TABLET DAILY FOR 7 DAYS. 2021-07 00:00: 00 No TAKE ONE (1) TABLET(S) BY MOUTH TWICE A DAY NEEDED. 2021-07 00:00: 00 No TAKE 2 TABLETS DAILY FOR 7 DAYS, THEN 1 TABLET DAILY FOR 7 DAYS. 2021-07 00:00: 00 No TAKE ONE (1) TABLET(S) BY MOUTH TWICE A DAY NEEDED. 2021-07 00:00: 00 No Dose Unknown 10-07 00:00: 00 No promethazin e-DM 6.25 mg-15 mg/5 mL oral syrup 10-07 00:00: 00 No 10mg/5 mL benzonatate 100 mg capsule 10-07 00:00: 00 No 12mg promethazin e-DM 6.25 mg-15 mg/5 mL oral syrup 0 10-07 00:00: 00 No 10mg/5 mL benzonatate 100 mg capsule 0 10-07 00:00: 00 No 12mg promethazin e-DM 6.25 mg-15 mg/5 mL oral syrup 10-07 00:00: 00 No 10mg/5 mL benzonatate 100 mg capsule 0 10-07 00:00: 00 No 12mg promethazin e-DM 6.25 mg-15 mg/5 mL oral syrup 10-07 00:00: 00 No 10mg/5 mL TAKE 2 TABLETS DAILY FOR 7 DAYS, THEN 1 TABLET DAILY FOR 7 DAYS. 08-07 00:00: 00 No azithromyci n 250 mg tablet 08-07 00:00: 00 No mg Dose Unknown 08-07 00:00: 00 No 5 Dose Unknown 08-07 00:00: 00 No Dose Unknown 08-07 00:00: 00 No Dose Unknown 08-07 00:00: 00 No Dose Unknown 08-07 00:00: 00 No TAKE 2 TABLETS DAILY FOR 7 DAYS, THEN 1 TABLET DAILY FOR 7 DAYS. 08-07 00:00: 00 No azithromyci n 250 mg tablet 08-07 00:00: 00 No mg Dose Unknown 08-07 00:00: 00 No Dose Unknown 08-07 00:00: 00 No TAKE 2 TABLETS DAILY FOR 7 DAYS, THEN 1 TABLET DAILY FOR 7 DAYS. 08-07 00:00: 00 No azithromyci n 250 mg tablet 08-07 00:00: 00 No mg Dose Unknown 08-07 00:00: 00 No Dose Unknown 08-07 00:00: 00 No azithromyci n 250 mg tablet 2020-07 2 00:00: 00 No mg benzonatate 100 mg capsule 2020-07 2 00:00: 00 No 12mg promethazin e-DM 6.25 mg-15 mg/5 mL oral syrup 2020-07 2- 00:00: 00 No 10mg/5 mL prednisone 20 mg tablet 2020-07 2- 00:00: 00 No 1mg azithromyci n 250 mg tablet 2020-07 2- 00:00: 00 No mg benzonatate 100 mg capsule 2020-07 2- 00:00: 00 No 12mg promethazin e-DM 6.25 mg-15 mg/5 mL oral syrup 2020-07 2- 00:00: 00 No 10mg/5 mL prednisone 20 mg tablet 2020-07 2- 00:00: 00 No 1mg azithromyci n 250 mg tablet 2020-07 2 00:00: 00 No mg benzonatate 100 mg capsule 2020-07 2 00:00: 00 No 12mg promethazin e-DM 6.25 mg-15 mg/5 mL oral syrup 2020-07 2 00:00: 00 No 10mg/5 mL prednisone 20 mg tablet 2020-07 2 00:00: 00 No 1mg azithromyci n 250 mg tablet 2020-07 2 00:00: 00 No mg benzonatate 100 mg capsule 2020-07 00:00: 00 No 12mg promethazin e-DM 6.25 mg-15 mg/5 mL oral syrup 2020-07 00:00: 00 No 10mg/5 mL prednisone 20 mg tablet 2020-07 00:00: 00 No 1mg prednisone 20 mg tablet 12-15 00:00: 00 No 1mg azithromyci n 250 mg tablet 12-15 00:00: 00 No mg benzonatate 100 mg capsule 12-15 00:00: 00 No 12mg promethazin e-DM 6.25 mg-15 mg/5 mL oral syrup 12-15 00:00: 00 No 5mg/5 mL prednisone 20 mg tablet 12-15 00:00: 00 No 1mg azithromyci n 250 mg tablet 12-15 00:00: 00 No mg benzonatate 100 mg capsule 12-15 00:00: 00 No 12mg promethazin e-DM 6.25 mg-15 mg/5 mL oral syrup 12-15 00:00: 00 No 5mg/5 mL prednisone 20 mg tablet 12-15 00:00: 00 No 1mg azithromyci n 250 mg tablet 12-15 00:00: 00 No mg benzonatate 100 mg capsule 12-15 00:00: 00 No 12mg promethazin e-DM 6.25 mg-15 mg/5 mL oral syrup 12-15 00:00: 00 No 5mg/5 mL prednisone 20 mg tablet 12-15 00:00: 00 No 1mg azithromyci n 250 mg tablet 12-15 00:00: 00 No mg benzonatate 100 mg capsule 12-15 00:00: 00 No 12mg promethazin e-DM 6.25 mg-15 mg/5 mL oral syrup 12-15 00:00: 00 No 5mg/5 mL methocarbam ol (ROBAXIN) 750 mg tablet 2015-07 00:00: 00 Yes 750mg Take 1 tablet by mouth 4 (four) times daily as needed for Pain (scale 4-6) or Pain (scale 7-10). [facility] pantoprazol e (PROTONIX) 40 mg EC tablet 2015-07 00:00: 00 Yes 40mg Take 1 tablet by mouth daily. [facility] proMETHazin e (PHENERGAN) 25 mg tablet 2015-07 00:00: 00 Yes 25mg Take 1 tablet by mouth every 6 (six) hours as needed for Nausea and Vomiting (N/V). [facility] methocarbam ol (ROBAXIN) 750 mg tablet 2015-07 00:00: 00 Yes 750mg Take 1 tablet by mouth 4 (four) times daily as needed for Pain (scale 4-6) or Pain (scale 7-10). [facility] pantoprazol e (PROTONIX) 40 mg EC tablet 2015-07 00:00: 00 Yes 40mg Take 1 tablet by mouth daily. [facility] proMETHazin e (PHENERGAN) 25 mg tablet 2015-07 00:00: 00 Yes 25mg Take 1 tablet by mouth every 6 (six) hours as needed for Nausea and Vomiting (N/V). [facility] methocarbam ol (ROBAXIN) 750 mg tablet 2015-07 00:00: 00 Yes 750mg Take 1 tablet by mouth 4 (four) times daily as needed for Pain (scale 4-6) or Pain (scale 7-10). [facility] pantoprazol e (PROTONIX) 40 mg EC tablet 2015-07 00:00: 00 Yes 40mg Take 1 tablet by mouth daily. [facility] proMETHazin e (PHENERGAN) 25 mg tablet 2015-07 00:00: 00 Yes 25mg Take 1 tablet by mouth every 6 (six) hours as needed for Nausea and Vomiting (N/V). [facility] Vital Signs Vital Name Observation Time Observation Value Comments Jamila watkins Body weight 2022-04-30 18:23:16 79.379 kg [facility] BMI 2022-04-30 18:23:16 29.12 kg/m2 [facility] Systolic blood pressure 2022-04-30 18:16:00 128 mm[Hg] [facility] Diastolic blood pressure 2022-04-30 18:16:00 81 mm[Hg] [facility] Heart rate 2022-04-30 18:16:00 92 /min [facility] Body temperature 2022-04-30 18:16:00 37.06 Brandy [facility] Respiratory rate 2022-04-30 18:16:00 18 /min [facility] Body height 2022-04-30 18:16:00 165.1 cm [facility] Oxygen saturation in Arterial blood by Pulse oximetry 2022-04-30 18:16:00 96 /min [facility] BP Systolic 2022-07-28 10:17:00 123 mm[Hg] BP [...] Procedure Date / Time Performed Performing Clinician Source REFERRAL- REQUEST/RESPONSE 2023-03-22 05:01:00 Doctor Unassigned, [place] [facility] AUTHORIZATION FOR RELEASE OF PHI 2022-09-30 05:01:00 Doctor Unassigned, [place] [facility] RAPID INFLUENZA A/B 2022-04-30 18:27:00 Tiff Rodríguez ra [facility] COVID-19 (ID NOW RAPID TESTING) 2022-04-30 18:27:00 Geneva Rodríguez [facility] CONSENT/REFUSAL FOR DIAGNOSIS AND TREATMENT 2022-04-30 18:06:22 Doctor Unassigned, [place] [facility] Plan of Care Planned Activity Planned Date Details Comments Source Goal Plan of Care Note [code = 49024-0] Goal Plan of Care Note [code = 98182-5] Goal Plan of Care Note [code = 31195-1] Goal Plan of Care Note [code = 78902-9] Goal Plan of Care Note [code = 72023-8] Goal Plan of Care Note [code = 65702-5] Goal Plan of Care Note [code = 28406-9] Goal Plan of Care Note [code = 86283-6] Goal Plan of Care Note [code = 93978-2] Goal Plan of Care Note [code = 04524-5] Goal Plan of Care Note [code = 88945-2] Goal Plan of Care Note [code = 49118-1] Goal Plan of Care Note [code = 64921-7] Goal Plan of Care Note [code = 53010-7] Goal Plan of Care Note [code = 69391-8] Goal Plan of Care Note [code = 42429-8] Goal Plan of Care Note [code = 75356-3] Goal Plan of Care Note [code = 21896-3] Goal Plan of Care Note [code = 14704-8] Goal Plan of Care Note [code = 95616-6] Goal Plan of Care Note [code = 65303-7] Goal Plan of Care Note [code = 07659-5] Goal Plan of Care Note [code = 87183-5] Goal Plan of Care Note [code = 29375-3] Goal Plan of Care Note [code = 82163-9] Goal Plan of Care Note [code = 31369-8] Goal Plan of Care Note [code = 09294-4] Goal Plan of Care Note [code = 34061-6] Goal Plan of Care Note [code = 40643-6] Goal Plan of Care Note [code = 85434-3] Goal Plan of Care Note [code = 95987-2] Goal Plan of Care Note [code = 01299-1] Goal Plan of Care Note [code = 95296-8] Goal Plan of Care Note [code = 96680-4] Goal Plan of Care Note [code = 20706-9] Goal Plan of Care Note [code = 62257-4] Goal Plan of Care Note [code = 65010-2] Goal Plan of Care Note [code = 98543-5] Goal Plan of Care Note [code = 98691-3] Goal Plan of Care Note [code = 54777-1] Goal Plan of Care Note [code = 64964-5] Goal Plan of Care Note [code = 85898-7] Goal Plan of Care Note [code = 20749-1] Encounters Start Date/Time End Date/Time Encounter Type Admission Type Attending Clinicians Care Facility Care Department Encounter ID Source 2022-11-24 09:13:56 Outpatient [facility] [id number] [facility] 2023-03-22 11:08:58 2023-03-22 11:08:58 Outpatient [facility] [id number] Reginald Dwyer 2023-03-22 00:00:00 2023-03-22 00:00:00 Orders Only Doctor Unassigned, [place] [facility] [id number] [facility] 2022-12-22 10:58:01 2022-12-22 10:58:01 Outpatient [facility] [id number] Reginald Diaz [place] 2022-12-15 13:54:13 2022-12-15 13:54:13 Outpatient [facility] [id number] Reginald Diaz [place] 2022-12-10 13:13:19 2022-12-10 13:13:19 Outpatient [facility] [id number] Reginald Diza [place] 2022-12-08 14:35:59 2022-12-08 14:35:59 Outpatient [facility] [id number] Reginald Diaz [place] 2022-09-30 00:00:00 2022-09-30 00:00:00 Orders Only Doctor Unassigned, [place] [facility] [id number] [id number] [id number] [facility] 2022-08-02 14:37:45 2022-08-02 14:37:45 Outpatient [facility] [id number] Reginald Diaz [place] 2022-07-28 10:11:02 2022-07-28 10:11:02 Outpatient [facility] [id number] Reginald Diaz [place] 2022-07-28 00:00:00 2022-07-28 00:00:00 Outpatient Visit [id number] 2022-06-21 08:09:11 2022-06-21 08:09:11 Outpatient [facility] [id number] Reginald Diaz [place] 2022-06-19 10:15:22 2022-06-19 10:15:22 Outpatient [facility] [id number] Reginald Diaz [place] 2022-06-18 11:18:31 2022-06-18 11:18:31 Outpatient [facility] [id number] Reginald Dwyer 2022-06-18 00:00:00 2022-06-18 00:00:00 Outpatient Visit [id number] 2022-06-14 13:27:35 2022-06-14 13:27:35 Outpatient [facility] [id number] Reginald Dwyer 2022-06-14 00:00:00 2022-06-14 00:00:00 Outpatient Visit [id number] 2022-06-10 11:10:28 2022-06-10 11:10:28 Outpatient [facility] [id number] Reginald Dwyer 2022-06-04 00:00:00 2022-06-04 00:00:00 Outpatient Visit [id number] 2022-04-30 13:21:00 2022-04-30 13:57:00 Emergency Geneva Rodríguez [facility] [id number] 350.1.13.10 [id number] [id number] [facility] 2022-04-30 13:21:00 2022-04-30 13:57:00 Emergency X GENEVA RODRÍGUEZ [facility] ERT [id number] [facility] Results Test Description Test Time Test Comments Results Result Co mments Source RHEUMATOID FACTOR, [id number] 06:57:29* Test Item Value Reference Range Interpretation Comme nts RHEUMATOID FACTOR, QUANT (te st code = 3502) <10 IU/ML <14 C-REACTIVE [id number] 06:45:47* Test Item Value Reference Range Interpretation Comme nts C-REACTIVE PROTEIN (test cod e = 3513) 0.4 MG/DL <0.5 SEDIMENTATION [id number] 04:36:47* Test Item Value Reference Range Interpretation Comme nts SEDIMENTATION RATE (test cod e = 1017) 2 MM/HOUR 0-20 CBC W/AUTO DIFF WITH [id number] 02:24:44* Test Item Value Reference Range Interpretation Comme nts WBC (test code = 1001) 12.9 K/UL 3.5-11.0 H RBC (test code = 1002) 4.43 M/UL 3.80-5.40 HEMOGLOBIN (test code = 1003) 13.4 G/DL 11.5-15.5 HEMATOCRIT (test code = 1004) 43.0 % 34.0-45.0 MCV (test code = 1005) 97.1 fL 80.0-99.0 MCH (test code = 1006) 30.2 PG 25.0-33.0 MCHC (test code = 1007) 31.2 G/DL 31.0-36.0 RDW (test code = 1038) 12.0 % 11.5-15.0 NEUTROPHILS (test code = 1008) 69.5 % LYMPHOCYTES (test code = 1010) 22.1 % MONOCYTES (test code = 1011) 5.0 % EOSINOPHILS (test code = 1012) 2.3 % BASOPHILS (test code = 1013) 0.6 % IMMATURE GRANULOCYTES (test code = 1036) 0.5 % NUCLEATED RBCS (test code = 1065) 0.0 /100 WBC'S See_Comment [Automated messa ge] The system which generated this result transmitted reference range: 0.0. The reference range was not used to interpret this result as normal/abnormal. PLATELET COUNT (test code = 1015) 414 K/UL 130-400 H ABSOLUTE NEUTROPHILS (test code = 1066) 8.96 K/UL 1.50-7.50 H ABSOLUTE LYMPHOCYTES (test code = 1067) 2.85 K/UL 1.00-4.00 ABSOLUTE MONOCYTES (test code = 1068) 0.65 K/UL 0.20-1.00 ABSOLUTE EOSINOPHILS (test code = 1040) 0.30 K/UL 0.00-0.50 ABSOLUTE BASOPHILS (test code = 1069) 0.08 K/UL 0.00-0.20 ABS IMMATURE GRANULOCYTES (test code = 1020) 0.07 K/UL 0.00-0.10 ABS NUCLEATED RBCS (test code = 05882) 0.00 K/UL 0.00-0.11 VARUN (ANTI-NUCLEAR AB) WITH REFLEX [id number] 01:59:28* Test Item Value Reference Range Interpretation Comme nts ANTI-NUCLEAR ANTIBODIES (test code = 3506) NEGATIVE NEGATIVE Methodology is I ndirect Immunofluorescent Assay (IFA) with a titering system using [id number] cells (Hep2 cells transfected with SS-A/Ro). VARUN PATTERN (REPORTED TITER) (test code = 41506) SEE BELOW HOMOGENEOUS (test code = 68031) NEGATIVE TITER NEGATIVE SPECKLED (test code = 564632) NEGATIVE TITER NEGATIVE DENSE FINE SPECKLED (test code = 70069) NEGATIVE TITER NEGATIVE CENTROMERE (test code = 316628) NEGATIVE TITER NEGATIVE COARSE SPECKLED (test code = 235032) NEGATIVE TITER NEGATIVE DISCRETE NUCLEAR DOTS (test code = 405651) NEGATIVE TITER NEGATIVE NUCLEOLAR (test code = 030289) NEGATIVE TITER NEGATIVE NUCLEAR MEMBRANE (test code = 754132) NEGATIVE TITER NEGATIVE CYTO. RETICULAR (AYLA) (test code = 152073) NEGATIVE NEGATIVE COMMENTS (test code = 192001) NONE METHOD (test code = 81938) (NOTE) TESTING PERFORME D BY [employer] IFA PLATFORM.THE METHOD INCLUDES A SCREEN THRESHOLD OF 1:80, DIGITIZED AND COMPUTER ALGORITHM-ASSISTED INTERPRETATION OF TITERS AND DIGITAL PATTERNS, AND HEp-2 CELL LINE SUBSTRATE. ADDITIONAL UNUSUAL PATTERNS WILL BE GIVEN COMMENTS.FOR MORE INFORMATION, SEE [email or web address] UNLESS OTHERWISE INDICATED, ALL TESTING PERFORMED AT [facility] [address] [place] [id number] PROJECT ENG: VIRGINIA CARTER M.D. CLIA NUMBER [id number] [place] [id number] COMPREHENSIVE METABOLIC [id number] 08:05:44* Test Item Value Reference Range Interpretation Comme nts GLUCOSE (test code = 2217) 106 MG/DL 70-99 H BUN (test code = 2208) 11 MG/DL 6-20 CREATININE (test code = 2214) 0.64 MG/DL 0.60-1.30 eGFR (2020 CKD-EPI) (test code = ) 113 ML/MIN/1.73 >60 CALC BUN/CREAT (test code = 2234) 17 RATIO 6-28 SODIUM (test code = 2230) 144 MEQ/L 133-146 POTASSIUM (test code = 2227) 4.2 MEQ/L 3.5-5.4 CHLORIDE (test code = 2214) 105 MEQ/L 95-107 CARBON DIOXIDE (test code = 2205) 20 MEQ/L 19-31 CALCIUM (test code = 2208) 9.4 MG/DL 8.5-10.5 PROTEIN, TOTAL (test code = 2228) 7.1 G/DL 6.1-8.3 ALBUMIN (test code = 2200) 4.4 G/DL 3.5-5.2 CALC GLOBULIN (test code = 2239) 2.7 G/DL 1.9-3.7 CALC A/G RATIO (test code = 2233) 1.6 RATIO 1.0-2.6 BILIRUBIN, TOTAL (test code = 2206) 0.2 MG/DL See_Comment [Automated me ssage] The system which generated this result transmitted reference range: <=1.2. The reference range was not used to interpret this result as normal/abnormal. ALKALINE PHOSPHATASE (test code = 2203) 77 U/L 40-113 AST (test code = 2217) 19 U/L 9-40 ALT (test code = 2218) 18 U/L 5-40 URIC [id number] 08:05:44* Test Item Value Reference Range Interpretation Comme nts URIC ACID (test code = 2232) 4.0 MG/DL 2.7-6.1 SCR MAMM BILATERAL GARRETT CAD [id number] 16:13:07 Name: Kyra : 1980 Sex: F - SCR MAMM BILATERAL GARRETT CAD DIGITALBILATERAL FIRST EVER DIGITAL SCREENING MAMMOGRAM 3D/2D WITH CAD: 11/12/2022LINICAL: Asymptomatic. Digital breast tomosynthesis was performed in addition to routine CC and MLO views. Current mammographic images were evaluated by [employer] CAD (computer-aided detection) software. No prior exams [...] evidence of malignancy. Resume annual screening mammography inone year. (11/13/2023) Kriss Dorado M.D. scg/penrad:11/17/2022 16:13:07 Production Engine Repairer: Amena Moeller MM, [facility] Mammographyletter sent: BIRADS 1-2 Normal Mammogram BI-RADS: 2 BenignT. PALLIDUM TOTAL AB WITH [id number] 10:40:04* Test Item Value Reference Range Interpretation Comme nts T. PALLIDUM TOTAL AB (test code = 25177) <0.1 INDEX SEE BELOW INTERPRETI VE INFORMATION INTERPRETATION CLINICAL T. PALLIDUM AB NEGATIVE CURRENT OR PAST INFECTION INDEX <0.9 UNLIKELY. EQUIVOCAL SPECIMEN REPEATEDLY TESTED INDEX 0.9-1.0 IN EQUIVOCAL RANGE. CONSIDER RETESTING NO SOONER THAN 1 WEEK. POSITIVE PRESUMPTIVE EVIDENCE OF INDEX >=1.1 CURRENT OR PRIOR INFECTION. CORRELATE WITH NON-TREPONEMAL AB TESTING AND CLINICAL HISTORY. HEMOGLOBIN [id number] 03:23:39* Test Item Value Reference Range Interpretation Comme nts HEMOGLOBIN A1c (test code = 65062) 5.7 % 4.2-5.6 H UNLESS OTHERWISE INDICATED, ALL TESTING [facility]MED [facility] [address] [place] [address], [place] [address] PROJECT ENG: KAN HIGHTOWER M.D. CLIA NUMBER [id number] [place]. [id number] T. PALLIDUM TOTAL AB RFLX [id number] 00:00:00* Test Item Value Reference Range Interpretation Comme nts T. PALLIDUM TOTAL AB (test c ode = 64119) <0.1 INDEX HEMOGLOBIN [id number] 00:00:00* Test Item Value Reference Range Interpretation Comme nts HEMOGLOBIN A1c (test code = 93156) 5.7 % HEMOGLOBIN [id number] 00:00:00* Test Item Value Reference Range Interpretation Comme nts HEMOGLOBIN A1c (test code = 45152) 5.7 % HEMOGLOBIN [id number] 00:00:00* Test Item Value Reference Range Interpretation Comme nts HEMOGLOBIN A1c (test code = 43755) 5.7 % HERPES SIMPLEX 1 [id number] 00:00:00* Test Item Value Reference Range Interpretation Comme nts HERPES SIMPLEX 1 IgG (test c ode = 25270) 18.500 INDEX HERPES SIMPLEX 1 [id number] 00:00:00* Test Item Value Reference Range Interpretation Comme nts HERPES SIMPLEX 1 IgG (test c ode = 62316) 18.500 INDEX HERPES SIMPLEX 2 [id number] 00:00:00* Test Item Value Reference Range Interpretation Comme nts HERPES SIMPLEX 2 IgG (test c ode = 27732) 92.700 INDEX HERPES SIMPLEX 2 [id number] 00:00:00* Test Item Value Reference Range Interpretation Comme nts HERPES SIMPLEX 2 IgG (test c ode = 79402) 92.700 INDEX COMPREHENSIVE METABOLIC [id number] 00:00:00* Test Item Value Reference Range Interpretation Comme nts GLUCOSE (test code = 2217) 149 MG/DL BUN (test code = 2208) 9 MG/DL CREATININE (test code = 2214) 0.66 MG/DL eGFR (2020 CKD-EPI) (test code = 30690) 113 ML/MIN/1.73 CALC BUN/CREAT (test code = 2235) 14 RATIO SODIUM (test code = 2231) 144 MEQ/L POTASSIUM (test code = 2228) 5.0 MEQ/L CHLORIDE (test code = 2215) 108 MEQ/L CARBON DIOXIDE (test code = 2206) 24 MEQ/L CALCIUM (test code = 2209) 8.2 MG/DL PROTEIN, TOTAL (test code = 2229) 6.2 G/DL ALBUMIN (test code = 2201) 3.8 G/DL CALC GLOBULIN (test code = 2240) 2.4 G/DL CALC A/G RATIO (test code = 2234) 1.6 RATIO BILIRUBIN, TOTAL (test code = 2207) <0.2 MG/DL ALKALINE PHOSPHATASE (test code = 2204) 67 U/L AST (test code = 2218) 16 U/L ALT (test code = 2219) 18 U/L COMPREHENSIVE METABOLIC [id number] 00:00:00* Test Item Value Reference Range Interpretation Comme nts GLUCOSE (test code = 2217) 149 MG/DL BUN (test code = 2208) 9 MG/DL CREATININE (test code = 2214) 0.66 MG/DL eGFR (2020 CKD-EPI) (test code = 72712) 113 ML/MIN/1.73 CALC BUN/CREAT (test code = 2235) 14 RATIO SODIUM (test code = 2231) 144 MEQ/L POTASSIUM (test code = 2228) 5.0 MEQ/L CHLORIDE (test code = 2215) 108 MEQ/L CARBON DIOXIDE (test code = 2206) 24 MEQ/L CALCIUM (test code = 2209) 8.2 MG/DL PROTEIN, TOTAL (test code = 2229) 6.2 G/DL ALBUMIN (test code = 2201) 3.8 G/DL CALC GLOBULIN (test code = 2240) 2.4 G/DL CALC A/G RATIO (test code = 2234) 1.6 RATIO BILIRUBIN, TOTAL (test code = 2207) <0.2 MG/DL ALKALINE PHOSPHATASE (test code = 2204) 67 U/L AST (test code = 2218) 16 U/L ALT (test code = 2219) 18 U/L [id number] 00:00:00* Test Item Value Reference Range Interpretation Comme nts D-DIMER (test code = 1405) 0.76 UG/MLFEU [id number] 00:00:00* Test Item Value Reference Range Interpretation Comme nts D-DIMER (test code = 1405) 0.76 UG/MLFEU VAGINAL PATHOGENS DNA [id number] 00:00:00* Test Item Value Reference Range Interpretation Comme nts OFE SPECIES (test code = 05018) NEGATIVE G. VAGINALIS (test code = 50139) POSITIVE T. VAGINALIS (test code = 72176) NEGATIVE VAGINAL PATHOGENS DNA [id number] 00:00:00* Test Item Value Reference Range Interpretation Comme nts OFE SPECIES (test code = ) NEGATIVE G. VAGINALIS (test code = 97280) POSITIVE T. VAGINALIS (test code = 71199) NEGATIVE HIV 1/2 4TH GEN, RFLX [id number] 00:00:00* Test Item Value Reference Range Interpretation Comme nts HIV 1/2 4TH GEN, RFLX CONF ( test code = 3514) NON-REACTIVE HIV 1/2 4TH GEN, RFLX [id number] 00:00:00* Test Item Value Reference Range Interpretation Comme nts HIV 1/2 4TH GEN, RFLX CONF ( test code = 3514) NON-REACTIVE [id number] 00:00:00* Test Item Value Reference Range Interpretation Comme nts RPR RESULT (test code = 3501) REACTIVE RPR TITER (test code = 3500) 1:1 TITER [id number] 00:00:00* Test Item Value Reference Range Interpretation Comme nts RPR RESULT (test code = 3501) REACTIVE RPR TITER (test code = 3500) 1:1 TITER [id number] 00:00:00* Test Item Value Reference Range Interpretation Comme nts RPR RESULT (test code = 3501) REACTIVE RPR TITER (test code = 3500) 1:1 TITER ACUTE HEPATITIS [id number] 00:00:00* Test Item Value Reference Range Interpretation Comme nts HEPATITIS A IgM (test code = 92916) NON-REACTIVE HEPATITIS B CORE IgM (test c ode = 4644) NON-REACTIVE HEPATITIS B SURF AG (test co de = 2739) NON-REACTIVE HEPATITIS C ANTIBODY (test c ode = 4675) NON-REACTIVE INTERPRETATION HEPATITIS A: (test code = 2552) (NOTE) INTERPRETATION HEPATITIS B: (test code = 50658) (NOTE) INTERPRETATION HEPATITIS C: (test code = 04694) (NOTE) ACUTE HEPATITIS [id number] 00:00:00* Test Item Value Reference Range Interpretation Comme nts HEPATITIS A IgM (test code = 33797) NON-REACTIVE HEPATITIS B CORE IgM (test c ode = 4644) NON-REACTIVE HEPATITIS B SURF AG (test co de = 2739) NON-REACTIVE HEPATITIS C ANTIBODY (test c ode = 4634) NON-REACTIVE INTERPRETATION HEPATITIS A: (test code = 2552) (NOTE) INTERPRETATION HEPATITIS B: (test code = 48502) (NOTE) INTERPRETATION HEPATITIS C: (test code = 11071) (NOTE) CT/NG, TMA, [id number] 00:00:00* Test Item Value Reference Range Interpretation Comme nts GONORRHEA, NAAT (test code = 10882) NEGATIVE CHLAMYDIA, NAAT (test code = 80863) NEGATIVE CT/NG, TMA, [id number] 00:00:00* Test Item Value Reference Range Interpretation Comme nts GONORRHEA, NAAT (test code = 42865) NEGATIVE CHLAMYDIA, NAAT (test code = 32184) NEGATIVE COMPREHENSIVE METABOLIC [id number] 00:00:00* Test Item Value Reference Range Interpretation Comme nts GLUCOSE (test code = 2217) 73 MG/DL BUN (test code = 2208) 14 MG/DL CREATININE (test code = 2214) 0.78 MG/DL eGFR (2020 CKD-EPI) (test co de = 28860) 98 ML/MIN/1.73 CALC BUN/CREAT (test code = 2235) 18 RATIO SODIUM (test code = 2231) 146 MEQ/L POTASSIUM (test code = 2228) 3.5 MEQ/L CHLORIDE (test code = 2215) 107 MEQ/L CARBON DIOXIDE (test code = 2206) 27 MEQ/L CALCIUM (test code = 2209) 8.2 MG/DL PROTEIN, TOTAL (test code = 2229) 6.5 G/DL ALBUMIN (test code = 2201) 3.9 G/DL CALC GLOBULIN (test code = 2240) 2.6 G/DL CALC A/G RATIO (test code = 2234) 1.5 RATIO BILIRUBIN, TOTAL (test code = 2207) <0.2 MG/DL ALKALINE PHOSPHATASE (test code = 2204) 57 U/L AST (test code = 2218) 10 U/L ALT (test code = 2219) 13 U/L COMPREHENSIVE METABOLIC [id number] 00:00:00* Test Item Value Reference Range Interpretation Comme nts GLUCOSE (test code = 2217) 73 MG/DL BUN (test code = 2208) 14 MG/DL CREATININE (test code = 2214) 0.78 MG/DL eGFR (2020 CKD-EPI) (test co de = 15956) 98 ML/MIN/1.73 CALC BUN/CREAT (test code = 2235) 18 RATIO SODIUM (test code = 2231) 146 MEQ/L POTASSIUM (test code = 2228) 3.5 MEQ/L CHLORIDE (test code = 2215) 107 MEQ/L CARBON DIOXIDE (test code = 2206) 27 MEQ/L CALCIUM (test code = 2209) 8.2 MG/DL PROTEIN, TOTAL (test code = 2229) 6.5 G/DL ALBUMIN (test code = 2201) 3.9 G/DL CALC GLOBULIN (test code = 2240) 2.6 G/DL CALC A/G RATIO (test code = 2234) 1.5 RATIO BILIRUBIN, TOTAL (test code = 2207) <0.2 MG/DL ALKALINE PHOSPHATASE (test code = 2204) 57 U/L AST (test code = 2218) 10 U/L ALT (test code = 2219) 13 U/L VAGINAL PATHOGENS DNA [id number] 00:00:00* Test Item Value Reference Range Interpretation Comme nts OFE SPECIES (test code = 18274) NEGATIVE G. VAGINALIS (test code = 59831) POSITIVE T. VAGINALIS (test code = 24619) NEGATIVE VAGINAL PATHOGENS DNA [id number] 00:00:00* Test Item Value Reference Range Interpretation Comme nts OFE SPECIES (test code = 69327) NEGATIVE G. VAGINALIS (test code = 09652) POSITIVE T. VAGINALIS (test code = 02703) NEGATIVE HIV 1/2 4TH GEN, RFLX [id number] 00:00:00* Test Item Value Reference Range Interpretation Comme nts HIV 1/2 4TH GEN, RFLX CONF ( test code = 3514) NON-REACTIVE HIV 1/2 4TH GEN, RFLX [id number] 00:00:00* Test Item Value Reference Range Interpretation Comme nts HIV 1/2 4TH GEN, RFLX CONF ( test code = 3514) NON-REACTIVE [id number] 00:00:00* Test Item Value Reference Range Interpretation Comme nts RPR RESULT (test code = 3501) REACTIVE RPR TITER (test code = 3500) 1:1 TITER [id number] 00:00:00* Test Item Value Reference Range Interpretation Comme nts RPR RESULT (test code = 3501) REACTIVE RPR TITER (test code = 3500) 1:1 TITER [id number] 00:00:00* Test Item Value Reference Range Interpretation Comme nts RPR RESULT (test code = 3501) REACTIVE RPR TITER (test code = 3500) 1:1 TITER ACUTE HEPATITIS [id number] 00:00:00* Test Item Value Reference Range Interpretation Comme nts HEPATITIS A IgM (test code = 03136) NON-REACTIVE HEPATITIS B CORE IgM (test c ode = 4644) NON-REACTIVE HEPATITIS B SURF AG (test co de = 2739) NON-REACTIVE HEPATITIS C ANTIBODY (test c ode = 4675) NON-REACTIVE INTERPRETATION HEPATITIS A: (test code = 2552) (NOTE) INTERPRETATION HEPATITIS B: (test code = 13832) (NOTE) INTERPRETATION HEPATITIS C: (test code = 51078) (NOTE) ACUTE HEPATITIS [id number] 00:00:00* Test Item Value Reference Range Interpretation Comme nts HEPATITIS A IgM (test code = 54179) NON-REACTIVE HEPATITIS B CORE IgM (test c ode = 4644) NON-REACTIVE HEPATITIS B SURF AG (test co de = 2739) NON-REACTIVE HEPATITIS C ANTIBODY (test c ode = 4675) NON-REACTIVE INTERPRETATION HEPATITIS A: (test code = 2552) (NOTE) INTERPRETATION HEPATITIS B: (test code = 99879) (NOTE) INTERPRETATION HEPATITIS C: (test code = 27077) (NOTE) CT/NG, TMA, [id number] 00:00:00* Test Item Value Reference Range Interpretation Comme nts GONORRHEA, NAAT (test code = 85637) NEGATIVE CHLAMYDIA, NAAT (test code = 28741) NEGATIVE CT/NG, TMA, [id number] 00:00:00* Test Item Value Reference Range Interpretation Comme nts GONORRHEA, NAAT (test code = 74765) NEGATIVE CHLAMYDIA, NAAT (test code = 19894) NEGATIVE COMPREHENSIVE METABOLIC [id number] 00:00:00* Test Item Value Reference Range Interpretation Comme nts GLUCOSE (test code = 2217) 73 MG/DL BUN (test code = 2208) 14 MG/DL CREATININE (test code = 2214) 0.78 MG/DL eGFR (2020 CKD-EPI) (test co de = 93965) 98 ML/MIN/1.73 CALC BUN/CREAT (test code = 2235) 18 RATIO SODIUM (test code = 2231) 146 MEQ/L POTASSIUM (test code = 2228) 3.5 MEQ/L CHLORIDE (test code = 2215) 107 MEQ/L CARBON DIOXIDE (test code = 2206) 27 MEQ/L CALCIUM (test code = 2209) 8.2 MG/DL PROTEIN, TOTAL (test code = 2229) 6.5 G/DL ALBUMIN (test code = 2201) 3.9 G/DL CALC GLOBULIN (test code = 2240) 2.6 G/DL CALC A/G RATIO (test code = 2234) 1.5 RATIO BILIRUBIN, TOTAL (test code = 2207) <0.2 MG/DL ALKALINE PHOSPHATASE (test code = 2204) 57 U/L AST (test code = 2218) 10 U/L ALT (test code = 2219) 13 U/L COMPREHENSIVE METABOLIC [id number] 00:00:00* Test Item Value Reference Range Interpretation Comme nts GLUCOSE (test code = 2217) 73 MG/DL BUN (test code = 2208) 14 MG/DL CREATININE (test code = 2214) 0.78 MG/DL eGFR (2020 CKD-EPI) (test co de = 99848) 98 ML/MIN/1.73 CALC BUN/CREAT (test code = 2235) 18 RATIO SODIUM (test code = 2231) 146 MEQ/L POTASSIUM (test code = 2228) 3.5 MEQ/L CHLORIDE (test code = 2215) 107 MEQ/L CARBON DIOXIDE (test code = 2206) 27 MEQ/L CALCIUM (test code = 2209) 8.2 MG/DL PROTEIN, TOTAL (test code = 2229) 6.5 G/DL ALBUMIN (test code = 2201) 3.9 G/DL CALC GLOBULIN (test code = 2240) 2.6 G/DL CALC A/G RATIO (test code = 2234) 1.5 RATIO BILIRUBIN, TOTAL (test code = 2207) <0.2 MG/DL ALKALINE PHOSPHATASE (test code = 2204) 57 U/L AST (test code = 2218) 10 U/L ALT (test code = 2219) 13 U/L VAGINAL PATHOGENS DNA [id number] 00:00:00* Test Item Value Reference Range Interpretation Comme nts OFE SPECIES (test code = ) NEGATIVE G. VAGINALIS (test code = 88027) POSITIVE T. VAGINALIS (test code = 12575) NEGATIVE VAGINAL PATHOGENS DNA [id number] 00:00:00* Test Item Value Reference Range Interpretation Comme nts OFE SPECIES (test code = ) NEGATIVE G. VAGINALIS (test code = 70624) POSITIVE T. VAGINALIS (test code = 63484) NEGATIVE HIV 1/2 4TH GEN, RFLX [id number] 00:00:00* Test Item Value Reference Range Interpretation Comme nts HIV 1/2 4TH GEN, RFLX CONF ( test code = 3514) NON-REACTIVE HIV 1/2 4TH GEN, RFLX [id number] 00:00:00* Test Item Value Reference Range Interpretation Comme nts HIV 1/2 4TH GEN, RFLX CONF ( test code = 3514) NON-REACTIVE [id number] 00:00:00* Test Item Value Reference Range Interpretation Comme nts RPR RESULT (test code = 3501) REACTIVE RPR TITER (test code = 3500) 1:1 TITER [id number] 00:00:00* Test Item Value Reference Range Interpretation Comme nts RPR RESULT (test code = 3501) REACTIVE RPR TITER (test code = 3500) 1:1 TITER [id number] 00:00:00* Test Item Value Reference Range Interpretation Comme nts RPR RESULT (test code = 3501) REACTIVE RPR TITER (test code = 3500) 1:1 TITER ACUTE HEPATITIS [id number] 00:00:00* Test Item Value Reference Range Interpretation Comme nts HEPATITIS A IgM (test code = 16749) NON-REACTIVE HEPATITIS B CORE IgM (test c ode = 4642) NON-REACTIVE HEPATITIS B SURF AG (test co de = 6669) NON-REACTIVE HEPATITIS C ANTIBODY (test c ode = 4686) NON-REACTIVE INTERPRETATION HEPATITIS A: (test code = 2552) (NOTE) INTERPRETATION HEPATITIS B: (test code = 15624) (NOTE) INTERPRETATION HEPATITIS C: (test code = 09810) (NOTE) ACUTE HEPATITIS [id number] 00:00:00* Test Item Value Reference Range Interpretation Comme nts HEPATITIS A IgM (test code = 53613) NON-REACTIVE HEPATITIS B CORE IgM (test c ode = 4644) NON-REACTIVE HEPATITIS B SURF AG (test co de = 2739) NON-REACTIVE HEPATITIS C ANTIBODY (test c ode = 4666) NON-REACTIVE INTERPRETATION HEPATITIS A: (test code = 2552) (NOTE) INTERPRETATION HEPATITIS B: (test code = 99515) (NOTE) INTERPRETATION HEPATITIS C: (test code = 83081) (NOTE) CT/NG, TMA, [id number] 00:00:00* Test Item Value Reference Range Interpretation Comme nts GONORRHEA, NAAT (test code = 50377) NEGATIVE CHLAMYDIA, NAAT (test code = 08622) NEGATIVE CT/NG, TMA, [id number] 00:00:00* Test Item Value Reference Range Interpretation Comme nts GONORRHEA, NAAT (test code = 65284) NEGATIVE CHLAMYDIA, NAAT (test code = 63142) NEGATIVE COMPREHENSIVE METABOLIC [id number] 00:00:00* Test Item Value Reference Range Interpretation Comme nts GLUCOSE (test code = 2217) 73 MG/DL BUN (test code = 2208) 14 MG/DL CREATININE (test code = 2214) 0.78 MG/DL eGFR (2020 CKD-EPI) (test co de = 45045) 98 ML/MIN/1.73 CALC BUN/CREAT (test code = 2235) 18 RATIO SODIUM (test code = 2231) 146 MEQ/L POTASSIUM (test code = 2228) 3.5 MEQ/L CHLORIDE (test code = 2215) 107 MEQ/L CARBON DIOXIDE (test code = 2206) 27 MEQ/L CALCIUM (test code = 2209) 8.2 MG/DL PROTEIN, TOTAL (test code = 2229) 6.5 G/DL ALBUMIN (test code = 2201) 3.9 G/DL CALC GLOBULIN (test code = 2240) 2.6 G/DL CALC A/G RATIO (test code = 2234) 1.5 RATIO BILIRUBIN, TOTAL (test code = 2207) <0.2 MG/DL ALKALINE PHOSPHATASE (test code = 2204) 57 U/L AST (test code = 2218) 10 U/L ALT (test code = 2219) 13 U/L COMPREHENSIVE METABOLIC [id number] 00:00:00* Test Item Value Reference Range Interpretation Comme nts GLUCOSE (test code = 2217) 73 MG/DL BUN (test code = 2208) 14 MG/DL CREATININE (test code = 2214) 0.78 MG/DL eGFR (2020 CKD-EPI) (test co de = 73644) 98 ML/MIN/1.73 CALC BUN/CREAT (test code = 2235) 18 RATIO SODIUM (test code = 2231) 146 MEQ/L POTASSIUM (test code = 2228) 3.5 MEQ/L CHLORIDE (test code = 2215) 107 MEQ/L CARBON DIOXIDE (test code = 2206) 27 MEQ/L CALCIUM (test code = 2209) 8.2 MG/DL PROTEIN, TOTAL (test code = 2229) 6.5 G/DL ALBUMIN (test code = 2201) 3.9 G/DL CALC GLOBULIN (test code = 2240) 2.6 G/DL CALC A/G RATIO (test code = 2234) 1.5 RATIO BILIRUBIN, TOTAL (test code = 2207) <0.2 MG/DL ALKALINE PHOSPHATASE (test code = 2204) 57 U/L AST (test code = 2218) 10 U/L ALT (test code = 2219) 13 U/L
--- NOTE | 2023-10-02 14:52 | RAD REPORT ---
EXAM DESCRIPTION: RAD - Chest Single View - 10/02/2023 2:45 pm CLINICAL HISTORY: COUGH Chest pain. COMPARISON: Chest Single View dated 03/31/2023; Chest Single View dated 12/26/2022; Chest Single View dated 05/22/2022; CHEST SINGLE VIEW dated 11/07/2012 FINDINGS: Portable technique limits examination quality. The lungs are grossly clear. The heart is normal in size. No displaced fractures. IMPRESSION: No acute intrathoracic process suspected.
--- NOTE | 2023-10-02 14:59 | RAD REPORT ---
EXAM DESCRIPTION: CT - [id number] - 10/02/2023 2:49 pm CLINICAL HISTORY: Trauma, head and neck injury. Headache;Syncope COMPARISON: Thoracic Spine W/o Cont dated 08/21/2021 TECHNIQUE: Axial 5 mm thick images of the head were obtained. Axial 2 mm thick images of the cervical spine were obtained with sagittal and coronal reconstruction images generated and reviewed. All CT scans are performed using dose optimization technique as appropriate and may include automated exposure control or mA/KV adjustment according to patient size. FINDINGS: CT HEAD WITHOUT CONTRAST: No acute hemorrhage, hydrocephalus or extra-axial collection is identified.No areas of brain edema or midline shift. The paranasal sinuses and mastoids are clear.The calvarium is intact. CT CERVICAL SPINE WITHOUT CONTRAST: No fracture or subluxation.Mild mid and lower cervical spondylosis.No prevertebral soft tissues swell ing is identified. IMPRESSION: No acute intracranial or cervical spine findings.
[2023-10-02 15:41] LABS: Absolute Basophils 0.1 K/uL (0-0.5); Absolute Eosinophils 0.3 K/uL (0-0.5); Absolute Lymphocytes (CBC) 3.2 K/uL (0.7-4.9); Absolute Monocytes 0.6 K/uL (0.1-1.3); Absolute Neutrophil 7.2 K/uL (1.8-8.0); Basophils % 1.2 % (0-1.3); Eosinophils % 2.3 % (0-4.4); Hemoglobin 14.1 g/dL (12.0-15.0); MCH 32.1 pg (27.0-35.0); MCHC 32.7 g/dL (32.0-36.0); MCV 98.1 fL (80-100); MPV 8.8 fL (7.6-11.3); Monocytes % 5.5 % (3.3-12.3); Platelets 362 thou/uL (152-406); RBC Red Blood Cell Count 4.38 M/uL (3.86-4.86); Red Cell Distribution Width 12.9 % (12.1-15.2)
[2023-10-02 15:54] LABS: PT Prothrombin Time 12.4 SECONDS (9.5-12.5); PTT, Activated Partial Thromb 34.1 SECONDS (24.3-36.9); Protime INR 1.13
[2023-10-02 16:01] LABS: ALT/SGPT 26 U/L (13-56); AST/SGOT 16 U/L (15-37); Albumin 3.8 g/dL (3.4-5.0); Albumin/Globulin Ratio 0.9 (1.1-1.8); Alkaline Phosphatase 80 U/L (45-117); BUN Blood Urea Nitrogen 12 mg/dL (7-18); Bicarbonate 28 mEq/L (21-32); Bilirubin Direct 0.1 mg/dL (0-0.2); Bilirubin Indirect, Calculated 0.1 mg/dL (0.2-0.8); Bilirubin Total 0.2 mg/dL (0.2-1.0); Globulin 4.1 g/dL (2.3-3.5); Glomerular Filtration Rate 68 ml/min (=/>90); Glucose Level 89 mg/dL (74-106); Magnesium 2.1 mg/dL (1.6-2.4); Protein, Total 7.9 g/dL (6.4-8.2); Sodium Level 137 mEq/L (136-145)
[2023-10-02 16:05] LABS: Troponin High Sensitivity < 3.0 pg/mL (<58.9)
--- NOTE | 2023-10-02 16:57 | EDPHYS ---
Physician Documentation [facility] Name: Evelyn Rosa Age: 43 yrs Sex: Female : 1980 Arrival Date: 10/02/2023 Time: 13:21 Bed 19 Private MD: Reymundo Harvey ED Physician Chon Pichardo HPI: 10/01 17:04 This 43 yrs old Black Female presents to ER via Ambulatory with complaints of Headache, kb Nausea. 17:04 Pt is a 43 year old female who presents for headache that started on Tuesday. Reports kb nausea and vomiting as well. Pt reports she vomited on Tuesday and had a syncopal episode hitting her head on the bathtub. Also reports slight cough and bodyaches. . 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 - Social history:: Smoking status: Patient reports the use of cigarette tobacco products, smokes one-half pack cigarettes per day. ROS: 17:04 Constitutional: As per HPI kb Exam: 17:04 Constitutional: This is a well developed, well nourished patient who is awake, alert, kb and in no acute distress. Head/Face: Normocephalic, atraumatic. Eyes: Pupils equal round and reactive to light, extra-ocular motions intact. Lids and lashes normal. Conjunctiva and sclera are non-icteric and not injected. Cornea within normal limits. Periorbital areas with no swelling, redness, or edema. ENT: Moist Mucous membranes Cardiovascular: Regular rate Respiratory: Respirations even and unlabored. No increased work of breathing. Talking in full sentences Abdomen/GI: Soft, non-tender. No distention Skin: Warm, dry with normal turgor. Normal color. MS/ Extremity: Pulses equal, no cyanosis. Neurovascular intact. Full, normal range of motion. Neuro: Awake and alert, GCS 15, oriented to person, place, time, and situation. Moves all extremities. Normal gait. Vital Signs: 13:34 BP 121 / 79; Pulse 114; Resp 18; Temp 98.9(O); Pulse Ox 100% ; Weight 81.65 kg; Height nj1 5 ft. 5 in. ; Pain 10/10; 15:53 BP 126 / 93 Supine; jg11 15:53 BP 126 / 95 Sitting; jg11 15:53 BP 135 / 106 Standing; jg11 17:11 BP 120 / 76; Pulse 99; Resp 18; Pulse Ox 99% ; cp4 13:34 Body Mass Index 29.95 (81.65 kg, 165.1 cm) nj1 13:34 Pain Scale: Adult nj1 Mark Coma Score: 17:04 Eye Response: spontaneous(4). Motor Response: obeys commands(6). Verbal Response: kb oriented(5). Total: 15. MDM: 13:52 Patient medically screened. kb 17:04 Differential diagnosis: intracerebral hemorrhage, migraine, sinusitis, tension kb headache, traumatic injuries. Data reviewed: vital signs, nurses notes. Counseling: I had a detailed discussion with the patient and/or guardian regarding the historical points, exam findings, and any diagnostic results supporting the discharge/admit diagnosis, lab results, radiology results, the need for outpatient follow up, a family practitioner, to return to the emergency department if symptoms worsen or persist or if there are any questions or concerns that arise at home. Response to treatment: the patient's symptoms have resolved after treatment. 10/01 14:14 Order name: Basic Metabolic Panel; Complete Time: 16:10 kb 10/01 14:14 Order name: CBC with Diff; Complete Time: 16:03 kb 10/01 14:14 Order name: Hepatic Function; Complete Time: 16:10 kb 10/01 14:14 Order name: Magnesium; Complete Time: 16:10 kb 10/01 14:14 Order name: Protime (+inr); Complete Time: 16:03 kb 10/01 14:14 Order name: Ptt, Activated; Complete Time: 16: kb 10/01 14:14 Order name: Troponin High Sensitivity; Complete Time: 16:10 kb 10/01 14:14 Order name: Flu; Complete Time: 15:36 kb 10/01 14:14 Order name: COVID-19 SARS RT PCR; Complete Time: 15:43 kb 10/01 14:14 Order name: CT Head C Spine; Complete Time: 15:06 kb 10/01 14:14 Order name: Chest Single View XRAY; Complete Time: 14:54 kb 10/01 14:14 Order name: EKG; Complete Time: 14:15 kb 10/01 14:14 Order name: Cardiac monitoring; Complete Time: 15:06 kb 10/01 14:14 Order name: EKG - Nurse/Tech; Complete Time: 15:06 kb 10/01 14:14 Order name: IV Saline Lock; Complete Time: 16:07 kb 10/01 14:14 Order name: Labs collected and sent; Complete Time: 16:07 kb 10/01 14:14 Order name: NPO; Complete Time: 15:06 kb 10/01 14:14 Order name: O2 Per Protocol; Complete Time: 15:06 kb 10/01 14:14 Order name: O2 Sat Monitoring; Complete Time: 15:06 kb 10/01 14:14 Order name: Orthostatics; Complete Time: 15:54 kb Administered Medications: 15:41 Drug: Decadron - Dexamethasone IVP 10 mg IVP once Route: IVP; Site: right antecubital; cp4 15:41 Drug: diphenhydrAMINE IVP 12.5 mg IVP once Route: IVP; Site: right antecubital; cp4 15:41 Drug: metoCLOPramide IVP 10 mg IVP once; over 1 to 2 minutes Route: IVP; Site: right cp4 antecubital; 15:42 Drug: NS 0.9% IV 1000 ml IV at 1000 ml once Route: IV; Rate: 1000 ml; Site: right cp4 antecubital; 16:12 Drug: Fioricet - Esgic PO 325 mg-40 mg-50 mg 1 tab-caps PO once Route: PO; cp4 Disposition Summary: 10/02/23 16:56 Discharge Ordered Notes: Location: Home kb Condition: Stable kb Diagnosis - Headache kb - Syncope kb Followup: kb - With: Emergency Department - When: As needed - Reason: Worsening of condition Followup: kb - With: Private Physician - When: 2 - 3 days - Reason: Recheck today's complaints, Continuance of care, Re-evaluation by your physician Discharge Instructions: - Discharge Summary Sheet kb - Migraine Headache, [id number]-[id number] kb - General Headache Without Cause, Xzcl-dg-[id number] kb - Vasovagal Syncope, Pediatric kb Forms: - Medication Reconciliation Form kb - Thank You Letter kb - Antibiotic Education kb - Prescription Opioid Use kb - Patient Portal Instructions kb - Leadership Thank You Letter kb Signatures: Dispatcher [employer] Miladis Ott, KILN PULLER-C Nayla Villanueva RN RN nj1 Valentina Willis cp4
--- NOTE | 2023-10-02 16:57 | ER ---
Nurse's Notes [facility] Name: Evelyn Rosa Age: 43 yrs Sex: Female : 1980 Arrival Date: 10/02/2023 Time: 13:21 Bed 19 Private MD: Reymundo Harvey Diagnosis: Headache;Syncope Presentation: 10/01 13:34 Chief complaint: Patient states: Headache since Tuesday, not getting better, nauseous. nj1 Vomiting Tuesday and Tuesday, none today. States she fell Tuesday after vomiting while at the bathroom, hitting her head on the bathtub. Has tried topamax and excedrin with no relief. Has not taken anything today. Coronavirus screen: Vaccine status: Patient reports receiving the 2nd dose of the covid vaccine. Ebola Screen: Patient denies travel to an Ebola-affected area in the 21 days before illness onset. Initial Sepsis Screen: Does the patient meet any 2 criteria? HR > 90 bpm. No. Patient's initial sepsis screen is negative. Does the patient have a suspected source of infection? No. Patient's initial sepsis screen is negative. Risk Assessment: Do you want to hurt yourself or someone else? Patient reports no desire to harm self or others. Onset of symptoms was September 30, 2023. 13:34 Method Of Arrival: Ambulatory [facility] 13:34 Acuity: INDIGO 3 nj1 Triage Assessment: 17:13 Headache History: Denies prior headaches. General: Appears uncomfortable, Behavior is cp4 calm, cooperative, appropriate for age. Pain: Also complains of. Pain: Pain began suddenly. 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 - Social history:: Smoking status: Patient reports the use of cigarette tobacco products, smokes one-half pack cigarettes per day. Screenin:32 [facility] ED Fall Risk Assessment (Adult) History of falling in the last 3 months, cp4 including since admission No falls in past 3 months (0 pts). [facility] ED Fall Risk Assessment (Adult) Confusion or Disorientation No (0 pts) Intoxicated or Sedated No (0 pts) Impaired Gait No (0 pts) Mobility Assist Device Used No (0 pt) Altered Elimination No (0 pt) Score/Fall Risk Level 0 - 2 = Low Risk Oriented to surroundings, Maintained a safe environment, Assessed \T\ reinforced patient's understanding of fall precautions, Hourly rounding (assess needs \T\ fall precautionary measures) done. Abuse screen: Denies threats or abuse. Nutritional screening: No deficits noted. Tuberculosis screening: No symptoms or risk factors identified. Assessment: 15:32 General: Appears uncomfortable, Behavior is calm, cooperative, appropriate for age. cp4 Pain: Complains of pain in headache Pain currently is 8 out of 10 on a pain scale. Neuro: No deficits noted. Reports headache. Vital Signs: 13:34 BP 121 / 79; Pulse 114; Resp 18; Temp 98.9(O); Pulse Ox 100% ; Weight 81.65 kg; Height nj1 5 ft. 5 in. ; Pain 10/10; 15:53 BP 126 / 93 Supine; jg11 15:53 BP 126 / 95 Sitting; jg11 15:53 BP 135 / 106 Standing; jg11 17:11 BP 120 / 76; Pulse 99; Resp 18; Pulse Ox 99% ; cp4 13:34 Body Mass Index 29.95 (81.65 kg, 165.1 cm) nj1 13:34 Pain Scale: Adult nj1 [place] Coma Score: 17:04 Eye Response: spontaneous(4). Motor Response: obeys commands(6). Verbal Response: kb oriented(5). Total: 15. ED Course: 13:25 Patient arrived in ED. mr 13:25 Reymundo Harvey is Private Physician. mr 13:39 Triage completed. nj1 13:40 Arm band placed on right wrist. nj1 13:42 Valentina Willis is Primary Nurse. cp4 13:52 [facility]C [facility]. kb 13:52 Chon Pichardo MD is Attending Physician. kb 14:[address] via stretcher. cp4 14:47 Chest Single View XRAY In Process Unspecified. EDMS 14:51 CT Head C Spine In Process Unspecified. EDMS 15:06 COVID-19 SARS RT PCR Sent. cp4 15:06 Flu Sent. cp4 15:25 Inserted saline lock: 20 gauge in right antecubital area, using aseptic technique. nj1 ,using aseptic technique. Ultrasound guided. Catheter tip well visualized within vasculature during placement. Blood collected. 15:32 Bed in low position. Call light in reach. Side rails up X 1. cp4 15:32 No provider procedures requiring assistance completed. cp4 17:13 Provided Education on: headaches. cp4 17:13 intact, bleeding controlled, No redness/swelling at site. Pressure dressing applied. cp4 Administered Medications: 15:41 Drug: Decadron - Dexamethasone IVP 10 mg IVP once Route: IVP; Site: right antecubital; cp4 15:41 Drug: diphenhydrAMINE IVP 12.5 mg IVP once Route: IVP; Site: right antecubital; cp4 15:41 Drug: metoCLOPramide IVP 10 mg IVP once; over 1 to 2 minutes Route: IVP; Site: right cp4 antecubital; 15:42 Drug: NS 0.9% IV 1000 ml IV at 1000 ml once Route: IV; Rate: 1000 ml; Site: right cp4 antecubital; 16:12 Drug: Fioricet - Esgic PO 325 mg-40 mg-50 mg 1 tab-caps PO once Route: PO; cp4 Medication: 15:32 VIS not applicable for this client. cp4 Outcome: 16:56 Discharge ordered by MD. jason 17:13 Discharged to home ambulatory, cp4 17:13 Condition: stable 17:13 Discharge instructions given to patient, Instructed on discharge instructions, follow up and referral plans. Demonstrated understanding of instructions, follow-up care, 17:14 Patient left the ED. cp4 Signatures: Dispatcher [employer] EDMS Miladis Ramirez, RAW CHEESE WORKER-C RAW CHEESE WORKER-Aishwarya Rojas, Jose Garcia mr Nayla Guajardo, RN RN nj1 Valentina Willis cp4 Cornelius Mahmood jg11
[2023-10-02 17:34] VITALS: BP 120/76; TEMP 98.9; O2SAT 99
--- NOTE | 2023-10-03 14:16 | EKG ---
Test Date: 2023-10-02 Test Time: 14:47:08 Chief Scientist: JANUARY MEASUREMENT RESULTS: Intervals: Rate: 94 GA: 126 QRSD: 82 QT: 364 QTc: 455 [place]: P: 63 GA: 126 QRS: 57 T: 52 INTERPRETIVE STATEMENTS: Normal sinus rhythm Normal ECG Compared to ECG 03/31/2023 12:31:50 Atrial premature complex(es) no longer present Electronically Signed On 10-03-23 14:13:45 CDT by Cole Richardosn
== END ==
LOC: ER 13:21
DX: R51.9 Headache, unspecified (principal); R55 Syncope and collapse; F17.219 Nicotine dependence, cigarettes, with unspecified nicotine-induced disorders; Z11.52 Encounter for screening for COVID-19; Z88.0 Allergy status to penicillin; Z88.5 Allergy status to narcotic agent
CPT/HCPCS: 93005; 85025; 80048; 36415; 83735; 85610; 80076; 85730; 84484; 87635; 87804 ×2; 70450; 72125; 71045; J2765; J1200; J1100; J7030; 96374; 96375; 99285

== ENCOUNTER 2023-10-25 04:47 | Emergency (ER) | payer OTHER ==
--- OUTSIDE RECORDS SUMMARY | 2023-10-25 04:51 | XMS REPORT | Continuity of Care Document ---
Author Name Unknown Address [address] [facility]. [address] [place] [address] [facility] thconnect Address [address] [facility] [address] [place] [address] Care Team Providers Care Conditioning Yard Supervisor Name Role Phone Reymundo Harvey Primary Care Physician Doctor Unassigned, [place] Attending Clinician U Geneva Sharma DO Attending Clinician [phone] GENEVA RODRÍGUEZ Attending Clinician Unavailab le Payers Payer Name Policy Type Policy Number Effective Date Expirati on Date Source [facility] [id number] 2022 00:00:00 Problems Condition Name Condition Details Condition Category Status Onset Date Resolution Date Last Treatment Date Treating Clinician Comments Source Nausea & vomiting Nausea & vomiting Disease Active 2010-07 00:00: 00 [facility] Abdominal pain, acute, epigastric Abdominal pain, acute, epigastric Disease Active 2010-07 00:00: 00 [facility] Leukocytos is Leukocytos is Disease Active 2010-07 00:00: 00 Overview: Formattin g of this note might be different from the original. 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 Utility [facility] Hypokalemi a Hypokalemi a Disease Active 2010-07 00:00: 00 [facility] Metabolic acidosis Metabolic acidosis Disease Active 2010-07 00:00: 00 [facility] Allergies, Adverse Reactions, Alerts Allergy Name Allergy Type Status Severity Reaction(s) Onset Date Inactive Date Treating Clinician Comments Source Penicill ins - CLASS Propensi ty to adverse reaction to drug Active 2021-07 00:00: 00 Ketorola c Propensi ty to adverse reaction s Active Rash 2021-07 0- 00:00: 00 [facility] KETOROLA C DRUG INGREDI Active Rash 2021-07 0- 00:00: 00 [facility] Penicill ins Propensi ty to adverse reaction to drug Active 09-02 00:00: 00 Penicill ins Propensi ty to adverse reaction s Active Unknown - See comments 2015-07 00:00: 00 [facility] PENICILL INS Drug Class Active Unknown-Cmnt 2015-07 00:00: 00 [facility] Social History Social Habit Start Date Stop Date Quantity Comments Source History of tobacco use Cigarette Smoker [facility] Gender identity [facility] Sexual orientation U [facility] Exposure to SARS-CoV-2 (event) 2022-04-20 00:00:00 2022-04-30 13:23:00 Not sure [facility] Alcohol intake 2016-05-05 00:00:00 2016-05-05 00:00:00 Current drinker of alcohol (finding) [facility] History of Social function 2016-05-05 00:00:00 2016-05-05 00:00:00 [facility] Cigarettes smoked current (pack per day) - Reported 2011-06-18 00:00:00 2011-06-18 00:00:00 [facility] Cigarette pack-years 2011-06-18 00:00:00 2011-06-18 00:00:00 [facility] Sex Assigned At 1980 00:00:00 1980 00:00:00 [facility] Smoking Status Start Date Stop Date Source Never smoked tobacco [facility] Medications Ordered Medication Name Filled Medication Name [...] DAY NEEDED. 2021-07 00:00: 00 No 5 Dose [...] MOUTH EVERY EIGHT HOURS NEEDED FOR COUGH. 2021-07 00:00: 00 No 100 Dose Unknown [...] 08-07 00:00: 00 No 5 Dose Unknown 0 08-07 00:00: 00 No Dose Unknown 0 08-07 00:00: 00 No Dose Unknown 08-07 [...] No azithromyci n 250 mg tablet 2020-07 00:00: 00 No mg benzonatate 100 mg [...] (scale 4-6) or Pain (scale 7-10). [facility] pantoprazol e (PROTONIX) 40 mg EC tablet 2015-07 00:00: 00 Yes 40mg Take 1 tablet by mouth daily. [facility] proMETHazin e (PHENERGAN) 25 mg tablet 2015-07 00:00: 00 Yes 25mg Take 1 tablet by mouth every 6 (six) hours as needed for Nausea and Vomiting (N/V). [facility] Vital Signs Vital Name Observation Time Observation Value Comments S ource Body weight 2022-04-30 18:23:16 79.379 kg [facility] BMI 2022-04-30 18:23:16 29.12 kg/m2 [facility] Systolic blood pressure 2022-04-30 18:16:00 128 mm[Hg] [facility] Diastolic blood pressure 2022-04-30 18:16:00 81 mm[Hg] [facility] Heart rate 2022-04-30 18:16:00 92 /min [facility] Body temperature 2022-04-30 18:16:00 37.06 Brandy [facility] Respiratory rate 2022-04-30 18:16:00 18 /min [facility] Body height 2022-04-30 18:16:00 165.1 cm [facility] Oxygen saturation in Arterial blood by Pulse oximetry 2022-04-30 18:16:00 96 /min [facility] BP Systolic 2022-07-28 10:17:00 123 mm[Hg] BP [...] Source REFERRAL- REQUEST/RESPONSE 2023-03-22 05:01:00 Doctor Unassigned, [place] [facility] AUTHORIZATION FOR RELEASE OF PHI 2022-09-30 05:01:00 Doctor Unassigned, [place] [facility] RAPID INFLUENZA A/B 2022-04-30 18:27:00 Tiff Rodríguez ra [facility] COVID-19 (ID NOW RAPID TESTING) 2022-04-30 18:27:00 Geneva Rodríguez [facility] CONSENT/REFUSAL FOR DIAGNOSIS AND TREATMENT 2022-04-30 18:06:22 Doctor Unassigned, [place] [facility] Plan of Care Planned Activity Planned Date Details Comments Source Goal Plan of Care Note [code = 79307-5] Goal Plan of Care Note [code = 08084-5] Goal Plan of Care Note [code = 00849-6] Goal Plan of Care Note [code = 94156-7] Goal Plan of Care Note [code = 96810-9] Goal Plan of Care Note [code = 90815-4] Goal Plan of Care Note [code = 08947-5] Goal Plan of Care Note [code = 28815-0] Goal Plan of Care Note [code = 07102-5] Goal Plan of Care Note [code = 75964-3] Goal Plan of Care Note [code = 62401-5] Goal Plan of Care Note [code = 90097-6] Goal Plan of Care Note [code = 32192-4] Goal Plan of Care Note [code = 67443-6] Goal Plan of Care Note [code = 12971-9] Goal Plan of Care Note [code = 38840-1] Goal Plan of Care Note [code = 48614-3] Goal Plan of Care Note [code = 51578-1] Goal Plan of Care Note [code = 54171-5] Goal Plan of Care Note [code = 34449-3] Goal Plan of Care Note [code = 05304-1] Goal Plan of Care Note [code = 59536-6] Goal Plan of Care Note [code = 74857-8] Goal Plan of Care Note [code = 37163-6] Goal Plan of Care Note [code = 96899-4] Goal Plan of Care Note [code = 49681-3] Goal Plan of Care Note [code = 94013-5] Goal Plan of Care Note [code = 17597-4] Goal Plan of Care Note [code = 84449-4] Goal Plan of Care Note [code = 51831-6] Goal Plan of Care Note [code = 67990-2] Goal Plan of Care Note [code = 69034-5] Goal Plan of Care Note [code = 74612-0] Goal Plan of Care Note [code = 90933-2] Goal Plan of Care Note [code = 25943-0] Goal Plan of Care Note [code = 31362-8] Goal Plan of Care Note [code = 80438-2] Goal Plan of Care Note [code = 98189-2] Goal Plan of Care Note [code = 30288-0] Goal Plan of Care Note [code = 70067-8] Goal Plan of Care Note [code = 60047-0] Goal Plan of Care Note [code = 47761-1] Goal Plan of Care Note [code = 95374-1] Encounters Start Date/Time End Date/Time Encounter Type Admission Type Attending [facility] Care Facility Care Department Encounter ID Source 2022-11-24 09:13:56 Outpatient [facility] [id number] [facility] 2023-03-22 11:08:58 2023-03-22 11:08:58 Outpatient [facility] [id number] Reginald Dwyer 2023-03-22 00:00:00 2023-03-22 00:00:00 Orders Only Doctor Unassigned, [place] [facility] [id number] [facility] 2022-12-22 10:58:01 2022-12-22 10:58:01 Outpatient [facility] [id number] Reginald Diaz Reymundo 2022-12-15 13:54:13 2022-12-15 13:54:13 Outpatient [facility] [id number] Reginald Diaz Reymundo 2022-12-10 13:13:19 2022-12-10 13:13:19 Outpatient [facility] [id number] Reginald Diaz Conner 2022-12-08 14:35:59 2022-12-08 14:35:59 Outpatient [facility] [id number] Reginald Diaz Reymundo 2022-09-30 00:00:00 2022-09-30 00:00:00 Orders Only Doctor Unassigned, [place] [facility] [id number] [id number] [id number] [facility] 2022-08-02 14:37:45 2022-08-02 14:37:45 Outpatient [facility] 0123 Reginald Dwyer 2022-07-28 10:11:02 2022-07-28 10:11:02 Outpatient [facility] 0118 Reginald Diaz Reymundo 2022-07-28 00:00:00 2022-07-28 00:00:00 Outpatient Visit [id number] 2022-06-21 08:09:11 2022-06-21 08:09:11 Outpatient [facility] S[facility] 2 Reginald Dwyer 2022-06-19 10:15:22 2022-06-19 10:15:22 Outpatient [facility] 1209 Reginald Dwyer 2022-06-18 11:18:31 2022-06-18 11:18:31 Outpatient SFA SFA 9 Reginald Dwyer 2022-06-18 00:00:00 2022-06-18 00:00:00 Outpatient Visit [id number] 2022-06-14 13:27:35 2022-06-14 13:27:35 Outpatient SFA SFA 5 Reginald Dwyer 2022-06-14 00:00:00 2022-06-14 00:00:00 Outpatient Visit [id number] 2022-06-10 11:10:28 2022-06-10 11:10:28 Outpatient SFA SFA 1200 Reginald Dwyer 2022-06-04 00:00:00 2022-06-04 00:00:00 Outpatient Visit [id number] 2022-04-30 13:21:00 2022-04-30 13:57:00 Emergency Geneva Rodríguez [facility] [id number] 350.1.13.10 4.2.7.2.686 [id number] [facility] 2022-04-30 13:21:00 2022-04-30 13:57:00 Emergency X GENEVA RODRÍGUEZ [facility] ERT [id number] [facility] Results Test Description Test Time Test Comments Results Result Co mments Source RHEUMATOID FACTOR, [id number] 06:57:29* Test Item Value Reference Range Interpretation Comme nts RHEUMATOID FACTOR, QUANT (te st code = 3502) <10 IU/ML <14 C-REACTIVE [id number] 06:45:47* Test Item Value Reference Range Interpretation Comme nts C-REACTIVE PROTEIN (test cod e = 3513) 0.4 MG/DL <0.5 SEDIMENTATION [id number] 04:36:47* Test Item Value Reference Range Interpretation Comme nts SEDIMENTATION RATE (test cod e = 1017) 2 MM/HOUR 0-20 CBC W/AUTO DIFF WITH [id number] 02:24:44* Test Item Value Reference Range Interpretation [...] = 1065) 0.0 /100 WBC'S See_Comment [Automated Pinpoint MDa ge] The system which generated this result [...] 0.00-0.10 ABS NUCLEATED RBCS (test code = 80104) 0.00 K/UL 0.00-0.11 VARUN (ANTI-NUCLEAR AB) WITH REFLEX [id number] 01:59:28* Test Item Value Reference Range Interpretation Comme nts ANTI-NUCLEAR ANTIBODIES (test code = 3506) NEGATIVE NEGATIVE Methodology is I ndirect Immunofluorescent Assay (IFA) with a titering system using [id number] cells (Hep2 cells transfected with SS-A/Ro). VARUN PATTERN (REPORTED TITER) (test code = 09803) SEE BELOW HOMOGENEOUS (test code = 87018) NEGATIVE TITER NEGATIVE SPECKLED (test code = 678389) NEGATIVE TITER NEGATIVE DENSE FINE SPECKLED (test code = 66890) NEGATIVE TITER NEGATIVE CENTROMERE (test code = 160693) NEGATIVE TITER NEGATIVE COARSE SPECKLED (test code = 624300) NEGATIVE TITER NEGATIVE DISCRETE NUCLEAR DOTS (test code = 112050) NEGATIVE TITER NEGATIVE NUCLEOLAR (test code = 840675) NEGATIVE TITER NEGATIVE NUCLEAR MEMBRANE (test code = 337807) NEGATIVE TITER NEGATIVE CYTO. RETICULAR (AYLA) (test code = 974656) NEGATIVE NEGATIVE COMMENTS (test code = 350849) NONE METHOD (test code = 03441) (NOTE) TESTING PERFORME D BY deltaDNA IFA PLATFORM.THE METHOD INCLUDES A SCREEN THRESHOLD OF 1:80, DIGITIZED AND COMPUTER ALGORITHM-ASSISTED INTERPRETATION OF TITERS AND DIGITAL PATTERNS, AND HEp-2 CELL LINE SUBSTRATE. ADDITIONAL UNUSUAL PATTERNS WILL BE GIVEN COMMENTS.FOR MORE INFORMATION, SEE [email or web address] UNLESS OTHERWISE INDICATED, ALL TESTING PERFORMED AT [facility] [address] [place] [address] RADIO FREQUENCY TECHNICIAN: VIRGINIA CARTER M.D. [place] NUMBER [id number] [facility] [place] [id number] COMPREHENSIVE METABOLIC [id number] 08:05:44* Test Item Value Reference Range Interpretation Comme nts GLUCOSE (test code = 2216) 106 MG/DL 70-99 H BUN (test code = 2207) 11 MG/DL 6-20 CREATININE (test code = 221) 0.64 MG/DL 0.60-1.30 eGFR (2020 CKD-EPI) (test code = 83188) 113 ML/MIN/1.73 >60 CALC BUN/CREAT (test code = 5) 17 RATIO 6-28 SODIUM (test code = 223) 144 MEQ/L 133-146 POTASSIUM (test code = 2228) 4.2 MEQ/L 3.5-5.4 CHLORIDE (test code = 2214) 105 MEQ/L 95-107 CARBON DIOXIDE (test code = 220) 20 MEQ/L 19-31 CALCIUM (test code = 2209) 9.4 MG/DL 8.5-10.5 PROTEIN, TOTAL (test code = 222) 7.1 G/DL 6.1-8.3 ALBUMIN (test code = 2201) 4.4 G/DL 3.5-5.2 CALC GLOBULIN (test code = 2240) 2.7 G/DL 1.9-3.7 CALC A/G RATIO (test code = 223) 1.6 RATIO 1.0-2.6 BILIRUBIN, TOTAL (test code = 220) 0.2 MG/DL See_Comment [Automated me ssage] The system which generated this result transmitted reference range: <=1.2. The reference range was not used to interpret this result as normal/abnormal. ALKALINE PHOSPHATASE (test code = 2203) 77 U/L 40-113 AST (test code = 2218) 19 U/L 9-40 ALT (test code = 2219) 18 U/L 5-40 URIC [id number] 08:05:44* Test Item Value Reference Range Interpretation Comme nts URIC ACID (test code = 2232) 4.0 MG/DL 2.7-6.1 SCR MAMM BILATERAL GARRETT CAD [id number] 16:13:07 Name: Kyra : 1980 Sex: F - SCR MAMM BILATERAL GARRETT CAD DIGITALBILATERAL FIRST EVER DIGITAL SCREENING MAMMOGRAM 3D/2D WITH CAD: 11/12/2022LINICAL: Asymptomatic. Digital breast tomosynthesis was performed in addition to routine CC and MLO views. Current mammographic images were evaluated by [employer] CAD (computer-aided detection) software. No prior exams [...] annual screening mammography inone year. (11/13/2023) Kriss faust/titus:11/17/2022 16:13:07 Automobile Body Worker: Amena Moeller MM, [facility] Mammographyletter sent: BIRADS 1-2 Normal Mammogram BI-RADS: 2 BenignT. PALLIDUM TOTAL AB WITH [id number] 10:40:04* Test Item Value Reference Range Interpretation Comme nts T. PALLIDUM TOTAL AB (test code = 89354) <0.1 INDEX SEE BELOW INTERPRETI VE INFORMATION INTERPRETATION CLINICAL T. PALLIDUM AB NEGATIVE CURRENT OR PAST INFECTION INDEX <0.9 UNLIKELY. EQUIVOCAL SPECIMEN REPEATEDLY TESTED INDEX 0.9-1.0 IN EQUIVOCAL RANGE. CONSIDER RETESTING NO SOONER THAN 1 WEEK. POSITIVE PRESUMPTIVE EVIDENCE OF INDEX >=1.1 CURRENT OR PRIOR INFECTION. CORRELATE WITH NON-TREPONEMAL AB TESTING AND CLINICAL HISTORY. HEMOGLOBIN [id number] 03:23:39* Test Item Value Reference Range Interpretation Comme nts HEMOGLOBIN A1c (test code = 43910) 5.7 % 4.2-5.6 H UNLESS OTHERWISE INDICATED, ALL [facility]ING [facility]FOR[email or web address] [address] [place] [address] RADIO FREQUENCY TECHNICIAN: KNA HIGHTOWER M.D. IA NUMBER [id number] [facility] [place]. [id number] T. PALLIDUM TOTAL AB RFLX [id number] 00:00:00* Test Item Value Reference Range Interpretation Comme nts T. PALLIDUM TOTAL AB (test c ode = 97239) <0.1 INDEX HEMOGLOBIN [id number] 00:00:00* Test Item Value Reference Range Interpretation Comme nts HEMOGLOBIN A1c (test code = 25725) 5.7 % HEMOGLOBIN [id number] 00:00:00* Test Item Value Reference Range Interpretation Comme nts HEMOGLOBIN A1c (test code = 71878) 5.7 % HEMOGLOBIN [id number] 00:00:00* Test Item Value Reference Range Interpretation Comme nts HEMOGLOBIN A1c (test code = 99427) 5.7 % HERPES SIMPLEX 1 [id number] 00:00:00* Test Item Value Reference Range Interpretation Comme nts HERPES SIMPLEX 1 IgG (test c ode = 24624) 18.500 INDEX HERPES SIMPLEX 1 [id number] 00:00:00* Test Item Value Reference Range Interpretation Comme nts HERPES SIMPLEX 1 IgG (test c ode = 35854) 18.500 INDEX HERPES SIMPLEX 2 [id number] 00:00:00* Test Item Value Reference Range Interpretation Comme nts HERPES SIMPLEX 2 IgG (test c ode = 50110) 92.700 INDEX HERPES SIMPLEX 2 [id number] 00:00:00* Test Item Value Reference Range Interpretation Comme nts HERPES SIMPLEX 2 IgG (test c ode = 36952) 92.700 INDEX COMPREHENSIVE METABOLIC [id number] 00:00:00* Test Item Value Reference Range Interpretation Comme nts GLUCOSE (test code = 2217) 149 MG/DL BUN (test code = 2208) 9 MG/DL CREATININE (test code = 2214) 0.66 MG/DL eGFR (2020 CKD-EPI) (test code = 19223) 113 ML/MIN/1.73 CALC BUN/CREAT (test code = [...] code = 2219) 18 U/L COMPREHENSIVE METABOLIC [id number] 00:00:00* Test Item Value Reference Range Interpretation Comme nts GLUCOSE (test code = 2217) 149 MG/DL BUN (test code = 2208) 9 MG/DL CREATININE (test code = 2214) 0.66 MG/DL eGFR (2020 CKD-EPI) (test code = 06415) 113 ML/MIN/1.73 CALC BUN/CREAT (test code = [...] ALT (test code = 2219) 18 U/L [id number] 00:00:00* Test Item Value Reference Range Interpretation Comme nts D-DIMER (test code = 1405) 0.76 UG/MLFEU [id number] 00:00:00* Test Item Value Reference Range Interpretation Comme nts D-DIMER (test code = 1405) 0.76 UG/MLFEU VAGINAL PATHOGENS DNA [id number] 00:00:00* Test Item Value Reference Range Interpretation Comme nts OFE SPECIES (test code = 82915) NEGATIVE G. VAGINALIS (test code = 15710) POSITIVE T. VAGINALIS (test code = 56566) NEGATIVE VAGINAL PATHOGENS DNA [id number] 00:00:00* Test Item Value Reference Range Interpretation Comme nts OFE SPECIES (test code = 57593) NEGATIVE G. VAGINALIS (test code = 23331) POSITIVE T. VAGINALIS (test code = 24911) NEGATIVE HIV 1/2 4TH GEN, RFLX [id number] 00:00:00* Test Item Value Reference Range Interpretation Comme nts HIV 1/2 4TH GEN, RFLX CONF ( test code = 3514) NON-REACTIVE HIV 1/2 4TH GEN, RFLX [id number] 00:00:00* Test Item Value Reference Range Interpretation Comme nts HIV 1/2 4TH GEN, RFLX CONF ( test code = 3514) NON-REACTIVE [id number] 00:00:00* Test Item Value Reference Range Interpretation Comme nts RPR RESULT (test code = 3501) REACTIVE RPR TITER (test code = 3500) 1:1 TITER [id number] 00:00:00* Test Item Value Reference Range Interpretation Comme nts RPR RESULT (test code = 3501) REACTIVE RPR TITER (test code = 3500) 1:1 TITER [id number] 00:00:00* Test Item Value Reference Range Interpretation Comme nts RPR RESULT (test code = 3501) REACTIVE RPR TITER (test code = 3500) 1:1 TITER ACUTE HEPATITIS [id number] 00:00:00* Test Item Value Reference Range Interpretation Comme nts HEPATITIS A IgM (test code = 42963) NON-REACTIVE HEPATITIS B CORE IgM (test c ode = 4644) NON-REACTIVE HEPATITIS B SURF AG (test co de = 2739) NON-REACTIVE HEPATITIS C ANTIBODY (test c ode = 4675) NON-REACTIVE INTERPRETATION HEPATITIS A: (test code = 2552) (NOTE) INTERPRETATION HEPATITIS B: (test code = 75648) (NOTE) INTERPRETATION HEPATITIS C: (test code = 82808) (NOTE) ACUTE HEPATITIS [id number] 00:00:00* Test Item Value Reference Range Interpretation Comme nts HEPATITIS A IgM (test code = 23900) NON-REACTIVE HEPATITIS B CORE IgM (test c ode = 4644) NON-REACTIVE HEPATITIS B SURF AG (test co de = 2739) NON-REACTIVE HEPATITIS C ANTIBODY (test c ode = 4675) NON-REACTIVE INTERPRETATION HEPATITIS A: (test code = 2552) (NOTE) INTERPRETATION HEPATITIS B: (test code = 04078) (NOTE) INTERPRETATION HEPATITIS C: (test code = 93258) (NOTE) CT/NG, TMA, [id number] 00:00:00* Test Item Value Reference Range Interpretation Comme nts GONORRHEA, NAAT (test code = 95859) NEGATIVE CHLAMYDIA, NAAT (test code = 62987) NEGATIVE CT/NG, TMA, [id number] 00:00:00* Test Item Value Reference Range Interpretation Comme nts GONORRHEA, NAAT (test code = 95500) NEGATIVE CHLAMYDIA, NAAT (test code = 05428) NEGATIVE COMPREHENSIVE METABOLIC [id number] 00:00:00* Test Item Value Reference Range Interpretation Comme nts GLUCOSE (test code = 2217) 73 MG/DL BUN (test code = 2208) 14 MG/DL CREATININE (test code = 2214) 0.78 MG/DL eGFR (2020 CKD-EPI) (test co de = 12864) 98 ML/MIN/1.73 CALC BUN/CREAT (test code = [...] code = 2219) 13 U/L COMPREHENSIVE METABOLIC [id number] 00:00:00* Test Item Value Reference Range Interpretation Comme nts GLUCOSE (test code = 2217) 73 MG/DL BUN (test code = 2208) 14 MG/DL CREATININE (test code = 2214) 0.78 MG/DL eGFR (2020 CKD-EPI) (test co de = 61713) 98 ML/MIN/1.73 CALC BUN/CREAT (test code = [...] = 2219) 13 U/L VAGINAL PATHOGENS DNA [id number] 00:00:00* Test Item Value Reference Range Interpretation Comme nts OFE SPECIES (test code = ) NEGATIVE G. VAGINALIS (test code = ) POSITIVE T. VAGINALIS (test code = ) NEGATIVE VAGINAL PATHOGENS DNA [id number] 00:00:00* Test Item Value Reference Range Interpretation Comme nts OFE SPECIES (test code = ) NEGATIVE G. VAGINALIS (test code = ) POSITIVE T. VAGINALIS (test code = 35999) NEGATIVE HIV 1/2 4TH GEN, RFLX [id number] 00:00:00* Test Item Value Reference Range Interpretation Comme nts HIV 1/2 4TH GEN, RFLX CONF ( test code = 3514) NON-REACTIVE HIV 1/2 4TH GEN, RFLX [id number] 00:00:00* Test Item Value Reference Range Interpretation Comme nts HIV 1/2 4TH GEN, RFLX CONF ( test code = 3514) NON-REACTIVE [id number] 00:00:00* Test Item Value Reference Range Interpretation Comme nts RPR RESULT (test code = 3501) REACTIVE RPR TITER (test code = 3500) 1:1 TITER [id number] 00:00:00* Test Item Value Reference Range Interpretation Comme nts RPR RESULT (test code = 3501) REACTIVE RPR TITER (test code = 3500) 1:1 TITER [id number] 00:00:00* Test Item Value Reference Range Interpretation Comme nts RPR RESULT (test code = 3501) REACTIVE RPR TITER (test code = 3500) 1:1 TITER ACUTE HEPATITIS [id number] 00:00:00* Test Item Value Reference Range Interpretation Comme nts HEPATITIS A IgM (test code = 64222) NON-REACTIVE HEPATITIS B CORE IgM (test c ode = 4644) NON-REACTIVE HEPATITIS B SURF AG (test co de = 2739) NON-REACTIVE HEPATITIS C ANTIBODY (test c ode = 4675) NON-REACTIVE INTERPRETATION HEPATITIS A: (test code = 2552) (NOTE) INTERPRETATION HEPATITIS B: (test code = 58557) (NOTE) INTERPRETATION HEPATITIS C: (test code = 57746) (NOTE) ACUTE HEPATITIS [id number] 00:00:00* Test Item Value Reference Range Interpretation Comme nts HEPATITIS A IgM (test code = 59222) NON-REACTIVE HEPATITIS B CORE IgM (test c ode = 4644) NON-REACTIVE HEPATITIS B SURF AG (test co de = 2739) NON-REACTIVE HEPATITIS C ANTIBODY (test c ode = 4675) NON-REACTIVE INTERPRETATION HEPATITIS A: (test code = 2552) (NOTE) INTERPRETATION HEPATITIS B: (test code = 31551) (NOTE) INTERPRETATION HEPATITIS C: (test code = 57580) (NOTE) CT/NG, TMA, [id number] 00:00:00* Test Item Value Reference Range Interpretation Comme nts GONORRHEA, NAAT (test code = 79324) NEGATIVE CHLAMYDIA, NAAT (test code = 07744) NEGATIVE CT/NG, TMA, [id number] 00:00:00* Test Item Value Reference Range Interpretation Comme nts GONORRHEA, NAAT (test code = 90245) NEGATIVE CHLAMYDIA, NAAT (test code = 39380) NEGATIVE COMPREHENSIVE METABOLIC [id number] 00:00:00* Test Item Value Reference Range Interpretation Comme nts GLUCOSE (test code = 2217) 73 MG/DL BUN (test code = 2208) 14 MG/DL CREATININE (test code = 2214) 0.78 MG/DL eGFR (2020 CKD-EPI) (test co de = 14683) 98 ML/MIN/1.73 CALC BUN/CREAT (test code = [...] code = 2219) 13 U/L COMPREHENSIVE METABOLIC [id number] 00:00:00* Test Item Value Reference Range Interpretation Comme nts GLUCOSE (test code = 2217) 73 MG/DL BUN (test code = 2208) 14 MG/DL CREATININE (test code = 2214) 0.78 MG/DL eGFR (2020 CKD-EPI) (test co de = 64290) 98 ML/MIN/1.73 CALC BUN/CREAT (test code = [...] 2204) 57 U/L AST (test code = 8) 10 U/L ALT (test code = 2218) 13 U/L VAGINAL PATHOGENS DNA [id number] 00:00:00* Test Item Value Reference Range Interpretation Comme nts OFE SPECIES (test code = ) NEGATIVE G. VAGINALIS (test code = 61174) POSITIVE T. VAGINALIS (test code = 35376) NEGATIVE VAGINAL PATHOGENS DNA [id number] 00:00:00* Test Item Value Reference Range Interpretation Comme nts OFE SPECIES (test code = ) NEGATIVE G. VAGINALIS (test code = 55489) POSITIVE T. VAGINALIS (test code = 06164) NEGATIVE HIV 1/2 4TH GEN, RFLX [id number] 00:00:00* Test Item Value Reference Range Interpretation Comme nts HIV 1/2 4TH GEN, RFLX CONF ( test code = 3514) NON-REACTIVE HIV 1/2 4TH GEN, RFLX [id number] 00:00:00* Test Item Value Reference Range Interpretation Comme nts HIV 1/2 4TH GEN, RFLX CONF ( test code = 3514) NON-REACTIVE [id number] 00:00:00* Test Item Value Reference Range Interpretation Comme nts RPR RESULT (test code = 3501) REACTIVE RPR TITER (test code = 3500) 1:1 TITER [id number] 00:00:00* Test Item Value Reference Range Interpretation Comme nts RPR RESULT (test code = 3501) REACTIVE RPR TITER (test code = 3500) 1:1 TITER [id number] 00:00:00* Test Item Value Reference Range Interpretation Comme nts RPR RESULT (test code = 3501) REACTIVE RPR TITER (test code = 3500) 1:1 TITER ACUTE HEPATITIS [id number] 00:00:00* Test Item Value Reference Range Interpretation Comme nts HEPATITIS A IgM (test code = 81798) NON-REACTIVE HEPATITIS B CORE IgM (test c ode = 4644) NON-REACTIVE HEPATITIS B SURF AG (test co de = 2739) NON-REACTIVE HEPATITIS C ANTIBODY (test c ode = 4675) NON-REACTIVE INTERPRETATION HEPATITIS A: (test code = 2552) (NOTE) INTERPRETATION HEPATITIS B: (test code = 71608) (NOTE) INTERPRETATION HEPATITIS C: (test code = 65997) (NOTE) ACUTE HEPATITIS [id number] 00:00:00* Test Item Value Reference Range Interpretation Comme nts HEPATITIS A IgM (test code = 96018) NON-REACTIVE HEPATITIS B CORE IgM (test c ode = 4644) NON-REACTIVE HEPATITIS B SURF AG (test co de = 2739) NON-REACTIVE HEPATITIS C ANTIBODY (test c ode = 4675) NON-REACTIVE INTERPRETATION HEPATITIS A: (test code = 2552) (NOTE) INTERPRETATION HEPATITIS B: (test code = 92217) (NOTE) INTERPRETATION HEPATITIS C: (test code = 13690) (NOTE) CT/NG, TMA, [id number] 00:00:00* Test Item Value Reference Range Interpretation Comme nts GONORRHEA, NAAT (test code = 99977) NEGATIVE CHLAMYDIA, NAAT (test code = 37922) NEGATIVE CT/NG, TMA, [id number] 00:00:00* Test Item Value Reference Range Interpretation Comme nts GONORRHEA, NAAT (test code = 38261) NEGATIVE CHLAMYDIA, NAAT (test code = 04099) NEGATIVE COMPREHENSIVE METABOLIC [id number] 00:00:00* Test Item Value Reference Range Interpretation Comme nts GLUCOSE (test code = 2217) 73 MG/DL BUN (test code = 2208) 14 MG/DL CREATININE (test code = 2214) 0.78 MG/DL eGFR (2020 CKD-EPI) (test co de = 72225) 98 ML/MIN/1.73 CALC BUN/CREAT (test code = [...] code = 2219) 13 U/L COMPREHENSIVE METABOLIC [id number] 00:00:00* Test Item Value Reference Range Interpretation Comme nts GLUCOSE (test code = 2217) 73 MG/DL BUN (test code = 2208) 14 MG/DL CREATININE (test code = 2214) 0.78 MG/DL eGFR (2020 CKD-EPI) (test co de = 87267) 98 ML/MIN/1.73 CALC BUN/CREAT (test code = [...]
[2023-10-25] MEDS ORDERED: ONDANSETRON 4 MG/2 ML VIAL ONE (05:24)
[2023-10-25] MEDS ORDERED: LIDOCAINE 1% 20 ML MDV ONE (05:24)
[2023-10-25] MEDS ORDERED: SMZ./TMP. 800/160 MG TABLET ONE (05:24)
[2023-10-25] MEDS ORDERED: DIAZEPAM 10 MG/2 ML INJ SYRINGE ONE (05:24)
[2023-10-25] MEDS ORDERED: CEFAZOLIN SODIUM 1 GM/VIAL ONE (05:25)
[2023-10-25] MEDS ORDERED: MORPHINE 4 MG/ML SYR ONE (05:25)
[2023-10-25] MEDS ORDERED: NA CHLORIDE 0.9% 1,000 ML ONE (05:25)
[2023-10-25] MEDS ORDERED: NA CHLORIDE 0.9% 50 ML ONE (05:26)
[2023-10-25 06:08] LABS: Absolute Basophils 0.1 K/uL (0-0.5); Absolute Eosinophils 0.2 K/uL (0-0.5); Absolute Lymphocytes (CBC) 2.6 K/uL (0.7-4.9); Absolute Neutrophil 12.6 K/uL (1.8-8.0); Basophils % 0.6 % (0-1.3); Eosinophils % 1.4 % (0-4.4); Hematocrit 37.9 % (36.0-45.0); Hemoglobin 12.9 g/dL (12.0-15.0); Lymphocytes % 15.6 % (15.3-44.8); MCH 32.7 pg (27.0-35.0); MCV 96.3 fL (80-100); MPV 8.1 fL (7.6-11.3); Monocytes % 6.1 % (3.3-12.3); Neutrophils % 76.3 % (41.7-73.7); Nucleated Red Blood Cells % 0.1 % (0-0); Platelets 342 thou/uL (152-406); RBC Red Blood Cell Count 3.94 M/uL (3.86-4.86); Red Cell Distribution Width 12.5 % (12.1-15.2)
[2023-10-25 06:20] LABS: Albumin 3.2 g/dL (3.4-5.0); Albumin/Globulin Ratio 0.8 (1.1-1.8); Bilirubin Total 0.4 mg/dL (0.2-1.0); Protein, Total 7.2 g/dL (6.4-8.2)
--- NOTE | 2023-10-25 07:02 | ER ---
Nurse's Notes [facility] [place] Name: Evelyn Rosa Age: 43 yrs Sex: Female : 1980 Arrival Date: 10/25/2023 Time: 04:47 Bed 6 Private MD: Diagnosis: Sebaceous cyst;Right lower labia abscess Presentation: 10/24 05:05 Chief complaint: Patient states: ABSCESS ON THE VAGINAL AREA X 4 DAYS, DENIES rv DISCHARGE. Coronavirus screen: At this time, the client does not indicate any symptoms associated with coronavirus-19. Ebola Screen: No symptoms or risks identified at this time. Initial Sepsis Screen: Does the patient meet any 2 criteria? No. Patient's initial sepsis screen is negative. Does the patient have a suspected source of infection? No. Patient's initial sepsis screen is negative. Risk Assessment: Do you want to hurt yourself or someone else? Patient reports no desire to harm self or others. Onset of symptoms was October 25, 2023. 05:05 Method Of Arrival: Ambulatory rv 05:05 Acuity: INDIGO 4 rv Triage Assessment: 05:08 General: Appears uncomfortable, Behavior is calm, cooperative. Pain: Complains of pain rv in VAGINAL AREA. Neuro: Level of Consciousness is awake, alert, obeys commands, Oriented to person, place, time, situation. Cardiovascular: Capillary refill < 3 seconds Patient's skin is warm and dry. Respiratory: Airway is patent Respiratory effort is even, unlabored. Derm: Skin is intact. Historical: - Allergies: 05:07 PENICILLINS; rv 05:07 Toradol; rv - PMHx: 05:07 chronic back pain; Anxiety; Chronic Pancreatitis; Crohn's; Degenerative disc disease; rv gastritits; ibs; Pancreatitis; - PSHx: 05:07 section; partial hysterectomy; rv - Immunization history:: Adult Immunizations up to date. - Infectious Disease History:: Denies. - Social history:: Smoking status: Patient denies any tobacco usage or history of. - Family history:: not pertinent. Screenin:08 [facility] ED Fall Risk Assessment (Adult) History of falling in the last 3 months, rv including since admission No falls in past 3 months (0 pts) Score/Fall Risk Level 0 - 2 = Low Risk Oriented to surroundings, Maintained a safe environment, Educated pt \T\ family on fall prevention, incl call for assistance when getting out of bed, Assessed \T\ reinforced patient's understanding of fall precautions. Abuse screen: Denies threats or abuse. Denies injuries from another. Nutritional screening: No deficits noted. Tuberculosis screening: No symptoms or risk factors identified. Assessment: 05:09 Derm: Abscess located on RIGHT PERINEAL AREA is half dollar sized, is raised, Reports jj7 pain. 07:10 Reassessment: Patient appears in no apparent distress at this time. Patient and/or db family updated on plan of care and expected duration. Pain level reassessed. Patient is alert, oriented x 3, equal unlabored respirations, skin warm/dry/pink. General: Appears in no apparent distress. comfortable, Behavior is calm, cooperative. Pain: Complains of pain in pelvis. Neuro: Level of Consciousness is awake, alert, obeys commands, Oriented to person, place, time, situation. Respiratory: Airway is patent Respiratory effort is even, unlabored, Respiratory pattern is regular, symmetrical. Vital Signs: 05:05 BP 113 / 95; Pulse 108; Resp 17; Temp 98.4; Pulse Ox 100% ; Weight 83.91 kg; Height 5 rv ft. 5 in. ; 06:04 BP 113 / 80; Pulse 94; Resp 18; Pulse Ox 100% on R/A; rv 07:00 BP 98 / 72; Pulse 77; Resp 20; Pulse Ox 100% ; jj7 07:05 BP 106 / 87; Pulse 93; Resp 18; Pulse Ox 98% on R/A; db 05:05 Body Mass Index 30.79 (83.91 kg, 165.1 cm) rv [place] Coma Score: 07:03 Eye Response: spontaneous(4). Motor Response: obeys commands(6). Verbal Response: sp4 oriented(5). Total: 15. ED Course: 04:52 Patient arrived in ED. gm2 04:53 Norbert Faustin MD is Attending Physician. sp4 05:00 Gael Mandujano RN is Primary Nurse. rv 05:07 Triage completed. rv 05:08 Arm band placed on right wrist. rv 05:09 Patient has correct armband on for positive identification. Client placed on continuous rv cardiac and pulse oximetry monitoring. NIBP monitoring applied. 06:00 Inserted saline lock: 20 gauge in left wrist, using aseptic technique. Blood collected. jj7 06:39 Assist provider with I \T\ D: of an abscess on right perineal Set up I\T\D tray. Performed jj 7 by Norbert Faustin MD Wound packed. iodoform gauze, Patient tolerated well. 07:10 Provided Education on: home care. db 07:10 IV discontinued, intact, bleeding controlled, No redness/swelling at site. db Administered Medications: 06:00 Drug: morphine IVP or IV 4 mg IVP once over 4 mins Route: IVP; Infused Over: 4 mins; jj7 Site: left wrist; 06:20 Follow up: Response: Marked relief of symptoms jj7 06:00 Drug: NS 0.9% IV 1000 ml IV at 1 bolus Per protocol; 1000 mL bolus Route: IV; Rate: 1 jj7 bolus; Site: left wrist; 07:27 Follow up: Response: No adverse reaction; IV Status: Completed infusion; IV Intake: db 1000ml 06:00 Drug: Ondansetron IVP 4 mg IVP once; over 2 minutes Route: IVP; Site: left wrist; jj7 06:00 Drug: ceFAZolin IVPB 1 grams 50 ml IVPB once over 30 mins Volume: 50 ml; Route: IVPB; jj7 Infused Over: 30 mins; Site: left wrist; 06:35 Follow up: IV Status: Completed infusion jj7 06:05 Drug: Trimethoprim-Sulfamethoxazole PO (160 mg-800 mg (DS) 1 tablet PO once Route: PO; jj7 06:57 Follow up: Response: No adverse reaction jj7 06:07 Drug: Diazepam IVP 10 mg IVP once Route: IVP; Site: left wrist; jj7 06:30 Follow up: Response: Marked relief of symptoms jj7 06:39 Drug: Lidocaine Infiltration (1 %) 20 ml 20 ml Infiltration once; to bedside {Note: jj7 ADMIN BY DR WADE.} Volume: 20 ml; Route: Infiltration; 06:45 Drug: Lidocaine Infiltration (1 %) 20 ml 20 ml Infiltration once; to bedside Volume: 20 jj7 ml; Route: Infiltration; 06:59 Follow up: Response: No adverse reaction; Pain is decreased; ADMIN BY DR WADE jjRobin 07:00 Drug: Promethazine PO 25 mg PO once Route: PO; db 07:36 Follow up: Response: No adverse reaction db 07:27 Drug: Cephalexin PO 500 mg PO once Route: PO; db 07:36 Follow up: Response: No adverse reaction db 07:27 Drug: [place] PO 10 mg-325 mg 1 tabs PO once Route: PO; db 07:36 Follow up: Response: No adverse reaction db 07:27 Drug: Ibuprofen PO 800 mg PO once Route: PO; db 07:36 Follow up: Response: No adverse reaction db Medication: 05:09 VIS not applicable for this client. rv Intake: 07:27 IV: 1000ml; Total: 1000ml. db Outcome: 07:01 Discharge ordered by . daren 07:30 Discharged to home via wheelchair, db 07:30 Condition: stable 07:30 Discharge instructions given to patient, Instructed on discharge instructions, follow up and referral plans. Prescriptions given X 4, 07:36 Patient left the ED. db Signatures: Gael Mandujano RN Igor Kline RN RN jj7 Juliann Birmingham RN RN Norbert Chahal MD MD sp4 Mona Hughes [facility]
--- NOTE | 2023-10-25 07:02 | EDPHYS ---
Physician Documentation [facility] Name: Evelyn Rosa Age: 43 yrs Sex: Female : 1980 Arrival Date: 10/25/2023 Time: 04:47 Bed 6 Private MD: ED Physician Norbert Faustin HPI: 10/24 04:53 This 43 yrs old Black Female presents to ER via Unassigned with complaints of Boil, sp4 Insect Bite, Pain. 07:03 43-year-old female presents with right lower labial pain and swelling tenderness for sp4 the past 4 days. Patient reports abscess in the same area 5 years ago. Historical: - Allergies: 05:07 PENICILLINS; rv 05:07 Toradol; rv - PMHx: 05:07 chronic back pain; Anxiety; Chronic Pancreatitis; Crohn's; Degenerative disc disease; rv gastritits; ibs; Pancreatitis; - PSHx: 05:07 section; partial hysterectomy; rv - Immunization history:: Adult Immunizations up to date. - Infectious Disease History:: Denies. - Social history:: Smoking status: Patient denies any tobacco usage or history of. - Family history:: not pertinent. ROS: 07:03 Constitutional: Negative for fever, chills, and weight loss, positive for right lower sp4 labial abscess 07:03 All other systems are negative, Exam: 07:03 Constitutional: This is a well developed, well nourished patient who is awake, alert, sp4 and in no acute distress. Head/Face: Normocephalic, atraumatic. Eyes: Pupils equal round and reactive to light, extra-ocular motions intact. Lids and lashes normal. Conjunctiva and sclera are not injected. Cornea within normal limits. Periorbital areas with no swelling, redness, or edema. ENT: Nares patent. No nasal discharge, no septal abnormalities noted. Tympanic membranes are normal and external auditory canals are clear. Oropharynx with no redness, swelling, or masses, exudates, or evidence of obstruction, uvula midline. Mucous membranes moist. Neck: Trachea midline, no thyromegaly or masses palpated, and no cervical lymphadenopathy. Supple, full range of motion without nuchal rigidity, or vertebral point tenderness. Chest/axilla: Normal chest wall appearance and motion. Nontender with no deformity. No lesions are appreciated. Cardiovascular: Regular rate and rhythm with a normal S1 and S2. No gallops, murmurs, or rubs. Normal PMI, no JVD. No pulse deficits. Respiratory: Lungs have equal breath sounds bilaterally, clear to auscultation and percussion. No rales, rhonchi or wheezes noted. No increased work of breathing, no retractions or nasal flaring. Abdomen/GI: Soft, with normal bowel sounds. No distension or tympany. No guarding or rebound. No evidence of tenderness throughout. Back: No spinal tenderness. No costovertebral tenderness. Pelvic Exam: Normal external genitalia. Right lower labia just inferior towards the perineum contains swelling tenderness and warmth abscess with induration. Likely infected sebaceous cyst Skin: Warm, dry with normal turgor. Normal color with no rashes, no lesions, and no evidence of cellulitis. MS/ Extremity: Pulses equal, no cyanosis. Neurovascular intact. Full, normal range of motion. Neuro: Awake and alert, GCS 15, oriented to person, place, time, and situation. Cranial nerves II-XII grossly intact. Motor strength 5/5 in all extremities. Sensory grossly intact. Psych: Awake, alert, with orientation to person, place and time. Behavior, mood, and affect are within normal limits Vital Signs: 05:05 BP 113 / 95; Pulse 108; Resp 17; Temp 98.4; Pulse Ox 100% ; Weight 83.91 kg; Height 5 rv ft. 5 in. ; 06:04 BP 113 / 80; Pulse 94; Resp 18; Pulse Ox 100% on R/A; rv 07:00 BP 98 / 72; Pulse 77; Resp 20; Pulse Ox 100% ; jj7 07:05 BP 106 / 87; Pulse 93; Resp 18; Pulse Ox 98% on R/A; db 05:05 Body Mass Index 30.79 (83.91 kg, 165.1 cm) rv [place] Coma Score: 07:03 Eye Response: spontaneous(4). Motor Response: obeys commands(6). Verbal Response: sp4 oriented(5). Total: 15. Procedures: 06:57 I \T\ D: Incision and drainage was performed for an abscess of the right groin- Right sp4 lower labia close to perineum Prepped with Betadine, Anesthetized with 20 ml's 1% Lidocaine. Incised with #11 blade. Drained moderate amount purulent fluid. bloody fluid. Packed with sterile gauze, Dressing: sterile 4x4 gauze, the patient tolerated the procedure well, Infected sebaceous cyst that contained hair follicles was drained and packed. MDM: 04:58 Patient medically screened. sp4 06:57 Differential Diagnosis Abscess, Bartholin's gland infection, sebaceous cyst infection. sp4 Data reviewed: vital signs, nurses notes, old medical records, lab test result(s), CBC, electrolytes. Consideration of Admission/Observation Escalation of care including admission/observation considered. ED course: Abscess was packed and draining. Patient advised abscess care for the next 14 days.. 10/24 05:18 Order name: CBC with Diff sp4 10/24 05:18 Order name: CMP; Complete Time: 06:27 sp4 10/24 06:15 Order name: CBC Smear Scan EDMS 10/24 05:18 Order name: IV Saline Lock; Complete Time: 05:55 sp4 10/24 05:18 Order name: Labs collected and sent; Complete Time: 05:55 sp4 10/24 05:18 Order name: Dressing - Wound; Complete Time: 05:55 sp4 10/24 05:18 Order name: Gloves, Sterile; Complete Time: 05:35 sp4 10/24 05:18 Order name: Setup Suture Tray; Complete Time: 05:35 sp4 Administered Medications: 06:00 Drug: morphine IVP or IV 4 mg IVP once over 4 mins Route: IVP; Infused Over: 4 mins; jj7 Site: left wrist; 06:20 Follow up: Response: Marked relief of symptoms j7 06:00 Drug: NS 0.9% IV 1000 ml IV at 1 bolus Per protocol; 1000 mL bolus Route: IV; Rate: 1 jj7 bolus; Site: left wrist; 07:27 Follow up: Response: No adverse reaction; IV Status: Completed infusion; IV Intake: db 1000ml 06:00 Drug: Ondansetron IVP 4 mg IVP once; over 2 minutes Route: IVP; Site: left wrist; jj7 06:00 Drug: ceFAZolin IVPB 1 grams 50 ml IVPB once over 30 mins Volume: 50 ml; Route: IVPB; jj7 Infused Over: 30 mins; Site: left wrist; 06:35 Follow up: IV Status: Completed infusion jj7 06:05 Drug: Trimethoprim-Sulfamethoxazole PO (160 mg-800 mg (DS) 1 tablet PO once Route: PO; jj7 06:57 Follow up: Response: No adverse reaction jj7 06:07 Drug: Diazepam IVP 10 mg IVP once Route: IVP; Site: left wrist; jj7 06:30 Follow up: Response: Marked relief of symptoms jj7 06:39 Drug: Lidocaine Infiltration (1 %) 20 ml 20 ml Infiltration once; to bedside {Note: jj7 ADMIN BY DR WADE.} Volume: 20 ml; Route: Infiltration; 06:45 Drug: Lidocaine Infiltration (1 %) 20 ml 20 ml Infiltration once; to bedside Volume: 20 jj7 ml; Route: Infiltration; 06:59 Follow up: Response: No adverse reaction; Pain is decreased; ADMIN BY DR WADE jjRobin 07:00 Drug: Promethazine PO 25 mg PO once Route: PO; db 07:36 Follow up: Response: No adverse reaction db 07:27 Drug: Cephalexin PO 500 mg PO once Route: PO; db 07:36 Follow up: Response: No adverse reaction db 07:27 Drug: [place] PO 10 mg-325 mg 1 tabs PO once Route: PO; db 07:36 Follow up: Response: No adverse reaction db 07:27 Drug: Ibuprofen PO 800 mg PO once Route: PO; db 07:36 Follow up: Response: No adverse reaction db Disposition Summary: 10/25/23 07:01 Discharge Ordered Notes: Location: Home sp4 Problem: new sp4 Symptoms: have improved sp4 Condition: Stable sp4 Diagnosis - Sebaceous cyst sp4 - Right lower labia abscess sp4 Followup: sp4 - With: Private Physician - When: 10 - 14 days - Reason: Recheck today's complaints Discharge Instructions: - Discharge Summary Sheet sp4 - Skin Abscess, [id number] sp4 Forms: - Patient Portal Instructions sp4 Prescriptions: - Cephalexin 500 mg Oral Capsule - take 1 capsule ORAL route every 6 hours for 10 days; 40 capsule; Refills: 0, sp4 Product Selection Permitted - Ibuprofen 800 mg Oral Tablet - take 1 tablet ORAL route every 8 hours As needed take with food; 30 tablet; sp4 Refills: 0, Product Selection Permitted - Tramadol 50 mg Oral tablet - take 1 tablet ORAL route every 8 hours as needed; 20 tablet; Refills: 0, sp4 Product Selection Permitted - Bactrim DS 800-160 mg Oral Tablet - take 1 tablet ORAL route every 12 hours for 10 days; 20 tablet; Refills: 0, sp4 Product Selection Permitted Signatures: Dispatcher [employer] Gael Heredia RN RN rv Johnson, Juwairiyah, RN RN jj7 Benton, Danielle RN Norbert Ramirez MD MD sp4
[2023-10-25] MEDS ORDERED: HYDROCODONE/APAP 10/325 TAB ONE (07:08)
[2023-10-25] MEDS ORDERED: PROMETHAZINE 25 MG TABLET ONE (07:09)
[2023-10-25] MEDS ORDERED: IBUPROFEN 400 MG TAB ONE (07:09)
[2023-10-25] MEDS ORDERED: CEPHALEXIN 250 MG CAP ONE (07:09)
[2023-10-25 07:42] LABS: Blood Morphology Comment NOT SEEN (NOT SEEN); Platelet Estimate ADEQ; White Blood Cell Scan OK (OK)
[2023-10-25] MEDS ORDERED: metroNIDAZOLE 500 MG TABLET ONE (08:06)
[2023-10-25] MEDS ORDERED: CIPROFLOXACIN HCL 500 MG TAB ONE (08:06)
[2023-10-25 11:00] VITALS: BP 106/87; TEMP 98.4; O2SAT 98
== END 2023-10-25 07:36 | disposition home or self-care (01) ==
LOC: ER 04:47
PROC: 0U9MXZZ Drainage of Vulva, External Approach (ICD-10-PCS; principal; 2023-10-25)
DX: N76.4 Abscess of vulva (principal); L72.3 Sebaceous cyst; Z88.0 Allergy status to penicillin; Z88.5 Allergy status to narcotic agent
CPT/HCPCS: 85025; 36415; 80053; 56405; Q0169; J2001; J3360; J2405; J7030; J0690

== ENCOUNTER 2023-12-22 19:13 | Emergency (ER) | payer OTHER ==
--- OUTSIDE RECORDS SUMMARY | 2023-12-22 19:17 | XMS REPORT | Continuity of Care Document ---
Author Name Unknown Address [address] [facility] 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 Name Role Phone Reymundo Harvey Primary Care Physician [phone] Doctor Unassigned, [place] Attending Clinician U LAKIA Ohara Attending Clinician Geneva Patel DO Attending Clinician [phone] GENEVA RODRÍGUEZ Attending Clinician Unavailab le Payers Payer Name Policy Type Policy Number Effective Date Expirati on Date Source [facility] [id number] 2022 00:00:00 Problems Condition Name Condition Details Condition Category Status Onset Date Resolution Date Last Treatment Date Treating Clinician Comments Source Nausea & vomiting Nausea & vomiting Disease Active 2010-07 00:00: 00 [facility] Abdominal pain, acute, epigastric Abdominal pain, acute, epigastric Disease Active 2010-07 00:00: 00 [facility] Leukocytos is Leukocytos is Disease Active 2010-07 00:00: 00 Overview: Formattin g of this note might be different from the original. ICD10 Diagnosis Term Ingot Weigher Utility [facility] Hypokalemi a Hypokalemi a Disease Active 2010-07 00:00: 00 [facility] Metabolic acidosis Metabolic acidosis Disease Active 2010-07 00:00: 00 [facility] Allergies, Adverse Reactions, Alerts Allergy Name Allergy Type Status Severity Reaction(s) Onset Date Inactive Date Treating Clinician Comments Source Penicill ins - CLASS Propensi ty to adverse reaction to drug Active 2021-07 00:00: 00 Ketorola c Propensi ty to adverse reaction s Active Rash 2021-07 00:00: 00 [facility] KETOROLA C DRUG INGREDI Active Rash 2021-07 00:00: 00 [facility] Penicill ins Propensi ty to adverse reaction to drug Active 09-02 00:00: 00 Penicill ins Propensi ty to adverse reaction s Active Unknown - See comments 2015-07 00:00: 00 [facility] PENICILL INS Drug Class Active Unknown-Cmnt 2015-07 00:00: 00 [facility] Social History Social Habit Start Date Stop Date Quantity Comments Source History of tobacco use Cigarette Smoker [facility] Exposure to SARS-CoV-2 (event) 2022-04-20 00:00:00 2022-04-30 13:23:00 Not sure [facility] Alcohol intake 2016-05-05 00:00:00 2016-05-05 00:00:00 Current drinker of alcohol (finding) [facility] History of Social function 2016-05-05 00:00:00 2016-05-05 00:00:00 [facility] Cigarettes smoked current (pack per day) - Reported 2011-06-18 00:00:00 2011-06-18 00:00:00 [facility] Cigarette pack-years 2011-06-18 00:00:00 2011-06-18 00:00:00 [facility] Sex Assigned At 1980 00:00:00 1980 00:00:00 [facility] Smoking Status Start Date Stop Date Source Never smoked tobacco [facility] Medications Ordered Medication Name Filled Medication Name Start Date Stop Date Current Medication? Ordering Clinician Indication Dosage Frequency Signature (SIG) Comments Components Source TAKE 1 CAPSULE TWICE DAILY. 07-28 00:00: 00 No TAKE 1 TABLET TWICE [...] 1mg azithromyci n 250 mg tablet 2020-07 00:00: 00 No mg benzonatate 100 mg capsule 2020-07 2 00:00: 00 No 12mg promethazin e-DM 6.25 mg-15 mg/5 mL oral syrup 2020-07 00:00: 00 No 10mg/5 mL prednisone 20 mg tablet 2020-07 2 00:00: 00 No 1mg azithromyci n 250 mg tablet 2020-07 00:00: [...] Pain (scale 4-6) or Pain (scale 7-10). [facility] pantoprazol e (PROTONIX) 40 mg EC tablet 2015-07 00:00: 00 Yes 40mg Take 1 tablet by mouth daily. [facility] proMETHazin e (PHENERGAN) 25 mg tablet 2015-07 00:00: 00 Yes 25mg Take 1 tablet by mouth every 6 (six) hours as needed for Nausea and Vomiting (N/V). [facility] Vital Signs Vital Name Observation Time Observation Value Comments S graysonlauren Body weight 2022-04-30 18:23:16 79.379 kg [facility] BMI 2022-04-30 18:23:16 29.12 kg/m2 [facility] Systolic blood pressure 2022-04-30 18:16:00 128 mm[Hg] [facility] Diastolic blood pressure 2022-04-30 18:16:00 81 mm[Hg] [facility] Heart rate 2022-04-30 18:16:00 92 /min [facility] Body temperature 2022-04-30 18:16:00 37.06 Brandy [facility] Respiratory rate 2022-04-30 18:16:00 18 /min [facility] Body height 2022-04-30 18:16:00 165.1 cm [facility] Oxygen saturation in Arterial blood by Pulse oximetry 2022-04-30 18:16:00 96 /min [facility] BP Systolic 2022-07-28 10:17:00 123 mm[Hg] [...] Source REFERRAL- REQUEST/RESPONSE 2023-03-22 05:01:00 Doctor Unassigned, [place] [facility] AUTHORIZATION FOR RELEASE OF PHI 2022-09-30 05:01:00 Doctor Unassigned, [place] [facility] RAPID INFLUENZA A/B 2022-04-30 18:27:00 Tiff Rodríguez ra [facility] COVID-19 (ID NOW RAPID TESTING) 2022-04-30 18:27:00 Geneva Rodríguez [facility] CONSENT/REFUSAL FOR DIAGNOSIS AND TREATMENT 2022-04-30 18:06:22 Doctor Unassigned, [place] [facility] Plan of Care Planned Activity Planned Date Details Comments Source Goal Plan of Care Note [code = 64863-8] Goal Plan of Care Note [code = 46632-3] Goal Plan of Care Note [code = 22107-8] Goal Plan of Care Note [code = 74502-6] Goal Plan of Care Note [code = 49649-0] Goal Plan of Care Note [code = 21330-7] Goal Plan of Care Note [code = 69297-0] Goal Plan of Care Note [code = 00007-4] Goal Plan of Care Note [code = 65732-4] Goal Plan of Care Note [code = 00028-7] Goal Plan of Care Note [code = 97112-3] Goal Plan of Care Note [code = 19482-6] Goal Plan of Care Note [code = 22344-5] Goal Plan of Care Note [code = 90286-4] Goal Plan of Care Note [code = 69818-0] Goal Plan of Care Note [code = 95788-6] Goal Plan of Care Note [code = 89397-2] Goal Plan of Care Note [code = 18614-6] Goal Plan of Care Note [code = 25418-9] Goal Plan of Care Note [code = 36616-4] Goal Plan of Care Note [code = 88039-1] Goal Plan of Care Note [code = 34992-2] Goal Plan of Care Note [code = 68397-6] Goal Plan of Care Note [code = 44199-6] Goal Plan of Care Note [code = 25350-8] Goal Plan of Care Note [code = 27801-9] Goal Plan of Care Note [code = 82624-8] Goal Plan of Care Note [code = 30575-2] Goal Plan of Care Note [code = 91025-6] Goal Plan of Care Note [code = 54751-3] Goal Plan of Care Note [code = 60266-8] Goal Plan of Care Note [code = 14050-0] Goal Plan of Care Note [code = 90824-5] Goal Plan of Care Note [code = 61819-0] Goal Plan of Care Note [code = 61476-4] Goal Plan of Care Note [code = 58496-0] Goal Plan of Care Note [code = 24332-1] Goal Plan of Care Note [code = 62873-5] Goal Plan of Care Note [code = 60961-1] Goal Plan of Care Note [code = 26804-7] Goal Plan of Care Note [code = 83361-9] Goal Plan of Care Note [code = 96728-8] Goal Plan of Care Note [code = 07466-1] Encounters Start Date/Time End Date/Time Encounter Type Admission Type Attending [facility] Facility Care Department Encounter ID Source 2022-11-24 09:13:56 Outpatient [facility] [id number] [facility] 2023-03-22 11:08:58 2023-03-22 11:08:58 Outpatient [facility] [id number] Reginald Dwyer 2023-03-22 00:00:00 2023-03-22 00:00:00 Orders Only Doctor Unassigned, [place] [facility] 1..840.114 [id number] [facility] 2022-12-22 10:58:01 2022-12-22 10:58:01 Outpatient [facility] 14 Reginald Diaz Reymundo 2022-12-15 13:54:13 2022-12-15 13:54:13 Outpatient [facility] [id number] Reginald Diaz Reymundo 2022-12-10 13:13:19 2022-12-10 13:13:19 Outpatient [facility] 601 Reginald Diaz [place] 2022-12-08 14:35:59 2022-12-08 14:35:59 Outpatient [facility] [id number] Reginald Dwyer 2022-09-30 00:00:00 2022-09-30 00:00:00 Orders Only Doctor Unassigned, [place] [facility] 1.840.114 [id number] [facility] 2022-09-01 09:29:00 2022-09-01 18:15:00 Emergency E LAKIA [facility] [address] [facility] 2022-08-02 14:37:45 2022-08-02 14:37:45 Outpatient [facility] [id number] Reginald Dwyer 2022-07-28 10:11:02 2022-07-28 10:11:02 Outpatient [facility] [id number] Reginald Dwyer 2022-07-28 00:00:00 2022-07-28 00:00:00 Outpatient Visit [id number] 2022-06-21 08:09:11 2022-06-21 08:09:11 Outpatient [facility] 1211 Reginald Dwyer 2022-06-19 10:15:22 2022-06-19 10:15:22 Outpatient [facility] [id number] Reginald Dwyer 2022-06-18 11:18:31 2022-06-18 11:18:31 Outpatient [facility] 1209 Reginald Dwyer 2022-06-18 00:00:00 2022-06-18 00:00:00 Outpatient Visit [id number] 2022-06-14 13:27:35 2022-06-14 13:27:35 Outpatient [facility] 1205 Reginald Dwyer 2022-06-14 00:00:00 2022-06-14 00:00:00 Outpatient Visit [id number] 2022-06-10 11:10:28 2022-06-10 11:10:28 Outpatient [facility] [id number] Reginald Dwyer 2022-06-04 00:00:00 2022-06-04 00:00:00 Outpatient Visit [id number] 2022-04-30 13:21:00 2022-04-30 13:57:00 Emergency Geneva Rodríguez [facility] [id number] 350.1.13.10 [id number] [id number] [facility] 2022-04-30 13:21:00 2022-04-30 13:57:00 Emergency X GENEVA RODRÍGUEZ [facility] ERT [id number] [facility] Results Test Description Test Time Test Comments Results Result Co mments Source RHEUMATOID FACTOR, [id number] 06:57:29* Test Item Value Reference Range Interpretation Comme nts RHEUMATOID FACTOR, QUANT (te st code = 3502) <10 IU/ML <14 C-REACTIVE [id number] 06:45:47* Test Item Value Reference Range Interpretation Comme nts C-REACTIVE PROTEIN (test cod e = 3513) 0.4 MG/DL <0.5 SEDIMENTATION [id number] 04:36:47* Test Item Value Reference Range Interpretation Comme nts SEDIMENTATION RATE (test cod e = 1017) 2 MM/HOUR 0-20 CBC W/AUTO DIFF WITH [id number] 02:24:44* Test Item Value Reference Range Interpretation [...] = 1065) 0.0 /100 WBC'S See_Comment [Automated Reading Rooma ge] The system which generated this result [...] 0.00-0.10 ABS NUCLEATED RBCS (test code = 13855) 0.00 K/UL 0.00-0.11 VARUN (ANTI-NUCLEAR AB) WITH REFLEX [id number] 01:59:28* Test Item Value Reference Range Interpretation Comme nts ANTI-NUCLEAR ANTIBODIES (test code = 3506) NEGATIVE NEGATIVE Methodology is I ndirect Immunofluorescent Assay (IFA) with a titering system using [id number] cells (Hep2 cells transfected with SS-A/Ro). VARUN PATTERN (REPORTED TITER) (test code = 38302) SEE BELOW HOMOGENEOUS (test code = 86969) NEGATIVE TITER NEGATIVE SPECKLED (test code = 994346) NEGATIVE TITER NEGATIVE DENSE FINE SPECKLED (test code = 56413) NEGATIVE TITER NEGATIVE CENTROMERE (test code = 754891) NEGATIVE TITER NEGATIVE COARSE SPECKLED (test code = 125323) NEGATIVE TITER NEGATIVE DISCRETE NUCLEAR DOTS (test code = 852172) NEGATIVE TITER NEGATIVE NUCLEOLAR (test code = 425304) NEGATIVE TITER NEGATIVE NUCLEAR MEMBRANE (test code = 476018) NEGATIVE TITER NEGATIVE CYTO. RETICULAR (AYLA) (test code = 041251) NEGATIVE NEGATIVE COMMENTS (test code = 110444) NONE METHOD (test code = 42767) (NOTE) TESTING PERFORME D BY [employer] PLATFORM.THE METHOD INCLUDES A SCREEN THRESHOLD OF 1:80, DIGITIZED AND COMPUTER ALGORITHM-ASSISTED INTERPRETATION OF TITERS AND DIGITAL PATTERNS, AND HEp-2 CELL LINE SUBSTRATE. ADDITIONAL UNUSUAL PATTERNS WILL BE GIVEN COMMENTS.FOR MORE INFORMATION, SEE [email or web address] UNLESS OTHERWISE INDICATED, ALL TESTING PERFORMED AT [facility] [address] [place] [address] QA INTERNSHIP: VIRIGNIA CARTER M.D. CLIA NUMBER [id number] [place]. [id number] COMPREHENSIVE METABOLIC [id number] 08:05:44* Test Item Value Reference Range Interpretation Comme nts GLUCOSE (test code = 2217) 106 MG/DL 70-99 H BUN (test code = 2208) 11 MG/DL 6-20 CREATININE (test code = 2214) 0.64 MG/DL 0.60-1.30 eGFR (2020 CKD-EPI) (test code = 15049) 113 ML/MIN/1.73 >60 CALC BUN/CREAT (test code = 2235) 17 RATIO 6-28 SODIUM (test code = 2231) 144 MEQ/L 133-146 POTASSIUM (test code = 2228) 4.2 MEQ/L 3.5-5.4 CHLORIDE (test code = 2215) 105 MEQ/L 95-107 CARBON DIOXIDE (test code = 2206) 20 MEQ/L 19-31 CALCIUM (test code = 2209) 9.4 MG/DL 8.5-10.5 PROTEIN, TOTAL (test code = 2229) 7.1 G/DL 6.1-8.3 ALBUMIN (test code = 2201) 4.4 G/DL 3.5-5.2 CALC GLOBULIN (test code = 2240) 2.7 G/DL 1.9-3.7 CALC A/G RATIO (test code = 2234) 1.6 RATIO 1.0-2.6 BILIRUBIN, TOTAL (test code = 2207) 0.2 MG/DL See_Comment [Automated me ssage] The system which generated this result transmitted reference range: <=1.2. The reference range was not used to interpret this result as normal/abnormal. ALKALINE PHOSPHATASE (test code = 2204) 77 U/L 40-113 AST (test code = 2218) 19 U/L 9-40 ALT (test code = 2219) 18 U/L 5-40 URIC [id number] 08:05:44* Test Item Value Reference Range Interpretation Comme nts URIC ACID (test code = 2233) 4.0 MG/DL 2.7-6.1 SCR MAMM BILATERAL GARRETT CAD [id number] 16:13:07 Name: Kyra : 1980 Sex: F - SCR MAMM BILATERAL GARRETT CAD DIGITALBILATERAL FIRST EVER DIGITAL SCREENING MAMMOGRAM 3D/2D WITH CAD: 11/12/2022LINICAL: Asymptomatic. Digital breast tomosynthesis was performed in addition to routine CC and MLO views. Current mammographic images were evaluated by [email or web address] CAD (computer-aided detection) software. No prior exams [...] annual screening mammography inone year. (11/13/2023) Kriss faust/penrad:11/17/2022 16:13:07 Compressor Mechanic: Amena Moeller MM, [facility] Mammographyletter sent: BIRADS 1-2 Normal Mammogram BI-RADS: 2 BenignT. PALLIDUM TOTAL AB WITH [id number] 10:40:04* Test Item Value Reference Range Interpretation Comme nts T. PALLIDUM TOTAL AB (test code = 87330) <0.1 INDEX SEE BELOW INTERPRETI VE INFORMATION INTERPRETATION CLINICAL T. PALLIDUM AB NEGATIVE CURRENT OR PAST INFECTION INDEX <0.9 UNLIKELY. EQUIVOCAL SPECIMEN REPEATEDLY TESTED INDEX 0.9-1.0 IN EQUIVOCAL RANGE. CONSIDER RETESTING NO SOONER THAN 1 WEEK. POSITIVE PRESUMPTIVE EVIDENCE OF INDEX >=1.1 CURRENT OR PRIOR INFECTION. CORRELATE WITH NON-TREPONEMAL AB TESTING AND CLINICAL HISTORY. HEMOGLOBIN [id number] 03:23:39* Test Item Value Reference Range Interpretation Comme nts HEMOGLOBIN A1c (test code = 31030) 5.7 % 4.2-5.6 H UNLESS OTHERWISE INDICATED, ALL TESTING PERFORMED [facility] [address] [place] [address] QA INTERNSHIP: KAN HIGHTOWER M.D. CLIA NUMBER [id number] [facility] [place]. [id number] T. PALLIDUM TOTAL AB RFLX [id number] 00:00:00* Test Item Value Reference Range Interpretation Comme nts T. PALLIDUM TOTAL AB (test c ode = 15379) <0.1 INDEX HEMOGLOBIN [id number] 00:00:00* Test Item Value Reference Range Interpretation Comme nts HEMOGLOBIN A1c (test code = 89348) 5.7 % HEMOGLOBIN [id number] 00:00:00* Test Item Value Reference Range Interpretation Comme nts HEMOGLOBIN A1c (test code = 83874) 5.7 % HEMOGLOBIN [id number] 00:00:00* Test Item Value Reference Range Interpretation Comme nts HEMOGLOBIN A1c (test code = 13683) 5.7 % HERPES SIMPLEX 1 [id number] 00:00:00* Test Item Value Reference Range Interpretation Comme nts HERPES SIMPLEX 1 IgG (test c ode = 86338) 18.500 INDEX HERPES SIMPLEX 1 [id number] 00:00:00* Test Item Value Reference Range Interpretation Comme nts HERPES SIMPLEX 1 IgG (test c ode = 04422) 18.500 INDEX HERPES SIMPLEX 2 [id number] 00:00:00* Test Item Value Reference Range Interpretation Comme nts HERPES SIMPLEX 2 IgG (test c ode = 47236) 92.700 INDEX HERPES SIMPLEX 2 [id number] 00:00:00* Test Item Value Reference Range Interpretation Comme nts HERPES SIMPLEX 2 IgG (test c ode = 41862) 92.700 INDEX COMPREHENSIVE METABOLIC [id number] 00:00:00* Test Item Value Reference Range Interpretation Comme nts GLUCOSE (test code = 2217) 149 MG/DL BUN (test code = 2208) 9 MG/DL CREATININE (test code = 2214) 0.66 MG/DL eGFR (2020 CKD-EPI) (test code = 94495) 113 ML/MIN/1.73 CALC BUN/CREAT (test code = [...] code = 2219) 18 U/L COMPREHENSIVE METABOLIC [id number] 00:00:00* Test Item Value Reference Range Interpretation Comme nts GLUCOSE (test code = 2217) 149 MG/DL BUN (test code = 2208) 9 MG/DL CREATININE (test code = 2214) 0.66 MG/DL eGFR (2020 CKD-EPI) (test code = 98324) 113 ML/MIN/1.73 CALC BUN/CREAT (test code = [...] ALT (test code = 2219) 18 U/L [id number] 00:00:00* Test Item Value Reference Range Interpretation Comme nts D-DIMER (test code = 1405) 0.76 UG/MLFEU [id number] 00:00:00* Test Item Value Reference Range Interpretation Comme nts D-DIMER (test code = 1405) 0.76 UG/MLFEU VAGINAL PATHOGENS DNA [id number] 00:00:00* Test Item Value Reference Range Interpretation Comme nts OFE SPECIES (test code = 55126) NEGATIVE G. VAGINALIS (test code = 10246) POSITIVE T. VAGINALIS (test code = 52145) NEGATIVE VAGINAL PATHOGENS DNA [id number] 00:00:00* Test Item Value Reference Range Interpretation Comme nts OFE SPECIES (test code = 92482) NEGATIVE G. VAGINALIS (test code = 64591) POSITIVE T. VAGINALIS (test code = 61296) NEGATIVE HIV 1/2 4TH GEN, RFLX [id number] 00:00:00* Test Item Value Reference Range Interpretation Comme nts HIV 1/2 4TH GEN, RFLX CONF ( test code = 3514) NON-REACTIVE HIV 1/2 4TH GEN, RFLX [id number] 00:00:00* Test Item Value Reference Range Interpretation Comme nts HIV 1/2 4TH GEN, RFLX CONF ( test code = 3514) NON-REACTIVE [id number] 00:00:00* Test Item Value Reference Range Interpretation Comme nts RPR RESULT (test code = 3501) REACTIVE RPR TITER (test code = 3500) 1:1 TITER [id number] 00:00:00* Test Item Value Reference Range Interpretation Comme nts RPR RESULT (test code = 3501) REACTIVE RPR TITER (test code = 3500) 1:1 TITER [id number] 00:00:00* Test Item Value Reference Range Interpretation Comme nts RPR RESULT (test code = 3501) REACTIVE RPR TITER (test code = 3500) 1:1 TITER ACUTE HEPATITIS [id number] 00:00:00* Test Item Value Reference Range Interpretation Comme nts HEPATITIS A IgM (test code = 76571) NON-REACTIVE HEPATITIS B CORE IgM (test c ode = 4644) NON-REACTIVE HEPATITIS B SURF AG (test co de = 2739) NON-REACTIVE HEPATITIS C ANTIBODY (test c ode = 4675) NON-REACTIVE INTERPRETATION HEPATITIS A: (test code = 2552) (NOTE) INTERPRETATION HEPATITIS B: (test code = 42909) (NOTE) INTERPRETATION HEPATITIS C: (test code = 69644) (NOTE) ACUTE HEPATITIS [id number] 00:00:00* Test Item Value Reference Range Interpretation Comme nts HEPATITIS A IgM (test code = 31402) NON-REACTIVE HEPATITIS B CORE IgM (test c ode = 4644) NON-REACTIVE HEPATITIS B SURF AG (test co de = 2739) NON-REACTIVE HEPATITIS C ANTIBODY (test c ode = 4675) NON-REACTIVE INTERPRETATION HEPATITIS A: (test code = 2552) (NOTE) INTERPRETATION HEPATITIS B: (test code = 79428) (NOTE) INTERPRETATION HEPATITIS C: (test code = 86653) (NOTE) CT/NG, TMA, [id number] 00:00:00* Test Item Value Reference Range Interpretation Comme nts GONORRHEA, NAAT (test code = 71194) NEGATIVE CHLAMYDIA, NAAT (test code = 93943) NEGATIVE CT/NG, TMA, [id number] 00:00:00* Test Item Value Reference Range Interpretation Comme nts GONORRHEA, NAAT (test code = 85996) NEGATIVE CHLAMYDIA, NAAT (test code = 68633) NEGATIVE COMPREHENSIVE METABOLIC [id number] 00:00:00* Test Item Value Reference Range Interpretation Comme nts GLUCOSE (test code = 2217) 73 MG/DL BUN (test code = 2208) 14 MG/DL CREATININE (test code = 2214) 0.78 MG/DL eGFR (2020 CKD-EPI) (test co de = 47420) 98 ML/MIN/1.73 CALC BUN/CREAT (test code = [...] code = 2219) 13 U/L COMPREHENSIVE METABOLIC [id number] 00:00:00* Test Item Value Reference Range Interpretation Comme nts GLUCOSE (test code = 2217) 73 MG/DL BUN (test code = 2208) 14 MG/DL CREATININE (test code = 2214) 0.78 MG/DL eGFR (2020 CKD-EPI) (test co de = 21174) 98 ML/MIN/1.73 CALC BUN/CREAT (test code = [...] = 2219) 13 U/L VAGINAL PATHOGENS DNA [id number] 00:00:00* Test Item Value Reference Range Interpretation Comme nts OFE SPECIES (test code = 34954) NEGATIVE G. VAGINALIS (test code = 05599) POSITIVE T. VAGINALIS (test code = 42005) NEGATIVE VAGINAL PATHOGENS DNA [id number] 00:00:00* Test Item Value Reference Range Interpretation Comme nts OFE SPECIES (test code = ) NEGATIVE G. VAGINALIS (test code = 45754) POSITIVE T. VAGINALIS (test code = 61139) NEGATIVE HIV 1/2 4TH GEN, RFLX [id number] 00:00:00* Test Item Value Reference Range Interpretation Comme nts HIV 1/2 4TH GEN, RFLX CONF ( test code = 3514) NON-REACTIVE HIV 1/2 4TH GEN, RFLX [id number] 00:00:00* Test Item Value Reference Range Interpretation Comme nts HIV 1/2 4TH GEN, RFLX CONF ( test code = 3514) NON-REACTIVE [id number] 00:00:00* Test Item Value Reference Range Interpretation Comme nts RPR RESULT (test code = 3501) REACTIVE RPR TITER (test code = 3500) 1:1 TITER [id number] 00:00:00* Test Item Value Reference Range Interpretation Comme nts RPR RESULT (test code = 3501) REACTIVE RPR TITER (test code = 3500) 1:1 TITER [id number] 00:00:00* Test Item Value Reference Range Interpretation Comme nts RPR RESULT (test code = 3501) REACTIVE RPR TITER (test code = 3500) 1:1 TITER ACUTE HEPATITIS [id number] 00:00:00* Test Item Value Reference Range Interpretation Comme nts HEPATITIS A IgM (test code = 03116) NON-REACTIVE HEPATITIS B CORE IgM (test c ode = 4644) NON-REACTIVE HEPATITIS B SURF AG (test co de = 2739) NON-REACTIVE HEPATITIS C ANTIBODY (test c ode = 4675) NON-REACTIVE INTERPRETATION HEPATITIS A: (test code = 2552) (NOTE) INTERPRETATION HEPATITIS B: (test code = 10433) (NOTE) INTERPRETATION HEPATITIS C: (test code = 52868) (NOTE) ACUTE HEPATITIS [id number] 00:00:00* Test Item Value Reference Range Interpretation Comme nts HEPATITIS A IgM (test code = 90843) NON-REACTIVE HEPATITIS B CORE IgM (test c ode = 4644) NON-REACTIVE HEPATITIS B SURF AG (test co de = 2739) NON-REACTIVE HEPATITIS C ANTIBODY (test c ode = 4671) NON-REACTIVE INTERPRETATION HEPATITIS A: (test code = 2552) (NOTE) INTERPRETATION HEPATITIS B: (test code = 86531) (NOTE) INTERPRETATION HEPATITIS C: (test code = 48950) (NOTE) CT/NG, TMA, [id number] 00:00:00* Test Item Value Reference Range Interpretation Comme nts GONORRHEA, NAAT (test code = 74137) NEGATIVE CHLAMYDIA, NAAT (test code = 24848) NEGATIVE CT/NG, TMA, [id number] 00:00:00* Test Item Value Reference Range Interpretation Comme nts GONORRHEA, NAAT (test code = 39397) NEGATIVE CHLAMYDIA, NAAT (test code = 70221) NEGATIVE COMPREHENSIVE METABOLIC [id number] 00:00:00* Test Item Value Reference Range Interpretation Comme nts GLUCOSE (test code = 2217) 73 MG/DL BUN (test code = 2208) 14 MG/DL CREATININE (test code = 2214) 0.78 MG/DL eGFR (2020 CKD-EPI) (test co de = 71899) 98 ML/MIN/1.73 CALC BUN/CREAT (test code = [...] code = 2219) 13 U/L COMPREHENSIVE METABOLIC [id number] 00:00:00* Test Item Value Reference Range Interpretation Comme nts GLUCOSE (test code = 2217) 73 MG/DL BUN (test code = 2208) 14 MG/DL CREATININE (test code = 2214) 0.78 MG/DL eGFR (2020 CKD-EPI) (test co de = 45613) 98 ML/MIN/1.73 CALC BUN/CREAT (test code = [...] = 2219) 13 U/L VAGINAL PATHOGENS DNA [id number] 00:00:00* Test Item Value Reference Range Interpretation Comme nts OFE SPECIES (test code = 30522) NEGATIVE G. VAGINALIS (test code = 44295) POSITIVE T. VAGINALIS (test code = 70487) NEGATIVE VAGINAL PATHOGENS DNA [id number] 00:00:00* Test Item Value Reference Range Interpretation Comme nts OFE SPECIES (test code = 43725) NEGATIVE G. VAGINALIS (test code = 87264) POSITIVE T. VAGINALIS (test code = 70508) NEGATIVE HIV 1/2 4TH GEN, RFLX [id number] 00:00:00* Test Item Value Reference Range Interpretation Comme nts HIV 1/2 4TH GEN, RFLX CONF ( test code = 3514) NON-REACTIVE HIV 1/2 4TH GEN, RFLX [id number] 00:00:00* Test Item Value Reference Range Interpretation Comme nts HIV 1/2 4TH GEN, RFLX CONF ( test code = 3514) NON-REACTIVE [id number] 00:00:00* Test Item Value Reference Range Interpretation Comme nts RPR RESULT (test code = 3501) REACTIVE RPR TITER (test code = 3500) 1:1 TITER [id number] 00:00:00* Test Item Value Reference Range Interpretation Comme nts RPR RESULT (test code = 3501) REACTIVE RPR TITER (test code = 3500) 1:1 TITER [id number] 00:00:00* Test Item Value Reference Range Interpretation Comme nts RPR RESULT (test code = 3501) REACTIVE RPR TITER (test code = 3500) 1:1 TITER ACUTE HEPATITIS [id number] 00:00:00* Test Item Value Reference Range Interpretation Comme nts HEPATITIS A IgM (test code = 10004) NON-REACTIVE HEPATITIS B CORE IgM (test c ode = 4644) NON-REACTIVE HEPATITIS B SURF AG (test co de = 2739) NON-REACTIVE HEPATITIS C ANTIBODY (test c ode = 4675) NON-REACTIVE INTERPRETATION HEPATITIS A: (test code = 2552) (NOTE) INTERPRETATION HEPATITIS B: (test code = 95506) (NOTE) INTERPRETATION HEPATITIS C: (test code = 01758) (NOTE) ACUTE HEPATITIS [id number] 00:00:00* Test Item Value Reference Range Interpretation Comme nts HEPATITIS A IgM (test code = 56390) NON-REACTIVE HEPATITIS B CORE IgM (test c ode = 4644) NON-REACTIVE HEPATITIS B SURF AG (test co de = 2739) NON-REACTIVE HEPATITIS C ANTIBODY (test c ode = 4675) NON-REACTIVE INTERPRETATION HEPATITIS A: (test code = 2552) (NOTE) INTERPRETATION HEPATITIS B: (test code = 86502) (NOTE) INTERPRETATION HEPATITIS C: (test code = 93658) (NOTE) CT/NG, TMA, [id number] 00:00:00* Test Item Value Reference Range Interpretation Comme nts GONORRHEA, NAAT (test code = 98151) NEGATIVE CHLAMYDIA, NAAT (test code = 98061) NEGATIVE CT/NG, TMA, [id number] 00:00:00* Test Item Value Reference Range Interpretation Comme nts GONORRHEA, NAAT (test code = 17058) NEGATIVE CHLAMYDIA, NAAT (test code = 81434) NEGATIVE COMPREHENSIVE METABOLIC [id number] 00:00:00* Test Item Value Reference Range Interpretation Comme nts GLUCOSE (test code = 2217) 73 MG/DL BUN (test code = 2208) 14 MG/DL CREATININE (test code = 2214) 0.78 MG/DL eGFR (2020 CKD-EPI) (test co de = 90384) 98 ML/MIN/1.73 CALC BUN/CREAT (test code = [...] code = 2219) 13 U/L COMPREHENSIVE METABOLIC [id number] 00:00:00* Test Item Value Reference Range Interpretation Comme nts GLUCOSE (test code = 2217) 73 MG/DL BUN (test code = 2208) 14 MG/DL CREATININE (test code = 2214) 0.78 MG/DL eGFR (2020 CKD-EPI) (test co de = 29002) 98 ML/MIN/1.73 CALC BUN/CREAT (test code = [...]
[2023-12-22] MEDS ORDERED: HYDROCODONE/APAP 10/325 TAB ONE (20:12)
[2023-12-22] MEDS ORDERED: ONDANSETRON 4 MG (ODT) TAB ONE (20:12)
[2023-12-22] MEDS ORDERED: LIDOCAINE 1% MPF 5 ML VIAL ONE (20:13)
--- NOTE | 2023-12-22 21:40 | ER ---
Nurse's Notes [facility] Name: Evelyn Rosa Age: 43 yrs Sex: Female : 1980 Arrival Date: 12/22/2023 Time: 19:13 Bed 7 Private MD: Diagnosis: Cutaneous abscess of groin Presentation: 12/21 19:20 Chief complaint: Patient states: "I have a boil down there". Coronavirus screen: At as6 this time, the client does not indicate any symptoms associated with coronavirus-19. Ebola Screen: No symptoms or risks identified at this time. Initial Sepsis Screen: Does the patient meet any 2 criteria? No. Patient's initial sepsis screen is negative. Does the patient have a suspected source of infection? No. Patient's initial sepsis screen is negative. Risk Assessment: Do you want to hurt yourself or someone else? Patient reports no desire to harm self or others. Onset of symptoms was December 19, 2023. 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 - Infectious Disease History:: Denies. - Social history:: Smoking status: Patient reports the use of cigarette tobacco products, smokes one-half pack cigarettes per day. Screenin:[address] [facility] ED Fall Risk Assessment (Adult) History of falling in the last 3 months, cp4 including since admission No falls in past 3 months (0 pts) Confusion or Disorientation No (0 pts) Intoxicated or Sedated No (0 pts) Impaired Gait No (0 pts) Mobility Assist Device Used No (0 pt) Altered Elimination No (0 pt) Score/Fall Risk Level 0 - 2 = Low Risk Oriented to surroundings, Maintained a safe environment, Assessed \\T\\ reinforced patient's understanding of fall precautions, Hourly rounding (assess needs \\T\\ fall precautionary measures) done. Abuse screen: Denies threats or abuse. Nutritional screening: No deficits noted. Tuberculosis screening: No symptoms or risk factors identified. Assessment: 19:42 General: Appears uncomfortable, Behavior is calm, cooperative, appropriate for age. cp4 Pain: Complains of pain in pelvis. Derm: Abscess located on pelvis Reports pain that is 9 out of 10 on a pain scale. Vital Signs: 19:20 BP 131 / 97; Pulse 128; Resp 18; Temp 97.8; Pulse Ox 100% ; Weight 84.37 kg; Height 5 as6 ft. 5 in. ; Pain 10/10; 22:10 BP 128 / 94; Pulse 99; Resp 18; Temp 97.8; Pulse Ox 100% ; Pain 6/10; cp4 19:20 Body Mass Index 30.95 (84.37 kg, 165.1 cm) as6 19:20 Pain Scale: Adult as6 22:10 Pain Scale: Adult cp4 ED Course: 19:16 Patient arrived in ED. ra3 19:22 Triage completed. as6 19:22 Arm band placed on. as6 19:23 Miladis Ramirez FNP-C is PHCP. kb 19:23 Chon Pichardo MD is Attending Physician. kb 19:26 Valentina Willis is Primary Nurse. cp4 19:45 Patient has correct armband on for positive identification. Bed in low position. Call cp4 light in reach. Side rails up X2. 22:10 Provided Education on: abscess. cp4 22:10 No provider procedures requiring assistance completed. Patient did not have IV access cp4 during this emergency room visit. Administered Medications: 20:16 Drug: [place] PO 10 mg-325 mg 1 tabs PO once Route: PO; cp4 20:16 Drug: Ondansetron Oral Disintegrating Tablet Oral Disintegrating Tablet 4 mg PO once cp4 Route: PO; 21:44 Drug: Lidocaine Infiltration (1 %) 5 mg Infiltration once Route: Infiltration; cp4 22:08 Drug: Trimethoprim-Sulfamethoxazole PO (160 mg-800 mg (DS) 1 tablet PO once Route: PO; cp4 Medication: 19:43 VIS not applicable for this client. cp4 Outcome: 21:39 Discharge ordered by MD. kb 22:10 Discharged to home ambulatory, cp4 22:10 Condition: stable 22:10 Discharge instructions given to patient, Instructed on discharge instructions, follow up and referral plans. medication usage, Demonstrated understanding of instructions, follow-up care, medications, Prescriptions given X 2, 22:12 Patient left the ED. cp4 Signatures: Miladis Ramirez FNP-C FNP-Ckb Slawson, Ashby, RN RN as6 Valentina Willis cp4 Nya Khoury ra3
--- NOTE | 2023-12-22 21:40 | EDPHYS ---
Physician Documentation [facility] Name: Evelyn Rosa Age: 43 yrs Sex: Female : 1980 Arrival Date: 12/22/2023 Time: 19:13 Bed 7 Private MD: ED Physician Chon Pichardo HPI: 12/21 21:41 This 43 yrs old Black Female presents to ER via Ambulatory with complaints of Vaginal kb Pain - psbl abscess. 21:41 Pt is a 43 year old female who presents for abscess to right side of vagina that kb started 3 days ago. Denies fever. States pain and swelling has been getting worse. [employer]ING [employer]: 22:12 unknown cp4 Historical: - Allergies: 19:22 PENICILLINS; as6 19:22 Toradol; as6 - PMHx: 19:22 Anxiety; chronic back pain; Chronic Pancreatitis; Crohn's; Degenerative disc disease; as6 gastritits; ibs; Pancreatitis; - PSHx: 19:22 section; partial hysterectomy; as6 - Immunization history:: Adult Immunizations up to date. - Infectious Disease History:: Denies. - Social history:: Smoking status: Patient reports the use of cigarette tobacco products, smokes one-half pack cigarettes per day. ROS: 21:41 Constitutional: As per HPI kb Exam: 21:41 Constitutional: This is a well developed, well nourished patient who is awake, alert, kb and in no acute distress. Head/Face: Normocephalic, atraumatic. ENT: Moist Mucous membranes Cardiovascular: Regular rate Respiratory: Respirations even and unlabored. No increased work of breathing. Talking in full sentences MS/ Extremity: Pulses equal, no cyanosis. Neurovascular intact. Full, normal range of motion. Neuro: Awake and alert, GCS 15, oriented to person, place, time, and situation. Moves all extremities. Normal gait. 21:41 Skin: abscess, that is moderate sized, of the right labia majora, with fluctuance, that is moderate, Vital Signs: 19:20 BP 131 / 97; Pulse 128; Resp 18; Temp 97.8; Pulse Ox 100% ; Weight 84.37 kg; Height 5 as6 ft. 5 in. ; Pain 10/10; 22:10 BP 128 / 94; Pulse 99; Resp 18; Temp 97.8; Pulse Ox 100% ; Pain 6/10; cp4 19:20 Body Mass Index 30.95 (84.37 kg, 165.1 cm) as6 19:20 Pain Scale: Adult as6 22:10 Pain Scale: Adult cp4 Procedures: 21:42 I \T\ D: Incision and drainage was performed for an abscess of the right right labia kb majora Prepped with Betadine, Anesthetized with 4 ml's 1% Lidocaine. Incised with #11 blade. Drained large amount purulent fluid. Packed with iodoform gauze, Dressing: sterile 4x4 gauze, the patient tolerated the procedure well. MDM: 19:23 Patient medically screened. kb 21:43 Differential diagnosis: abscess, cellulitis. Data reviewed: vital signs, nurses notes. kb Counseling: I had a detailed discussion with the patient and/or guardian regarding the historical points, exam findings, and any diagnostic results supporting the discharge/admit diagnosis, the need for outpatient follow up, a general surgeon, to return to the emergency department if symptoms worsen or persist or if there are any questions or concerns that arise at home. 12/21 19:24 Order name: [facility] [place]. Order: place pt in gown please; Complete Time: 19:26 kb 12/21 20:05 Order name: I\T\D Setup; Complete Time: 20:16 kb Administered Medications: 20:16 Drug: [place] PO 10 mg-325 mg 1 tabs PO once Route: PO; cp4 20:16 Drug: Ondansetron Oral Disintegrating Tablet Oral Disintegrating Tablet 4 mg PO once cp4 Route: PO; 21:44 Drug: Lidocaine Infiltration (1 %) 5 mg Infiltration once Route: Infiltration; cp4 22:08 Drug: Trimethoprim-Sulfamethoxazole PO (160 mg-800 mg (DS) 1 tablet PO once Route: PO; cp4 Disposition Summary: 12/22/23 21:39 Discharge Ordered Condition: Stable kb Diagnosis - Cutaneous abscess of groin kb Followup: kb - With: Emergency Department - When: As needed - Reason: Worsening of condition Followup: kb - With: Private Physician - When: 2 - 3 days - Reason: Recheck today's complaints, Continuance of care, Re-evaluation by your physician Discharge Instructions: - Discharge Summary Sheet kb - Skin Abscess, [id number] kb - Incision and Drainage, Care After kb Forms: - Medication Reconciliation Form kb - Antibiotic Education kb - Prescription Opioid Use kb - Patient Portal Instructions kb - Leadership Thank You Letter kb Prescriptions: - Tramadol 50 mg Oral tablet - take 1 tablet ORAL route every 8 hours as needed; 6 tablet; Refills: 0, Product kb Selection Permitted - Bactrim DS 800-160 mg Oral Tablet - take 1 tablet ORAL route every 12 hours for 10 days; 20 tablet; Refills: 0, kb Product Selection Permitted Signatures: Miladis Ramirez FNP-C FNP-Ckb Slawson, Ashby RN RN as6 Valentina Willis cp4 Corrections: (The following items were deleted from the chart) 21:43 21:41 Pt is a 43 year old female who presents for abscess to left side of vagina that kb started 3 days ago. Denies fever. States pain and swelling has been getting worse. kb
[2023-12-22] MEDS ORDERED: SMZ./TMP. 800/160 MG TABLET ONE (21:45)
[2023-12-22 22:50] VITALS: BP 128/94; TEMP 97.8; O2SAT 100
== END 2023-12-22 22:12 | disposition home or self-care (01) ==
LOC: ER 19:13
PROC: 0U9MXZZ Drainage of Vulva, External Approach (ICD-10-PCS; principal; 2023-12-22)
DX: N76.4 Abscess of vulva (principal)
CPT/HCPCS: 99283; 56405; Q0162; J2001

== ENCOUNTER 2024-04-27 08:19 | Emergency (ER) | payer OTHER ==
--- OUTSIDE RECORDS SUMMARY | 2024-04-27 08:24 | XMS REPORT | Continuity of Care Document ---
Author Name Unknown Address [address] [facility] [address] [place] [address] [facility] thconnect Address [address] [facility] [address] [place] [address] Care Team Providers Care Radiologic Therapist Name Role Phone Reymundo Harvey Primary Care Physician [phone] CARL MAN Attending Clinician Unavailab le LAB90 Attending Clinician Unavailable Doctor Unassigned, [place] Attending Clinician LAKIA Trevino Attending Clinician Geneva Patel DO Attending Clinician [phone] GENEVA RODRÍGUEZ Attending Clinician Lena marie Payers Payer Name Policy Type Policy Number Effective Date Expirati on Date Source [facility] [place] [facility] [id number] 2022 00:00:00 [facility] LEXI JAY COPAY FOCUS 9 [id number] 2023 00:00:00 Problems Condition Name Condition Details Condition Category Status Onset Date Resolution Date Last Treatment Date Treating Clinician Comments Source Well adult exam Well adult exam Disease Active 2023-07 00:00: 00 Jennifer Seybold - Externa l Chronic pain Chronic pain Disease Active 2023-07 0-02 00:00: 00 Jennifer Bates - Jay Jaya l Syncope and collapse Syncope and collapse Disease Active 2023-07 0- 00:00: 00 Jennifer Bates - Externa l Irritable bowel syndrome with both constipati on and diarrhea Irritable bowel syndrome with both constipati on and diarrhea Disease Active 2023-07 0- 00:00: 00 Jennifer Bates - Externa l Nausea & vomiting Nausea & vomiting Disease Active 2010-07 00:00: 00 [facility] Abdominal pain, acute, epigastric Abdominal pain, acute, epigastric Disease Active 2010-07 00:00: 00 [facility] Leukocytos is Leukocytos is Disease Active 2010-07 00:00: 00 Overview: Formattin g of this note might be different from the original. ICD10 Diagnosis Term Division Controller Utility [facility] Hypokalemi a Hypokalemi a Disease Active 2010-07 00:00: 00 [facility] Metabolic acidosis Metabolic acidosis Disease Active 2010-07 00:00: 00 [facility] Anxiety Anxiety Disease Active Jennifer Bates - Externa l Insomnia Insomnia Disease Active Radha pate Seybold - Externa l Allergies, Adverse Reactions, Alerts Allergy Name Allergy Type Status Severity Reaction(s) Onset Date Inactive Date Treating Clinician Comments Source Penicill ins Propensi ty to adverse reaction s Active Rash 2023-07 0- 00:00: 00 Jennifer Bates - Externa l Toradol Propensi ty to adverse reaction s Active Hives 2023-07 0- 00:00: 00 Jennifer Bates - Externa l Penicill ins - CLASS Propensi ty to adverse reaction to drug Active 2021-07 1- 00:00: 00 Ketorola c Propensi ty to adverse reaction s Active Rash 2021-07 0- 00:00: 00 [facility] KETOROLA C DRUG INGREDI Active Rash 2021-07 0- 00:00: 00 [facility] Penicill ins Propensi ty to adverse reaction to drug Active 2- 00:00: 00 Penicill ins Propensi ty to adverse reaction s Active Unknown - See comments 2015-07 00:00: 00 [facility] PENICILL INS Drug Class Active Unknown-Cmnt 2015-07 00:00: 00 [facility] Social History Social Habit Start Date Stop Date Quantity Comments Source History of tobacco use 1998-01-13 00:00:00 Cigarette Smoker Jennifer Bates - External ASSERTION Not Jennifer Bates - External Sexual orientation Laxmi Bates - External Gender identity [facility] Cigarettes smoked current (pack per day) - Reported 2024-04-11 00:00:00 2024-04-11 00:00:00 Jennifer Bates - External Cigarette pack-years 2024-04-11 00:00:00 2024-04-11 00:00:00 Jennifer Bates - External Alcoholic beverage intake 2024-04-11 00:00:00 2024-04-11 00:00:00 .29 /d Jennifer Bates - External History of Social function 2024-04-11 00:00:00 2024-04-11 00:00:00 Jennifer Bates - External Sex 2023-08-03 13:26:49 2023-08-03 13:26:49 Female (finding) Jennifer Bates - External Exposure to SARS-CoV-2 (event) 2022-04-20 00:00:00 2022-04-30 13:23:00 Not sure [facility] Alcohol intake 2016-05-05 00:00:00 2016-05-05 00:00:00 Current drinker of alcohol (finding) [facility] Sex assigned at 1980 00:00:00 1980 00:00:00 Jennifer Bates - External Smoking Status Start Date Stop Date Source Ex-smoker 2024-04-11 00:00:00 2024-04-11 00:00:00 Laxmi Bates - External Never smoked tobacco [facility] Medications Ordered Medication Name Filled Medication Name Start Date Stop Date Current Medication? Ordering Clinician Indication Dosage Frequency Signature (SIG) Comments Components Source Valacyclovi r HCl 500 MG oral Tablet 2023-07 00:00: 00 Yes [id number] 500mg QD Take 1 tablet (500 mg total) by mouth daily. Jennifer archer Gabapentin 800 MG oral Tablet 2023-07- 00:00: 00 Yes [id number] 800mg Q.[id number] [id number] 3D Take 1 tablet (800 mg total) by mouth 3 times daily as needed. Jennifer archer Furosemide (Lasix) 20 MG oral Tablet 2023-07 00:00: 00 Yes [id number] 20mg QD Take 1 tablet (20 mg total) by mouth daily. Jennifer archer Clonazepam 0.5 MG oral Tablet 04-05 00:00: 00 Yes TAKE 1 TABLET THREE TIMES DAILY FOR SLEEP FOR ANXIETY Jennifer archer Cyclobenzap rine HCl 10 MG oral Tablet 03-17 00:00: 00 Yes 10mg Q.[id number] 3D Take 1 tablet (10 mg total) by mouth 3 times daily. Jennifer archer Valacyclovi r HCl 500 MG oral Tablet 02-07 00:00: 00 04-11 00:00 :00 No TAKE TWO (2) TABLET(S) BY MOUTH TWICE A DAY FOR 1 DAY. Jennifer archer TAKE 1 CAPSULE TWICE DAILY. 07-28 00:00: 00 No TAKE 1 TABLET TWICE DAILY UNTIL FINISHED. 2021-07 00:00: 00 No TAKE 1 TABLET ONCE DAILY. 2021-07- 00:00: 00 No 500unit INHALE 2 PUFFS EVERY 4 TO 6 HOURS NEEDED. 2021-07- 00:00: 00 No 100unit TAKE 5 ML EVERY 4 TO 6 HOURS NEEDED. 2021-07- 00:00: 00 No 5unit Dose Unknown 2021-07- 00:00: 00 No 500 TAKE ONE (1) TABLET(S) BY MOUTH TWICE A DAY NEEDED. 2021-07- 00:00: 00 No 5 Dose Unknown 2021-07- 00:00: 00 No 5 TAKE TWO (2) TABLET(S) BY MOUTH TWICE A DAY. 2021-07- 00:00: 00 No 5 TAKE ONE (1) [...] No Dose Unknown 08-07 00:00: 00 No Furosemide (LASIX OR) 07-12 00:00: 00 04-11 00:00 :00 No 20mg Take 20 mg by mouth. Jennifer archer azithromyci n 250 mg tablet 2020-07- 00:00: 00 No mg benzonatate 100 mg [...] tablet 2020-07 2- 00:00: 00 No 1mg prednisone 20 mg tablet 6 00:00: 00 No 1mg azithromyci n 250 [...] Pain (scale 4-6) or Pain (scale 7-10). [facility] pantoprazol e (PROTONIX) 40 mg EC tablet 2015-07 00:00: 00 Yes 40mg Take 1 tablet by mouth daily. [facility] proMETHazin e (PHENERGAN) 25 mg tablet 2015-07 00:00: 00 Yes 25mg Take 1 tablet by mouth every 6 (six) hours as needed for Nausea and Vomiting (N/V). [facility] Ibuprofen (MOTRIN) 800 MG oral Tablet 07-12 00:00: 00 Yes 800mg Q.[id number] 3D Take 1 tablet (800 mg total) by mouth every 8 hours as needed. Jennifer archer Promethazin e HCl 50 MG oral Tablet 07-12 00:00: 00 Yes 50mg Q.25D Take 1 tablet (50 mg total) by mouth every 6 hours as needed. Jennifer archer Ambien 10 MG oral Tablet 07-12 00:00: 00 Yes Jennifer archer Gabapentin 800 MG oral Tablet 07-12 00:00: 00 04-11 00:00 :00 No 800mg Q.14530870 [id number] 3D Take 1 tablet (800 mg total) by mouth 3 times daily. Jennifer archer Immunizations Ordered Immunization Name Filled Immunization Name Date Status Comments Source Moderna COVID-19 Vaccine 2021-06-30 00:00:00 Completed Moderna COVID-19 Vaccine 2021-06-30 00:00:00 Completed Moderna COVID-19 Vaccine 2021-06-30 00:00:00 Completed Moderna COVID-19 Vaccine 2021-06-30 00:00:00 Completed Moderna COVID-19 Vaccine 2020-10-13 00:00:00 Completed Moderna COVID-19 Vaccine 2020-10-13 00:00:00 Completed Moderna COVID-19 Vaccine 2020-10-13 00:00:00 Completed Moderna COVID-19 Vaccine 2020-10-13 00:00:00 Completed Moderna COVID-19 Vaccine 2020-09-13 00:00:00 Completed Moderna COVID-19 Vaccine 2020-09-13 00:00:00 Completed Moderna COVID-19 Vaccine 2020-09-13 00:00:00 Completed Moderna COVID-19 Vaccine 2020-09-13 00:00:00 Completed Influenza Virus Vaccine 2011-06-21 00:00:00 Completed [facility] Influenza Virus Vaccine 2011-06-21 00:00:00 Completed [facility] Influenza Virus Vaccine 2011-06-21 00:00:00 Completed [facility] AFLURIA TRIVALENT PF(0.5mL) Unknown Completed Jennifer Howardybold - External Covid-19 Vaccine Moderna (Spikevax), Mrna-lnp, Suleman Protein, Pf Unknown Completed Jennifer Bates - External Vital Signs Vital Name Observation Time Observation Value Comments S ource Systolic blood pressure 2024-04-11 16:27:00 110 mm[Hg] Jennifer Seybo ld - External Diastolic blood pressure 2024-04-11 16:27:00 74 mm[Hg] Jennifer Seybo ld - External Heart rate 2024-04-11 16:27:00 100 /min Sheldon y ybold - External Body temperature 2024-04-11 16:27:00 36.22 Brandy Jennifer Seybold - External Respiratory rate 2024-04-11 16:27:00 15 /min Jennifer Seybold - External Body height 2024-04-11 16:27:00 165.1 cm Carla ey Seybold - External Body weight 2024-04-11 16:27:00 83.008 kg Carla ey Seybold - External BMI 2024-04-11 16:27:00 30.45 kg/m2 Carla ey Seybold - External Body weight 2022-04-30 18:23:[address] [facility] BMI 2022-04-30 18:23:16 29.12 kg/m2 [facility] Systolic blood pressure 2022-04-30 18:16:00 128 mm[Hg] [facility] Diastolic blood pressure 2022-04-30 18:16:00 81 mm[Hg] [facility] Heart rate 2022-04-30 18:16:00 92 /min [facility] Body temperature 2022-04-30 18:16:00 37.06 Brandy [facility] Respiratory rate 2022-04-30 18:16:00 18 /min [facility] Body height 2022-04-30 18:16:[address] [facility] Oxygen saturation in Arterial blood by Pulse oximetry 2022-04-30 18:16:00 96 /min [facility] BP Systolic 2022-07-28 10:17:00 123 mm[Hg] [...] Source REFERRAL- REQUEST/RESPONSE 2023-03-22 05:01:00 Doctor Unassigned, [place] [facility] AUTHORIZATION FOR RELEASE OF PHI 2022-09-30 05:01:00 Doctor Unassigned, [place] [facility] RAPID INFLUENZA A/B 2022-04-30 18:27:00 Tiff Rodríguez ra [facility] COVID-19 (ID NOW RAPID TESTING) 2022-04-30 18:27:00 Geneva Rodríguez [facility] CONSENT/REFUSAL FOR DIAGNOSIS AND TREATMENT 2022-04-30 18:06:22 Doctor Unassigned, [place] [facility] Plan of Care Planned Activity Planned Date Details Comments Source Goal Plan of Care Note [code = 21339-1] Goal Plan of Care Note [code = 98333-0] Goal Plan of Care Note [code = 48899-5] Goal Plan of Care Note [code = 06256-7] Goal Plan of Care Note [code = 64164-9] Goal Plan of Care Note [code = 52318-5] Goal Plan of Care Note [code = 50991-7] Goal Plan of Care Note [code = 24971-2] Goal Plan of Care Note [code = 40581-1] Goal Plan of Care Note [code = 42641-1] Goal Plan of Care Note [code = 02348-4] Goal Plan of Care Note [code = 78300-7] Goal Plan of Care Note [code = 45052-2] Goal Plan of Care Note [code = 48866-2] Goal Plan of Care Note [code = 93984-3] Goal Plan of Care Note [code = 69044-4] Goal Plan of Care Note [code = 71927-5] Goal Plan of Care Note [code = 79443-5] Goal Plan of Care Note [code = 42761-4] Goal Plan of Care Note [code = 33176-5] Goal Plan of Care Note [code = 91509-0] Goal Plan of Care Note [code = 94891-8] Goal Plan of Care Note [code = 29613-5] Goal Plan of Care Note [code = 44691-3] Goal Plan of Care Note [code = 95993-7] Goal Plan of Care Note [code = 92797-9] Goal Plan of Care Note [code = 48844-5] Goal Plan of Care Note [code = 02287-2] Goal Plan of Care Note [code = 43487-5] Goal Plan of Care Note [code = 43674-2] Goal Plan of Care Note [code = 35668-7] Goal Plan of Care Note [code = 06323-0] Goal Plan of Care Note [code = 83357-1] Goal Plan of Care Note [code = 10714-7] Goal Plan of Care Note [code = 18005-7] Goal Plan of Care Note [code = 33626-7] Goal Plan of Care Note [code = 67933-4] Goal Plan of Care Note [code = 26968-1] Goal Plan of Care Note [code = 63901-0] Goal Plan of Care Note [code = 58684-4] Goal Plan of Care Note [code = 53316-3] Goal Plan of Care Note [code = 77664-2] Goal Plan of Care Note [code = 79037-7] Encounters Start Date/Time End Date/Time Encounter Type Admission Type Attending Clinicians Care Facility Care Department Encounter ID Source 2022-11-24 09:13:[address] [facility] [id number] [facility] 2024-05-09 11:30:00 2024-05-09 11:30:00 [id number] [facility]24-[facility]-26 00:00:00 2024-04-26 00:00:00 Outpatient CARL MAN [id number] [facility] 2024-04-24 00:00:00 2024-04-24 00:00:00 Outpatient CARL MAN [id number] [facility] 2024-04-16 00:00:00 2024-04-16 00:00:00 Outpatient [facility]L MAN [id number] [facility] 2024-04-14 00:00:00 2024-04-14 00:00:00 Outpatient CARL MAN [id number] [facility] 2024-04-12 09:35:00 2024-04-12 09:35:00 Outpatient LAB90 JENNIF[facility] BERNARD [id number] [facility] 2024-04-11 13:00:00 2024-04-11 13:00:00 Outpatient LAB90 JENNIFER BERNARD [id number] [facility] 2024-04-11 11:30:00 2024-04-11 11:30:00 Outpatient CARL MAN [id number] [facility] 2024-04-11 00:00:00 2024-04-11 00:00:00 Outpatient CARL MAN [id number] [facility] 2024-04-11 00:00:00 2024-04-11 00:00:00 Outpatient CARL MAN [id number] [facility] 2023-03-22 11:08:58 2023-03-22 11:08:58 Outpatient [facility] [id number] Reginald Dwyer 2023-03-22 00:00:00 2023-03-22 00:00:00 Orders Only Doctor Unassigned, [place] [facility] [id number] [facility] 2022-12-22 10:58:01 2022-12-22 10:58:01 Outpatient [facility] [id number] Reginald Diaz Reymundo 2022-12-15 13:54:13 2022-12-15 13:54:13 Outpatient [facility] [id number] Reginald Diaz [place] 2022-12-10 13:13:19 2022-12-10 13:13:19 Outpatient [facility] [id number] Reginald Diaz [facility] 2022-12-08 14:35:59 2022-12-08 14:35:59 Outpatient [facility] [id number] Reginald Dwyer 2022-09-30 00:00:00 2022-09-30 00:00:00 Orders Only Doctor Unassigned, [place] [facility] [id number] [facility] 2022-09-01 09:29:00 2022-09-01 18:15:00 Emergency E [facility] [id number] [facility] 2022-08-02 14:37:45 2022-08-02 14:37:45 Outpatient [facility] [id number] Reginald Dwyer 2022-07-28 10:11:02 2022-07-28 10:11:02 Outpatient [facility] S[facility] [id number] Reginald Dwyer 2022-07-28 00:00:00 2022-07-28 00:00:00 Outpatient Visit [id number] 2022-06-21 08:09:11 2022-06-21 08:09:11 Outpatient [facility] SFA [id number] Reginald Dwyer 2022-06-19 10:15:22 2022-06-19 10:15:22 Outpatient [facility] SFA [id number] Reginald Dwyer 2022-06-18 11:18:31 2022-06-18 11:18:31 Outpatient [facility] SFA [id number] Reginald Dwyer 2022-06-18 00:00:00 2022-06-18 00:00:00 Outpatient Visit [id number] 2022-06-14 13:27:35 2022-06-14 13:27:35 Outpatient SFA SFA [id number] Reginald Dwyer 2022-06-14 00:00:00 2022-06-14 00:00:00 Outpatient Visit [id number] 2022-06-10 11:10:28 2022-06-10 11:10:28 Outpatient SFA SFA [id number] Reginald Dwyer 2022-06-04 00:00:00 2022-06-04 00:00:00 Outpatient Visit [id number] 2022-04-30 13:21:00 2022-04-30 13:57:00 Emergency Geneva Rodríguez [facility] [id number] [id number] [facility] 2022-04-30 13:21:00 2022-04-30 13:57:00 Emergency X GENEVA RODRÍGUEZ [facility] ERT [id number] [facility] Results Test Description Test Time Test Comments Results Result Co mments Source RHEUMATOID FACTOR, [id number] 06:57:29* Test Item Value Reference Range Interpretation Comme nts RHEUMATOID FACTOR, QUANT (te st code = 3502) <10 IU/ML <14 C-REACTIVE [id number] 06:45:47* Test Item Value Reference Range Interpretation Comme nts C-REACTIVE PROTEIN (test cod e = 3513) 0.4 MG/DL <0.5 SEDIMENTATION [id number] 04:36:47* Test Item Value Reference Range Interpretation Comme nts SEDIMENTATION RATE (test cod e = 1017) 2 MM/HOUR 0-20 CBC W/AUTO DIFF WITH [id number] 02:24:44* Test Item Value Reference Range Interpretation [...] = 1065) 0.0 /100 WBC'S See_Comment [Automated [place] ge] The system which generated this result [...] 0.00-0.10 ABS NUCLEATED RBCS (test code = 69471) 0.00 K/UL 0.00-0.11 VARUN (ANTI-NUCLEAR AB) WITH REFLEX [id number] 01:59:28* Test Item Value Reference Range Interpretation Comme nts ANTI-NUCLEAR ANTIBODIES (test code = 3506) NEGATIVE NEGATIVE Methodology is I ndirect Immunofluorescent Assay (IFA) with a titering system using [id number] cells (Hep2 cells transfected with SS-A/Ro). VARUN PATTERN (REPORTED TITER) (test code = 18831) SEE BELOW HOMOGENEOUS (test code = 09280) NEGATIVE TITER NEGATIVE SPECKLED (test code = 103550) NEGATIVE TITER NEGATIVE DENSE FINE SPECKLED (test code = 15825) NEGATIVE TITER NEGATIVE CENTROMERE (test code = 759554) NEGATIVE TITER NEGATIVE COARSE SPECKLED (test code = 217445) NEGATIVE TITER NEGATIVE DISCRETE NUCLEAR DOTS (test code = 736281) NEGATIVE TITER NEGATIVE NUCLEOLAR (test code = 080146) NEGATIVE TITER NEGATIVE NUCLEAR MEMBRANE (test code = 656488) NEGATIVE TITER NEGATIVE CYTO. RETICULAR (AYLA) (test code = 325673) NEGATIVE NEGATIVE COMMENTS (test code = 294802) NONE METHOD (test code = 58935) (NOTE) TESTING PERFORME D BY [employer] IFA PLATFORM.THE METHOD INCLUDES A SCREEN THRESHOLD OF 1:80, DIGITIZED AND COMPUTER ALGORITHM-ASSISTED INTERPRETATION OF TITERS AND DIGITAL PATTERNS, AND HEp-2 CELL LINE SUBSTRATE. ADDITIONAL UNUSUAL PATTERNS WILL BE GIVEN COMMENTS.FOR MORE INFORMATION, SEE [email or web address] UNLESS OTHERWISE INDICATED, ALL TESTING PERFORMED AT [facility] [address] [place] [id number] OUTSIDE SALES INSPECTOR: VIRGINIA CARTER M.D. IA NUMBER [id number] [facility] [place]. [id number] COMPREHENSIVE METABOLIC [id number] 08:05:44* Test Item Value Reference Range Interpretation Comme nts GLUCOSE (test code = 2217) 106 MG/DL 70-99 H BUN (test code = 2208) 11 MG/DL 6-20 CREATININE (test code = 2214) 0.64 MG/DL 0.60-1.30 eGFR (2020 CKD-EPI) (test code = 93282) 113 ML/MIN/1.73 >60 CALC BUN/CREAT (test code [...] code = 2219) 18 U/L 5-40 URIC [id number] 08:05:44* Test Item Value Reference Range Interpretation Comme nts URIC ACID (test code = 2233) 4.0 MG/DL 2.7-6.1 SCR MAMM BILATERAL GARRETT CAD [id number] 16:13:07 Name: Kyra : 1980 Sex: F - SCR MAMM BILATERAL GARRETT CAD DIGITALBILATERAL FIRST EVER DIGITAL SCREENING MAMMOGRAM 3D/2D WITH CAD: 11/12/2022LINICAL: Asymptomatic. Digital breast tomosynthesis was performed in addition to routine CC and MLO views. Current mammographic images were evaluated by [employer] CAD (computer-aided detection) software. No prior exams [...] mammography inone year. (11/13/2023) Kriss Dorado M.D. sckp/penrad:11/17/2022 16:13:07 Financial Management Analyst: Amena Moeller MM, [facility] Mammographyletter sent: BIRADS 1-2 Normal Mammogram BI-RADS: 2 BenignT. PALLIDUM TOTAL AB WITH [id number] 10:40:04* Test Item Value Reference Range Interpretation Comme nts T. PALLIDUM TOTAL AB (test code = 30954) <0.1 INDEX SEE BELOW INTERPRETI VE INFORMATION INTERPRETATION CLINICAL T. PALLIDUM AB NEGATIVE CURRENT OR PAST INFECTION INDEX <0.9 UNLIKELY. EQUIVOCAL SPECIMEN REPEATEDLY TESTED INDEX 0.9-1.0 IN EQUIVOCAL RANGE. CONSIDER RETESTING NO SOONER THAN 1 WEEK. POSITIVE PRESUMPTIVE EVIDENCE OF INDEX >=1.1 CURRENT OR PRIOR INFECTION. CORRELATE WITH NON-TREPONEMAL AB TESTING AND CLINICAL HISTORY. HEMOGLOBIN [id number] 03:23:39* Test Item Value Reference Range Interpretation Comme nts HEMOGLOBIN A1c (test code = 70788) 5.7 % 4.2-5.6 H UNLESS OTHERWISE INDICATED, ALL TESTING PERFORMED [facility] [address] [place] [address] OUTSIDE SALES INSPECTOR: KAN HIGHTOWER M.D. CLIA NUMBER [id number] [facility] [place]. [id number] T. PALLIDUM TOTAL AB RFLX [id number] 00:00:00* Test Item Value Reference Range Interpretation Comme nts T. PALLIDUM TOTAL AB (test c ode = 26954) <0.1 INDEX HEMOGLOBIN [id number] 00:00:00* Test Item Value Reference Range Interpretation Comme nts HEMOGLOBIN A1c (test code = 93990) 5.7 % HERPES SIMPLEX 1 [id number] 00:00:00* Test Item Value Reference Range Interpretation Comme nts HERPES SIMPLEX 1 IgG (test c ode = 43297) 18.500 INDEX HERPES SIMPLEX 2 [id number] 00:00:00* Test Item Value Reference Range Interpretation Comme nts HERPES SIMPLEX 2 IgG (test c ode = 92221) 92.700 INDEX COMPREHENSIVE METABOLIC [id number] 00:00:00* Test Item Value Reference Range Interpretation Comme nts GLUCOSE (test code = 2217) 149 MG/DL BUN (test code = 2208) 9 MG/DL CREATININE (test code = 2214) 0.66 MG/DL eGFR (2020 CKD-EPI) (test code = 88884) 113 ML/MIN/1.73 CALC BUN/CREAT (test code = [...] ALT (test code = 2219) 18 U/L [id number] 00:00:00* Test Item Value Reference Range Interpretation Comme nts D-DIMER (test code = 1405) 0.76 UG/MLFEU VAGINAL PATHOGENS DNA [id number] 00:00:00* Test Item Value Reference Range Interpretation Comme nts OFE SPECIES (test code = 20047) NEGATIVE G. VAGINALIS (test code = 42030) POSITIVE T. VAGINALIS (test code = 78487) NEGATIVE HIV 1/2 4TH GEN, RFLX [id number] 00:00:00* Test Item Value Reference Range Interpretation Comme nts HIV 1/2 4TH GEN, RFLX CONF ( test code = 3514) NON-REACTIVE [id number] 00:00:00* Test Item Value Reference Range Interpretation Comme nts RPR RESULT (test code = 3501) REACTIVE RPR TITER (test code = 3500) 1:1 TITER ACUTE HEPATITIS [id number] 00:00:00* Test Item Value Reference Range Interpretation Comme nts HEPATITIS A IgM (test code = 78455) NON-REACTIVE HEPATITIS B CORE IgM (test c ode = 4644) NON-REACTIVE HEPATITIS B SURF AG (test co de = 0169) NON-REACTIVE HEPATITIS C ANTIBODY (test c ode = 4611) NON-REACTIVE INTERPRETATION HEPATITIS A: (test code = 2552) (NOTE) INTERPRETATION HEPATITIS B: (test code = 33636) (NOTE) INTERPRETATION HEPATITIS C: (test code = 98754) (NOTE) CT/NG, TMA, [id number] 00:00:00* Test Item Value Reference Range Interpretation Comme nts GONORRHEA, NAAT (test code = 83097) NEGATIVE CHLAMYDIA, NAAT (test code = 23870) NEGATIVE COMPREHENSIVE METABOLIC [id number] 00:00:00* Test Item Value Reference Range Interpretation Comme nts GLUCOSE (test code = 2217) 73 MG/DL BUN (test code = 2208) 14 MG/DL CREATININE (test code = 2214) 0.78 MG/DL eGFR (2020 CKD-EPI) (test co de = 57882) 98 ML/MIN/1.73 CALC BUN/CREAT (test code = [...] = 2219) 13 U/L VAGINAL PATHOGENS DNA [id number] 00:00:00* Test Item Value Reference Range Interpretation Comme nts OFE SPECIES (test code = 37049) NEGATIVE G. VAGINALIS (test code = 57668) POSITIVE T. VAGINALIS (test code = 54317) NEGATIVE HIV 1/2 4TH GEN, RFLX [id number] 00:00:00* Test Item Value Reference Range Interpretation Comme nts HIV 1/2 4TH GEN, RFLX CONF ( test code = 3514) NON-REACTIVE [id number] 00:00:00* Test Item Value Reference Range Interpretation Comme nts RPR RESULT (test code = 3501) REACTIVE RPR TITER (test code = 3500) 1:1 TITER ACUTE HEPATITIS [id number] 00:00:00* Test Item Value Reference Range Interpretation Comme nts HEPATITIS A IgM (test code = 97703) NON-REACTIVE HEPATITIS B CORE IgM (test c ode = 4618) NON-REACTIVE HEPATITIS B SURF AG (test co de = 0605) NON-REACTIVE HEPATITIS C ANTIBODY (test c ode = 7840) NON-REACTIVE INTERPRETATION HEPATITIS A: (test code = 2552) (NOTE) INTERPRETATION HEPATITIS B: (test code = 90850) (NOTE) INTERPRETATION HEPATITIS C: (test code = 16645) (NOTE) CT/NG, TMA, [id number] 00:00:00* Test Item Value Reference Range Interpretation Comme nts GONORRHEA, NAAT (test code = 78597) NEGATIVE CHLAMYDIA, NAAT (test code = 92755) NEGATIVE COMPREHENSIVE METABOLIC [id number] 00:00:00* Test Item Value Reference Range Interpretation Comme nts GLUCOSE (test code = 2217) 73 MG/DL BUN (test code = 2208) 14 MG/DL CREATININE (test code = 2214) 0.78 MG/DL eGFR (2020 CKD-EPI) (test co de = 73776) 98 ML/MIN/1.73 CALC BUN/CREAT (test code = [...] = 2219) 13 U/L VAGINAL PATHOGENS DNA [id number] 00:00:00* Test Item Value Reference Range Interpretation Comme nts OFE SPECIES (test code = 36822) NEGATIVE G. VAGINALIS (test code = 03783) POSITIVE T. VAGINALIS (test code = 05333) NEGATIVE HIV 1/2 4TH GEN, RFLX [id number] 00:00:00* Test Item Value Reference Range Interpretation Comme nts HIV 1/2 4TH GEN, RFLX CONF ( test code = 3514) NON-REACTIVE [id number] 00:00:00* Test Item Value Reference Range Interpretation Comme nts RPR RESULT (test code = 3501) REACTIVE RPR TITER (test code = 3500) 1:1 TITER ACUTE HEPATITIS [id number] 00:00:00* Test Item Value Reference Range Interpretation Comme nts HEPATITIS A IgM (test code = 65420) NON-REACTIVE HEPATITIS B CORE IgM (test c ode = 4644) NON-REACTIVE HEPATITIS B SURF AG (test co de = 2739) NON-REACTIVE HEPATITIS C ANTIBODY (test c ode = 4675) NON-REACTIVE INTERPRETATION HEPATITIS A: (test code = 2552) (NOTE) INTERPRETATION HEPATITIS B: (test code = 15784) (NOTE) INTERPRETATION HEPATITIS C: (test code = 15090) (NOTE) CT/NG, TMA, [id number] 00:00:00* Test Item Value Reference Range Interpretation Comme nts GONORRHEA, NAAT (test code = 38642) NEGATIVE CHLAMYDIA, NAAT (test code = 55625) NEGATIVE COMPREHENSIVE METABOLIC [id number] 00:00:00* Test Item Value Reference Range Interpretation Comme nts GLUCOSE (test code = 2217) 73 MG/DL BUN (test code = 2208) 14 MG/DL CREATININE (test code = 2214) 0.78 MG/DL eGFR (2020 CKD-EPI) (test co de = 67639) 98 ML/MIN/1.73 CALC BUN/CREAT (test code = [...] ALT (test code = 2219) 13 U/L Notes Date/Time Note Provider Source 2024-04-11 11:39:03 Chief Complaint Patient presents with Establish Care Previous PCP was Dr[facility] Felician[facility]. No annual within the past year. Shelia Gloria MA II [facility]
[2024-04-27] MEDS ORDERED: KETOROLAC 30 MG/ML INJ ONE (08:53)
[2024-04-27] MEDS ORDERED: ONDANSETRON 4 MG/2 ML VIAL ONE ×2 (08:53→12:17)
[2024-04-27] MEDS ORDERED: NA CHLORIDE 0.9% 1,000 ML ONE (08:54)
[2024-04-27] MEDS ORDERED: MORPHINE 4 MG/ML SYR ONE ×2 (08:54→12:18)
[2024-04-27] MEDS ORDERED: FAMOTIDINE 20 MG/2 ML VIAL IV ONE (08:54)
--- NOTE | 2024-04-27 09:15 | RAD REPORT ---
EXAMINATION: CT ABDOMEN AND PELVIS WITHOUT CONTRAST CLINICAL INDICATION: ABD PAIN TECHNIQUE: CT abdomen and pelvis was performed, without IV contrast, as per department protocol. Axia l, sagittal and coronal reconstructions were obtained. One or more of the following dose reduction techniques were used: Automated exposure control, adjustment of the mA and kV according to the patien t size, and iterative reconstruction. Unless otherwise specified, incidental findings do not require dedicated imaging follow-up. COMPARISON: No prior exam. FINDINGS: The lack of intravenous contrast limits the sensitivity of this exam for evaluation of solid visceral organs, vascular structures, and retroperitoneum. LOWER CHEST: The visualized lung bases are clear. LIVER:Normal in size and contour. No focal lesion. Grossly unremarkable gallbladder. SPLEEN: Normal size. No focal lesion. PANCREAS: No mass, ductal dilation, or jeremy-pancreatic fluid. ADRENALS: Normal; no mass. KIDNEYS AND URETERS: Normal size and contour. No hydronephrosis. 25 mm benign appearing cyst right ki dney. URINARY BLADDER: Normal contour. GASTROINTESTINAL TRACT: No evidence of bowel obstruction, significant free fluid, free air or abscess . There is mild diverticulosis coli of the sigmoid colon without diverticulitis. APPENDIX: Normal appendix. LYMPH NODES: No lymphadenopathy. MUSCULOSKELETAL: Moderate spondylosis L5-S1. ADDITIONAL FINDINGS: None. IMPRESSION: No acute or concerning abnormalities in the abdomen or pelvis, with evaluation limited by lack of IV contrast.
[2024-04-27 09:20] LABS: Specific Gravity < 1.005 (1.005-1.030); Urine Bilirubin NEGATIVE (Negative); Urine Blood Negative (Negative); Urine Clarity Clear (Clear); Urine Color Colorless (Yellow); Urine Glucose NEGATIVE (Negative); Urine Ketones NEGATIVE (Negative); Urine Microscopic Reflex YN NO UMIC; Urine Nitrite NEGATIVE (Negative); Urine Protein NEGATIVE (Negative); Urine Urobilinogen Normal (Normal)
[2024-04-27 09:22] LABS: Specific Gravity 1.004 (1.005-1.030)
[2024-04-27 10:53] LABS: Absolute Basophils 0.1 K/uL (0-0.5); Absolute Eosinophils 0.5 K/uL (0-0.5); Absolute Lymphocytes (CBC) 2.9 K/uL (0.7-4.9); Absolute Monocytes 0.8 K/uL (0.1-1.3); Absolute Neutrophil 10.3 K/uL (1.8-8.0); Basophils % 0.7 % (0-1.3); Eosinophils % 3.6 % (0-4.4); Hematocrit 39.4 % (36.0-45.0); Hemoglobin 12.9 g/dL (12.0-15.0); Lymphocytes % 19.7 % (15.3-44.8); MCHC 32.8 g/dL (32.0-36.0); MCV 97.7 fL (80-100); MPV 10.2 fL (7.6-11.3); Monocytes % 5.4 % (3.3-12.3); Neutrophils % 70.6 % (41.7-73.7); Nucleated Red Blood Cells % 0.1 % (0-0); Platelets 216 thou/uL (152-406); RBC Red Blood Cell Count 4.03 M/uL (3.86-4.86); Red Cell Distribution Width 13.6 % (12.1-15.2)
[2024-04-27 11:16] LABS: Albumin 3.1 g/dL (3.4-5.0); Albumin/Globulin Ratio 0.8 (1.1-1.8); Anion Gap 9.1 mEq/L (5.0-15.0); Bilirubin Total 0.3 mg/dL (0.2-1.0); Globulin 3.8 g/dL (2.3-3.5); Potassium 5.1 mEq/L (3.5-5.1); Protein, Total 6.9 g/dL (6.4-8.2)
[2024-04-27] MEDS ORDERED: ASPIRIN 81 MG CHEWABLE TABLET ONE (12:18)
[2024-04-27 12:26] LABS: Blood Morphology Comment NOT SEEN (NOT SEEN); Platelet Estimate ADEQ; Platelets Clumped NOTED; White Blood Cell Scan OK (OK)
--- NOTE | 2024-04-27 12:52 | RAD REPORT ---
EXAMINATION: CTA CHEST PE CLINICAL INDICATION: Chest pain TECHNIQUE: 100 cc 370 Isovue administered intravenously. This examination was performed according to an angiographic protocol with 3D post-processing. This involves 3D reconstructions, MIPs, volume rendered images and/or shaded surface rendering. One or more of the following dose reduction techniqu es were used: Automated exposure control, adjustment of the mA and/or kV according to patient size, and/or iterative reconstruction. Unless otherwise specified, incidental findings do not require dedic ated imaging follow-up. [id number]. COMPARISON: No prior exam. FINDINGS: A pulmonary embolus is not seen. An aortic dissection not noted. No pleural effusion. No pericardial effusion. Mild groundglass opacities right lung. IMPRESSION: No evidence of a pulmonary embolism Mild groundglass opacities right lung a mild alveolitis
--- NOTE | 2024-04-27 12:59 | RAD REPORT ---
EXAM: C Spine Wo Con HISTORY: Back pain. Radiculopathy. COMPARISON: None TECHNIQUE: Multiple contiguous axial images were obtained in a CT of the cervical spine without contr ast. Sagittal and coronal reformats were performed. One or more of the following dose reduction techniques were used: Automated exposure control, adjustment of the mA and kV according to patient si ze, and iterative reconstruction. Unless otherwise specified, incidental findings do not require dedicated imaging follow-up. FINDINGS: No fracture or dislocation seen Right posterior lateral disc osteophyte complex C 3-4 results in moderate to marked narrowing right n eural foramina. Disc bulge and osteophytes C5-6 results in moderate narrowing of the neural foramina bilaterally. Left posterior lateral disc osteophyte complex C6-7 results in moderate to marked narrowing left neur al foramina No bony lesion seen. IMPRESSION: No fracture noted Right posterior lateral disc osteophyte complex C3-4 results in moderate to marked right foraminal st enosis Left posterior lateral disc osteophyte complex C6-7 results in moderate to marked left foraminal Nonemergent MRI could be obtained for further evaluation
--- NOTE | 2024-04-27 13:01 | EDPHYS ---
Physician Documentation [facility] Name: Evelyn Rosa Age: 43 yrs Sex: Female : 1980 Arrival Date: 04/27/2024 Time: 08:19 Bed 2 Private MD: ED Physician HPI: 04/27 11:35 This 43 yrs old Black Female presents to ER via Ambulatory with complaints of Nausea, justina Left Side pain. 11:35 The patient presents to the emergency department with nausea, that is mild. Onset: The justina symptoms/episode began/occurred 14 day(s) ago. Possible causes: unknown. The symptoms are aggravated by movement. Associated signs and symptoms: Pertinent positives: nausea. Severity of symptoms: At their worst the symptoms were moderate in the emergency department the symptoms are unchanged. Historical: - Allergies: 08:44 PENICILLINS; hb 08:44 Toradol; hb - Home Meds: 08:44 Promethazine Oral [Active]; Clonazepam Oral [Active]; Flexeril Oral [Active]; hb gabapentin oral [Active]; 09:45 ibuprofen 800 mg Oral tablet [Active]; aa5 - PMHx: 08:44 Anxiety; chronic back pain; Chronic Pancreatitis; Crohn's; Degenerative disc disease; hb gastritits; ibs; Pancreatitis; - PSHx: 08:44 section; partial hysterectomy; hb - Immunization history:: Adult Immunizations up to date. - Infectious Disease History:: Denies. - Social history:: Smoking status: Patient denies any tobacco usage or history of. ROS: 11:36 Constitutional: Negative for fever, chills, and weight loss, Eyes: Negative for injury, justina pain, redness, and discharge, ENT: Negative for injury, pain, and discharge, Neck: Negative for injury, pain, and swelling, Respiratory: Negative for shortness of breath, cough, wheezing, and pleuritic chest pain, Abdomen/GI: Negative for abdominal pain, nausea, vomiting, diarrhea, and constipation, Back: Negative for injury and pain, : Negative for injury, bleeding, discharge, and swelling, MS/Extremity: Negative for injury and deformity, Skin: Negative for injury, rash, and discoloration, Neuro: Negative for headache, weakness, numbness, tingling, and seizure, Psych: Negative for depression, anxiety, suicide ideation, homicidal ideation, and hallucinations, Allergy/Immunology: Negative for hives, rash, and allergies, Endocrine: Negative for neck swelling, polydipsia, polyuria, polyphagia, and marked weight changes, Hematologic/Lymphatic: Negative for swollen nodes, abnormal bleeding, and unusual bruising, 11:36 Cardiovascular: Positive for chest pain, with movement, of the chest, 11:36 MS/extremity: Negative for decreased range of motion, swelling, tenderness, 11:36 Skin: Negative for rash, Exam: 11:36 Constitutional: This is a well developed, well nourished patient who is awake, alert, justina and in no acute distress. Head/Face: Normocephalic, atraumatic. Eyes: Pupils equal round and reactive to light, extra-ocular motions intact. Lids and lashes normal. Conjunctiva and sclera are non-icteric and not injected. Cornea within normal limits. Periorbital areas with no swelling, redness, or edema. ENT: Nares patent. No nasal discharge, no septal abnormalities noted. Tympanic membranes are normal and external auditory canals are clear. Oropharynx with no redness, swelling, or masses, exudates, or evidence of obstruction, uvula midline. Mucous membranes moist. Neck: Trachea midline, no thyromegaly or masses palpated, and no cervical lymphadenopathy. Supple, full range of motion without nuchal rigidity, or vertebral point tenderness. No Meningismus. Cardiovascular: Regular rate and rhythm with a normal S1 and S2. No gallops, murmurs, or rubs. Normal PMI, no JVD. No pulse deficits. Respiratory: Lungs have equal breath sounds bilaterally, clear to auscultation and percussion. No rales, rhonchi or wheezes noted. No increased work of breathing, no retractions or nasal flaring. Abdomen/GI: Soft, non-tender, with normal bowel sounds. No distension or tympany. No guarding or rebound. No evidence of tenderness throughout. Back: No spinal tenderness. No costovertebral tenderness. Full range of motion. Skin: Warm, dry with normal turgor. Normal color with no rashes, no lesions, and no evidence of cellulitis. MS/ Extremity: Pulses equal, no cyanosis. Neurovascular intact. Full, normal range of motion. Neuro: Awake and alert, GCS 15, oriented to person, place, time, and situation. Cranial nerves II-XII grossly intact. Motor strength 5/5 in all extremities. Sensory grossly intact. Cerebellar exam normal. Normal gait. Psych: Awake, alert, with orientation to person, place and time. Behavior, mood, and affect are within normal limits. 11:36 Chest/axilla: Inspection: normal, Palpation: tenderness, that is mild, of the anterior aspect of left upper chest, mid-sternal area and left breast, Axilla: are normal, Breasts: are normal, Lymph nodes: lymphadenopathy is not appreciated, 11:36 ECG was reviewed by the Attending Physician. 11:36 Musculoskeletal/extremity: ROM: intact in all extremities, full active range of motion, full passive range of motion, Circulation is intact in all extremities. Sensation intact. Compartment Syndrome exam of affected extremity: is normal. Joints: All joints appear normal with full range of motion. Weight bearing: able to fully bear weight, Tendon exam: specific tendon testing normal through active and passive range of motion DVT Exam: No signs of deep vein thrombosis. no pain, no swelling, no tenderness, negative Homans' sign noted on exam, no appreciated bluish discoloration, no erythema, no increased warmth, 14:26 ECG was reviewed by the Attending Physician. [facility] 14:28 ECG was reviewed by the Attending Physician. justina Vital Signs: 08:30 BP 105 / 65; Pulse 64; Resp 16; Temp 97.3(TE); Pulse Ox 99% on R/A; Weight 81.65 kg; hb Height 5 ft. 5 in. ; Pain 10/10; 10:00 BP 117 / 83; Pulse 80; Resp 18 S; Pulse Ox 100% on R/A; aa5 12:12 BP 117 / 91 LA Sitting (auto/reg); kc6 12:12 BP 122 / 81 RA Supine (auto/reg); Pulse 83; Resp 18 S; Pulse Ox 100% on R/A; Pain 10/10;kc6 13:30 BP 117 / 82; Pulse 83; Resp 18 S; Pulse Ox 100% on R/A; aa5 14:35 BP 125 / 84; Pulse 80; Resp 16 S; Pulse Ox 98% on R/A; aa5 08:30 Body Mass Index 29.95 (81.65 kg, 165.1 cm) hb 08:30 Pain Scale: Adult hb 12:12 Pain Scale: Adult kc6 MDM: 08:28 Medical Screening Exam initiated justina 11:38 Differential diagnosis: abnormal EKG, acute myocardial infarction, acute pericarditis, justina anxiety, chest wall pain, Cholelithiasis costochondritis, Nonspecific abd pain, pancreatitis, esophagitis, gastritis, pancreatitis, peptic ulcer disease, pericarditis, pleurisy, pneumonia, pneumothorax, pulmonary embolus, stable angina, thoracic aortic disection, unstable angina. HEART Score: History: Slightly Suspicious (0), ECG: Normal (0), Age: < or = 45 years (0), Risk Factors: 1 or 2 risk factors (1), [+ Family HX] [Obesity] Troponin: < or = 1 x Normal Limit (0). The patient was given aspirin in the Emergency Department. JAVIER Risk Score: TOTAL SCORE = 0. Data reviewed: vital signs, nurses notes, lab test result(s), EKG, radiologic studies, CT scan, plain films. Consideration of Admission/Observation Escalation of care including admission/observation considered. I considered the following discharge prescriptions or medication management in the emergency department Medications were administered in the Emergency Department. See MAR. Independent interpretation of the following test(s) in the Emergency Department EKG: See my EKG interpretation above. Test considered but Not performed: Ultrasound no 2 d echo. Historians other than the Patient: pt well inforned. Care significantly affected by the following chronic conditions: Obesity, pancreatitis, chrons, ddd. Counseling: I had a detailed discussion with the patient and/or guardian regarding the historical points, exam findings, and any diagnostic results supporting the discharge/admit diagnosis, lab results, radiology results, the need for outpatient follow up, for definitive care, a pulling unit floorhand, a family practitioner. 04/27 08:29 Order name: CBC with Diff; Complete Time: 12:38 justina 04/27 08:29 Order name: CMP; Complete Time: 11:26 justina 04/27 08:29 Order name: Lipase; Complete Time: 11:26 justina 04/27 08:29 Order name: Test, Urine; Complete Time: 11:26 justina 04/27 08:29 Order name: Urinalysis w/ reflexes; Complete Time: 11:26 justina 04/27 10:57 Order name: CBC Smear Scan; Complete Time: 12:38 EDMS 04/27 11:34 Order name: Troponin High Sensitivity; Complete Time: 12:56 justina 04/27 13:58 Order name: Troponin High Sensitivity; Complete Time: 15:03 aa5 04/27 08:29 Order name: CT Stone Protocol; Complete Time: 11:26 [facility] 04/27 11:34 Order name: CT C Spine; Complete Time: 15:03 justina 04/27 11:34 Order name: CT Chest For PE Angio; Complete Time: 12:56 [facility] 04/27 11:34 Order name: EKG; Complete Time: 11:34 [facility] 04/27 12:12 Order name: EKG; Complete Time: 12:13 justina 04/27 08:29 Order name: IV Saline Lock; Complete Time: 09:31 justina 04/27 08:29 Order name: Labs collected and sent; Complete Time: 09:31 [facility] 04/27 09:44 Order name: Labs - recollect needed: please recollect the green and lav top; Complete eb Time: 10:38 04/27 11:34 Order name: EKG - Nurse/Tech; Complete Time: 12:12 [facility] 04/27 11:34 Order name: Bilateral blood pressure; Complete Time: 12:12 [facility] 04/27 12:06 Order name: Labs - recollect needed: recollect troponin please, QNS; Complete Time: eb 12:23 04/27 12:12 Order name: EKG - Nurse/Tech; Complete Time: 12:13 [facility] 04/27 13:58 Order name: EKG - Nurse/Tech; Complete Time: 14:09 aa5 EC:26 Rate is 80 beats/min. Rhythm is regular. QRS [place] is Normal. MA interval is normal. QRS justina interval is normal. QT interval is normal. No Q waves. T waves are Normal. No ST changes noted. Clinical impression: NSR w/ Non-specific ST/T Changes and No evidence of ischemia. Interpreted by me. Reviewed by me. 14:28 Rate is 81 beats/min. Rhythm is regular. QRS [place] is Normal. MA interval is normal. QT justina interval is normal. No Q waves. T waves are Normal. No ST changes noted. Clinical impression: Normal ECG and No evidence of ischemia. Interpreted by me. Reviewed by me. Administered Medications: 09:44 Drug: Famotidine IVP 20 mg IVP once; dilute with 10 mL 0.9% NaCl; give over 2 minutes aa5 Route: IVP; Site: right wrist; 11:40 Follow up: Response: No adverse reaction aa5 09:45 Not Given (Pt allergicc): TORadol - [id number] mg IVP once aa5 09:45 Drug: Ondansetron IVP 4 mg IVP once; over 2 minutes Route: IVP; Site: right wrist; aa5 10:00 Follow up: Response: No adverse reaction aa5 09:45 Drug: morphine IVP or IV 4 mg IVP once over 4 mins Route: IVP; Infused Over: 4 mins; aa5 Site: right wrist; 10:00 Follow up: Response: No adverse reaction aa5 09:45 Drug: NS 0.9% IV 1000 ml IV at 1 bolus Per protocol; to be given as a bolus over 60 aa5 minutes Route: IV; Rate: 1 bolus; Site: right wrist; 10:45 Follow up: IV Status: Completed infusion; IV Intake: 1000ml aa5 12:24 Drug: Ondansetron IVP 4 mg IVP once; over 2 minutes Route: IVP; Site: right upper arm; aa5 12:30 Follow up: Response: No adverse reaction aa5 12:24 Drug: Aspirin PO Chewable Tablet 162 mg PO once Route: PO; aa5 13:30 Follow up: Response: No adverse reaction aa5 12:24 Drug: morphine IVP or IV 4 mg IVP once over 4 mins Route: IVP; Infused Over: 4 mins; aa5 Site: right upper arm; 12:30 Follow up: Response: No adverse reaction aa5 13:30 Drug: LevOfloxacin PO 750 mg PO once Route: PO; aa5 14:34 Follow up: Response: No adverse reaction aa5 14:09 Drug: HYDROcodone-acetaminophen PO 5 mg-325 mg 2 tabs PO once Route: PO; aa5 14:34 Follow up: Response: No adverse reaction aa5 14:09 Drug: Diazepam PO 10 mg PO once Route: PO; aa5 14:34 Follow up: Response: No adverse reaction aa5 15:08 Drug: Decadron - Dexamethasone IVP 10 mg IVP once; VO at 1505. Route: IVP; Site: right aa5 upper arm; 15:20 Follow up: Response: No adverse reaction aa5 15:09 Drug: Promethazine IVP 12.5 mg IVP once; VO received 1505 Route: IVP; Site: right upper aa5 arm; 15:20 Follow up: Response: No adverse reaction aa5 Disposition Summary: 04/27/24 15:06 Discharge Ordered Notes: Location: Home(04/27/24 15:06) justina Problem: new(04/27/24 15:06) justina Symptoms: have improved(04/27/24 15:06) justina Condition: Stable(04/27/24 15:06) justina Diagnosis - Nausea(04/27/24 15:06) justina - Chest pain, unspecified(04/27/24 15:06) justina - Unspecified symptoms and signs involving the musculoskeletal system(04/27/24 15:06) justina - Acute interstitial pneumonitis - right, mild(04/27/24 15:06) justina - Cervical disc disorder with radiculopathy, cervicothoracic region justina - Elevated white blood cell count(04/27/24 15:06) [facility] Followup: justina - With: Private Physician - When: 2 - 3 days - Reason: Recheck today's complaints, Continuance of care, Re-evaluation by your physician Followup: justina - With: Cole Richardson MD - When: 2 - 3 days - Reason: Recheck today's complaints, Re-evaluation by your physician Discharge Instructions: - Discharge Summary Sheet justina - Cervical Radiculopathy justina - Nonspecific Chest Pain, Adult justina - Musculoskeletal Pain justina - Nausea, Adult justina - Community-Acquired Pneumonia, Adult justina - Nonspecific Chest Pain, Adult, [id number] [facility] - Aspirin and Your Heart [facility] Forms: - Medication Reconciliation Form [facility] - Antibiotic Education justina - Prescription Opioid Use [facility] - Patient Portal Instructions [facility] - Leadership Thank You Letter [facility] Prescriptions: - acetaminophen-codeine 300-30 mg Oral tablet - take 2 tablet ORAL route every 6 hours; 18 tablet; Refills: 0, Product justina Selection Permitted - dexamethasone 4 mg Oral tablet - take 1 tablet ORAL route daily; 5 tablet; Refills: 0, Product Selection [facility] Permitted - ondansetron 4 mg Oral Tablet,disintegrating - take 1 tablet ORAL route every 6-8 hours for 5 days; 20 tablet; Refills: 0, [facility] Product Selection Permitted - Pepcid 20 mg Oral tablet - take 1 tablet ORAL route every 12 hours for 21 days; 42 tablet; Refills: 0, justina Product Selection Permitted - methocarbamol 750 mg Oral tablet - take 1 tablet ORAL route 4 times per day; 28 tablet; Refills: 0, Product justina Selection Permitted - levofloxacin 500 mg Oral tablet - take 1 tablet ORAL route once daily for 7 days; 7 tablet; Refills: 0, Product justina Selection Permitted Signatures: Dispatcher [employer] EDMS Chon Pichardo MD MD cha Calderon, Audri RN RN aa5 Hanny Walsh RN RN Malena Rai Corrections: (The following items were deleted from the chart) 11:34 11:34 C Spine Wo Con+CT.RAD.BRZ ordered. EDMS EDMS 11:34 11:34 Chest For PE Angio+CT.RAD.BRZ ordered. EDMS EDMS 15: 13:00 Home justina justina 15:04 13:00 new justina justina 15: 13:00 have improved justina justina 15: 13:00 Stable justina justina 15: 13:00 Nausea justina justina 15: 13:00 Chest pain, unspecified justina justina 15: 13:00 Unspecified symptoms and signs involving the musculoskeletal system justina justina 15: 13:00 Acute interstitial pneumonitis - right , mild justina justina 15: 13:00 Elevated white blood cell count justina justina
--- NOTE | 2024-04-27 13:01 | ER ---
Nurse's Notes [facility] [place] Name: Evelyn Rosa Age: 43 yrs Sex: Female : 1980 Arrival Date: 04/27/2024 Time: 08:19 Bed 2 Private MD: Diagnosis: Nausea;Chest pain, unspecified;Unspecified symptoms and signs involving the musculoskeletal system;Acute interstitial pneumonitis-right, mild;Cervical disc disorder with radiculopathy, cervicothoracic region;Elevated white blood cell count Presentation: 04/27 08:30 Chief complaint: Worsening left neck, shoulder, arm, and back pain with nausea x 2 hb days. Coronavirus screen: At this time, the client does not indicate any symptoms associated with coronavirus-19. Ebola Screen: No symptoms or risks identified at this time. Initial Sepsis Screen: Does the patient meet any 2 criteria? No. Patient's initial sepsis screen is negative. Does the patient have a suspected source of infection? No. Patient's initial sepsis screen is negative. Risk Assessment: Do you want to hurt yourself or someone else? Patient reports no desire to harm self or others. Onset of symptoms was April 27, 2024. 08:30 Method Of Arrival: Ambulatory hb 08:30 Acuity: INDIGO 3 hb Historical: - Allergies: 08:44 PENICILLINS; hb 08:44 Toradol; hb - Home Meds: 08:44 Promethazine Oral [Active]; Clonazepam Oral [Active]; Flexeril Oral [Active]; hb gabapentin oral [Active]; 09:45 ibuprofen 800 mg Oral tablet [Active]; aa5 - PMHx: 08:44 Anxiety; chronic back pain; Chronic Pancreatitis; Crohn's; Degenerative disc disease; hb gastritits; ibs; Pancreatitis; - PSHx: 08:44 section; partial hysterectomy; hb - Immunization history:: Adult Immunizations up to date. - Infectious Disease History:: Denies. - Social history:: Smoking status: Patient denies any tobacco usage or history of. Screenin:50 [facility] ED Fall Risk Assessment (Adult) History of falling in the last 3 months, aa5 including since admission No falls in past 3 months (0 pts) Confusion or Disorientation No (0 pts) Intoxicated or Sedated No (0 pts) Impaired Gait No (0 pts) Mobility Assist Device Used No (0 pt) Altered Elimination No (0 pt) Score/Fall Risk Level 0 - 2 = Low Risk Oriented to surroundings, Maintained a safe environment, Educated pt \T\ family on fall prevention, incl call for assistance when getting out of bed. Abuse screen: Denies threats or abuse. Nutritional screening: No deficits noted. Tuberculosis screening: No symptoms or risk factors identified. Assessment: 08:50 General: Appears uncomfortable, Behavior is cooperative, anxious. Pain: Complains of aa5 pain in left shoulder, left arm, and left side of back Pain currently is 10 out of 10 on a pain scale. Quality of pain is described as sharp, Pain began 2-3 days ago. Is continuous. Neuro: Level of Consciousness is awake, alert, obeys commands, Oriented to person, place, time, situation. Cardiovascular: Patient's skin is warm and dry. Respiratory: Airway is patent Respiratory effort is even, unlabored, Respiratory pattern is regular, symmetrical. GI: Abdomen is round non-distended, Bowel sounds present X 4 quads. Abd is soft and non tender X 4 quads. Reports nausea. : No signs and/or symptoms were reported regarding the genitourinary system. EENT: No signs and/or symptoms were reported regarding the EENT system. Derm: Skin is dry, Skin is normal, Skin temperature is warm. Musculoskeletal: Range of motion: intact in all extremities. 10:00 Neuro: Level of Consciousness is awake, alert, obeys commands, Oriented to person, aa5 place, time, situation. Respiratory: Airway is patent Respiratory effort is even, unlabored, Respiratory pattern is regular, symmetrical. Derm: Skin is dry, Skin is normal, Skin temperature is warm. 10:00 General: Appears uncomfortable. aa5 10:45 Reassessment: Appears calm and comfortable now. . aa5 12:00 General: Appears comfortable, Behavior is calm, cooperative. Neuro: Level of aa5 Consciousness is awake, alert, obeys commands, Oriented to person, place, time, situation. Respiratory: Airway is patent Respiratory effort is even, unlabored, Respiratory pattern is regular, symmetrical. Derm: Skin is dry, Skin is normal, Skin temperature is warm. 13:58 Reassessment: To bedside to discharge pt home, pt requesting more pain medication, MD nunes notified, see new orders. . 13:58 Neuro: Level of Consciousness is awake, alert, obeys commands, Oriented to person, aa5 place, time, situation. Respiratory: Airway is patent Respiratory effort is even, unlabored, Respiratory pattern is regular, symmetrical. Derm: Skin is dry, Skin is normal, Skin temperature is warm. 15:08 Neuro: Level of Consciousness is awake, alert, obeys commands, Oriented to person, aa5 place, time, situation. Respiratory: Airway is patent Respiratory effort is even, unlabored, Respiratory pattern is regular, symmetrical. Derm: Skin is dry, Skin is normal, Skin temperature is warm. Vital Signs: 08:30 BP 105 / 65; Pulse 64; Resp 16; Temp 97.3(TE); Pulse Ox 99% on R/A; Weight 81.65 kg; hb Height 5 ft. 5 in. ; Pain 10/10; 10:00 BP 117 / 83; Pulse 80; Resp 18 S; Pulse Ox 100% on R/A; aa5 12:12 BP 117 / 91 LA Sitting (auto/reg); kc6 12:12 BP 122 / 81 RA Supine (auto/reg); Pulse 83; Resp 18 S; Pulse Ox 100% on R/A; Pain 10/10;kc6 13:30 BP 117 / 82; Pulse 83; Resp 18 S; Pulse Ox 100% on R/A; aa5 14:35 BP 125 / 84; Pulse 80; Resp 16 S; Pulse Ox 98% on R/A; aa5 08:30 Body Mass Index 29.95 (81.65 kg, 165.1 cm) hb 08:30 Pain Scale: Adult hb 12:12 Pain Scale: Adult kc6 ED Course: 08:22 Patient arrived in ED. mr 08:28 Chon Pichardo MD is Attending Physician. justina 08:43 Prema Arora, JOHN is Primary Nurse. aa5 08:44 Triage completed. hb 08:45 Arm band placed on. hb 08:50 Patient has correct armband on for positive identification. Bed in low position. Call aa5 light in reach. Side rails up X 1. Pulse ox on. NIBP on. 09:00 CT Stone Protocol In Process Unspecified. EDMS 09:13 Test, Urine Sent. nh2 09:13 Urinalysis w/ reflexes Sent. nh2 09:25 Missed attempt(s): 22 gauge in left wrist. Bleeding controlled, band aid applied, aa5 catheter tip intact. 09:30 Initial lab(s) drawn, by me, sent to lab. Inserted saline lock: 24 gauge in right aa5 wrist, using aseptic technique. Blood collected. Flushed with 10 mL NS. 12:29 Accessed peripheral vein via ultrasound, utilizing dynamic ultrasound technique using hb 20G Nexia IV catheter ,sterile technique, per hospital protocol. Clean \T\ dry. Dressing intact. Good blood return. Flushes easily. 12:40 CT C Spine In Process Unspecified. EDMS 12:40 CT Chest For PE Angio In Process Unspecified. EDMS 13:00 Cole Richardson MD is Referral Physician. justina 15:04 Cole Richardson MD is Referral Physician. justina 15:20 No provider procedures requiring assistance completed. IV discontinued, intact, aa5 bleeding controlled, No redness/swelling at site. Pressure dressing applied. 19:13 Attending Physician role handed off by Chon Pichardo MD aa5 Administered Medications: 09:44 Drug: Famotidine IVP 20 mg IVP once; dilute with 10 mL 0.9% NaCl; give over 2 minutes aa5 Route: IVP; Site: right wrist; 11:40 Follow up: Response: No adverse reaction aa5 09:45 Not Given (Pt allergicc): TORadol - [id number] mg IVP once aa5 09:45 Drug: Ondansetron IVP 4 mg IVP once; over 2 minutes Route: IVP; Site: right wrist; aa5 10:00 Follow up: Response: No adverse reaction aa5 09:45 Drug: morphine IVP or IV 4 mg IVP once over 4 mins Route: IVP; Infused Over: 4 mins; aa5 Site: right wrist; 10:00 Follow up: Response: No adverse reaction aa5 09:45 Drug: NS 0.9% IV 1000 ml IV at 1 bolus Per protocol; to be given as a bolus over 60 aa5 minutes Route: IV; Rate: 1 bolus; Site: right wrist; 10:45 Follow up: IV Status: Completed infusion; IV Intake: 1000ml aa5 12:24 Drug: Ondansetron IVP 4 mg IVP once; over 2 minutes Route: IVP; Site: right upper arm; aa5 12:30 Follow up: Response: No adverse reaction aa5 12:24 Drug: Aspirin PO Chewable Tablet 162 mg PO once Route: PO; aa5 13:30 Follow up: Response: No adverse reaction aa5 12:24 Drug: morphine IVP or IV 4 mg IVP once over 4 mins Route: IVP; Infused Over: 4 mins; aa5 Site: right upper arm; 12:30 Follow up: Response: No adverse reaction aa5 13:30 Drug: LevOfloxacin PO 750 mg PO once Route: PO; aa5 14:34 Follow up: Response: No adverse reaction aa5 14:09 Drug: HYDROcodone-acetaminophen PO 5 mg-325 mg 2 tabs PO once Route: PO; aa5 14:34 Follow up: Response: No adverse reaction aa5 14:09 Drug: Diazepam PO 10 mg PO once Route: PO; aa5 14:34 Follow up: Response: No adverse reaction aa5 15:08 Drug: Decadron - Dexamethasone IVP 10 mg IVP once; VO at 1505. Route: IVP; Site: right aa5 upper arm; 15:20 Follow up: Response: No adverse reaction aa5 15:09 Drug: Promethazine IVP 12.5 mg IVP once; VO received 1505 Route: IVP; Site: right upper aa5 arm; 15:20 Follow up: Response: No adverse reaction aa5 Medication: 11:43 VIS not applicable for this client. aa5 Intake: 10:45 IV: 1000ml; Total: 1000ml. aa5 Outcome: 13:00 Discharge ordered by . [place] 15:06 Discharge ordered by . [place] 15:20 Discharged to home via wheelchair, with family, aa5 15:20 Condition: improved 15:20 Discharge instructions given to patient, Instructed on discharge instructions, follow up and referral plans. medication usage, Demonstrated understanding of instructions, follow-up care, medications, Prescriptions given X 5 15:26 Patient left the ED. aa5 Signatures: Dispatcher [employer] EDMS Chon Pichardo MD MD cha Rivera, Mary, Reg Reg mr AroraPrema, RN RN aa5 Hanny Walsh RN RN hb Campbell, Kaitlyn, RN RN kc6 Joseluis Cedeño, Gual[facility]to [facility] Corrections: (The following items were deleted from the chart) 08:46 08:30 Chief complaint: Left sided neck pain that radiates to left arm and back x 2 hb months, nausea x 2 days. hb 11:45 08:50 Pain: Complains of pain in left shoulder, left arm, and left side of back Pain aa5 currently is 10 out of 10 on a pain scale. Quality of pain is described as sharp, Is continuous, aa5 13:55 04/26 13:30 LevOfloxacin PO 750 mg PO aa5 aa5 04/27 19:15 19:15 Promethazine IVP 12.5 mg IVP in right upper arm aa5 aa5 19:15 19:15 Patient left the ED. aa5 aa5
[2024-04-27] MEDS ORDERED: levoFLOXacin 750 MG TAB ONE (13:18)
[2024-04-27] MEDS ORDERED: HYDROCODONE/APAP 5/325 MG TAB ONE (14:01)
[2024-04-27] MEDS ORDERED: DIAZEPAM 5 MG TABLET ONE (14:02)
[2024-04-27] MEDS ORDERED: PROMETHAZINE INJ 25 MG/ML AMP ONE (15:06)
[2024-04-27] MEDS ORDERED: dexAMETHasone 10 MG/ML VIAL ONE (15:06)
[2024-04-27 16:35] VITALS: TEMP 97.3
[2024-04-27 16:51] VITALS: BP 125/84; O2SAT 98
--- NOTE | 2024-05-01 13:04 | EKG ---
Test Date: 2024-04-27 Test Time: 14:14:14 Business Quality Assurance Analyst: CIELO MEASUREMENT RESULTS: Intervals: Rate: 80 IA: 132 QRSD: 86 QT: 392 QTc: 452 [place]: P: 35 IA: 132 QRS: 13 T: 33 INTERPRETIVE STATEMENTS: Normal sinus rhythm with sinus arrhythmia Normal ECG Compared to ECG 04/27/2024 12:06:48 Atrial premature complex(es) no longer present Electronically Signed On 05-01-24 12:53:23 CDT by Claudio Wiggins
--- NOTE | 2024-05-01 13:05 | EKG ---
Test Date: 2024-04-27 Test Time: 12:06:48 Land Checker: ROBSON MEASUREMENT RESULTS: Intervals: Rate: 81 MO: 126 QRSD: 84 QT: 386 QTc: 448 [place]: P: 33 MO: 126 QRS: 22 T: 33 INTERPRETIVE STATEMENTS: Sinus rhythm with premature atrial complexes Otherwise normal ECG Compared to ECG 10/02/2023 14:47:08 Atrial premature complex(es) now present Electronically Signed On 05-01-24 12:53:38 CDT by Claudio Wiggins
== END 2024-04-27 19:15 | disposition home or self-care (01) ==
LOC: ER 08:19
DX: R11.0 Nausea (principal); R07.9 Chest pain, unspecified; R29.91 Unspecified symptoms and signs involving the musculoskeletal system; J84.114 Acute interstitial pneumonitis; M50.13 Cervical disc disorder with radiculopathy, cervicothoracic region; F41.9 Anxiety disorder, unspecified
CPT/HCPCS: 93005 ×2; 85025; 36415; 81025; 81003; 84484 ×2; 83690; 80053; 72125; 76377; 71275; 74176; 99285; Q9967; J2550; J1100; J2405 ×2; J7030

== ENCOUNTER 2024-05-03 19:20 | Inpatient (IN) | payer OTHER ==
--- OUTSIDE RECORDS SUMMARY | 2024-05-03 19:24 | XMS REPORT | Continuity of Care Document ---
Author Name Unknown Address [address] [facility] [address] [place] [address] [facility] thconnect Address [address] [facility] [address] [place] [address] Care Team Providers Care Decision Unit Rn Name Role Phone Reymundo Harvey Primary Care Physician [phone] CARL MAN Attending Clinician Unavailab le LAB90 Attending Clinician Unavailable Doctor Unassigned, [place] Attending Clinician LAKIA Trevino Attending Clinician Geneva Patel DO Attending Clinician [phone] GENEVA RODRÍGUEZ Attending Clinician Lena marie Payers Payer Name Policy Type Policy Number Effective Date Expirati on Date Source [employer] [place] [id number] 2022 00:00:00 [facility] LEXI JAY COPAY FOCUS 9 [id number] 2023 00:00:00 Problems Condition Name Condition Details [...] & vomiting Disease Active 2010-07 00:00: 00 [facility] Abdominal pain, acute, epigastric Abdominal pain, acute, epigastric Disease Active 2010-07 00:00: 00 [facility] Leukocytos is Leukocytos is Disease Active 2010-07 00:00: 00 Overview: Formattin g of this note might be different from the original. ICD10 Diagnosis Term Blue Split Trimmer Utility [facility] Hypokalemi a Hypokalemi a Disease Active 2010-07 00:00: 00 [facility] Metabolic acidosis Metabolic acidosis Disease Active 2010-07 00:00: 00 [facility] Anxiety Anxiety Disease Active Jennifer Bates [...] s Active Rash 2021-07 0- 00:00: 00 [facility] KETOROLA C DRUG INGREDI Active Rash 2021-07 0- 00:00: 00 [facility] Penicill ins Propensi ty to adverse reaction to drug Active 2- 00:00: 00 Penicill ins Propensi ty to adverse reaction s Active Unknown - See comments 2015-07 00:00: 00 [facility] PENICILL INS Drug Class Active Unknown-Cmnt 2015-07 00:00: 00 [facility] Social History Social Habit Start Date Stop Date Quantity Comments Source History of tobacco use 1998-01-13 00:00:00 Cigarette Smoker Jennifer Bates - External ASSERTION Not Jennifer Bates - External Sexual orientation Laxmi Bates - External Gender identity [facility] Cigarettes smoked current (pack per [...] (event) 2022-04-20 00:00:00 2022-04-30 13:23:00 Not sure [facility] Alcohol intake 2016-05-05 00:00:00 2016-05-05 00:00:00 Current drinker of alcohol (finding) [facility] Sex assigned at 1980 00:00:00 1980 00:00:00 Jennifer Bates - External Smoking Status Start Date Stop Date Source Ex-smoker 2024-04-11 00:00:00 2024-04-11 00:00:00 Laxmi Bates - External Never smoked tobacco [facility] Medications Ordered Medication Name Filled Medication Name Start Date Stop Date Current Medication? Ordering Clinician Indication Dosage Frequency Signature (SIG) Comments Components Source Valacyclovi r HCl 500 MG oral Tablet 2023-07 00:00: 00 Yes [id number] 500mg QD Take 1 tablet (500 mg total) by mouth daily. Jennifer archer Gabapentin 800 MG oral Tablet 2023-07- 00:00: 00 Yes [id number] 800mg Q.45526412 [id number] 3D Take 1 tablet (800 mg total) by mouth 3 times daily as needed. Jennifer archer Furosemide (Lasix) 20 MG oral Tablet 2023-07 00:00: 00 Yes [id number] 20mg QD Take 1 tablet (20 mg total) by mouth daily. Jennifer archer Clonazepam 0.5 MG oral Tablet 04-05 00:00: 00 Yes TAKE 1 TABLET THREE TIMES DAILY FOR SLEEP FOR ANXIETY Jennifer archer Cyclobenzap rine HCl 10 MG oral Tablet 03-17 00:00: 00 Yes 10mg Q.18897903 [id number] 3D Take 1 tablet (10 mg total) [...] Pain (scale 4-6) or Pain (scale 7-10). [facility] pantoprazol e (PROTONIX) 40 mg EC tablet 2015-07 00:00: 00 Yes 40mg Take 1 tablet by mouth daily. [facility] proMETHazin e (PHENERGAN) 25 mg tablet 2015-07 00:00: 00 Yes 25mg Take 1 tablet by mouth every 6 (six) hours as needed for Nausea and Vomiting (N/V). [facility] Ibuprofen (MOTRIN) 800 MG oral Tablet 07-12 00:00: 00 Yes 800mg Q.16355839 [id number] 3D Take 1 tablet (800 mg total) [...] 00:00: 00 04-11 00:00 :00 No 800mg Q.56785789 [id number] 3D Take 1 tablet (800 mg total) [...] Completed Influenza Virus Vaccine 2011-06-21 00:00:00 Completed [facility] Influenza Virus Vaccine 2011-06-21 00:00:00 Completed [facility] Influenza Virus Vaccine 2011-06-21 00:00:00 Completed [facility] AFLURIA TRIVALENT PF(0.5mL) Unknown Completed Jennifer Howardybold [...] External Body weight 2022-04-30 18:23:16 79.379 kg [facility] BMI 2022-04-30 18:23:16 29.12 kg/m2 [facility] Systolic blood pressure 2022-04-30 18:16:00 128 mm[Hg] [facility] Diastolic blood pressure 2022-04-30 18:16:00 81 mm[Hg] [facility] Heart rate 2022-04-30 18:16:00 92 /min [facility] Body temperature 2022-04-30 18:16:00 37.06 Brandy [facility] Respiratory rate 2022-04-30 18:16:00 18 /min [facility] Body height 2022-04-30 18:16:00 165.1 cm [facility] Oxygen saturation in Arterial blood by Pulse oximetry 2022-04-30 18:16:00 96 /min [facility] BP Systolic 2022-07-28 10:17:00 123 [...] Source REFERRAL- REQUEST/RESPONSE 2023-03-22 05:01:00 Doctor Unassigned, [place] [facility] AUTHORIZATION FOR RELEASE OF PHI 2022-09-30 05:01:00 Doctor Unassigned, [place] [facility] RAPID INFLUENZA A/B 2022-04-30 18:27:00 Tiff Rodríguez ra [facility] COVID-19 (ID NOW RAPID TESTING) 2022-04-30 18:27:00 Geneva Rodríguez [facility] CONSENT/REFUSAL FOR DIAGNOSIS AND TREATMENT 2022-04-30 18:06:22 Doctor Unassigned, [place] [facility] Plan of Care Planned Activity Planned Date Details Comments Source Goal Plan of Care Note [code = 08740-2] Goal Plan of Care Note [code = 15066-1] Goal Plan of Care Note [code = 24859-9] Goal Plan of Care Note [code = 97046-8] Goal Plan of Care Note [code = 13267-2] Goal Plan of Care Note [code = 57254-6] Goal Plan of Care Note [code = 30687-1] Goal Plan of Care Note [code = 12929-6] Goal Plan of Care Note [code = 66659-0] Goal Plan of Care Note [code = 58628-4] Goal Plan of Care Note [code = 16170-1] Goal Plan of Care Note [code = 53863-0] Goal Plan of Care Note [code = 35758-9] Goal Plan of Care Note [code = 42661-5] Goal Plan of Care Note [code = 35464-2] Goal Plan of Care Note [code = 09438-2] Goal Plan of Care Note [code = 34825-2] Goal Plan of Care Note [code = 06705-9] Goal Plan of Care Note [code = 38134-0] Goal Plan of Care Note [code = 97436-8] Goal Plan of Care Note [code = 92747-1] Goal Plan of Care Note [code = 15970-1] Goal Plan of Care Note [code = 11375-7] Goal Plan of Care Note [code = 45164-6] Goal Plan of Care Note [code = 48493-8] Goal Plan of Care Note [code = 07428-7] Goal Plan of Care Note [code = 49860-5] Goal Plan of Care Note [code = 57369-5] Goal Plan of Care Note [code = 87261-7] Goal Plan of Care Note [code = 26428-0] Goal Plan of Care Note [code = 46222-3] Goal Plan of Care Note [code = 20713-9] Goal Plan of Care Note [code = 75749-3] Goal Plan of Care Note [code = 23954-4] Goal Plan of Care Note [code = 11990-1] Goal Plan of Care Note [code = 45268-3] Goal Plan of Care Note [code = 51985-1] Goal Plan of Care Note [code = 56986-9] Goal Plan of Care Note [code = 37960-3] Goal Plan of Care Note [code = 73928-8] Goal Plan of Care Note [code = 82272-3] Goal Plan of Care Note [code = 47039-6] Goal Plan of Care Note [code = 65267-7] Encounters Start Date/Time End Date/Time Encounter Type Admission Type Attending Clinicians Care Facility Care Department Encounter ID Source 2022-11-24 09:13:56 Outpatient [facility] [id number] [facility] 2024-05-09 11:30:00 2024-05-09 11:30:00 Outpatient [id number] [facility] 2024-04-26 00:00:00 2024-04-26 00:00:00 Outpatient CARL MAN [id number] [facility] 2024-04-24 00:00:00 2024-04-24 00:00:00 Outpatient CARL MAN [id number] Jennifer [facility] 2024-04-16 00:00:00 2024-04-16 00:00:00 Outpatient CARL [facility] [id number] [facility] 2024-04-14 00:00:00 2024-04-14 00:00:00 Outpatient CARL MAN [id number] Jennifer [facility] 2024-04-12 09:35:00 2024-04-12 09:35:00 Outpatient LAB90 [facility]IF[facility]ERN[facility] [id number] [facility] 2024-04-11 13:00:00 2024-04-11 13:00:00 Outpatient LAB90 JENNIFER BERNARD [id number] Jennifer [facility] 2024-04-11 11:30:00 2024-04-11 11:30:00 Outpatient CARL MAN [id number] [facility] 2024-04-11 00:00:00 2024-04-11 00:00:00 Outpatient CARL MAN [id number] Jennifer [facility] 2024-04-11 00:00:00 2024-04-11 00:00:00 Outpatient CARL MAN [id number] [facility] 2023-03-22 11:08:58 2023-03-22 11:08:58 Outpatient [facility] [id number] Reginald Dwyer 2023-03-22 00:00:00 2023-03-22 00:00:00 Orders Only Doctor Unassigned, [place] [facility] [id number] [facility] 2022-12-22 10:58:01 2022-12-22 10:58:01 Outpatient [facility] [id number] Reginald Diaz Reymundo 2022-12-15 13:54:13 2022-12-15 13:54:13 Outpatient [facility] [id number] Reginald Diaz [place] 2022-12-10 13:13:19 2022-12-10 13:13:19 Outpatient [facility] [id number] Reginald Diaz [place] 2022-12-08 14:35:59 2022-12-08 14:35:59 Outpatient [facility] [id number] Reginald Dwyer 2022-09-30 00:00:00 2022-09-30 00:00:00 Orders Only Doctor Unassigned, [place] [facility] [id number] [id number] [facility] 2022-09-01 09:29:00 2022-09-01 18:15:00 Emergency E LAKIA MILLER [facility] [id number] [facility] 2022-08-02 14:37:45 2022-08-02 14:37:45 Outpatient [facility] [id number] Reginald Dwyer 2022-07-28 10:11:02 2022-07-28 10:11:02 Outpatient [facility] [id number] Reginald Dwyer 2022-07-28 00:00:00 2022-07-28 00:00:00 Outpatient Visit [id number] 2022-06-21 08:09:11 2022-06-21 08:09:11 Outpatient [facility] [id number] Reginald Dwyer 2022-06-19 10:15:22 2022-06-19 10:15:22 Outpatient [facility] [id number] Reginald Dwyer 2022-06-18 11:18:31 2022-06-18 11:18:31 Outpatient [facility] [id number] Reginald Dwyer 2022-06-18 00:00:00 2022-06-18 00:00:00 Outpatient Visit [id number] 2022-06-14 13:27:35 2022-06-14 13:27:35 Outpatient [facility] SFA [id number] Reginald Dwyer 2022-06-14 00:00:00 2022-06-14 00:00:00 Outpatient Visit [id number] 2022-06-10 11:10:28 2022-06-10 11:10:28 Outpatient SFA SFA [id number] Reginald Dwyer 2022-06-04 00:00:00 2022-06-04 00:00:00 Outpatient Visit [id number] 2022-04-30 13:21:00 2022-04-30 13:57:00 Emergency Geneva Rodríguez [facility] [id number] 350.1.13.10 [id number] [id number] [facility] 2022-04-30 13:21:00 2022-04-30 13:57:00 Emergency X GENEVA RODRÍGUEZ [facility] ERT [id number] [facility] Results Test Description Test Time Test Comments Results Result Co mments Source RHEUMATOID FACTOR, [id number] 06:57:29* Test Item Value Reference Range Interpretation Comme nts RHEUMATOID FACTOR, QUANT (te st code = 3502) <10 IU/ML <14 C-REACTIVE [id number] 06:45:47* Test Item Value Reference Range Interpretation Comme nts C-REACTIVE PROTEIN (test cod e = 3513) 0.4 MG/DL <0.5 SEDIMENTATION [id number] 04:36:47* Test Item Value Reference Range Interpretation Comme nts SEDIMENTATION RATE (test cod e = 1017) 2 MM/HOUR 0-20 CBC W/AUTO DIFF WITH [id number] 02:24:44* Test Item Value Reference Range Interpretation [...] = 1065) 0.0 /100 WBC'S See_Comment [Automated Talysta ge] The system which generated this result [...] 0.00-0.10 ABS NUCLEATED RBCS (test code = 85896) 0.00 K/UL 0.00-0.11 VARUN (ANTI-NUCLEAR AB) WITH REFLEX [id number] 01:59:28* Test Item Value Reference Range Interpretation Comme nts ANTI-NUCLEAR ANTIBODIES (test code = 3506) NEGATIVE NEGATIVE Methodology is I ndirect Immunofluorescent Assay (IFA) with a titering system using [id number] cells (Hep2 cells transfected with SS-A/Ro). VARUN PATTERN (REPORTED TITER) (test code = 09942) SEE BELOW HOMOGENEOUS (test code = 45168) NEGATIVE TITER NEGATIVE SPECKLED (test code = 335846) NEGATIVE TITER NEGATIVE DENSE FINE SPECKLED (test code = 78491) NEGATIVE TITER NEGATIVE CENTROMERE (test code = 100585) NEGATIVE TITER NEGATIVE COARSE SPECKLED (test code = 666509) NEGATIVE TITER NEGATIVE DISCRETE NUCLEAR DOTS (test code = 914845) NEGATIVE TITER NEGATIVE NUCLEOLAR (test code = 034613) NEGATIVE TITER NEGATIVE NUCLEAR MEMBRANE (test code = 182242) NEGATIVE TITER NEGATIVE CYTO. RETICULAR (AYLA) (test code = 557477) NEGATIVE NEGATIVE COMMENTS (test code = 503374) NONE METHOD (test code = 10619) (NOTE) TESTING PERFORME D BY [employer] IFA PLATFORM.THE METHOD INCLUDES A SCREEN THRESHOLD OF 1:80, DIGITIZED AND COMPUTER ALGORITHM-ASSISTED INTERPRETATION OF TITERS AND DIGITAL PATTERNS, AND HEp-2 CELL LINE SUBSTRATE. ADDITIONAL UNUSUAL PATTERNS WILL BE GIVEN COMMENTS.FOR MORE INFORMATION, SEE [email or web address] UNLESS OTHERWISE INDICATED, ALL TESTING PERFORMED AT [facility] [address] [place] [address] OFFAL TRIMMER: VIRGINIA CARTER M.D. IA NUMBER [id number] [facility] [place]. [id number] COMPREHENSIVE METABOLIC [id number] 08:05:44* Test Item Value Reference Range Interpretation Comme nts GLUCOSE (test code = 2217) 106 MG/DL 70-99 H BUN (test code = 2208) 11 MG/DL 6-20 CREATININE (test code = 2214) 0.64 MG/DL 0.60-1.30 eGFR (2020 CKD-EPI) (test code = 24339) 113 ML/MIN/1.73 >60 CALC BUN/CREAT (test code [...] code = 2219) 18 U/L 5-40 URIC [id number] 08:05:44* Test Item Value Reference Range Interpretation Comme nts URIC ACID (test code = 2233) 4.0 MG/DL 2.7-6.1 SCR MAMM BILATERAL GARRETT CAD [id number] 16:13:07 Name: Kyra : 1980 Sex: F - SCR MAMM BILATERAL GARRETT CAD DIGITALBILATERAL FIRST EVER DIGITAL SCREENING MAMMOGRAM 3D/2D WITH CAD: 11/12/2022LINICAL: Asymptomatic. Digital breast tomosynthesis was performed in addition to routine CC and MLO views. Current mammographic images were evaluated by [employer] CAD (computer-aided detection) software. No prior exams [...] year. (11/13/2023) Kriss Dorado M.D. sckp/penrad:11/17/2022 16:13:07 [employer] Chief: Amena Moeller MM, [facility] Mammographyletter sent: BIRADS 1-2 Normal Mammogram BI-RADS: 2 BenignT. PALLIDUM TOTAL AB WITH [id number] 10:40:04* Test Item Value Reference Range Interpretation Comme nts T. PALLIDUM TOTAL AB (test code = 30358) <0.1 INDEX SEE BELOW INTERPRETI VE INFORMATION INTERPRETATION CLINICAL T. PALLIDUM AB NEGATIVE CURRENT OR PAST INFECTION INDEX <0.9 UNLIKELY. EQUIVOCAL SPECIMEN REPEATEDLY TESTED INDEX 0.9-1.0 IN EQUIVOCAL RANGE. CONSIDER RETESTING NO SOONER THAN 1 WEEK. POSITIVE PRESUMPTIVE EVIDENCE OF INDEX >=1.1 CURRENT OR PRIOR INFECTION. CORRELATE WITH NON-TREPONEMAL AB TESTING AND CLINICAL HISTORY. HEMOGLOBIN [id number] 03:23:39* Test Item Value Reference Range Interpretation Comme nts HEMOGLOBIN A1c (test code = 56331) 5.7 % 4.2-5.6 H UNLESS OTHERWISE INDICATED, ALL TESTING [facility]FORMED [facility] [address] [place] [address] OFFAL TRIMMER: KAN HIGHTOWER M.D. CLIA NUMBER [id number] [facility] [place]. [id number] T. PALLIDUM TOTAL AB RFLX [id number] 00:00:00* Test Item Value Reference Range Interpretation Comme nts T. PALLIDUM TOTAL AB (test c ode = 88451) <0.1 INDEX HEMOGLOBIN [id number] 00:00:00* Test Item Value Reference Range Interpretation Comme nts HEMOGLOBIN A1c (test code = 34304) 5.7 % HERPES SIMPLEX 1 [id number] 00:00:00* Test Item Value Reference Range Interpretation Comme nts HERPES SIMPLEX 1 IgG (test c ode = 14027) 18.500 INDEX HERPES SIMPLEX 2 [id number] 00:00:00* Test Item Value Reference Range Interpretation Comme nts HERPES SIMPLEX 2 IgG (test c ode = 96164) 92.700 INDEX COMPREHENSIVE METABOLIC [id number] 00:00:00* Test Item Value Reference Range Interpretation Comme nts GLUCOSE (test code = 2217) 149 MG/DL BUN (test code = 2208) 9 MG/DL CREATININE (test code = 2214) 0.66 MG/DL eGFR (2020 CKD-EPI) (test code = 74429) 113 ML/MIN/1.73 CALC BUN/CREAT (test code = [...] ALT (test code = 2219) 18 U/L [id number] 00:00:00* Test Item Value Reference Range Interpretation Comme nts D-DIMER (test code = 1405) 0.76 UG/MLFEU VAGINAL PATHOGENS DNA [id number] 00:00:00* Test Item Value Reference Range Interpretation Comme nts OFE SPECIES (test code = 26934) NEGATIVE G. VAGINALIS (test code = 51074) POSITIVE T. VAGINALIS (test code = 45836) NEGATIVE HIV 1/2 4TH GEN, RFLX [id number] 00:00:00* Test Item Value Reference Range Interpretation Comme nts HIV 1/2 4TH GEN, RFLX CONF ( test code = 3514) NON-REACTIVE [id number] 00:00:00* Test Item Value Reference Range Interpretation Comme nts RPR RESULT (test code = 3501) REACTIVE RPR TITER (test code = 3500) 1:1 TITER ACUTE HEPATITIS [id number] 00:00:00* Test Item Value Reference Range Interpretation Comme nts HEPATITIS A IgM (test code = 70429) NON-REACTIVE HEPATITIS B CORE IgM (test c ode = 4644) NON-REACTIVE HEPATITIS B SURF AG (test co de = 9379) NON-REACTIVE HEPATITIS C ANTIBODY (test c ode = 4628) NON-REACTIVE INTERPRETATION HEPATITIS A: (test code = 2552) (NOTE) INTERPRETATION HEPATITIS B: (test code = 42589) (NOTE) INTERPRETATION HEPATITIS C: (test code = 68884) (NOTE) CT/NG, TMA, [id number] 00:00:00* Test Item Value Reference Range Interpretation Comme nts GONORRHEA, NAAT (test code = 43288) NEGATIVE CHLAMYDIA, NAAT (test code = 54522) NEGATIVE COMPREHENSIVE METABOLIC [id number] 00:00:00* Test Item Value Reference Range Interpretation Comme nts GLUCOSE (test code = 2217) 73 MG/DL BUN (test code = 2208) 14 MG/DL CREATININE (test code = 2214) 0.78 MG/DL eGFR (2020 CKD-EPI) (test co de = 10081) 98 ML/MIN/1.73 CALC BUN/CREAT (test code = [...] = 2219) 13 U/L VAGINAL PATHOGENS DNA [id number] 00:00:00* Test Item Value Reference Range Interpretation Comme nts OFE SPECIES (test code = 11536) NEGATIVE G. VAGINALIS (test code = 51364) POSITIVE T. VAGINALIS (test code = 14923) NEGATIVE HIV 1/2 4TH GEN, RFLX [id number] 00:00:00* Test Item Value Reference Range Interpretation Comme nts HIV 1/2 4TH GEN, RFLX CONF ( test code = 3514) NON-REACTIVE [id number] 00:00:00* Test Item Value Reference Range Interpretation Comme nts RPR RESULT (test code = 3501) REACTIVE RPR TITER (test code = 3500) 1:1 TITER ACUTE HEPATITIS [id number] 00:00:00* Test Item Value Reference Range Interpretation Comme nts HEPATITIS A IgM (test code = 88920) NON-REACTIVE HEPATITIS B CORE IgM (test c ode = 4617) NON-REACTIVE HEPATITIS B SURF AG (test co de = 4946) NON-REACTIVE HEPATITIS C ANTIBODY (test c ode = 6440) NON-REACTIVE INTERPRETATION HEPATITIS A: (test code = 2552) (NOTE) INTERPRETATION HEPATITIS B: (test code = 07943) (NOTE) INTERPRETATION HEPATITIS C: (test code = 00051) (NOTE) CT/NG, TMA, [id number] 00:00:00* Test Item Value Reference Range Interpretation Comme nts GONORRHEA, NAAT (test code = 15852) NEGATIVE CHLAMYDIA, NAAT (test code = 22388) NEGATIVE COMPREHENSIVE METABOLIC [id number] 00:00:00* Test Item Value Reference Range Interpretation Comme nts GLUCOSE (test code = 2217) 73 MG/DL BUN (test code = 2208) 14 MG/DL CREATININE (test code = 2214) 0.78 MG/DL eGFR (2020 CKD-EPI) (test co de = 90549) 98 ML/MIN/1.73 CALC BUN/CREAT (test code = [...] = 2219) 13 U/L VAGINAL PATHOGENS DNA [id number] 00:00:00* Test Item Value Reference Range Interpretation Comme nts OFE SPECIES (test code = 20776) NEGATIVE G. VAGINALIS (test code = 01024) POSITIVE T. VAGINALIS (test code = 68283) NEGATIVE HIV 1/2 4TH GEN, RFLX [id number] 00:00:00* Test Item Value Reference Range Interpretation Comme nts HIV 1/2 4TH GEN, RFLX CONF ( test code = 3514) NON-REACTIVE [id number] 00:00:00* Test Item Value Reference Range Interpretation Comme nts RPR RESULT (test code = 3501) REACTIVE RPR TITER (test code = 3500) 1:1 TITER ACUTE HEPATITIS [id number] 00:00:00* Test Item Value Reference Range Interpretation Comme nts HEPATITIS A IgM (test code = 25508) NON-REACTIVE HEPATITIS B CORE IgM (test c ode = 4644) NON-REACTIVE HEPATITIS B SURF AG (test co de = 2739) NON-REACTIVE HEPATITIS C ANTIBODY (test c ode = 4675) NON-REACTIVE INTERPRETATION HEPATITIS A: (test code = 2552) (NOTE) INTERPRETATION HEPATITIS B: (test code = 80590) (NOTE) INTERPRETATION HEPATITIS C: (test code = 17755) (NOTE) CT/NG, TMA, [id number] 00:00:00* Test Item Value Reference Range Interpretation Comme nts GONORRHEA, NAAT (test code = 74675) NEGATIVE CHLAMYDIA, NAAT (test code = 24976) NEGATIVE COMPREHENSIVE METABOLIC [id number] 00:00:00* Test Item Value Reference Range Interpretation Comme nts GLUCOSE (test code = 2217) 73 MG/DL BUN (test code = 2208) 14 MG/DL CREATININE (test code = 2214) 0.78 MG/DL eGFR (2020 CKD-EPI) (test co de = 05158) 98 ML/MIN/1.73 CALC BUN/CREAT (test code = [...] past year. Shelia Gloria MA II T [facility]
--- NOTE | 2024-05-03 19:55 | ER ---
Nurse's Notes [facility] Name: Evelyn Rosa Age: 43 yrs Sex: Female : 1980 Arrival Date: 05/03/2024 Time: 19:20 Bed 16 Private MD: Diagnosis: Dyspnea;Moderate persistent asthma;Fever, unspecified;Pneumonia due to other specified bacteria-FAILED OUTPATIENT TREATMENT;Tobacco abuse counseling;Tobacco use Presentation: 05/03 19:41 Chief complaint: Patient states: SOB, RIGHT SIDED PAIN AND DIZZINESS. WAS DX WITH RIGHT jj7 SIDED PNEUMONIA TUESDAY. Coronavirus screen: At this time, the client does not indicate any symptoms associated with coronavirus-19. Ebola Screen: No symptoms or risks identified at this time. Initial Sepsis Screen: Does the patient meet any 2 criteria? RR > 20 per min. Yes Does the patient have a suspected source of infection? No. Patient's initial sepsis screen is negative. Risk Assessment: Do you want to hurt yourself or someone else? Patient reports no desire to harm self or others. Onset of symptoms was April 30, 2024. 19:41 Method Of Arrival: [facility] 19:41 Acuity: INDIGO 3 j7 Triage Assessment: 19:43 General: Appears distressed, uncomfortable, Behavior is cooperative, anxious, crying. jj7 Pain: Complains of pain in chest Pain radiates to left arm and neck. Respiratory: Reports shortness of breath cough that is labored breathing Airway is patent Trachea Respiratory effort is shallow, Respiratory pattern is hyperventilation Breath sounds with wheezes bilaterally. 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 - Infectious Disease History:: Denies. - Social history:: Smoking status: Patient reports the use of cigarette tobacco products, smokes one pack cigarettes per day. Patient uses alcohol, occasionally. street drugs, marijuana, Patient/guardian denies using IV drugs. - Family history:: not pertinent. Screenin:43 [facility] ED Fall Risk Assessment (Adult) History of falling in the last 3 months, jj7 including since admission No falls in past 3 months (0 pts) Confusion or Disorientation No (0 pts) Intoxicated or Sedated No (0 pts) Impaired Gait No (0 pts) Mobility Assist Device Used No (0 pt) Altered Elimination No (0 pt) Score/Fall Risk Level 0 - 2 = Low Risk Oriented to surroundings, Maintained a safe environment, Educated pt \T\ family on fall prevention, incl call for assistance when getting out of bed, Assessed \T\ reinforced patient's understanding of fall precautions. Abuse screen: Denies threats or abuse. Nutritional screening: No deficits noted. Tuberculosis screening: No symptoms or risk factors identified. Assessment: 19:43 General: Appears distressed, uncomfortable, Behavior is cooperative, appropriate for [facility] age, anxious, crying. Pain: Complains of pain in left arm Pain radiates to left arm and neck. Pain: Complains of pain in chest. Respiratory: Reports shortness of breath cough that is labored breathing Airway is patent Trachea midline Respiratory effort is shallow, Respiratory pattern is hyperventilation Breath sounds with wheezes bilaterally. Vital Signs: 19:41 BP 121 / 96; Pulse 131; Resp 23; Temp 99.2; Pulse Ox 99% on R/A; Weight 83.01 kg; jj7 Height 5 ft. 5 in. ; 22:10 BP 179 / 56; Pulse 115; Resp 24; Temp 99; Pulse Ox 97% on R/A; MAP 89 mmHg; Pain 5/10; tm6 19:41 Body Mass Index 30.45 (83.01 kg, 165.1 cm) j7 22:10 Pain Scale: Adult tm6 ED Course: 19:24 Patient arrived in ED. im 19:31 Chon Pichardo MD is Attending Physician. justina 19:43 Triage completed. jj7 19:43 Arm band placed on right wrist. jj7 19:48 Kalin Holt RN is Primary Nurse. tm6 19:52 Prince Johnson MD is Hospitalizing Provider. justina 19:53 Patient has correct armband on for positive identification. Placed in gown. Bed in low jj7 position. Call light in reach. Side rails up X 1. Provided Education on: USE OF CALL [place]. Client placed on continuous cardiac and pulse oximetry monitoring. NIBP monitoring applied. teletypesetter monitor on. Pulse ox on. 19:55 Missed attempt(s): 20 gauge in right forearm. jj7 19:56 Inserted saline lock: 20 gauge in right hand, using aseptic technique. Blood collected. jj7 21:27 EKG done, by ED staff, reviewed by Chon Pichardo MD. ha1 22:11 No provider procedures requiring assistance completed. Patient admitted, IV remains in tm6 place. Administered Medications: 20:03 Drug: Levalbuterol Inhalation 3.75 mg Inhalation once Route: Inhalation; tm6 21:32 Follow up: Response: No adverse reaction tm6 20:03 Drug: Ipratropium Inhalation Aerosol 0.5 mg Inhalation once Route: Inhalation; tm6 21:31 Follow up: Response: No adverse reaction tm6 20:39 Drug: NS 0.9% IV 1000 ml IV at 1 bolus Per protocol; to be given as a bolus over 60 tm6 minutes Route: IV; Rate: 1 bolus; Site: right hand; 21:32 Follow up: Response: No adverse reaction; IV Status: Completed infusion; IV Intake: tm6 1000ml 20:39 Drug: MethylPrednisoLONE IVP 125 mg IVP once Route: IVP; Site: right hand; tm6 21:32 Follow up: Response: No adverse reaction tm6 20:39 Drug: Ondansetron IVP 4 mg IVP once; over 2 minutes Route: IVP; Site: right hand; tm6 21:31 Follow up: Response: No adverse reaction tm6 20:59 Drug: Rocephin IV 1 grams IV at per protocol once; Given slow IV push per pharmacy tm6 instructions Route: IV; Rate: per protocol; Site: right hand; 21:32 Follow up: Response: No adverse reaction; IV Status: Completed infusion; IV Intake: [id number] 20:59 Drug: Zithromax IVPB 500 mg IVPB once over 1 hrs; mix in 250 mL NS Route: IVPB; Infused tm6 Over: 1 hrs; Site: right hand; 22:19 Follow up: Response: No adverse reaction; IV Status: Completed infusion; IV Intake: tm6 250ml 20:59 Drug: Famotidine IVP 20 mg IVP once; dilute with 10 mL 0.9% NaCl; give over 2 minutes tm6 Route: IVP; Site: right hand; 21:31 Follow up: Response: No adverse reaction tm6 20:59 Drug: Ativan IVP 1 mg IVP once Route: IVP; Site: right hand; tm6 21:31 Follow up: Response: No adverse reaction tm6 21:24 Not Given (Patient Refused): [id number] mg PO once tm6 Medication: 19:43 VIS not applicable for this client. jj7 Intake: 21:32 IV: 10ml; Total: 10ml. tm6 21:32 IV: 1000ml; Total: 1010ml. tm6 22:19 IV: 250ml; Total: 1260ml. tm6 Outcome: 19:54 Decision to Hospitalize by Provider. justina 22:11 Admitted to Med/surg accompanied by tech, via wheelchair, room 224, with chart, tm6 22:11 Condition: stable 22:11 Instructed on the need for admit, 22:19 Patient left the ED. tm6 Signatures: Chon Pichardo MD MD cha Ayala, Heidy, RN RN ha1 Igor Swann RN RN jj7 Jaja Chambers Tawney RN RN tm6
--- NOTE | 2024-05-03 19:55 | EDPHYS ---
Physician Documentation [facility] Name: Evelyn Rosa Age: 43 yrs Sex: Female : 1980 Arrival Date: 05/03/2024 Time: 19:20 Bed 16 Private MD: ED Physician Chon Pichardo HPI: 05/03 19:44 This 43 yrs old Black Female presents to ER via Ambulatory with complaints of Panic justina attacks, Doesn't Feel Right, feels like she is going to pass out. 19:44 The patient has shortness of breath with light activity. Onset: The symptoms/episode justina began/occurred 3 day(s) ago. Duration: The symptoms are continuous, and are steadily getting worse. The patient's shortness of breath is aggravated by coughing, light activity. The patient or guardian reports airway noise, cough, difficulty breathing, flu symptoms, arthralgias, low-grade fever, myalgias, no appetite. Modifying factors: The symptoms are alleviated by nothing. the symptoms are aggravated by activity. Associated signs and symptoms: Pertinent positives: chest pain, non-productive cough, fever. Severity of symptoms: At their worst the symptoms were moderate in the emergency department the symptoms are unchanged. 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 - Infectious Disease History:: Denies. - Social history:: Smoking status: Patient reports the use of cigarette tobacco products, smokes one pack cigarettes per day. Patient uses alcohol, occasionally. street drugs, marijuana, Patient/guardian denies using IV drugs. - Family history:: not pertinent. ROS: 19:46 Constitutional: Negative for fever, chills, and weight loss, Eyes: Negative for injury, justina pain, redness, and discharge, ENT: Negative for injury, pain, and discharge, Neck: Negative for injury, pain, and swelling, Abdomen/GI: Negative for abdominal pain, nausea, vomiting, diarrhea, and constipation, Back: Negative for injury and pain, : Negative for injury, bleeding, discharge, and swelling, MS/Extremity: Negative for injury and deformity, Skin: Negative for injury, rash, and discoloration, Neuro: Negative for headache, weakness, numbness, tingling, and seizure, Psych: Negative for depression, anxiety, suicide ideation, homicidal ideation, and hallucinations, Allergy/Immunology: Negative for hives, rash, and allergies, Endocrine: Negative for neck swelling, polydipsia, polyuria, polyphagia, and marked weight changes, Hematologic/Lymphatic: Negative for swollen nodes, abnormal bleeding, and unusual bruising, 19:46 Cardiovascular: Positive for palpitations, 19:46 Respiratory: Positive for cough, shortness of breath, wheezing, inspiratory, expiratory, Exam: 19:46 Head/Face: Normocephalic, atraumatic. Eyes: Pupils equal round and reactive to light, justina extra-ocular motions intact. Lids and lashes normal. Conjunctiva and sclera are non-icteric and not injected. Cornea within normal limits. Periorbital areas with no swelling, redness, or edema. ENT: Nares patent. No nasal discharge, no septal abnormalities noted. Tympanic membranes are normal and external auditory canals are clear. Oropharynx with no redness, swelling, or masses, exudates, or evidence of obstruction, uvula midline. Mucous membranes moist. Neck: Trachea midline, no thyromegaly or masses palpated, and no cervical lymphadenopathy. Supple, full range of motion without nuchal rigidity, or vertebral point tenderness. No Meningismus. Chest/axilla: Normal chest wall appearance and motion. Nontender with no deformity. No lesions are appreciated. Abdomen/GI: Soft, non-tender, with normal bowel sounds. No distension or tympany. No guarding or rebound. No evidence of tenderness throughout. Back: No spinal tenderness. No costovertebral tenderness. Full range of motion. Female : Normal external genitalia. Skin: Warm, dry with normal turgor. Normal color with no rashes, no lesions, and no evidence of cellulitis. MS/ Extremity: Pulses equal, no cyanosis. Neurovascular intact. Full, normal range of motion. Neuro: Awake and alert, GCS 15, oriented to person, place, time, and situation. Cranial nerves II-XII grossly intact. Motor strength 5/5 in all extremities. Sensory grossly intact. Cerebellar exam normal. Normal gait. Psych: Awake, alert, with orientation to person, place and time. Behavior, mood, and affect are within normal limits. 19:46 Constitutional: The patient appears febrile, 19:46 ECG was reviewed by the Attending Physician. 19:46 Respiratory: the patient does not display signs of respiratory distress, Respirations: labored breathing, that is mild, Breath sounds: bronchial sounds, that are moderate, are scattered, decreased breath sounds, that are mild, are scattered, rhonchi, that are mild, are scattered, stridor, is not appreciated, + upper airway congestion. wheezing: inspiratory expiratory is heard diffusely, 19:46 Musculoskeletal/extremity: Pulses: noted to be 4+ in the left popliteal artery, bilateral radial, brachial, femoral, popliteal, posterior tibial and and dorsalis pedis arteries., Sensation intact. Compartment Syndrome exam of affected extremity: is normal. Weight bearing: able to fully bear weight, DVT Exam: No signs of deep vein thrombosis. no pain, no swelling, no tenderness, negative Homans' sign noted on exam, no appreciated bluish discoloration, no erythema, no increased warmth, Vital Signs: 19:41 BP 121 / 96; Pulse 131; Resp 23; Temp 99.2; Pulse Ox 99% on R/A; Weight 83.01 kg; jj7 Height 5 ft. 5 in. ; 22:10 BP 179 / 56; Pulse 115; Resp 24; Temp 99; Pulse Ox 97% on R/A; MAP 89 mmHg; Pain 5/10; tm6 19:41 Body Mass Index 30.45 (83.01 kg, 165.1 cm) [facility] 22:10 Pain Scale: Adult tm6 MDM: 19:31 Medical Screening Exam initiated justina 19:49 Differential diagnosis: Anxiety Reaction asthma, Bronchitis CHF exacerbation, Chronic justina Obstructive Pulmonary Disease obstructed airway, tracheal injury, bronchitis, flu, URI, Myocardial Infarction pneumonia, Pneumothorax Psychogenic pulmonary edema, Pulmonary Embolism reactive airway disease, Sepsis Unstable Angina. Antibiotic administration: Rocephin and Zithromax given. Immunization status:. Data reviewed: vital signs, nurses notes, lab test result(s), EKG, radiologic studies, plain films. Consideration of Admission/Observation Escalation of care including admission/observation considered. I considered the following discharge prescriptions or medication management in the emergency department Medications were administered in the Emergency Department. See MAR. Independent interpretation of the following test(s) in the Emergency Department EKG: See my EKG interpretation above. Test considered but Not performed: CT: NO CT CHEST. Historians other than the Patient: PT WELL INFORMED. 05/03 19:43 Order name: Basic Metabolic Panel [facility] 05/03 19:43 Order name: CBC with Diff [facility] 05/03 19:43 Order name: LFT's [facility] 05/03 19:43 Order name: Magnesium [facility] 05/03 19:43 Order name: NT PRO-BNP [facility] 05/03 19:43 Order name: PT-INR [facility] 05/03 19:43 Order name: Troponin HS [facility] 05/03 19:43 Order name: Blood Culture Adult (2) [facility] 05/03 19:43 Order name: Flu [facility] 05/03 19:43 Order name: SARS RAPID [facility] 05/03 19:46 Order name: Lipase [facility] 05/03 20:11 Order name: Phosphorus [facility] 05/03 20:11 Order name: Urinalysis w/ reflexes [facility] 05/03 20:11 Order name: Lipid Profile [facility] 05/03 20:11 Order name: Lipid Profile [facility] 05/03 21:52 Order name: ABG Arterial Blood Gas [facility] 05/03 20:16 Order name: Chest Pa And Lat (2 Views) XRAY [facility] 05/03 21:22 Order name: RAD [facility] 05/03 19:43 Order name: EKG; Complete Time: 19:43 [facility] 05/03 19:43 Order name: Cardiac monitoring; Complete Time: 20:40 [facility] 05/03 19:43 Order name: EKG - Nurse/Tech; Complete Time: 21:27 [facility] 05/03 19:43 Order name: IV Saline Lock; Complete Time: 20:40 [facility] 05/03 19:43 Order name: Labs collected and sent; Complete Time: 20:40 [facility] 05/03 19:43 Order name: O2 Per Protocol; Complete Time: 20:39 [facility] 05/03 19:43 Order name: O2 Sat Monitoring; Complete Time: 20:39 [facility] Administered Medications: 20:03 Drug: Levalbuterol Inhalation 3.75 mg Inhalation once Route: Inhalation; tm6 21:32 Follow up: Response: No adverse reaction tm6 20:03 Drug: Ipratropium Inhalation Aerosol 0.5 mg Inhalation once Route: Inhalation; tm6 21:31 Follow up: Response: No adverse reaction tm6 20:39 Drug: NS 0.9% IV 1000 ml IV at 1 bolus Per protocol; to be given as a bolus over 60 tm6 minutes Route: IV; Rate: 1 bolus; Site: right hand; 21:32 Follow up: Response: No adverse reaction; IV Status: Completed infusion; IV Intake: tm6 1000ml 20:39 Drug: MethylPrednisoLONE IVP 125 mg IVP once Route: IVP; Site: right hand; tm6 21:32 Follow up: Response: No adverse reaction tm6 20:39 Drug: Ondansetron IVP 4 mg IVP once; over 2 minutes Route: IVP; Site: right hand; tm6 21:31 Follow up: Response: No adverse reaction tm6 20:59 Drug: Rocephin IV 1 grams IV at per protocol once; Given slow IV push per pharmacy tm6 instructions Route: IV; Rate: per protocol; Site: right hand; 21:32 Follow up: Response: No adverse reaction; IV Status: Completed infusion; IV Intake: [id number] 20:59 Drug: Zithromax IVPB 500 mg IVPB once over 1 hrs; mix in 250 mL NS Route: IVPB; Infused tm6 Over: 1 hrs; Site: right hand; 22:19 Follow up: Response: No adverse reaction; IV Status: Completed infusion; IV Intake: tm6 250ml 20:59 Drug: Famotidine IVP 20 mg IVP once; dilute with 10 mL 0.9% NaCl; give over 2 minutes tm6 Route: IVP; Site: right hand; 21:31 Follow up: Response: No adverse reaction tm6 20:59 Drug: Ativan IVP 1 mg IVP once Route: IVP; Site: right hand; tm6 21:31 Follow up: Response: No adverse reaction tm6 21:24 Not Given (Patient Refused): [id number] mg PO once tm6 Disposition Summary: 05/03/24 19:54 Hospitalization Ordered Notes: Hospitalization Status: Inpatient Admission justina Provider: Prince justina Johnson Location: Telemetry/MedSurg (Inpatient) justina Condition: Fair justina Problem: an ongoing problem justina Symptoms: have worsened justina Bed/Room Type: Standard justina Room Assignment: 224(10/24/24 20:29) cg Diagnosis - Dyspnea justina - Moderate persistent asthma justina - Fever, unspecified justina - Pneumonia due to other specified bacteria - FAILED OUTPATIENT TREATMENT justina - Tobacco abuse counseling justina - Tobacco use justina Forms: - Medication Reconciliation Form justina - SBAR form justina - Leadership Thank You Letter [facility] Signatures: Dispatcher [employer] Chon Nina MD MD cha Garcia, Cindy, RN RN cg Johnson, Juwairiyah, RN RN jj7 Kalin Holt RN RN tm6 Corrections: (The following items were deleted from the chart) 19:54 justina cg
[2024-05-03] MEDS ORDERED: METHYLPREDNISOLONE 125 MG INJ ONE (19:56)
[2024-05-03] MEDS ORDERED: LEVALBUTEROL 1.25 MG/3 ML NEB ONE (19:56)
[2024-05-03] MEDS ORDERED: CEFTRIAXONE 1000 MG/VIAL ONE (19:56)
[2024-05-03] MEDS ORDERED: IPRATROPIUM BROM 0.5MG/2.5ML ONE (19:56)
[2024-05-03] MEDS ORDERED: NA CHLORIDE 0.9% 250 ML ONE (19:57)
[2024-05-03] MEDS ORDERED: ACETAMINOPHEN 500 MG TAB ONE (19:57)
[2024-05-03] MEDS ORDERED: FAMOTIDINE 20 MG/2 ML VIAL IV ONE (19:57)
[2024-05-03] MEDS ORDERED: AZITHROMYCIN 500 MG INJ IVPB ONE (19:57)
[2024-05-03] MEDS ORDERED: NA CHLORIDE 0.9% 1,000 ML ONE (19:57)
[2024-05-03] MEDS ORDERED: ONDANSETRON 4 MG/2 ML VIAL ONE (20:28)
[2024-05-03] MEDS ORDERED: SODIUM CHLORIDE 0.9% 10ML INJ IV PRN (20:29)
--- NOTE | 2024-05-03 20:29 | P.HP ---
Certification for Inpatient Patient admitted to: Inpatient With expected LOS: >2 Midnights Practitioner: I am a practitioner with admitting privileges, knowledge of patient current condition, hospital course, and medical plan of care. Services: Services provided to patient in accordance with Admission requirements found in Title 42 Section 412.3 of the Code of Federal Regulations Patient History Date of Service: 05/03/24 Reason for admission: Shortness of breath History of Present Illness: Patient is a 43-year-old -[place] female with a known past medical history of asthma, anxiety disorder and chronic back pain. She presented with shortness of breath and is being admitted for asthma exacerbation. Patient was seen on April 27 for similar symptoms and was discharged from the ER. She failed outpatient therapy. CT angio at the time did not show any PE. It revealed alveolitis. During my evaluation today, patient is on nebulizer. She is very tachypneic and dyspneic. Allergies ketorolac Allergy (Verified 05/17/22 15:22) Itching/Hives/Rash Penicillins Allergy (Verified 05/17/22 15:22) Itching/Hives/Rash Home Medications: Cyclobenzaprine [Flexeril*] 10 mg PO BID PRN #40 tab 11/30/11 Ciprofloxacin HCl [Cipro 500 MG Tablet] 500 mg PO Q12H 05/17/22 Metronidazole 500 mg PO Q8HR 05/17/22 Valacyclovir [Valtrex*] 500 mg PO DAILY 05/17/22 Zolpidem Tartrate 10 mg PO DAILY PRN 05/17/22 clonazePAM [Clonazepam] 1 mg PO TID 05/17/22 Codeine/APAP [Tylenol W/Codeine #3 tab] 1 tab PO Q6HP PRN #10 tab 05/22/22 Promethazine Tab [Phenergan] 12.5 mg PO Q6HP PRN #10 tab 05/22/22 Sucralfate [Carafate] 1 gm PO TIDWM 30 Days #90 tab 05/22/22 - Past Medical/Surgical History Diabetic: No -: Gastritis -: Anxiety and depression -: Hysterectomy -: - Family History Mother -: Hypertension, Diabetes - Social History Alcohol use: No CD- Drugs: No Caffeine use: Yes Physical Examination - Physical Exam General: Moderate distress HEENT: Atraumatic, Normocephalic Respiratory: Diminished, Expiratory wheezes Cardiovascular: No edema, Normal pulses, Regular rate/rhythm, Normal S1 S2 Neurological: Normal speech Assessment and Plan - Problems (Diagnosis) (1) Asthma exacerbation Current Visit: Yes Status: Acute (2) Anxiety disorder Current Visit: Yes Status: Acute (3) Chronic back pain Current Visit: Yes Status: Acute (4) Hypokalemia Current Visit: Yes Status: Acute (5) COVID-19 Current Visit: Yes Status: Acute - Plan Assessment This is a 43-year-old female with known history of anxiety disorder who is being admitted for acute asthma exacerbation. Patient is in respiratory distress. She received Solumedrol and DuoNebs in the ER. Her COVID test returned positive. Acute asthma exacerbation Acute hypoxemic respiratory failure COVID 19 Hypokalemia TRE Anxiety disorder Chronic back pain Obesity Plan: Will admit inpatient Continue supplemental O2 Dexamethasone, empiric antibiotics and Dulera Multivitamisn and Zinc Pharmacy consulted for remdesivir. Will see tomorrow morning As needed IV Ativan on board for anxiety GI and DVT prophylaxis prophylaxis Pulmonary consult - Advance Directives Does patient have a Living Will: No Does patient have a Durable POA for Healthcare: No
[2024-05-03 20:51] LABS: Absolute Lymphocytes (CBC) 1.7 K/uL (0.7-4.9); Absolute Monocytes 1.1 K/uL (0.1-1.3); Absolute Neutrophil 12.1 K/uL (1.8-8.0); Basophils % 0.1 % (0-1.3); Hematocrit 37.7 % (36.0-45.0); Hemoglobin 12.8 g/dL (12.0-15.0); Lymphocytes % 11.7 % (15.3-44.8); MCH 32.9 pg (27.0-35.0); MCHC 34.1 g/dL (32.0-36.0); MCV 96.5 fL (80-100); MPV 7.9 fL (7.6-11.3); Monocytes % 7.2 % (3.3-12.3); Nucleated Red Blood Cells % 0.3 % (0-0); PT Prothrombin Time 13.4 SECONDS (9.4-12.5); Platelets 430 thou/uL (152-406); Protime INR 1.2; RBC Red Blood Cell Count 3.91 M/uL (3.86-4.86); Red Cell Distribution Width 13.6 % (12.1-15.2)
[2024-05-03] MEDS ORDERED: LORazepam 2 MG/ML VIAL ONE (20:56)
[2024-05-03] MEDS: DULERA 200/5 (MOMETASONE/FORMOTEROL) INHALER IH SCH (21:00)
[2024-05-03 21:09] LABS: ALT/SGPT 22 U/L (13-56); Albumin 3.3 g/dL (3.4-5.0); Albumin/Globulin Ratio 0.9 (1.1-1.8); Alkaline Phosphatase 73 U/L (45-117); Anion Gap 11.3 mEq/L (5.0-15.0); BUN Blood Urea Nitrogen 12 mg/dL (7-18); Bicarbonate 26 mEq/L (21-32); Bilirubin Total 0.3 mg/dL (0.2-1.0); Globulin 3.8 g/dL (2.3-3.5); Glomerular Filtration Rate 52 ml/min (=/>90); Glucose Level 156 mg/dL (74-106); Magnesium 2.1 mg/dL (1.6-2.4); NT PRO-BNP 15 pg/mL (<125); Potassium 3.3 mEq/L (3.5-5.1); Protein, Total 7.1 g/dL (6.4-8.2); Sodium Level 140 mEq/L (136-145)
[2024-05-03 21:17] LABS: SARS-CoV-2 Antigen CONTROL BLUE LINE VIS/BG OK
[2024-05-03] MEDS ORDERED: PROMETHAZINE INJ 25 MG/ML AMP ONE (21:17)
[2024-05-03] MEDS: PROMETHAZINE INJ 25 MG/ML AMP IV PRN (21:18)
[2024-05-03 21:19] LABS: SARS-CoV-2 Antigen Rapid Res Positive (Negative)
[2024-05-03 21:20] LABS: AST/SGOT < 10 U/L (15-37)
[2024-05-03 21:21] LABS: Bilirubin Direct < 0.2 mg/dL (0-0.2); Bilirubin Indirect, Calculated 0.1 mg/dL (0.2-0.8); Troponin High Sensitivity < 3.0 pg/mL (<58.9)
--- NOTE | 2024-05-03 21:22 | RAD REPORT ---
EXAMINATION: TWO VIEW CHEST XR CLINICAL INDICATION: Female, 43 years old. [facility] MAIN Cough;Congestion Bed Name: 16 TECHNIQUE: 2 view radiographs of the chest were performed. COMPARISON: 10/02/2023 FINDINGS: The lungs are well inflated. Hazy right infrahilar opacity. No pneumothorax or sizable effusion. The heart is normal in size. Mediastinal contours are unremarkable. IMPRESSION: Subtle hazy right infrahilar opacity, may reflect early pneumonia.
[2024-05-03 21:51] LABS: Blood Gas Oxyhemoglobin 89.9 % (94-97); Blood Gas THB 12.6 g/dl (12-18); Blood O2 Saturation 94.5 % (92-98.5)
[2024-05-03] MEDS: VITAMIN D 1000 UNIT TAB PO SCH (22:19)
[2024-05-03] MEDS: ASCORBIC ACID 500 MG TABLET PO SCH (22:19)
[2024-05-03] MEDS: ZINC SULFATE 220 MG CAP PO SCH (22:19)
[2024-05-03] MEDS ORDERED: POTASSIUM CL 40 MEQ in NA CHLORIDE 0.9% 500 ML IV SCH (23:00)
[2024-05-03 23:08] VITALS: BMI 30.4
[2024-05-03] MEDS: Levofloxacin 750mg IV 750 MG/150 ML BAG IV SCH (23:49)
[2024-05-03] MEDS: HYDROMORPHONE HCL 1 MG/ML INJ IV PRN (23:49)
[2024-05-03] MEDS: PANTOPRAZOLE 40 MG INJ IVP SCH (23:49)
[2024-05-03] MEDS: PROMETHAZINE INJ 25 MG/ML AMP IV ONE (23:50)
[2024-05-03] MEDS: ZOLPIDEM TARTRATE 10 MG TABLET PO PRN (23:50)
[2024-05-04] MEDS: ALBUTEROL INHALER 200 PUFF/6.7 GM IH SCH
[2024-05-04] MEDS ORDERED: METHYLPREDNISOLONE 40 MG INJ IV SCH (01:00)
[2024-05-04] MEDS ORDERED: IPRATROPIUM BROM 0.5MG/2.5ML NEB SCH (01:00)
[2024-05-04] MEDS ORDERED: ALBUTEROL 2.5 MG/3 ML NEB SOL NEB SCH (01:00)
[2024-05-04] MEDS: KCL 20 MEQ/100 mL IVPB 20 MEQ/100 ML BAG IV SCH (01:01)
[2024-05-04] MEDS: BENZONATATE 100 MG CAP PO PRN (03:02)
[2024-05-04] MEDS: HYDROMORPHONE HCL 1 MG/ML INJ IV ONE (05:15)
[2024-05-04] MEDS: POTASSIUM PHOS IN 0.9 % NACL 15 MMOL/250 ML BAG IV ONE (05:44)
[2024-05-04] MEDS: dexAMETHasone 10 MG/ML VIAL IV SCH (08:22)
[2024-05-04] MEDS: GUAIFENESIN 600 MG SA TAB PO SCH (08:22)
[2024-05-04] MEDS: ENOXAPARIN 40 MG/0.4 ML SQ SCH (08:22)
[2024-05-04] MEDS: POTASSIUM PHOS IN 0.9 % NACL 15 MMOL/250 ML BAG IV SCH (08:23)
[2024-05-04 09:48] LABS: Absolute Lymphocytes (CBC) 1.4 K/uL (0.7-4.9); Absolute Neutrophil 12.5 K/uL (1.8-8.0); Basophils % 0.3 % (0-1.3); Eosinophils % 0.1 % (0-4.4); Hematocrit 36.7 % (36.0-45.0); Hemoglobin 11.9 g/dL (12.0-15.0); Lymphocytes % 9.6 % (15.3-44.8); MCH 31.8 pg (27.0-35.0); MCHC 32.4 g/dL (32.0-36.0); MCV 98.3 fL (80-100); MPV 8.4 fL (7.6-11.3); Monocytes % 6.5 % (3.3-12.3); Neutrophils % 83.5 % (41.7-73.7); Platelets 372 thou/uL (152-406); RBC Red Blood Cell Count 3.74 M/uL (3.86-4.86); Red Cell Distribution Width 13.9 % (12.1-15.2)
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
[2024-05-04 10:31] LABS: Anion Gap 11.3 mEq/L (5.0-15.0)
[2024-05-04 10:33] LABS: Potassium 4.3 mEq/L (3.5-5.1)
[2024-05-04] MEDS: FLU (Fluarix Triv) TS24-25(6MOS UP)/PF 45 MCG/0.5 ML Syringe IM ONE (12:00)
[2024-05-04] MEDS: ONDANSETRON 4 MG/2 ML VIAL IV PRN (14:03)
[2024-05-04] MEDS: LORazepam 2 MG/ML VIAL IV PRN (14:03)
--- NOTE | 2024-05-04 14:12 | EKG ---
Test Date: 2024-05-03 Test Time: 21:22:43 Top Taper Machine: BATOOL MEASUREMENT RESULTS: Intervals: Rate: 111 AL: 130 QRSD: 80 QT: 356 QTc: 484 [place]: P: 65 AL: 130 QRS: 13 T: 31 INTERPRETIVE STATEMENTS: Sinus tachycardia Otherwise normal ECG Compared to ECG 05/03/2024 21:21:34 Right-axis deviation no longer present Electronically Signed On 05-04-24 14:10:40 CDT by Claudio Wiggins
--- NOTE | 2024-05-04 14:12 | EKG ---
Test Date: 2024-05-03 Test Time: 21:21:34 Mineral Surveyor: BATOOL MEASUREMENT RESULTS: Intervals: Rate: 111 ID: [id number] QRSD: 82 QT: 354 QTc: 481 [place]: P: 109 ID: [id number] QRS: 174 T: 160 INTERPRETIVE STATEMENTS: Suspect arm lead reversal, interpretation assumes no reversal Sinus tachycardia Right axis deviation Abnormal ECG Compared to ECG 04/27/2024 14:14:14 Right-axis deviation now present Sinus rhythm no longer present Sinus arrhythmia no longer present Electronically Signed On 05-04-24 14:10:42 CDT by Claudio Wiggins
[2024-05-04] MEDS: SUCRALFATE 1 GM TABLET PO SCH (17:11)
[2024-05-04] MEDS: MELATONIN 3 MG TABLET PO SCH (20:45)
[2024-05-04 23:37] LABS: Specific Gravity > 1.030 (1.005-1.030); Urine Bacteria None Seen /HPF (<20); Urine Bilirubin NEGATIVE (Negative); Urine Blood Negative (Negative); Urine Clarity Clear (Clear); Urine Color Light-Yellow (Yellow); Urine Culture Reflex Order NOT NEEDED; Urine Glucose NEGATIVE (Negative); Urine Ketones NEGATIVE (Negative); Urine Microscopic Reflex YN ORDER UMIC; Urine Nitrite NEGATIVE (Negative); Urine Protein TRACE (Negative); Urine RBC <5 /HPF (None Seen); Urine Urobilinogen Normal (Normal); Urine WBC <5 /HPF (<5)
[2024-05-05 05:55] LABS: Absolute Lymphocytes (CBC) 1.7 K/uL (0.7-4.9); Absolute Monocytes 0.6 K/uL (0.1-1.3); Absolute Neutrophil 15.8 K/uL (1.8-8.0); Basophils % 0.2 % (0-1.3); Hemoglobin 11.9 g/dL (12.0-15.0); Lymphocytes % 9.2 % (15.3-44.8); MCH 31.5 pg (27.0-35.0); MCHC 32.1 g/dL (32.0-36.0); MCV 98.1 fL (80-100); MPV 9.1 fL (7.6-11.3); Monocytes % 3.1 % (3.3-12.3); Neutrophils % 87.5 % (41.7-73.7); Platelets 375 thou/uL (152-406); RBC Red Blood Cell Count 3.77 M/uL (3.86-4.86)
[2024-05-05 08:49] LABS: Blood Morphology Comment NOT SEEN (NOT SEEN); Platelet Estimate ADEQ; White Blood Cell Scan OK (OK)
[2024-05-05] MEDS: ARFORMOTEROL TARTRATE 15 MCG/2 ML VIAL.NEB NEB SCH (09:25)
--- NOTE | 2024-05-05 09:29 | P.PN ---
Subjective Date of Service: 05/05/24 Chief Complaint: Shortness of breath No change in patient's condition is still complaining of cough congestion shortness of breath there is a history of obstructive airways disease tested positive for coronavirus Review of Systems General: Weakness Respiratory: Cough, Shortness of Breath Physical Examination - Vital Signs Temperature: 97.0 F Blood Pressure: 122/76 Pulse: 78 Respirations: 16 Pulse Ox (%): 96 - Physical Exam General: Alert, Oriented x3, Mild distress Respiratory: Clear to auscultation bilaterally Cardiovascular: Normal pulses, Regular rate/rhythm Assessment And Plan - Current Problems (Diagnosis) (1) Asthma exacerbation Current Visit: Yes Status: Acute Plan: Patient is 43 years of age admitted with worsening dyspnea suspect asthma exacerbation her chest x-ray is clear tested positive for coronavirus prednisone to 20 mg twice a day DC Decadron add nebulized bronchodilators signs oxygenation satisfactory possible discharge a.m. changed to p.o. count is elevated secondary to high doses of steroids Qualifiers: Asthma severity: moderate
[2024-05-05] MEDS: predniSONE 20 MG TAB PO SCH (11:23)
[2024-05-05] MEDS: levoFLOXacin 500 MG TAB PO SCH (11:23)
[2024-05-05] MEDS: IPRATROPIUM BROM 0.5MG/2.5ML NEB SCH (14:18)
[2024-05-06 04:46] LABS: Absolute Basophils 0.1 K/uL (0-0.5); Absolute Lymphocytes (CBC) 1.7 K/uL (0.7-4.9); Absolute Monocytes 1.2 K/uL (0.1-1.3); Basophils % 0.3 % (0-1.3); Hematocrit 38.2 % (36.0-45.0); Hemoglobin 12.4 g/dL (12.0-15.0); Lymphocytes % 8.7 % (15.3-44.8); MCHC 32.4 g/dL (32.0-36.0); MCV 98.7 fL (80-100); MPV 8.4 fL (7.6-11.3); Platelets 403 thou/uL (152-406); RBC Red Blood Cell Count 3.87 M/uL (3.86-4.86); Red Cell Distribution Width 14.1 % (12.1-15.2)
[2024-05-06 04:58] LABS: Anion Gap 8.8 mEq/L (5.0-15.0); Phosphorus 3.6 mg/dL (2.5-4.9); Potassium 3.8 mEq/L (3.5-5.1)
[2024-05-06 05:15] LABS: Band Neutrophils 4 % (0-1); Blood Morphology Comment NOT SEEN (NOT SEEN); Differential Total Cells Count 100; Lymphocytes 16 % (15-42); Monocytes 3 % (0-10); Platelet Estimate ADEQ; Reactive Lymphocytes 2 %; Segmented Neutrophils 75 % (40-80)
[2024-05-06] MEDS: NA CHLORIDE 0.9% 100 ML ONE (06:38)
--- NOTE | 2024-05-06 09:44 | P.PN ---
Subjective Date of Service: 05/06/24 Chief Complaint: Cough and congestion Patient feels slightly better still having cough congestion wheezing productive green phlegm Review of Systems General: Weakness Respiratory: Shortness of Breath Physical Examination - Vital Signs Temperature: 97.6 F Blood Pressure: 120/63 Pulse: 93 Respirations: 16 Pulse Ox (%): 94 - Physical Exam General: Alert, Oriented x3 Respiratory: Expiratory wheezes Cardiovascular: No edema, Regular rate/rhythm Assessment And Plan - Current Problems (Diagnosis) (1) Asthma exacerbation Current Visit: Yes Status: Acute Plan: Patient still continues to complain of cough and congestion white count is elevated from the effect of steroids chest x-ray shows basilar atelectasis signs stable oxygenation satisfactory plan to discharge tomorrow. Check her CBC again patient is on scheduled bronchodilators Qualifiers: Asthma severity: moderate Discharge Plan: Home Plan to discharge in: 24 Hours
[2024-05-06] MEDS: DULERA 200/5 (MOMETASONE/FORMOTEROL) INHALER IH SCH (09:45)
--- NOTE | 2024-05-06 09:55 | RAD REPORT ---
EXAMINATION: ONE VIEW CHEST XR CLINICAL INDICATION: Poss pneumonia TECHNIQUE: Frontal chest projection is submitted. Examination is limited by patient positioning and t echnique. COMPARISON: 05/03/2024 FINDINGS: Mild linear atelectasis is present in both lung bases. Lungs otherwise clear. The heart is upper limi t of normal in size. No displaced fractures identified. IMPRESSION: Mild subsegmental atelectasis in both lung bases.
[2024-05-07 02:09] VITALS: O2SAT 96
[2024-05-07 07:21] LABS: Hematocrit 36.8 % (36.0-45.0); Hemoglobin 11.9 g/dL (12.0-15.0); MCH 31.9 pg (27.0-35.0); MCHC 32.3 g/dL (32.0-36.0); MCV 98.6 fL (80-100); MPV 9.5 fL (7.6-11.3); Platelets 291 thou/uL (152-406); RBC Red Blood Cell Count 3.74 M/uL (3.86-4.86); Red Cell Distribution Width 13.7 % (12.1-15.2)
--- NOTE | 2024-05-07 07:42 | RAD REPORT ---
EXAMINATION: ONE VIEW CHEST XR CLINICAL INDICATION: Poss pneumonia TECHNIQUE: Frontal chest projection is submitted. Examination is limited by patient positioning and t echnique. COMPARISON: 05/06/2024 FINDINGS: Subsegmental atelectasis is again seen in both lung bases, slightly greater on the right since compar armin study. The heart is upper limit of normal in size. No displaced fractures identified. IMPRESSION: Mild progression in subsegmental atelectasis bilateral lung bases, greater on the right.
[2024-05-07 08:05] VITALS: BP 108/63; TEMP 97.8
[2024-05-07] MEDS: MAGNESIUM CITRATE 300 ML BOT PO ONE (08:35)
--- NOTE | 2024-05-07 09:56 | P.DS ---
Admission Date: 05/03/24 Discharge Date: 05/07/24 Disposition: ROUTINE DISCHARGE Discharge Condition: GOOD Reason for Admission: Cough and congestion - Problems (1) Asthma exacerbation Status: Acute Qualifiers: Asthma severity: moderate Brief History of Present Illness: Patient is 43 years of age admitted with worsening dyspnea cough congestion reid gnosed with coronavirus infection failed outpatient therapy and was admitted to the hospital Hospital Course: Patient was admitted treated with conservative therapy with bronchodilators inhalers and steroids symptoms improved patient's white count was elevated I suspect the large doses of dexamethasone which she got on admission and was declining prior to discharge he was ambulating no wheezing noted on clinical exam signs oxygenation satisfactory had discharge patient to be discharged home on low-dose prednisone inhalers days of levofloxacin of asthma follow-up with me as an outpatient if needed also prescribed nebulizer not qualify for shower chair so nebulizer was prescribed Vital Signs/Physical Exam: Temp Pulse Resp BP Pulse Ox 97.8 F 93 H 18 108/63 95 05/07/24 08:00 05/07/24 08:00 05/07/24 08:00 05/07/24 08:00 05/07/24 08:00 Laboratory Data at Discharge: WBC 19.70 thou/uL (4.3-10.9) H 05/07/24 06:57 Hgb 11.9 g/dL (12.0-15.0) L 05/07/24 06:57 Hct 36.8 % (36.0-45.0) 05/07/24 06:57 Plt Count 291 thou/uL (152-406) D 05/07/24 06:57 PT 13.4 SECONDS (9.4-12.5) H 05/03/24 20:30 INR 1.20 05/03/24 20:30 Sodium 136 mEq/L (136-145) 05/06/24 04:13 Potassium 3.8 mEq/L (3.5-5.1) 05/06/24 04:13 BUN 16 mg/dL (7-18) 05/06/24 04:13 Creatinine 0.89 mg/dL (0.55-1.02) 05/06/24 04:13 Glucose 170 mg/dL (74-106) H 05/06/24 04:13 Phosphorus 3.6 mg/dL (2.5-4.9) 05/06/24 04:13 Magnesium 2.1 mg/dL (1.6-2.4) 05/03/24 20:30 Total Bilirubin 0.3 mg/dL (0.2-1.0) 05/03/24 20:30 AST < 10 U/L (15-37) L 05/03/24 20:30 ALT 22 U/L (13-56) 05/03/24 20:30 Alkaline Phosphatase 73 U/L (45-117) 05/03/24 20:30 Triglycerides 92 mg/dL (<150) 05/04/24 09:36 Cholesterol 156 mg/dL (<200) 05/04/24 09:36 HDL Cholesterol 52 mg/dL (40-60) 05/04/24 09:36 Cholesterol/HDL Ratio 3.00 05/04/24 09:36 Lipase 18 U/L (13-75) 05/03/24 20:30 Home Medications: Cyclobenzaprine [Flexeril*] 10 mg PO BID PRN #40 tab 11/30/11 Valacyclovir [Valtrex*] 500 mg PO DAILY 05/17/22 Zolpidem Tartrate 10 mg PO DAILY PRN 05/17/22 clonazePAM [Clonazepam] 1 mg PO TID 05/17/22 Codeine/APAP [Tylenol #3*] 1 tab PO Q6HP PRN #10 tab 05/22/22 Promethazine Tab [Phenergan*] 12.5 mg PO Q6HP PRN #10 tab 05/22/22 Sucralfate [Carafate] 1 gm PO TIDWM 30 Days #90 tab 05/22/22 Albuterol Neb [Proventil 0.083% Neb Soln] 2.5 mg IH BID 8 Days #50 ml 05/07/24 Budesonide/Formoterol Fumarate [Symbicort 160-4.5 Mcg Inhaler] 2 puff IH BID 30 Days #120 aero 05/07/24 levoFLOXacin [Levaquin] 500 mg PO DAILY 5 Days #5 tab 05/07/24 predniSONE [Deltasone*] 10 mg PO BID 5 Days #10 tab 05/07/24 New Medications: predniSONE [Deltasone*] 10 mg PO BID 5 Days #10 tab levoFLOXacin [Levaquin] 500 mg PO DAILY 5 Days #5 tab Albuterol Neb [Proventil 0.083% Neb Soln] 2.5 mg IH BID 8 Days #50 ml Budesonide/Formoterol Fumarate [Symbicort 160-4.5 Mcg Inhaler] 2 puff IH BID 30 Days #120 aero Physician Discharge Instructions: Follow up with a Family Medicine Physician of your choice: SUKHJINDER SOFIA MD [address] [facility], [address] [place] [address] ACCEPTING NEW PATIENTS! KRISTINA GONZALEZ MD [address] [facility], [facility] [address] [place] [address] ACCEPTING NEW PATIENTS! GIL SARMIENTO DO [address] [address] ANNABELLE SHERMAN MD [address] [facility] 101 [place] [address] LINA THOMPSON MD [address] [facility] [address] [place] [address] JHONATAN CARPENTER MD [address] [facility] [place] [address] TIARA NELSON MD [address] [place] [address] HAZEL ZAMAN [address] [facility], [address] [place] [address] GENA GOODWIN MD [address] [facility], [address] [address] DANIEL GOODWIN APRN [facility] [address] [facility], [facility] [address] [place] [address] DEVON LOONEY DO [address] [facility], [address] [place], [place] [id number] Follow up with an Internal Medicine Physician of your choice: KRISTINA GONZALEZ MD [address] [facility], [address] [place], [place] [id number] ACCEPTING NEW PATIENTS! TAMIKO BUTTS MD [address] [facility], [place] [address] SANTOS NELSON MD [address] [place] [address] ANTOINETTE ARSHAD MD [address] [facility], [facility] [address] [place], [place] [id number] CELINA SMITH MD [address] [place], [place] [address] Your [facility] exchange plan is managed by Jennifer Bates. Below is the information for providers at the [facility]: [facility] [address] [place] [address] phone [phone] * Dr. Júnior Caballero, DO, FAAFP * Kianna Mendez, MSN, COUTIERIER, SECONDARY [employer]CHO[employer] REGISTRAR-C * Laura Sears [employer] Diet: Regular Activity: Ad en Followup: NONE,NONE [Primary Care Provider] -
== END 2024-05-07 09:29 | disposition home or self-care (01) | DRG 177 ==
LOC: ER 19:20 → ERHOLD 20:05 → 2ND 21:49
PROVIDERS: ADMIT Internal Medicine; ATTEND Internal Medicine Sleep Medicine
PROC: 4A033R1 Measurement of Arterial Saturation, Peripheral, Percutaneous Approach (ICD-10-PCS; principal; 2024-05-03)
DX: U07.1 COVID-19 (principal); J12.82 Pneumonia due to coronavirus disease 2019; J96.01 Acute respiratory failure with hypoxia; R65.10 Systemic inflammatory response syndrome (SIRS) of non-infectious origin without acute organ dysfunction; N17.9 Acute kidney failure, unspecified; K86.1 Other chronic pancreatitis; J45.40 Moderate persistent asthma, uncomplicated; E87.6 Hypokalemia; F32.A Depression, unspecified; K20.90 Esophagitis, unspecified without bleeding; K29.70 Gastritis, unspecified, without bleeding; F41.9 Anxiety disorder, unspecified; E66.9 Obesity, unspecified; G89.29 Other chronic pain; M54.9 Dorsalgia, unspecified; F17.210 Nicotine dependence, cigarettes, uncomplicated; R20.2 Paresthesia of skin; Z71.6 Tobacco abuse counseling; Z88.0 Allergy status to penicillin; Z88.5 Allergy status to narcotic agent; Z68.30 Body mass index [BMI] 30.0-30.9, adult; Z79.52 Long term (current) use of systemic steroids; Z79.899 Other long term (current) drug therapy; Z90.710 Acquired absence of both cervix and uterus; Z90.711 Acquired absence of uterus with remaining cervical stump
CPT/HCPCS: 36415; 36600; 71045; 71046; 80048; 80061; 80076; 81001; 82607; 82805; 82947; 83690; 83735; 83880; 84100; 84145; 84484; 85025; 85027; 85610; 86141; 87040; 87804; 87811; 93005; 94760; 96365; 96368; 96375; 99285; J0696; J1100; J1171; J1650; J2405; J2470; J2550; J2919; J3480; J3535; J7030; J7050; J7512; J7605; J7614; J7644

== ENCOUNTER 2024-10-08 05:02 | Emergency (ER) | payer OTHER ==
--- OUTSIDE RECORDS SUMMARY | 2024-10-08 05:11 | XMS REPORT | Continuity of Care Document ---
Author Name Unknown Address [address] [facility] [place] [address] Organization [facility] [place] Address [address] [facility] [address] [place] [address] Care Team Providers Care Senior Designer/Art Director Name Role Phone Reymundo Harvey Primary Care Physician [phone] CARL MAN Attending Clinician Unavailab le LAB90 Attending Clinician Unavailable Doctor Unassigned, [place] Attending Clinician LAKIA Trevino Attending Clinician Geneva Patel DO Attending Clinician [phone] GENEVA RODRÍGUEZ Attending Clinician Lena marie Payers Payer Name Policy Type Policy Number Effective Date Expirati on Date Source [facility] [place] [facility] [id number] 2022 00:00:00 [facility] LEXI JAY COPAY FOCUS 9 [id number] 2024 00:00:00 Problems Condition Name Condition Details Condition Category Status Onset Date Resolution Date Last Treatment Date Treating Clinician Comments Source Well adult exam Well adult exam Disease Active 2023-07 00:00: 00 Jennifer archer Chronic pain Chronic pain Disease Active 2023-07 0-02 00:00: 00 Jennifer Leeold - Externa l Syncope and collapse Syncope and collapse Disease Active 2023-07 0- 00:00: 00 Jennifer Sepriyaold - Externa l Irritable bowel syndrome with both constipati on and diarrhea Irritable bowel syndrome with both constipati on and diarrhea Disease Active 2023-07 0- 00:00: 00 Jennifer Leeold - Externa l Nausea & vomiting Nausea & vomiting Disease Active 2010-07 00:00: 00 [facility] Abdominal pain, acute, epigastric Abdominal pain, acute, epigastric Disease Active 2010-07 00:00: 00 [facility] Leukocytos is Leukocytos is Disease Active 2010-07 00:00: 00 Overview: Formattin g of this note might be different from the original. ICD10 Diagnosis Term [employer] Utility [facility] Hypokalemi a Hypokalemi a Disease Active 2010-07 00:00: 00 [facility] Metabolic acidosis Metabolic acidosis Disease Active 2010-07 00:00: 00 [facility] Anxiety Anxiety Disease Active Jennifer Leeold - Externa l Insomnia Insomnia Disease Active Radha pate Seybold - Externa l Allergies, Adverse Reactions, Alerts Allergy Name Allergy Type Status Severity Reaction(s) Onset Date Inactive Date Treating Clinician Comments Source Penicill ins Propensi ty to adverse reaction s Active Rash 2023-07 0- 00:00: 00 Jennifer Leeold - Externa l Toradol Propensi ty to adverse reaction s Active Hives 2023-07 0- 00:00: 00 Jennifer Seybold - Externa l Penicill ins - CLASS Propensi ty to adverse reaction to drug Active 2021-07 1- 00:00: 00 Ketorola c Propensi ty to adverse reaction s Active Rash 2021-07 0- 00:00: 00 [facility] KETOROLA C DRUG INGREDI Active Rash 2021-07 0- 00:00: 00 [facility] Penicill ins Propensi ty to adverse reaction to drug Active 2- 00:00: 00 Penicill ins Propensi ty to adverse reaction s Active Unknown - See comments 2015-07 00:00: 00 [facility] PENICILL INS Drug Class Active Unknown-Cmnt 2015-07 00:00: 00 [facility] Social History Social Habit Start Date Stop Date Quantity Comments Source History of tobacco use 1998-01-13 00:00:00 Cigarette Smoker Jennifer Bates - External ASSERTION Not Jennifer Bates - External Sexual orientation Laxmi Bates - External Gender identity [facility] Cigarettes smoked current (pack per [...] 2022-04-20 00:00:00 2022-04-30 13:23:00 Not sure [facility] Alcohol intake 2016-05-05 00:00:00 2016-05-05 00:00:00 Current drinker of alcohol (finding) [facility] Sex assigned at 1980 00:00:00 1980 00:00:00 Jennifer Bates - External Smoking Status Start Date Stop Date Source Ex-smoker 2024-04-11 00:00:00 2024-04-11 00:00:00 Laxmi Bates - External Never smoked tobacco [facility] Medications Ordered Medication Name Filled Medication Name Start Date Stop Date Current Medication? Ordering Clinician Indication Dosage Frequency Signature (SIG) Comments Components Source Valacyclovi r HCl 500 MG oral Tablet 2023-07 00:00: 00 Yes [id number] 500mg QD Take 1 tablet (500 mg total) by mouth daily. Jennifer archer Gabapentin 800 MG oral Tablet 2023-07 0- 00:00: 00 Yes [id number] 800mg Q.[id number] 3D Take 1 tablet (800 mg total) by mouth 3 times daily as needed. Jennifer archer Furosemide (Lasix) 20 MG oral Tablet 2023-07 0 00:00: 00 Yes [id number] 20mg QD Take 1 tablet (20 mg total) by mouth daily. Jennifer archer Clonazepam 0.5 MG oral Tablet 04-05 00:00: 00 Yes TAKE 1 TABLET THREE TIMES DAILY FOR SLEEP FOR ANXIETY Jennifer archer Cyclobenzap rine HCl 10 MG oral Tablet - 00:00: 00 Yes 10mg Q.[id number] 3D Take 1 tablet (10 mg total) [...] Unknown 08-07 00:00: 00 No Dose Unknown 0 08-07 00:00: 00 No Dose Unknown 08-07 00:00: 00 No TAKE 2 TABLETS DAILY FOR 7 DAYS, THEN 1 TABLET DAILY FOR 7 DAYS. 08-07 00:00: 00 No azithromyci n 250 mg tablet 08-07 00:00: 00 No mg Dose Unknown 08-07 00:00: 00 No Dose Unknown 0 08-07 00:00: 00 No TAKE 2 TABLETS [...] e-DM 6.25 mg-15 mg/5 mL oral syrup 2020-07- 00:00: 00 No 10mg/5 mL prednisone 20 [...] 00 No 1mg prednisone 20 mg tablet 6- 00:00: 00 No 1mg azithromyci n 250 [...] (scale 4-6) or Pain (scale 7-10). [facility] pantoprazol e (PROTONIX) 40 mg EC tablet 2015-07 00:00: 00 Yes 40mg Take 1 tablet by mouth daily. [facility] proMETHazin e (PHENERGAN) 25 mg tablet 2015-07 00:00: 00 Yes 25mg Take 1 tablet by mouth every 6 (six) hours as needed for Nausea and Vomiting (N/V). [facility] Ibuprofen (MOTRIN) 800 MG oral Tablet 07-12 00:00: 00 Yes 800mg Q.[id number] 3D Take 1 tablet (800 mg total) [...] 00:00: 00 04-11 00:00 :00 No 800mg Q.54221126 [id number] 3D Take 1 tablet (800 mg total) [...] Completed Influenza Virus Vaccine 2011-06-21 00:00:00 Completed [facility] Influenza Virus Vaccine 2011-06-21 00:00:00 Completed [facility] Influenza Virus Vaccine 2011-06-21 00:00:00 Completed [facility] AFLURIA TRIVALENT PF(0.5mL) Unknown Completed Jennifer Howardybold - External Covid-19 Vaccine Moderna (Spikevax), Mrna-lnp, Suleman Protein, Pf Unknown Completed Jennifer Howardybdeidra - External Vital Signs Vital Name Observation Time Observation Value Comments S ource Systolic blood pressure 2024-04-11 16:27:00 110 mm[Hg] Jennifer Seybo ld - External Diastolic blood pressure 2024-04-11 16:27:00 74 mm[Hg] Jennifer Seybo ld - External Heart rate 2024-04-11 16:27:00 100 /min Radha pate Seybold - External Body temperature 2024-04-11 16:27:00 36.22 Brandy Jennifer Howardybold - External Respiratory rate 2024-04-11 16:27:00 15 /min Jennifer Seybold - External Body height 2024-04-11 16:27:00 165.1 cm Carla ey Seybold - External Body weight 2024-04-11 16:27:00 83.008 kg Carla ey Seybold - External BMI 2024-04-11 16:27:00 30.45 kg/m2 Carla ey Seybold - External Body weight 2022-04-30 18:23:16 79.379 kg [facility] BMI 2022-04-30 18:23:16 29.12 kg/m2 [facility] Systolic blood pressure 2022-04-30 18:16:00 128 mm[Hg] [facility] Diastolic blood pressure 2022-04-30 18:16:00 81 mm[Hg] [facility] Heart rate 2022-04-30 18:16:00 92 /min [facility] Body temperature 2022-04-30 18:16:00 37.06 Brandy [facility] Respiratory rate 2022-04-30 18:16:00 18 /min [facility] Body height 2022-04-30 18:16:00 165.1 cm [facility] Oxygen saturation in Arterial blood by Pulse oximetry 2022-04-30 18:16:00 96 /min [facility] BP Systolic 2022-07-28 10:17:00 123 [...] Source REFERRAL- REQUEST/RESPONSE 2023-03-22 05:01:00 Doctor Unassigned, [place] [facility] AUTHORIZATION FOR RELEASE OF PHI 2022-09-30 05:01:00 Doctor Unassigned, [place] [facility] RAPID INFLUENZA A/B 2022-04-30 18:27:00 Tiff Rodríguez ra [facility] COVID-19 (ID NOW RAPID TESTING) 2022-04-30 18:27:00 Geneav Rodríguez [facility] CONSENT/REFUSAL FOR DIAGNOSIS AND TREATMENT 2022-04-30 18:06:22 Doctor Unassigned, [place] [facility] Plan of Care Planned Activity Planned Date Details Comments Source Goal Plan of Care Note [code = 43950-2] Goal Plan of Care Note [code = 17224-1] Goal Plan of Care Note [code = 32469-2] Goal Plan of Care Note [code = 82996-7] Goal Plan of Care Note [code = 29736-4] Goal Plan of Care Note [code = 91111-3] Goal Plan of Care Note [code = 91829-2] Goal Plan of Care Note [code = 74281-0] Goal Plan of Care Note [code = 31599-7] Goal Plan of Care Note [code = 31947-5] Goal Plan of Care Note [code = 52202-7] Goal Plan of Care Note [code = 20916-8] Goal Plan of Care Note [code = 65837-1] Goal Plan of Care Note [code = 51527-2] Goal Plan of Care Note [code = 36063-2] Goal Plan of Care Note [code = 91823-3] Goal Plan of Care Note [code = 64739-9] Goal Plan of Care Note [code = 12140-7] Goal Plan of Care Note [code = 44395-9] Goal Plan of Care Note [code = 36003-1] Goal Plan of Care Note [code = 96987-5] Goal Plan of Care Note [code = 73908-0] Goal Plan of Care Note [code = 32428-1] Goal Plan of Care Note [code = 12053-8] Goal Plan of Care Note [code = 84208-5] Goal Plan of Care Note [code = 00455-4] Goal Plan of Care Note [code = 29839-9] Goal Plan of Care Note [code = 74291-7] Goal Plan of Care Note [code = 99002-7] Goal Plan of Care Note [code = 85257-3] Goal Plan of Care Note [code = 80660-7] Goal Plan of Care Note [code = 15772-5] Goal Plan of Care Note [code = 83521-5] Goal Plan of Care Note [code = 82636-3] Goal Plan of Care Note [code = 04480-2] Goal Plan of Care Note [code = 63449-7] Goal Plan of Care Note [code = 83014-7] Goal Plan of Care Note [code = 74089-2] Goal Plan of Care Note [code = 99651-3] Goal Plan of Care Note [code = 65975-4] Goal Plan of Care Note [code = 90324-3] Goal Plan of Care Note [code = 29812-3] Goal Plan of Care Note [code = 88036-0] Encounters Start Date/Time End Date/Time Encounter Type Admission Type Attending [facility] Facility Care Department Encounter ID Source 2022-11-24 09:13:56 Outpatient [facility] [id number] [facility] 2024-08-10 00:00:00 2024-08-10 00:00:00 Outpatient CARL MAN [id number] [facility] 2024-05-15 00:00:00 2024-05-15 00:00:00 Outpatient CARL MAN [id number] [facility] 2024-05-14 00:00:00 2024-05-14 00:00:00 Outpatient CARL MAN [id number] [facility] 2024-05-10 00:00:00 2024-05-10 00:00:00 Outpatient CARL MAN [id number] [facility] 2024-05-09 11:30:00 2024-05-09 11:30:00 Outpatient CARL MAN [id number] [facility] 2024-04-26 00:00:00 2024-04-26 00:00:00 Outpatient CARL MAN [id number] [facility] 2024-04-24 00:00:00 2024-04-24 00:00:00 Outpatient CARL MAN [id number] [facility] 2024-04-16 00:00:00 2024-04-16 00:00:00 Outpatient CARL MAN [id number] [facility] 2024-04-14 00:00:00 2024-04-14 00:00:00 Outpatient CARL MAN [id number] [facility] 2024-04-12 09:35:00 2024-04-12 09:35:00 Outpatient LAB90 JENNIFER BERNARD [id number] [facility] 2024-04-11 13:00:00 2024-04-11 13:00:00 Outpatient LAB90 JENNIFER BERNARD [id number] [facility] 2024-04-11 11:30:00 2024-04-11 11:30:00 Outpatient CARL MAN [id number] [facility] 2024-04-11 00:00:00 2024-04-11 00:00:00 Outpatient CARL MAN [id number] [facility] 2024-04-11 00:00:00 2024-04-11 00:00:00 Outpatient CARL MAN [id number] [facility] 2023-03-22 11:08:58 2023-03-22 11:08:58 Outpatient SFA SFA [id number] Reginald Dwyer 2023-03-22 00:00:00 2023-03-22 00:00:00 Orders Only Doctor Unassigned, [place] [facility] [id number] [facility] 2022-12-22 10:58:01 2022-12-22 10:58:01 Outpatient SFA SFA [id number] Reginald Dwyer 2022-12-15 13:54:13 2022-12-15 13:54:13 Outpatient SFA SFA [id number] Reginald Dwyer 2022-12-10 13:13:19 2022-12-10 13:13:19 Outpatient SFA SFA [id number] Reginald Dwyer 2022-12-08 14:35:59 2022-12-08 14:35:59 Outpatient SFA SFA [id number] Reginald Dwyer 2022-09-30 00:00:00 2022-09-30 00:00:00 Orders Only Doctor Unassigned, [place] [facility] [id number] [id number] [facility] 2022-09-01 09:29:00 2022-09-01 18:15:00 Emergency E LAKIA MILLER [facility] [address] [facility] 2022-08-02 14:37:45 2022-08-02 14:37:45 Outpatient SFA SFA [id number] Reginald Dwyer 2022-07-28 10:11:02 2022-07-28 10:11:02 Outpatient SFA SFA [id number] Reginald Dwyer 2022-07-28 00:00:00 2022-07-28 00:00:00 Outpatient Visit [id number] 2022-06-21 08:09:11 2022-06-21 08:09:11 Outpatient SFA SFA [id number] Reginald Dwyer 2022-06-19 10:15:22 2022-06-19 10:15:22 Outpatient SFA SFA [id number] Reginald Dwyer 2022-06-18 11:18:31 2022-06-18 11:18:31 Outpatient SFA SFA [id number] Reginald Dwyer 2022-06-18 00:00:00 2022-06-18 00:00:00 Outpatient Visit [id number] 2022-06-14 13:27:35 2022-06-14 13:27:35 Outpatient SFA SFA [id number] Reginald Dwyer 2022-06-14 00:00:00 2022-06-14 00:00:00 Outpatient Visit [id number] 2022-06-10 11:10:28 2022-06-10 11:10:28 Outpatient SFA [facility] [id number] Reginald Dwyer 2022-06-04 00:00:00 2022-06-04 00:00:00 Outpatient Visit [id number] 2022-04-30 13:21:00 2022-04-30 13:57:00 Emergency Geneva Rodríguez [facility] [id number] [id number] [id number] [id number] [facility] 2022-04-30 13:21:00 2022-04-30 13:57:00 Emergency X GENEVA RODRÍGUEZ [facility] ERT [id number] [facility] Results Test Description Test Time Test Comments Results Result Co mments Source RHEUMATOID FACTOR, [id number] 06:57:29* Test Item Value Reference Range Interpretation Comme nts RHEUMATOID FACTOR, QUANT (te st code = 3502) <10 IU/ML <14 C-REACTIVE [id number] 06:45:47* Test Item Value Reference Range Interpretation Comme nts C-REACTIVE PROTEIN (test cod e = 3513) 0.4 MG/DL <0.5 SEDIMENTATION [id number] 04:36:47* Test Item Value Reference Range Interpretation Comme nts SEDIMENTATION RATE (test cod e = 1017) 2 MM/HOUR 0-20 CBC W/AUTO DIFF WITH [id number] 02:24:44* Test Item Value Reference Range Interpretation [...] = 1065) 0.0 /100 WBC'S See_Comment [Automated BoostSuite[employer] ge] The system which generated this result [...] 0.00-0.10 ABS NUCLEATED RBCS (test code = 41059) 0.00 K/UL 0.00-0.11 VARUN (ANTI-NUCLEAR AB) WITH REFLEX [id number] 01:59:28* Test Item Value Reference Range Interpretation Comme nts ANTI-NUCLEAR ANTIBODIES (test code = 3506) NEGATIVE NEGATIVE Methodology is I ndirect Immunofluorescent Assay (IFA) with a titering system using [id number] cells (Hep2 cells transfected with SS-A/Ro). VARUN PATTERN (REPORTED TITER) (test code = 06445) SEE BELOW HOMOGENEOUS (test code = 49983) NEGATIVE TITER NEGATIVE SPECKLED (test code = 874580) NEGATIVE TITER NEGATIVE DENSE FINE SPECKLED (test code = 79863) NEGATIVE TITER NEGATIVE CENTROMERE (test code = 605246) NEGATIVE TITER NEGATIVE COARSE SPECKLED (test code = 254909) NEGATIVE TITER NEGATIVE DISCRETE NUCLEAR DOTS (test code = 770830) NEGATIVE TITER NEGATIVE NUCLEOLAR (test code = 538095) NEGATIVE TITER NEGATIVE NUCLEAR MEMBRANE (test code = 688668) NEGATIVE TITER NEGATIVE CYTO. RETICULAR (AYLA) (test code = 656107) NEGATIVE NEGATIVE COMMENTS (test code = 713843) NONE METHOD (test code = 25019) (NOTE) TESTING PERFORME D BY [facility] IFA PLATFORM.THE METHOD INCLUDES A SCREEN THRESHOLD OF 1:80, DIGITIZED AND COMPUTER ALGORITHM-ASSISTED INTERPRETATION OF TITERS AND DIGITAL PATTERNS, AND HEp-2 CELL LINE SUBSTRATE. ADDITIONAL UNUSUAL PATTERNS WILL BE GIVEN COMMENTS.FOR MORE INFORMATION, SEE [email or web address] [email or web address] UNLESS OTHERWISE INDICATED, ALL TESTING PERFORMED AT [facility] [address] [place] [address] TRACK REPAIRER: VIRGINIA CARTER M.D. CLIA NUMBER [id number] [facility] [place] [id number] COMPREHENSIVE METABOLIC [id number] 08:05:44* Test Item Value Reference Range Interpretation Comme nts GLUCOSE (test code = 2217) 106 MG/DL 70-99 H BUN (test code = 2208) 11 MG/DL 6-20 CREATININE (test code = 2214) 0.64 MG/DL 0.60-1.30 eGFR (2020 CKD-EPI) (test code = 56124) 113 ML/MIN/1.73 >60 CALC BUN/CREAT (test code [...] code = 2219) 18 U/L 5-40 URIC [id number] 08:05:44* Test Item Value Reference Range Interpretation Comme nts URIC ACID (test code = 2233) 4.0 MG/DL 2.7-6.1 SCR MAMM BILATERAL GARRETT CAD [id number] 16:13:07 Name: Kyra : 1980 Sex: F - SCR MAMM BILATERAL GARRETT CAD DIGITALBILATERAL FIRST EVER DIGITAL SCREENING MAMMOGRAM 3D/2D WITH CAD: 11/12/2022LINICAL: Asymptomatic. Digital breast tomosynthesis was performed in addition to routine CC and MLO views. Current mammographic images were evaluated by [employer] ImageChecker CAD (computer-aided detection) software. No prior exams [...] year. (11/13/2023) Kriss Dorado M.D. scg/penrad:11/17/2022 16:13:07 Box Blank Machine Feeder: Amena Moeller MM, [facility] Mammographyletter sent: BIRADS 1-2 Normal Mammogram BI-RADS: 2 BenignT. PALLIDUM TOTAL AB WITH [id number] 10:40:04* Test Item Value Reference Range Interpretation Comme nts T. PALLIDUM TOTAL AB (test code = 35237) <0.1 INDEX SEE BELOW INTERPRETI VE INFORMATION INTERPRETATION CLINICAL T. PALLIDUM AB NEGATIVE CURRENT OR PAST INFECTION INDEX <0.9 UNLIKELY. EQUIVOCAL SPECIMEN REPEATEDLY TESTED INDEX 0.9-1.0 IN EQUIVOCAL RANGE. CONSIDER RETESTING NO SOONER THAN 1 WEEK. POSITIVE PRESUMPTIVE EVIDENCE OF INDEX >=1.1 CURRENT OR PRIOR INFECTION. CORRELATE WITH NON-TREPONEMAL AB TESTING AND CLINICAL HISTORY. HEMOGLOBIN [id number] 03:23:39* Test Item Value Reference Range Interpretation Comme nts HEMOGLOBIN A1c (test code = 95013) 5.7 % 4.2-5.6 H UNLESS OTHERWISE INDICATED, [facility] [address] [place] [address] TRACK REPAIRER: KAN HIGHTOWER M.D. CLIA NUMBER [id number] [place]. [id number] T. PALLIDUM TOTAL AB RFLX [id number] 00:00:00* Test Item Value Reference Range Interpretation Comme nts T. PALLIDUM TOTAL AB (test c ode = 79784) <0.1 INDEX HEMOGLOBIN [id number] 00:00:00* Test Item Value Reference Range Interpretation Comme nts HEMOGLOBIN A1c (test code = 21737) 5.7 % HERPES SIMPLEX 1 [id number] 00:00:00* Test Item Value Reference Range Interpretation Comme nts HERPES SIMPLEX 1 IgG (test c ode = 85727) 18.500 INDEX HERPES SIMPLEX 2 [id number] 00:00:00* Test Item Value Reference Range Interpretation Comme nts HERPES SIMPLEX 2 IgG (test c ode = 81756) 92.700 INDEX COMPREHENSIVE METABOLIC [id number] 00:00:00* Test Item Value Reference Range Interpretation Comme nts GLUCOSE (test code = 2217) 149 MG/DL BUN (test code = 2208) 9 MG/DL CREATININE (test code = 2214) 0.66 MG/DL eGFR (2020 CKD-EPI) (test code = 51677) 113 ML/MIN/1.73 CALC BUN/CREAT (test code = [...] ALT (test code = 2219) 18 U/L [id number] 00:00:00* Test Item Value Reference Range Interpretation Comme nts D-DIMER (test code = 1405) 0.76 UG/MLFEU VAGINAL PATHOGENS DNA [id number] 00:00:00* Test Item Value Reference Range Interpretation Comme nts OFE SPECIES (test code = 32558) NEGATIVE G. VAGINALIS (test code = 82984) POSITIVE T. VAGINALIS (test code = 75149) NEGATIVE HIV 1/2 4TH GEN, RFLX [id number] 00:00:00* Test Item Value Reference Range Interpretation Comme nts HIV 1/2 4TH GEN, RFLX CONF ( test code = 3514) NON-REACTIVE [id number] 00:00:00* Test Item Value Reference Range Interpretation Comme nts RPR RESULT (test code = 3501) REACTIVE RPR TITER (test code = 3500) 1:1 TITER ACUTE HEPATITIS [id number] 00:00:00* Test Item Value Reference Range Interpretation Comme nts HEPATITIS A IgM (test code = 26426) NON-REACTIVE HEPATITIS B CORE IgM (test c ode = 3942) NON-REACTIVE HEPATITIS B SURF AG (test co de = 0061) NON-REACTIVE HEPATITIS C ANTIBODY (test c ode = 0582) NON-REACTIVE INTERPRETATION HEPATITIS A: (test code = 2552) (NOTE) INTERPRETATION HEPATITIS B: (test code = 70278) (NOTE) INTERPRETATION HEPATITIS C: (test code = 50120) (NOTE) CT/NG, TMA, [id number] 00:00:00* Test Item Value Reference Range Interpretation Comme nts GONORRHEA, NAAT (test code = 06903) NEGATIVE CHLAMYDIA, NAAT (test code = 24479) NEGATIVE COMPREHENSIVE METABOLIC [id number] 00:00:00* Test Item Value Reference Range Interpretation Comme nts GLUCOSE (test code = 2217) 73 MG/DL BUN (test code = 2208) 14 MG/DL CREATININE (test code = 2214) 0.78 MG/DL eGFR (2020 CKD-EPI) (test co de = 94604) 98 ML/MIN/1.73 CALC BUN/CREAT (test code = [...] = 2219) 13 U/L VAGINAL PATHOGENS DNA [id number] 00:00:00* Test Item Value Reference Range Interpretation Comme nts OFE SPECIES (test code = 55208) NEGATIVE G. VAGINALIS (test code = 95094) POSITIVE T. VAGINALIS (test code = 44593) NEGATIVE HIV 1/2 4TH GEN, RFLX [id number] 00:00:00* Test Item Value Reference Range Interpretation Comme nts HIV 1/2 4TH GEN, RFLX CONF ( test code = 3514) NON-REACTIVE [id number] 00:00:00* Test Item Value Reference Range Interpretation Comme nts RPR RESULT (test code = 3501) REACTIVE RPR TITER (test code = 3500) 1:1 TITER ACUTE HEPATITIS [id number] 00:00:00* Test Item Value Reference Range Interpretation Comme nts HEPATITIS A IgM (test code = 28612) NON-REACTIVE HEPATITIS B CORE IgM (test c ode = 4644) NON-REACTIVE HEPATITIS B SURF AG (test co de = 2739) NON-REACTIVE HEPATITIS C ANTIBODY (test c ode = 4618) NON-REACTIVE INTERPRETATION HEPATITIS A: (test code = 2552) (NOTE) INTERPRETATION HEPATITIS B: (test code = 73282) (NOTE) INTERPRETATION HEPATITIS C: (test code = 65003) (NOTE) CT/NG, TMA, [id number] 00:00:00* Test Item Value Reference Range Interpretation Comme nts GONORRHEA, NAAT (test code = 82258) NEGATIVE CHLAMYDIA, NAAT (test code = 94919) NEGATIVE COMPREHENSIVE METABOLIC [id number] 00:00:00* Test Item Value Reference Range Interpretation Comme nts GLUCOSE (test code = 2217) 73 MG/DL BUN (test code = 2208) 14 MG/DL CREATININE (test code = 2214) 0.78 MG/DL eGFR (2020 CKD-EPI) (test co de = 57306) 98 ML/MIN/1.73 CALC BUN/CREAT (test code = [...] = 2219) 13 U/L VAGINAL PATHOGENS DNA [id number] 00:00:00* Test Item Value Reference Range Interpretation Comme nts OFE SPECIES (test code = ) NEGATIVE G. VAGINALIS (test code = ) POSITIVE T. VAGINALIS (test code = ) NEGATIVE HIV 1/2 4TH GEN, RFLX [id number] 00:00:00* Test Item Value Reference Range Interpretation Comme nts HIV 1/2 4TH GEN, RFLX CONF ( test code = 3514) NON-REACTIVE [id number] 00:00:00* Test Item Value Reference Range Interpretation Comme nts RPR RESULT (test code = 3501) REACTIVE RPR TITER (test code = 3500) 1:1 TITER ACUTE HEPATITIS [id number] 00:00:00* Test Item Value Reference Range Interpretation Comme nts HEPATITIS A IgM (test code = 02952) NON-REACTIVE HEPATITIS B CORE IgM (test c ode = 4644) NON-REACTIVE HEPATITIS B SURF AG (test co de = 8915) NON-REACTIVE HEPATITIS C ANTIBODY (test c ode = 4633) NON-REACTIVE INTERPRETATION HEPATITIS A: (test code = 2552) (NOTE) INTERPRETATION HEPATITIS B: (test code = 16949) (NOTE) INTERPRETATION HEPATITIS C: (test code = 37214) (NOTE) CT/NG, TMA, [id number] 00:00:00* Test Item Value Reference Range Interpretation Comme nts GONORRHEA, NAAT (test code = 36679) NEGATIVE CHLAMYDIA, NAAT (test code = 27631) NEGATIVE COMPREHENSIVE METABOLIC [id number] 00:00:00* Test Item Value Reference Range Interpretation Comme nts GLUCOSE (test code = 2217) 73 MG/DL BUN (test code = 2208) 14 MG/DL CREATININE (test code = 2214) 0.78 MG/DL eGFR (2020 CKD-EPI) (test co de = 51309) 98 ML/MIN/1.73 CALC BUN/CREAT (test code = [...] past year. Shelia Gloria MA II T [facility]
[2024-10-08] MEDS ORDERED: LORazepam 2 MG/ML VIAL ONE (05:24)
[2024-10-08] MEDS ORDERED: NA CHLORIDE 0.9% 1,000 ML ONE (05:25)
[2024-10-08] MEDS ORDERED: ONDANSETRON 4 MG/2 ML VIAL ONE (05:28)
[2024-10-08 06:20] LABS: Absolute Basophils 0.1 K/uL (0-0.5); Absolute Eosinophils 0.3 K/uL (0-0.5); Absolute Lymphocytes (CBC) 4.1 K/uL (0.7-4.9); Absolute Monocytes 0.7 K/uL (0.1-1.3); Absolute Neutrophil 9.8 K/uL (1.8-8.0); Basophils % 0.6 % (0-1.3); Eosinophils % 2.2 % (0-4.4); Hemoglobin 13.9 g/dL (12.0-15.0); Lymphocytes % 27.4 % (15.3-44.8); MCH 32.4 pg (27.0-35.0); MCHC 33.9 g/dL (32.0-36.0); MCV 95.5 fL (80-100); MPV 8.6 fL (7.6-11.3); Monocytes % 4.8 % (3.3-12.3); Platelets 370 thou/uL (152-406); RBC Red Blood Cell Count 4.29 M/uL (3.86-4.86); Red Cell Distribution Width 14.1 % (12.1-15.2)
[2024-10-08 06:28] LABS: Specific Gravity 1.007 (1.005-1.030); Sqamous Epithelial None Seen /HPF (None Seen); Urine Bacteria <20 /HPF (<20); Urine Bilirubin NEGATIVE (Negative); Urine Blood Negative (Negative); Urine Clarity Clear (Clear); Urine Color Colorless (Yellow); Urine Culture Reflex Order NOT NEEDED; Urine Glucose NEGATIVE (Negative); Urine Ketones NEGATIVE (Negative); Urine Microscopic Reflex YN ORDER UMIC; Urine Nitrite NEGATIVE (Negative); Urine Protein NEGATIVE (Negative); Urine RBC <5 /HPF (None Seen); Urine Urobilinogen Normal (Normal); Urine WBC <5 /HPF (<5); Urine pH 6.5 (5.0-7.0)
[2024-10-08] MEDS ORDERED: droPERidol 5 MG/2 ML VIAL ONE (06:32)
[2024-10-08] MEDS ORDERED: METOCLOPRAMIDE 10 MG/2mL INJ ONE (06:32)
[2024-10-08 06:34] LABS: Barbiturates NEGATIVE (NEGATIVE); Benzodiazepines NEGATIVE (NEGATIVE); Cocaine NEGATIVE (NEGATIVE); METHAMPHETAM NEGATIVE (NEGATIVE); Methadone NEGATIVE (NEGATIVE); Opiates NEGATIVE (NEGATIVE); Phencyclidine NEGATIVE (NEGATIVE); THC Cannibis NEGATIVE (NEGATIVE)
[2024-10-08 06:35] LABS: Albumin 3.6 g/dL (3.4-5.0); Anion Gap 8.6 mEq/L (5.0-15.0); Bilirubin Total 0.7 mg/dL (0.2-1.0); C-Reactive Protein 9.68 mg/L (<3.00); Globulin 3.7 g/dL (2.3-3.5); Potassium 3.6 mEq/L (3.5-5.1); Protein, Total 7.3 g/dL (6.4-8.2)
[2024-10-08 06:42] LABS: Thyroid Stimulating Hormone 4.26 uIU/mL (0.358-3.740)
--- NOTE | 2024-10-08 08:23 | EDPHYS ---
Physician Documentation [facility] Name: Evelyn Rosa Age: 44 yrs Sex: Female : 1980 Arrival Date: 10/08/2024 Time: 05:02 Bed 8 Private MD: ED Physician Patricia Merida HPI: 10/08 05:20 This 44 yrs old Black Female presents to ER via Unassigned with complaints of Chest sp4 Pain, UPPER BACK PAIN. 06:08 44-year-old female presents with acute onset old anxiety, chest pain, upper back pain.. sp4 PMH - LMP N/A - Hysterectomy, Not Historical: Allergies: PENICILLINS; Toradol; Anxiety; chronic back pain; Chronic Pancreatitis; Degenerative disc disease; section; partial hysterectomy. 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 - Infectious Disease History:: Denies. - Social history:: Smoking status: Patient reports the use of cigarette tobacco products, denies chronic smoking, but will smoke occasionally, Patient uses alcohol, occasionally. street drugs, marijuana. - Family history:: not pertinent. ROS: 06:08 Constitutional: Negative for fever, chills, and weight loss, positive for chest pain, sp4 back pain, positive for anxiety 06:08 All other systems are negative, Exam: 06:08 Constitutional: This is a well developed, well nourished patient who is awake, alert, sp4 anxious appearing female Head/Face: Normocephalic, atraumatic. Eyes: Pupils equal round and reactive to light, extra-ocular motions intact. Lids and lashes normal. Conjunctiva and sclera are not injected. Cornea within normal limits. Periorbital areas with no swelling, redness, or edema. ENT: Nares patent. No nasal discharge, no septal abnormalities noted. Tympanic membranes are normal and external auditory canals are clear. Oropharynx with no redness, swelling, or masses, exudates, or evidence of obstruction, uvula midline. Mucous membranes moist. Neck: Trachea midline, no thyromegaly or masses palpated, and no cervical lymphadenopathy. Supple, full range of motion without nuchal rigidity, or vertebral point tenderness. Chest/axilla: Normal chest wall appearance and motion. Nontender with no deformity. No lesions are appreciated. Cardiovascular: Regular rate and rhythm with a normal S1 and S2. No gallops, murmurs, or rubs. Normal PMI, no JVD. No pulse deficits. Respiratory: Lungs have equal breath sounds bilaterally, clear to auscultation and percussion. No rales, rhonchi or wheezes noted. No increased work of breathing, no retractions or nasal flaring. Abdomen/GI: Soft, with normal bowel sounds. No distension or tympany. No guarding or rebound. No evidence of tenderness throughout. Back: No spinal tenderness. No costovertebral tenderness. Skin: Warm, dry with normal turgor. Normal color with no rashes, no lesions, and no evidence of cellulitis. MS/ Extremity: Pulses equal, no cyanosis. Neurovascular intact. Full, normal range of motion. Neuro: Awake and alert, GCS 15, oriented to person, place, time, and situation. Cranial nerves II-XII grossly intact. Motor strength 5/5 in all extremities. Sensory grossly intact. Psych: Awake, alert, with orientation to person, place and time. Anxious appearing female 06:08 ECG was reviewed by the Attending Physician. Sinus tachycardia rate 102, premature atrial contractions. Vital Signs: 05:26 Pulse 101; Resp 17 S; Temp 98.1(O); Pulse Ox 100% on R/A; Weight 90.72 kg (R); Height 5 lg3 ft. 5 in. (R); Pain 6/10; 06:36 BP 138 / 92; Pulse 90; Resp 18; Temp 98.1; Pulse Ox 99% ; Pain 7/10; bm8 06:46 BP 134 / 86; Pulse 98; Resp 17; Pulse Ox 99% on R/A; dd2 08:46 BP 135 / 82; Pulse 89; Resp 15; Pulse Ox 99% ; jl7 05:26 Body Mass Index 33.28 (90.72 kg, 165.1 cm) lg3 05:26 Pain Scale: Adult lg3 06:36 Pain Scale: Adult bm8 [place] Coma Score: 05:32 Eye Response: spontaneous(4). Motor Response: obeys commands(6). Verbal Response: dd2 oriented(5). Total: 15. 06:08 Eye Response: spontaneous(4). Motor Response: obeys commands(6). Verbal Response: sp4 oriented(5). Total: 15. 06:36 Eye Response: spontaneous(4). Motor Response: obeys commands(6). Verbal Response: bm8 oriented(5). Total: 15. MDM: 05:22 Medical Screening Exam initiated sp4 06:12 Differential diagnosis: abnormal EKG, acute pericarditis, anxiety, coronary artery sp4 disease chest wall pain, esophagitis, gastritis. Data reviewed: vital signs, nurses notes. 06:58 HEART Score: History: Slightly Suspicious (0), ECG: Normal (0), Age: < or = 45 years sp4 (0), Risk Factors: No Risk Factors Known (0), Troponin: < or = 1 x Normal Limit (0), Total Score = 0. ED course: Positive for chest pain but workup thus far is unremarkable.. 07:05 Transition of care: After a detail discussion of the patient's case, care is sp4 transferred to Patricia Merida MD. 07:47 ED course: Patient signed out to me by night physician. 44-year-old female with chest sp3 pain and anxiety. Labs all within normal limits except for mild bump in WBC count and CRP. Will obtain chest x-ray to ensure no other pathology. Patient resting comfortably in no acute distress with pain now fully resolved. Vital signs are normal. If chest x-ray negative we will safely discharge patient home.. 08:22 ED course: Chest x-ray demonstrates no significant abnormality or infiltrate. Patient sp3 continues to be chest pain-free and in no acute distress sleeping comfortably. Vital signs remain normal. We will discharge patient safely at this time with PCP follow-up. Patient understands to return here for any worsening symptoms or recurrence of chest pain.. 10/08 05:21 Order name: Urinalysis w/ reflexes; Complete Time: 06:32 sp4 10/08 05:23 Order name: Troponin High Sensitivity; Complete Time: :32 sp4 10/08 05:24 Order name: Urine Drug Screen; Complete Time: 06:48 sp4 10/08 06:08 Order name: CBC with Diff; Complete Time: 06:32 sp4 10/08 06:08 Order name: CMP; Complete Time: 06:48 sp4 10/08 06:08 Order name: CRP; Complete Time: 06:48 sp4 10/08 06:08 Order name: TSH; Complete Time: 06:48 sp4 10/08 06:08 Order name: T4 Free; Complete Time: 06:48 sp4 10/08 06:17 Order name: Lipase; Complete Time: 06:48 EDMS 10/08 07:42 Order name: CXR XRAY; Complete Time: 08:24 sp3 10/08 05:21 Order name: IV Saline Lock; Complete Time: 05:40 sp4 10/08 05:21 Order name: Labs collected and sent; Complete Time: 05:40 sp4 10/08 05:21 Order name: EKG - Nurse/Tech; Complete Time: 05:26 sp4 EC:21 Rate is 102 beats/min. Rhythm is irregular, Sinus tachycardia with PACs. QRS [place] is sp4 Normal. MT interval is normal. QRS interval is normal. QT interval is normal. No Q waves. T waves are Normal. No ST changes noted. Clinical impression: No evidence of ischemia. Interpreted by me. Reviewed by me. Administered Medications: 05:40 Drug: Ativan IVP 2 mg IVP once Route: IVP; Site: left forearm; dd2 06:35 Follow up: Response: No adverse reaction bm8 05:40 Drug: NS 0.9% IV 1000 ml IV at 1 bolus Per protocol; to be given as a bolus over 60 dd2 minutes Route: IV; Rate: 1 bolus; Site: left forearm; 06:35 Follow up: Response: No adverse reaction; IV Status: Completed infusion bm8 05:40 Drug: Ondansetron IVP 4 mg IVP once; over 2 minutes Route: IVP; Site: left forearm; dd2 06:34 Follow up: Response: No adverse reaction bm8 06:56 Drug: metoCLOPramide IVP 10 mg IVP once; over 1 to 2 minutes Route: IVP; Site: left bm8 forearm; 08:48 Follow up: Response: No adverse reaction jl7 06:56 Drug: Droperidol IVP 2.5 mg IVP once Route: IVP; Site: left forearm; bm8 08:48 Follow up: Response: No adverse reaction jl7 Disposition Summary: 10/08/24 08:22 Discharge Ordered Notes: Location: Home sp3 Condition: Stable sp3 Diagnosis - Chest pain, unspecified sp3 Followup: sp3 - With: Private Physician - When: Upon discharge from the Emergency Department - Reason: Continuance of care Discharge Instructions: - Discharge Summary Sheet sp3 - Nonspecific Chest Pain, Adult sp3 Forms: - Medication Reconciliation Form sp3 - Antibiotic Education sp3 - Prescription Opioid Use sp3 - Patient Portal Instructions sp3 - Leadership Thank You Letter sp3 Signatures: Dispatcher [employer] EDMS Suzy Teresa, RN RN lg3 Patricia Merida MD MD sp3 Norbert Faustin MD MD sp4 Regan Ye RN RN bm8 TIEN ROSA RN RN dd2 Vinita Vargas RN jl7 Corrections: (The following items were deleted from the chart) 05:23 05:23 Troponin High Sensitivity+C.LAB.BRZ ordered. EDMS EDMS 06:15 06:13 LIPASE+C.LAB.BRZ ordered. EDMS EDMS 06:19 05:21 Test, Urine+UC.LAB.BRZ ordered. EDMS EDMS 07:43 07:43 Chest Single View+RAD.RAD.BRZ ordered. EDMS EDMS
--- NOTE | 2024-10-08 08:23 | ER ---
Nurse's Notes [facility] Name: Evelyn Rosa Age: 44 yrs Sex: Female : 1980 Arrival Date: 10/08/2024 Time: 05:02 Bed 8 Private MD: Diagnosis: Chest pain, unspecified Presentation: 10/08 05:26 Chief complaint: Patient states: palpitations and flutters X1 week. new onset center CP lg3 radiating to left neck with nausea. Coronavirus screen: Client denies travel out of the [place] in the last 14 days. At this time, the client does not indicate any symptoms associated with coronavirus-19. Ebola Screen: No symptoms or risks identified at this time. Initial Sepsis Screen: Does the patient meet any 2 criteria? No. Patient's initial sepsis screen is negative. Does the patient have a suspected source of infection? No. Patient's initial sepsis screen is negative. Risk Assessment: Do you want to hurt yourself or someone else? Patient reports no desire to harm self or others. Onset of symptoms was October 08, 2024. 05:26 Method Of Arrival: Ambulatory lg3 05:26 Acuity: INDIGO 3 lg3 Triage Assessment: 05:28 General: Appears in no apparent distress. uncomfortable, Behavior is cooperative, lg3 anxious, restless. Pain: Complains of pain in chest Pain radiates to neck Pain currently is 6 out of 10 on a pain scale. EENT: No deficits noted. No signs and/or symptoms were reported regarding the EENT system. Neuro: Fonseca Agitation-Sedation Scale (RASS): +1 Restless Level of Consciousness is awake, alert, obeys commands, Oriented to person, place, time, situation. Cardiovascular: Reports chest pain, nausea, palpitations, Heart tones S1 S2 present Capillary refill < 3 seconds Clubbing of nail beds is absent JVD is absent Patient's skin is warm and dry. Rhythm is sinus tachycardia. Respiratory: No deficits noted. Airway is patent Respiratory effort is even, unlabored, Respiratory pattern is regular, symmetrical. GI: No deficits noted. Abdomen is round non-distended, obese, Reports nausea. : No signs and/or symptoms were reported regarding the genitourinary system. Derm: No deficits noted. No signs and/or symptoms reported regarding the dermatologic system. Skin is intact, is healthy with good turgor, Skin is dry, Skin is normal, Skin temperature is warm. Musculoskeletal: No deficits noted. Circulation, motion, and sensation intact. Range of motion: intact in all extremities. 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 - Infectious Disease History:: Denies. - Social history:: Smoking status: Patient reports the use of cigarette tobacco products, denies chronic smoking, but will smoke occasionally, Patient uses alcohol, occasionally. street drugs, marijuana. - Family history:: not pertinent. Screenin:[address] [facility] ED Fall Risk Assessment (Adult) History of falling in the last 3 months, lg3 including since admission No falls in past 3 months (0 pts) Confusion or Disorientation No (0 pts) Intoxicated or Sedated No (0 pts) Impaired Gait No (0 pts) Mobility Assist Device Used No (0 pt) Altered Elimination No (0 pt) Score/Fall Risk Level 0 - 2 = Low Risk Oriented to surroundings, Maintained a safe environment, Educated pt \T\ family on fall prevention, incl call for assistance when getting out of bed, Assessed \T\ reinforced patient's understanding of fall precautions. Abuse screen: Denies threats or abuse. Denies injuries from another. Nutritional screening: No deficits noted. Tuberculosis screening: No symptoms or risk factors identified. Assessment: 05:32 General: Appears in no apparent distress. uncomfortable, Behavior is cooperative, dd2 appropriate for age, anxious. Pain: Complains of pain in chest Pain radiates to neck Pain currently is 6 out of 10 on a pain scale. Pain began 2 hours ago. Neuro: Fonseca Agitation-Sedation Scale (RASS): +1 Restless Level of Consciousness is awake, alert, obeys commands, Oriented to person, place, time, situation, Appropriate for age. Cardiovascular: Reports chest pain, palpitations, Heart tones S1 S2 present JVD is absent Patient's skin is warm and dry. Rhythm is sinus tachycardia Chest pain is described as mild, Pain is 6 out of 10 on a pain scale. radiates to bilateral neck began 2 hours prior to arrival. Respiratory: Airway is patent Respiratory effort is even, unlabored, Respiratory pattern is regular, symmetrical, Breath sounds are clear bilaterally. GI: Abdomen is non-distended, Abd is soft and non tender X 4 quads. Reports nausea. : No deficits noted. No signs and/or symptoms were reported regarding the genitourinary system. EENT: No deficits noted. No signs and/or symptoms were reported regarding the EENT system. Derm: No deficits noted. No signs and/or symptoms reported regarding the dermatologic system. Musculoskeletal: No deficits noted. No signs and/or symptoms reported regarding the musculoskeletal system. Circulation, motion, and sensation intact. Range of motion: intact in all extremities. 06:36 Reassessment: pt reports no change in symptoms, provider informed and new orders bm8 received. 06:36 Cardiovascular: Reports chest pain, palpitations, Capillary refill < 3 seconds in bm8 bilateral fingers JVD is absent Patient's skin is warm and dry. Respiratory: Airway is patent Respiratory effort is even, unlabored, Respiratory pattern is regular, symmetrical. 07:45 Reassessment: Patient appears in no apparent distress at this time. pt ambulatory to iw the bathroom , steady gait. Vital Signs: 05:26 Pulse 101; Resp 17 S; Temp 98.1(O); Pulse Ox 100% on R/A; Weight 90.72 kg (R); Height 5 lg3 ft. 5 in. (R); Pain 6/10; 06:36 BP 138 / 92; Pulse 90; Resp 18; Temp 98.1; Pulse Ox 99% ; Pain 7/10; bm8 06:46 BP 134 / 86; Pulse 98; Resp 17; Pulse Ox 99% on R/A; dd2 08:46 BP 135 / 82; Pulse 89; Resp 15; Pulse Ox 99% ; jl7 05:26 Body Mass Index 33.28 (90.72 kg, 165.1 cm) lg3 05:26 Pain Scale: Adult lg3 06:36 Pain Scale: Adult bm8 [place] Coma Score: 05:32 Eye Response: spontaneous(4). Motor Response: obeys commands(6). Verbal Response: dd2 oriented(5). Total: 15. 06:08 Eye Response: spontaneous(4). Motor Response: obeys commands(6). Verbal Response: sp4 oriented(5). Total: 15. 06:36 Eye Response: spontaneous(4). Motor Response: obeys commands(6). Verbal Response: bm8 oriented(5). Total: 15. ED Course: 05:11 Patient arrived in ED. gm2 05:20 Norbert Faustin MD is Attending Physician. sp4 05:28 Triage completed. lg3 05:28 Arm band placed on right wrist. lg3 05:30 Patient has correct armband on for positive identification. Placed in gown. Bed in low lg3 position. Call light in reach. Side rails up X 1. Client placed on continuous cardiac and pulse oximetry monitoring. NIBP monitoring applied. 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 Door closed. Noise minimized. Warm blanket given. Pillow given. 05:30 EKG done, by ED staff, reviewed by Norbert Faustin MD. Patient maintains SpO2 lg3 saturation greater than 95% on room air. 05:32 No provider procedures requiring assistance completed. dd2 05:39 Inserted saline lock: 20 gauge in left forearm, using aseptic technique. Blood dd2 collected. Flushed with 10 mL NS. 06:36 Regan Ye, RN is Primary Nurse. bm8 07:01 Attending Physician role handed off by Norbert Faustin MD sp3 07:01 Patricia Merida MD is Attending Physician. sp3 07:56 CXR XRAY In Process Unspecified. EDMS 08:47 Provided Education on: discharge. jl7 08:47 IV discontinued, intact, bleeding controlled, No redness/swelling at site. Pressure jl7 dressing applied. Administered Medications: 05:40 Drug: Ativan IVP 2 mg IVP once Route: IVP; Site: left forearm; dd2 06:35 Follow up: Response: No adverse reaction bm8 05:40 Drug: NS 0.9% IV 1000 ml IV at 1 bolus Per protocol; to be given as a bolus over 60 dd2 minutes Route: IV; Rate: 1 bolus; Site: left forearm; 06:35 Follow up: Response: No adverse reaction; IV Status: Completed infusion bm8 05:40 Drug: Ondansetron IVP 4 mg IVP once; over 2 minutes Route: IVP; Site: left forearm; dd2 06:34 Follow up: Response: No adverse reaction bm8 06:56 Drug: metoCLOPramide IVP 10 mg IVP once; over 1 to 2 minutes Route: IVP; Site: left bm8 forearm; 08:48 Follow up: Response: No adverse reaction jl7 06:56 Drug: Droperidol IVP 2.5 mg IVP once Route: IVP; Site: left forearm; bm8 08:48 Follow up: Response: No adverse reaction jl7 Medication: 05:30 VIS not applicable for this client. lg3 Outcome: 08:22 Discharge ordered by . sp3 08:47 Discharged to home ambulatory, jl7 08:47 Condition: stable 08:47 Discharge instructions given to patient, Instructed on discharge instructions, follow up and referral plans. Demonstrated understanding of instructions, follow-up care, 08:47 Patient left the ED. jl7 Signatures: Dispatcher [employer] EDCarina Palomares, RN JOHN iw Vinita Vargas RN RN jl7 Suzy Teresa RN RN lg3 Patricia Merida MD MD sp3 Norbert Faustin MD MD sp4 Mona Hughes 2 Regan Ye RN RN bm8 TIEN ROSA RN RN dd2
--- NOTE | 2024-10-08 08:23 | RAD REPORT ---
Procedure: Chest Single View HISTORY: Chest pain COMPARISON: 2023 FINDINGS: The lungs appear clear of acute infiltrate. No significant pleural effusion noted. The heart is normal size. IMPRESSION: No acute abnormality is displayed.
[2024-10-08 09:01] VITALS: TEMP 98.1
[2024-10-08 09:09] VITALS: O2SAT 99
[2024-10-08 09:12] VITALS: BP 135/82
--- NOTE | 2024-10-08 11:17 | EKG ---
Test Date: 2024-10-08 Test Time: 05:21:58 Territory Account Manager: MARIE MEASUREMENT RESULTS: Intervals: Rate: 102 MT: 126 QRSD: 78 QT: 350 QTc: 456 [place]: P: 51 MT: 126 QRS: 16 T: 44 INTERPRETIVE STATEMENTS: Sinus tachycardia with premature atrial complexes Otherwise normal ECG Compared to ECG 05/03/2024 21:22:43 Atrial premature complex(es) now present Electronically Signed On 10-08-24 11:16:02 CDT by Claudio Wiggins
== END 2024-10-08 08:47 | disposition home or self-care (01) ==
LOC: ER 05:02
DX: R07.9 Chest pain, unspecified (principal); F41.9 Anxiety disorder, unspecified; F17.210 Nicotine dependence, cigarettes, uncomplicated
CPT/HCPCS: 96361; 93005; 85025; 81001; 36415; 84443; 84484; 84439; 83690; 80053; 80307; 86140; 71045; 96375; 96374; 99285; J2765; J2405; J1790; J7030